=== PATIENT | male | born 1960 | race Caucasian/White ===

== ENCOUNTER 2016-11-03 21:43 | Observation (INO) | payer MEDICAID ==
[2016-11-03 21:56] VITALS: RESP 20; O2SAT 97
--- NOTE | 2016-11-03 22:08 | C.PDOC ---
History Of Present Illness Patient brought in via EMS for acute ETOH intoxication after he was found in the bathroom of a [facility] intoxicated. Denies physical complaints at this time. Time Seen by Provider: 11/03/16 22:07 Chief Complaint (Nursing): Substance Abuse History Per: Patient, EMS History/Exam Limitations: no limitations Onset/Duration Of Symptoms: Hrs Current Symptoms Are (Timing): Still Present Suicide/Self Injury Attempted (Context): None Modifying Factor(s): Alcohol Severity: None Pain Scale Rating Of: 0 Associated Symptoms: denies: Depression, Suicidal Thoughts, Suicidal Plan Involuntary Hold By: None Recent travel outside of the [place]: No Past Medical History Reviewed: Historical Data, Nursing Documentation, Vital Signs Vital Signs: Last Vital Signs Temp 99.4 F 11/04/16 05:21 Pulse 98 H 11/04/16 05:21 Resp 20 11/04/16 05:21 BP 155/83 H 11/04/16 05:21 Pulse Ox 97 11/04/16 05:21 - Medical History PMH: Anemia, CHF, HTN Surgical History: No Surg Hx - [facility] Procedures CENTRAL VENOUS CATHETER PLACEMENT WITH GUIDANCE (11/20/14) DETOXIFICATION SERVICES FOR SUBSTANCE ABUSE TREATMENT (12/17/14) INSERTION OF INFUSION DEV INTO INF VENA CAVA, PERC APPROACH (12/27/14) INTRODUCE OTH ANTI-INFECT IN CENTRAL VEIN, PERC (12/27/14) Family History: States: No Known Family Hx - Social History Hx Alcohol Use: Yes Hx Substance Use: No - Immunization History Hx Tetanus Toxoid Vaccination: No Hx Influenza Vaccination: No Hx Pneumococcal Vaccination: No Review Of Systems Constitutional: Negative for: Fever, Chills Gastrointestinal: Negative for: Nausea, Vomiting, Diarrhea Physical Exam - Physical Exam Appears: Non-toxic, No Acute Distress, Other (ETOH on breath) Skin: Warm, Dry Oral Mucosa: Moist Chest: Symmetrical, No Tenderness Cardiovascular: Rhythm Regular, No Murmur Respiratory: No Rales, No Rhonchi, No Wheezing Gastrointestinal/Abdominal: Soft, No Tenderness Neurological/Psych: Oriented x3 ED Course And Treatment O2 Sat by Pulse Oximetry: 97 (Room air) Pulse Ox Interpretation: Normal Reevaluation Time: 05:27 Reassessment Condition: Improved ED OBSERVATION Discharge: Yes Date of observation admission: 11/03/16 Time of observation admission: 22:10 - Observation admission statement Patient is being placed in observation because:: Acute ETOH intoxication - Goals of Observation Goals of observation are:: Sobriety - Progress Note Progress Note: 11/03/16 22:10 vitals stable 11/04/16 02:29 arousable 11/04/16 04:25 vitals stable Disposition Counseled Patient/Family Regarding: Studies Performed, Diagnosis, Need For Followup - Disposition Disposition: HOME/ ROUTINE Disposition Time: 05:30 Condition: FAIR - Clinical Impression Clinical Impression: Alcohol intoxication - Scribe Statement The provider has reviewed the documentation as recorded by the Scribkrzysztof Larkin All medical record entries made by the Yaoibkrzysztof were at my direction and personally dictated by me. I have reviewed the chart and agree that the record accurately reflects my personal performance of the history, physical exam, medical decision making, and the department course for this patient. I have also personally directed, reviewed, and agree with the discharge instructions and disposition.
[2016-11-04 05:23] VITALS: BP 155/83; PULSE 98; TEMP 99.4
== END 2016-11-04 05:30 | disposition home or self-care (01) ==
LOC: C.ER 21:43 → C.9OBSV 22:08
PROVIDERS: ADMIT Emergency Medicine; ATTEND Emergency Medicine
DX: F10.129 Alcohol abuse with intoxication, unspecified (principal); I11.0 Hypertensive heart disease with heart failure; I50.9 Heart failure, unspecified; Y90.9 Presence of alcohol in blood, level not specified
CPT/HCPCS: 82948; 99285; G0378

== ENCOUNTER 2016-11-07 08:30 | Inpatient (IN) | payer MEDICAID ==
[2016-11-07 08:44] VITALS: BMI 25.7
[2016-11-07] MEDS ORDERED: Multivitamin (MVI) 10 ML, Thiamine 100 MG, Folic Acid 1 MG in Sodium Chloride 0.9% 1,00... IV ONE ×2 (09:29→16:30)
[2016-11-07 09:48] LABS: EOS # 0.1 K/uL (0.0-0.7); LYMPH # 1.4 K/uL (1.0-4.3); MEAN CORPUSCULAR HEMOGLOBIN 31.4 pg (27.0-31.0); MEAN CORPUSCULAR HGB CONC 33.7 g/dL (33.0-37.0); MONO % 16.6 % (0.0-10.0); RED CELL DISTRIBUTION WIDTH 15.6 % (11.5-14.5)
[2016-11-07 09:54] LABS: BASO # 0.1 K/uL (0.0-0.2); BASO % 1.5 % (0.0-2.0); EOS % 1.9 % (0.0-4.0); HEMATOCRIT 34.1 % (35.0-51.0); LYMPH % 23.4 % (20.0-40.0); MEAN CELL VOLUME 93.4 fL (80.0-94.0); MEAN PLATELET VOLUME 11.1 fL (7.2-11.7); NRBC % 0.1 % (0.0-2.0); WHITE BLOOD COUNT 5.8 K/uL (4.8-10.8)
[2016-11-07 10:03] LABS: CHLORIDE 101 mmol/L (98-107)
[2016-11-07 10:04] LABS: POTASSIUM 3.2 mmol/L (3.6-5.2); SODIUM 136 mmol/L (132-148)
[2016-11-07 10:06] LABS: ALB/GLOB RATIO 0.6 (1.0-2.1); ALKALINE PHOSPHATASE 92 U/L (38-126); ALT/SGPT 62 U/L (21-72); AST/SGOT 166 U/L (17-59); BILIRUBIN,TOTAL 5.1 mg/dL (0.2-1.3); BLOOD UREA NITROGEN 14 mg/dL (9-20); CARBON DIOXIDE 26 mmol/L (22-30); GFR AFRICAN-AMERICAN > 60; GLUCOSE,RANDOM 98 mg/dL (75-110); TOTAL PROTEIN 5.6 g/dL (6.3-8.3)
[2016-11-07 10:07] LABS: ALCOHOL SERUM < 10 mg/dl (0-10); CALCIUM 7.2 mg/dl (8.6-10.4)
[2016-11-07 10:16] LABS: RBC URINE 171 /hpf (0-3); URINE BILIRUBIN 2+ (NEGATIVE); URINE BLOOD 3+ (NEGATIVE); URINE COLOR Amber (YELLOW); URINE GLUCOSE (UA) NORMAL (Normal); URINE KETONE TRACE mg/dL (NEGATIVE); URINE LEUKOCYTE ESTERASE TRACE Leu/uL (Negative); URINE PROTEIN 3+ mg/dL (NEGATIVE); WBC URINE 11 /hpf (0-5)
[2016-11-07] MEDS ORDERED: Magnesium Sulfate 1 gm in D5W 1 GM/100 ML BAG IVPB ONE ×3 (10:22→18:00)
[2016-11-07] MEDS ORDERED: Potassium Chloride 20 mEq/15 ml LIQ UD PO STA (10:23)
[2016-11-07] MEDS: Magnesium Sulfate 1 gm in D5W 1 GM/100 ML BAG IVPB SCH ×2 (10:29→11:31)
[2016-11-07] MEDS ORDERED: Potassium Chloride 20 mEq ER Tab PO ONE (10:32)
[2016-11-07 10:37] LABS: PHOSPHOROUS 2.4 mg/dL (2.5-4.5)
--- NOTE | 2016-11-07 10:39 | C.PDOC ---
History Of Present Illness 56 y/o male with hx of 'liver problem' and etoh abuse presents to ED saying he feels weak, and is having trouble walking due to pain in legs. pt sts he hasn't had a drink in 15 days. pt is poor historian and doesn't answer all questions, just stares ahead. Time Seen by Provider: 11/07/16 09:02 Chief Complaint (Nursing): Lower Extremity Problem/Injury History Per: Patient History/Exam Limitations: clinical condition Onset/Duration Of Symptoms: Days Current Symptoms Are (Timing): Still Present Past Medical History Reviewed: Historical Data, Nursing Documentation, Vital Signs Vital Signs: Last Vital Signs Temp 98.7 F 11/07/16 08:44 Pulse 86 11/07/16 10:40 Resp 16 11/07/16 10:40 BP 132/80 11/07/16 10:40 Pulse Ox 100 11/07/16 10:54 - Medical History PMH: Anemia, CHF, HTN Denies: Chronic Kidney Disease Other PMH: alcohol abuse - [facility] Procedures CENTRAL VENOUS CATHETER PLACEMENT WITH GUIDANCE (11/20/14) DETOXIFICATION SERVICES FOR SUBSTANCE ABUSE TREATMENT (12/17/14) INSERTION OF INFUSION DEV INTO INF VENA CAVA, PERC APPROACH (12/27/14) INTRODUCE OTH ANTI-INFECT IN CENTRAL VEIN, PERC (12/27/14) Family History: States: Unknown Family Hx - Social History Hx Alcohol Use: Yes Hx Substance Use: No - Immunization History Hx Tetanus Toxoid Vaccination: No Hx Influenza Vaccination: No Hx Pneumococcal Vaccination: No Review Of Systems Review Of Systems: ROS cannot be obtained secondary to pt's inabilty to answer questions. Gastrointestinal: Negative for: Vomiting, Abdominal Pain Musculoskeletal: Positive for: Other (bilateral knee pain) Skin: Positive for: Jaundice Neurological: Positive for: Confusion. Negative for: Weakness, Numbness Physical Exam - Physical Exam Appears: No Acute Distress, Confused, Chronically Ill Skin: Jaundice Head: Atraumatic, Normacephalic Eye(s): bilateral: Scleral Icterus Nose: Normal Oral Mucosa: Moist Tongue: Other (mild tremors) Teeth: Edentulous Chest: Symmetrical, No Deformity, No Tenderness Cardiovascular: Rhythm Regular, No Murmur Respiratory: Normal Breath Sounds, No Rales, No Rhonchi, No Wheezing Gastrointestinal/Abdominal: Soft, No Tenderness Extremity: Pedal Edema (left +1-2. right +1, left lower leg with mild erythema, calf tenderness, healing wounds, dp pulses not palpated in left or right foot, but heard on doppler. ) Extremity: Bilateral: Other (tremors to hands) Pulses: Left Dorsalis Pedis: Decreased (doppler ), Right Dorsalis Pedis: Decreased (doppler) Neurological/Psych: No Oriented x3 (confused, oriented to self, not to date/ month, knows president), Normal Speech, Normal Motor, Normal Sensation ED Course And Treatment - Laboratory Results Result Diagrams: 11/07/16 09:43 11/07/16 09:43 ECG: Interpreted By Me, Viewed By Me ECG Rhythm: Sinus Rhythm ECG Interpretation: Abnormal Interpretation Of ECG: Prolonged QT Rate From EC (bpm) O2 Sat by Pulse Oximetry: 100 (on RA) Pulse Ox Interpretation: Normal Medical Decision Making Medical Decision Makin am message left for Dr Sylvia Burns [phone] Sylvia Burns; pt in etoh w/d with electrolyte abnl, dec platelets, elevated bili, mild confusion., will admit to his service. Disposition Discussed With .: Marcelino Burns Doctor Will See Patient In The: Hospital - Disposition Disposition Time: 10:51 Condition: SERIOUS Forms: [facility] (Lithuanian) - Clinical Impression Clinical Impression: Alcohol withdrawal, Hypomagnesemia, Jaundice, Thrombocytopenia - PA / SENIOR ADVOCATE / Resident Statement MD/DO has reviewed & agrees with the documentation as recorded. - Scribe Statement The provider has reviewed the documentation as recorded by the Scribe Linsey Burns All medical record entries made by the Scribe were at my direction and personally dictated by me. I have reviewed the chart and agree that the record accurately reflects my personal performance of the history, physical exam, medical decision making, and the department course for this patient. I have also personally directed, reviewed, and agree with the discharge instructions and disposition. Decision To Admit - Pt Status Changed To: Hospital Disposition Of: Inpatient - Admit Certification Admit to Inpatient:: After my assessment, the patient will require hospitalization for at least two midnights. This is because of the severity of symptoms shown, intensity of services needed, and/or the medical risk in this patient being treated as an outpatient. - InPatient: Physician Admission Certification: I certify that this patient requires 2 or more midnights of care for the following reason:: needf electro;yte replacement - . Bed Request Type: Regular Admitting Physician: Marcelino Burns Patient Diagnosis: Alcohol withdrawal, Hypomagnesemia, Jaundice, Thrombocytopenia
--- NOTE | 2016-11-07 11:38 | CT ---
PROCEDURE: CT HEAD WITHOUT CONTRAST. HISTORY: mild confusion, hx etoh abuse COMPARISON: Noncontrast head CT performed 01/28/15 TECHNIQUE: Axial computed tomography images were obtained through the head/brain without intravenous contrast. Radiation dose: Total exam DLP = 981.84 mGy-cm. This CT exam was performed using one or more of the following dose reduction techniques: Automated exposure control, adjustment of the mA and/or kV according to patient size, and/or use of iterative reconstruction technique. FINDINGS: HEMORRHAGE: No intracranial hemorrhage. BRAIN: Diffuse atrophy with prominence of the ventricles and sulci noted. No mass effect or edema. Intracranial atherosclerotic calcifications. Bilateral basal ganglia calcifications. Moderate scattered periventricular and subcortical white matter hypodensities, which are nonspecific, but often seen with chronic microvascular ischemic disease. .Please note that MRI with diffusion imaging is more sensitive in the detection of acute ischemic event. VENTRICLES: No hydrocephalus. CALVARIUM: Unremarkable. PARANASAL SINUSES: Unremarkable as visualized. No significant inflammatory changes. MASTOID AIR CELLS: Under aeration of the left mastoid air cells ; correlate for history of mastoiditis. The right mastoid air cells appear clear. OTHER FINDINGS: None. IMPRESSION: Generalized atrophy. Moderate nonspecific white matter changes. Under aeration of the left mastoid air cells ; correlate for history of mastoiditis.
--- NOTE | 2016-11-07 12:51 | CP.PCM.CON ---
History of Present Illness - History of Present Illness History of Present Illness: 56 y/o male with hx of 'liver problem' and etoh abuse presents to ED saying he feels weak, and is having trouble walking due to pain in legs. pt sts he hasn't had a drink in 15 days. pt is poor historian and doesn't answer all questions, just stares ahead. REFERRED FR ID EVAL CELLULITIS LOWER EXTREM DENIES FEVER - Medical History PMH: Anemia, CHF, HTN Denies: Chronic Kidney Disease Other PMH: alcohol abuse Review of Systems - Constitutional Constitutional: Anorexia - EENT Eyes: absent: As Per HPI, Blind Spots, Blurred Vision, Change in Vision, Decreased Night Vision, Diplopia, Discharge, Dry Eye, Exophthalmos, Floaters, Irritation, Itchy Eyes, Loss of Peripheral Vision, Pain, Photophobia, Requires Corrective Lenses, Sees Flashes, Spots in Vision, Tunnel Vision, Other Visual Disturbances, Loss of Vision, Other Ears: absent: As Per HPI, Decreased Hearing, Ear Discharge, Ear Pain, Tinnitus, Abnormal Hearing, Disequilibrium, Dizziness, Other Nose/Mouth/Throat: absent: As Per HPI, Epistaxis, Nasal Congestion, Nasal Discharge, Nasal Obstruction, Nasal Trauma, Nose Pain, Post Nasal Drip, Sinus Pain, Sinus Pressure, Bleeding Gums, Change in Voice, Dental Pain, Dry Mouth, Dysphagia, Halitosis, Hoarsness, Lip Swelling, Mouth Lesions, Mouth Pain, Odynophagia, Sore Throat, Throat Swelling, Tongue Swelling, Facial Pain, Neck Pain, Neck Mass, Other - Cardiovascular Cardiovascular: absent: As Per HPI, Acrocyanosis, Chest Pain, Chest Pain at Rest , Chest Pain with Activity, Claudication, Diaphoresis, Dyspnea, Dyspnea on Exertion, Edema, Irregular Heart Rhythm, Pain Radiating to Arm/Neck/Jaw, Leg Edema, Leg Ulcers, Lightheadedness, Orthopnea, Palpitations, Paroxysmal Nocturnal Dyspnea, Pedal Edema, Radiating Pain, Rapid Heart Rate, Slow Heart Rate, Syncope, Other - Respiratory Respiratory: absent: As Per HPI, Cough, Dyspnea, Hemoptysis, Dyspnea on Exertion , Wheezing, Snoring, Stridor, Pain on Inspiration, Chest Congestion, Excessive Mucous Production, Change in Mucous Color, Pain with Coughing, Other - Gastrointestinal Gastrointestinal: As Per HPI - Genitourinary Genitourinary: absent: As Per HPI, Change in Urinary Stream, Difficulty Urinating, Dysuria, Flank Pain, Hematuria, Pyuria, Nocturia, Urinary Incontinence, Urinary Frequency, Urinary Hesitance, Urinary Urgency, Voiding Freq/Small Amts, Freq UTI, Hx Renal/Bladder Calculi, Hx /Renal Surgery, Bladder Distension, Other - Musculoskeletal Musculoskeletal: As Per HPI - Integumentary Integumentary: As Per HPI, Skin Pain - Neurological Neurological: absent: As Per HPI, Abnormal Gait, Abnormal Hearing, Abnormal Movements, Abnormal Speech, Behavioral Changes, Burning Sensations, Confusion, Convulsions, Disequilibrium, Dizziness, Numbness, Focal Weakness, Frequent Falls , Headaches, Lack of Coordination, Loss of Vision, Memory Loss, Paresthesias, Radicular Pain, Restless Legs, Sensory Deficit, Syncope, Tingling, Tremor, Vertigo, Weakness, Other Visual Disturbances, Other - Psychiatric Psychiatric: absent: As Per HPI, Abnormal Sleep Pattern, Anhedonia, Anxiety, Auditory Hallucinations, Behavioral Changes, Change in Appetite, Change in Libido, Confusion, Depression, Difficulty Concentrating, Hallucinations, Homicidal Ideation, Hopelessness, Irritability, Memory Loss, Mood Swings, Panic Attacks, Paranoia, Suicidal Ideation, Visual Hallucinations, Tactile Hallucinations, Other - Endocrine Endocrine: absent: As Per HPI, Change in Body Appearance, Change in Libido, Cold Intolorance, Deepening of Voice, Excessive Sweating, Fatigue, Flushing, Heat Intolorance, Increase in Ring/Shoe/Hat Size, Palpitations, Polydipsia, Polyphagia, Polyuria, Other - Hematologic/Lymphatic Hematologic: absent: As Per HPI, Easy Bleeding, Easy Bruising, Lymphadenopathy, Other Past Patient History - Infectious Disease Hx of Infectious Diseases: None - Past Medical History & Family History Past Medical History?: Yes - Past Social History Smoking Status: Never Smoked - CARDIAC Hx Congestive Heart Failure: Yes Hx Hypertension: Yes - PULMONARY Hx Respiratory Disorders: No - NEUROLOGICAL Hx Neurological Disorder: No - HEENT Hx HEENT Problems: No - RENAL Hx Chronic Kidney Disease: No - ENDOCRINE/METABOLIC Hx Endocrine Disorders: No - HEMATOLOGICAL/ONCOLOGICAL Hx Anemia: Yes - INTEGUMENTARY Hx Dermatological Problems: Yes Hx Cellulitis: Yes (right lower extremity) Other/Comment: Right thigh Abscess, Right lower leg cellulitis - MUSCULOSKELETAL/RHEUMATOLOGICAL Hx Musculoskeletal Disorders: No - GASTROINTESTINAL Hx Gastrointestinal Disorders: No Other/Comment: liver problems, Alcohol abuse, - GENITOURINARY/GYNECOLOGICAL Hx Genitourinary Disorders: No - PSYCHIATRIC Hx Substance Use: No - SURGICAL HISTORY Hx Surgeries: No (verbalized by patient) - ANESTHESIA Hx Anesthesia: No Hx Anesthesia Reactions: No Hx Malignant Hyperthermia: No Meds Allergies/Adverse Reactions: Allergies Allergy/AdvReac Type Severity Reaction Status Date / Time No Known Allergies Allergy Verified 11/07/16 09:07 - Medications Medications: Current Medications Multivitamins/Vitamin C 10 ml/Thiamine HCl 100 mg/ Folic Acid 1 mg/ Sodium Chloride 1,011.2 mls @ 100 mls/hr IV .[id number] ONE Stop: 11/07/16 19:35 Last Admin: 11/07/16 10:15 Dose: 100 mls/hr Magnesium Sulfate/Dextrose (Magnesium Sulfate 1 Gm/100 Ml D5w) 1 gm in 100 mls @ 200 mls/hr IVPB ONCE ONE Stop: 11/08/16 13:29 Cefazolin Sodium 1 gm/ Sodium (Chloride) 100 mls @ 100 mls/hr IVPB ONCE ONE Stop: 11/07/16 13:59 Lorazepam (Ativan) 1 mg IVP Q6H PRN PRN Reason: Anxiety Physical Exam - Constitutional Appears: Non-toxic, Cachectic, Chronically Ill - Head Exam Head Exam: NORMOCEPHALIC - Eye Exam Eye Exam: PERRL. absent: Scleral icterus - ENT Exam ENT Exam: Mucous Membranes Dry, Normal External Ear Exam - Neck Exam Neck exam: Negative for: Lymphadenopathy - Respiratory Exam Respiratory Exam: Decreased Breath Sounds - Cardiovascular Exam Cardiovascular Exam: REGULAR RHYTHM - GI/Abdominal Exam GI & Abdominal Exam: Diminished Bowel Sounds, Distended, Soft. absent: Rigid, Tenderness - Rectal Exam Rectal Exam: Deferred - Exam Exam: NORMAL INSPECTION - Extremities Exam Extremities exam: Positive for: pedal edema, tenderness, pedal pulses present. Negative for: calf tenderness - Back Exam Back exam: absent: CVA tenderness (L), CVA tenderness (R), paraspinal tenderness - Neurological Exam Neurological exam: Alert, CN II-XII Intact, Oriented x3, Reflexes Normal - Psychiatric Exam Psychiatric exam: Normal Mood Results - Vital Signs Recent Vital Signs: Last Vital Signs Temp 98.7 F 11/07/16 08:44 Pulse 84 11/07/16 11:32 Resp 18 11/07/16 11:32 BP 137/81 11/07/16 11:32 Pulse Ox 97 11/07/16 11:32 - Labs Result Diagrams: 11/08/16 07:07 11/08/16 07:07 Assessment & Plan (1) Cellulitis and abscess of foot excluding toe Status: Acute (2) Cellulitis and abscess of foot Status: Acute (3) Alcohol withdrawal Status: Acute (4) Hypomagnesemia Status: Acute (5) Jaundice Status: Acute (6) Thrombocytopenia Status: Acute (7) Cellulitis Status: Acute
[2016-11-07] MEDS ORDERED: ceFAZolin 1 GM in Sodium Chloride 0.9% 100 ML IVPB ONE (13:00)
--- NOTE | 2016-11-07 13:42 | CP.PCM.CON ---
<Jessa Burns - Last Filed: 11/07/16 15:27> History of Present Illness - History of Present Illness History of Present Illness: PGY4 Initial GI Note Kitty Burns is a 56M w/ a hx of liver cirrohsis 2/2 Etoh, HTN, CHF, and recurrent cellulites who presented to the Ed with LLE pain. Pt is being actively treated for LLE cellulites. He was found to have elevated LFTs on admission. GI was consulted for elevated LFTs. Pt has been to the ER multiple times for intoxication. He states that his last Etoh consumption was > 15 days ago, though he was brought to the ED 5days ago after being found intoxicated on the floor of a [place] bathroom. Pt currently denies any abd pain. He states that he has in the past had many hospitalizations for hematemesis. Though able to communicate through Gujarati and Pakistani, he is a poor historian. He notes that in the past her was even intubated and had a trach collar for a time 2/2 hematemesis?. He currently denies any symptoms of hemate, mesis. Denies any abd pain, nausea, or vomiting. He cannot recall ever having a colonoscopy, but states that he has had multiple EGDs. He denies any ASA or NSAID use. Denies any BRBPR and melena. A previous Abd U/S in 07/2014 shows a cirrhotic liver with a TIPPS stent, there is also a mention of a hepatic mass. PMHx: HTN, Liver cirrohsis 2/2 EtoH, CHF PSHx: TIPS, Trach and reversal, Scrotal abscess drainage Social Hx: consumes Etoh on a daily basis, but states that his last drink was 15 days ago, states that he does not have a preference with alcohol and states that he only drink 2-4 beers, denies any smoking or illicit drug use Endoscopy hx: denies colonscopy, states that he has had multiple EGDs last one being 5 years ago ROS: 12-point ROS is conducted, other than whats mentioned above its neg. Past Patient History - Infectious Disease Hx of Infectious Diseases: None - Past Medical History & Family History Past Medical History?: Yes - Past Social History Smoking Status: Never Smoked - CARDIAC Hx Congestive Heart Failure: Yes Hx Hypertension: Yes - PULMONARY Hx Respiratory Disorders: No - NEUROLOGICAL Hx Neurological Disorder: No - HEENT Hx HEENT Problems: No - RENAL Hx Chronic Kidney Disease: No - ENDOCRINE/METABOLIC Hx Endocrine Disorders: No - HEMATOLOGICAL/ONCOLOGICAL Hx Anemia: Yes - INTEGUMENTARY Hx Dermatological Problems: Yes Hx Cellulitis: Yes (right lower extremity) Other/Comment: Right thigh Abscess, Right lower leg cellulitis - MUSCULOSKELETAL/RHEUMATOLOGICAL Hx Musculoskeletal Disorders: No - GASTROINTESTINAL Hx Gastrointestinal Disorders: No Other/Comment: liver problems, Alcohol abuse, - GENITOURINARY/GYNECOLOGICAL Hx Genitourinary Disorders: No - PSYCHIATRIC Hx Substance Use: No - SURGICAL HISTORY Hx Surgeries: No (verbalized by patient) - ANESTHESIA Hx Anesthesia: No Hx Anesthesia Reactions: No Hx Malignant Hyperthermia: No Meds Allergies/Adverse Reactions: Allergies Allergy/AdvReac Type Severity Reaction Status Date / Time No Known Allergies Allergy Verified 11/07/16 09:07 - Medications Medications: Current Medications Multivitamins/Vitamin C 10 ml/Thiamine HCl 100 mg/ Folic Acid 1 mg/ Sodium Chloride 1,011.2 mls @ 100 mls/hr IV .Q10H7M ONE Stop: 11/07/16 19:35 Last Admin: 11/07/16 10:15 Dose: 100 mls/hr Magnesium Sulfate/Dextrose (Magnesium Sulfate 1 Gm/100 Ml D5w) 1 gm in 100 mls @ 200 mls/hr IVPB ONCE ONE Stop: 11/08/16 13:29 Cefazolin Sodium 1 gm/ Sodium (Chloride) 100 mls @ 100 mls/hr IVPB ONCE ONE Stop: 11/07/16 13:59 Cefazolin Sodium 1,000 mg/ (Sodium Chloride) 100 mls @ 100 mls/hr IVPB Q8 [facility] Cefazolin Sodium 1,000 mg/ (Sodium Chloride) 50 mls @ 100 mls/hr IVPB Q12H [facility] Lorazepam (Ativan) 1 mg IVP Q6H PRN PRN Reason: Anxiety Physical Exam - Constitutional Appears: Non-toxic, Unkempt, Chronically Ill - Head Exam Head Exam: ATRAUMATIC, NORMOCEPHALIC - Eye Exam Eye Exam: Scleral icterus - ENT Exam ENT Exam: Mucous Membranes Dry - Respiratory Exam Respiratory Exam: Clear to Auscultation Bilateral, NORMAL BREATHING PATTERN. absent: Rales, Rhonchi, Wheezes - Cardiovascular Exam Cardiovascular Exam: REGULAR RHYTHM, +S1, +S2, Systolic Murmur - GI/Abdominal Exam GI & Abdominal Exam: Distended, Organomegaly. absent: Firm, Guarding, Rigid, Soft, Tenderness Additional comments: enlarged liver, nontender - Extremities Exam Additional comments: LLE erythema and swelling - Neurological Exam Neurological exam: Altered, Oriented x3 - Psychiatric Exam Psychiatric exam: Flat Affect, Normal Mood - Skin Skin Exam: Dry, Erythema, Warm Additional comments: jandice Results - Vital Signs Recent Vital Signs: Last Vital Signs Temp 98.2 F 11/07/16 13:03 Pulse 85 11/07/16 13:03 Resp 20 11/07/16 13:03 BP 144/92 H 11/07/16 13:03 Pulse Ox 99 11/07/16 13:03 - Labs Result Diagrams: 11/07/16 09:43 11/07/16 09:43 Assessment & Plan - Assessment and Plan (Free Text) Assessment: Kitty Burns is a 56M w/ hx of Cirrohisis 2/2 Etoh s/p TIPS, HTN, CHF who presents with LLE cellulitis. He was found to have elevated LFTs and jaundice. Etiology: unknown; DDx: Acute alcoholic hepatitis, r/o viral etiology, r/o malignancy. Acute Liver failure, etiology likely 2/2 EtoH; r/o infectious and malignancy Painless jaundice, likely 2/2 to above Alcoholic Liver Cirrohsis, still consuming Etoh Hx of upper GI bleed likely varicies, s/p TIPS thrombocytopenia, likely 2/2 bone marrow suppression from chronic EtOH consumption, r/o portal or splenic vein thrombosis Plan: -continue supportive protocol for etoh withdrawal -Prior U/S(2014) revealed a 1.7cm lesion in the liver, will need CT Liver to eval -Get an acute hep panel -will need daily MELD labs -will need INR today to calculate MELD and DF -will get alpha protein -diet as tolerated -will start on lactulose for hep enceph -will need aggressive electrolyte replenishment -recommend checking Phosphorous levels, and watch for refeeding syndrome in the next few days -continue other supportive care Will D/W Dr. Cortez <Wing Cortez - Last Filed: 11/07/16 15:44> Meds - Medications Medications: Current Medications Multivitamins/Vitamin C 10 ml/Thiamine HCl 100 mg/ Folic Acid 1 mg/ Sodium Chloride 1,011.2 mls @ 100 mls/hr IV .Q10H7M ONE Stop: 11/07/16 19:35 Last Admin: 11/07/16 10:15 Dose: 100 mls/hr Magnesium Sulfate/Dextrose (Magnesium Sulfate 1 Gm/100 Ml D5w) 1 gm in 100 mls @ 200 mls/hr IVPB ONCE ONE Stop: 11/08/16 13:29 Cefazolin Sodium 1,000 mg/ (Sodium Chloride) 100 mls @ 100 mls/hr IVPB Q8 [facility] Cefazolin Sodium 1,000 mg/ (Sodium Chloride) 50 mls @ 100 mls/hr IVPB Q12H [facility] Lactulose (Enulose) 20 gm PO HS [facility] Lorazepam (Ativan) 1 mg IVP Q6H PRN PRN Reason: Anxiety Pneumococcal Polyvalent Vaccine (Pneumovax 23 Vaccine) 0.5 ml IM .ONCE ONE Stop: 11/09/16 10:01 Results - Vital Signs Recent Vital Signs: Last Vital Signs Temp 98.2 F 11/07/16 13:03 Pulse 85 11/07/16 13:03 Resp 20 11/07/16 13:03 BP 144/92 H 11/07/16 13:03 Pulse Ox 99 11/07/16 13:03 - Labs Result Diagrams: 11/07/16 09:43 11/07/16 09:43 Attending/Attestation - Attestation I have personally seen and examined this patient.: Yes I have fully participated in the care of the patient.: Yes I have reviewed all pertinent clinical information: Yes Notes (Text): 11/07/16 15:35 I have seen and examined patient with GI fellow. Agree with above documentation with the following additions. In brief, this is a 56 year old male with history of decompensated cirrhosis s/p TIPS likely secondary to ETOH abuse, HTN, CHF, who presents to hospital with complaint of lower extremity skin rash and is currently being treated for cellulitis. GI called for evaluation of cirrhosis. Patient is slightly confused at bedside and seen sitting in bed covered with urine. When spoken in his [place] language, he is alert and oriented x 3 but does not recall being incontinent of urine. He denies abdominal pain, nausea, vomiting, fever/chills, weight loss, rectal bleeding, or change in bowel habits. He has had prior episodes of upper GI bleeding with multiple EGDs, no prior colonoscopy. He admits to ongoing ETOH abuse with his last drink supposedly 15 days ago, though documentation from ER staff supports more recent consumption. Decompensated cirrhosis, likely secondary to ETOH abuse Jaundice Refractory upper GI bleeding, s/p TIPS HTN CHF Cellulitis Altered mental status - hepatic encephalopathy vs ETOH withdrawal - Low sodium diet as tolerated - Continue with antibiotic therapy as per ID - H/H stable, continue to monitor - Begin lactulose, titrate so patient has 2-3 bowel movements daily - Obtain INR so that MELD can be calculated - Prior abdominal US from 2014 showed a hypodense liver lesion, will need triple phase liver CT to evaluate for possible HCC. Obtain AFP. - Obtain viral hepatitis panel, continue to monitor LFTs - Continue with supportive care, monitor and replete electrolytes - Overall patient prognosis is poor in setting of decompensated cirrhosis, particularly given ongoing ETOH abuse
[2016-11-07] MEDS ORDERED: Iodixanol 320 MG/ML 100 ML BOTTLE IV ONE (17:32)
[2016-11-07 18:05] LABS: INR 1.6
[2016-11-07] MEDS: Metoprolol Succinate 50 mg XL Tab PO SCH (20:21)
--- NOTE | 2016-11-08 02:18 | HP ---
HISTORY OF PRESENT ILLNESS: This is a 56-year-old [place] male came to the emergency room with history of generalized fatigue and weakness. The patient claims he has left knee pain. The patient denies having any fall. The patient states he has not had a drink in the last 15 days. The patient appears to be in alcohol withdrawal. The patient is a noncompliant. The patient has history of cirrhosis of liver and hypertension. The patient denies nausea, vomiting, or abdominal pain. Both legs are swollen. Left leg redness present. REVIEW OF SYSTEMS: CARDIOVASCULAR SYSTEM: Negative for chest pain. RESPIRATORY SYSTEM: Negative for shortness of breath. No cough. GASTROINTESTINAL SYSTEM: No nausea, vomiting, or diarrhea. CENTRAL NERVOUS SYSTEM: Generalized weakness present. No dizziness. PSYCHIATRIC: Psychiatrically the patient is in withdrawal. Complained of back pain. No urinary complaints. Complained of left knee and leg pain. Edema of the legs presents. PAST MEDICAL HISTORY: History of hypertension, anemia, CHF, chronic ETOH, and cirrhosis of the liver. FAMILY HISTORY: No known family history. ALLERGIES: NO KNOWN ALLERGY. SOCIAL HISTORY: Alcohol present. No substance abuse. MEDICATIONS: The patient is not on any medications. PHYSICAL EXAMINATION: GENERAL: This is a 56-year-old male awake, appears confused with tremors. VITAL SIGNS: Temperature 98.7, pulse 86, respirations 16, blood pressure 132/80 mmHg, pulse oximetry is 100% at room air. HEENT: Normal. NECK: JVP is flat. Carotids, no bruits. LUNGS: No rales. No wheezing. HEART: S1 and S2 normal. No gallop. No murmur. ABDOMEN: Soft and nontender. No ascites. No mass. CENTRAL NERVOUS SYSTEM: No focal neurological deficits. EXTREMITIES: Left knee appears normal. Below the knee the patient has leg and foot redness. Cellulitis present. Edema of the leg is present. The patient has poor peripheral pulses in the legs. No evidence of gangrene. LABORATORY DATA: On admission, lab work shows hemoglobin 11.5, platelet of 51,000. Potassium is 3.2, BUN is elevated. IMPRESSION: 1. Alcohol withdrawal. 2. Hypomagnesemia. 3. Cirrhosis of the liver. 4. Thrombocytopenia. 5. Left leg and foot cellulitis. 6. Hypertension. PLAN: The patient will be admitted to the floor. We will get gastrointestinal evaluation done. We will give Ativan for withdrawal. Other workup as needed. Marcelino Burns MD
[2016-11-08 07:24] LABS: BASO # 0.1 K/uL (0.0-0.2); BASO % 1.4 % (0.0-2.0); EOS # 0.1 K/uL (0.0-0.7); EOS % 1.3 % (0.0-4.0); LYMPH # 1.5 K/uL (1.0-4.3); LYMPH % 18.6 % (20.0-40.0); MEAN CELL VOLUME 94.5 fL (80.0-94.0); MEAN CORPUSCULAR HEMOGLOBIN 31.6 pg (27.0-31.0); MEAN CORPUSCULAR HGB CONC 33.5 g/dL (33.0-37.0); MEAN PLATELET VOLUME 10.9 fL (7.2-11.7); MONO # 1.3 K/uL (0.0-0.8); MONO % 16.2 % (0.0-10.0); NRBC % 0.1 % (0.0-2.0); RED CELL DISTRIBUTION WIDTH 15.3 % (11.5-14.5)
[2016-11-08 07:36] LABS: CHLORIDE 105 mmol/L (98-107); SODIUM 138 mmol/L (132-148)
[2016-11-08 07:37] LABS: POTASSIUM 3.9 mmol/L (3.6-5.2)
[2016-11-08 07:38] LABS: GFR AFRICAN-AMERICAN > 60
[2016-11-08 07:39] LABS: ALB/GLOB RATIO 0.5 (1.0-2.1); ALKALINE PHOSPHATASE 85 U/L (38-126); ALT/SGPT 55 U/L (21-72); AST/SGOT 133 U/L (17-59); BILIRUBIN,TOTAL 5.8 mg/dL (0.2-1.3); BLOOD UREA NITROGEN 12 mg/dL (9-20); CALCIUM 7.2 mg/dl (8.6-10.4); CARBON DIOXIDE 25 mmol/L (22-30); GLUCOSE,RANDOM 96 mg/dL (75-110); TOTAL PROTEIN 5.4 g/dL (6.3-8.3)
[2016-11-08 07:40] LABS: MAGNESIUM 1.3 mg/dL (1.6-2.3)
[2016-11-08] MEDS ORDERED: Multivitamin (MVI) 10 ML, Thiamine 100 MG, Folic Acid 1 MG in Sodium Chloride 0.9% 1,00... IV ONE (10:00)
--- NOTE | 2016-11-08 10:00 | VASCLAB ---
PROCEDURE: Left Lower Extremity Venous Duplex Exam. HISTORY: Left leg pain and swelling PRIORS: None. TECHNIQUE: Left common femoral, femoral, popliteal and posterior tibial, peroneal and great saphenous veins were evaluated. Flow was assessed with color Doppler, compressibility, assessment of phasic flow and augmentation response. Report prepared by HEDY Dugan FINDINGS: LEFT: 1. Common Femoral Vein: 1.1. Compressibility - Fully compressible: Thrombus - None : Flow - Phasic: Augmentation -Normal: Reflux - None. 2. Femoral Vein: 2.1. Compressibility - Fully compressible: Thrombus - None: Flow - Phasic: Augmentation -Normal: Reflux - None. 3. Popliteal Vein: 3.1. Compressibility - Fully compressible: Thrombus - None: Flow - Phasic: Augmentation -Normal: Reflux - None. 4. Posterior Tibial Vein: 4.1. Compressibility - Fully compressible: Thrombus - None: Flow - Phasic: Augmentation -Normal: Reflux - None. 5. Peroneal Vein: 5.1. Compressibility - Fully compressible: Thrombus - None: Flow - Phasic: Augmentation -Normal: Reflux - None. 6. Great Saphenous Vein: 6.1. Compressibility - Fully compressible: Thrombus - None: Flow - Phasic: Augmentation - Normal: Reflux - None. OTHER FINDINGS: There is a non vascularized mass noted in the left groin area, measuring 1.22 x 3.94 c.m., possibly and enlarged lymph node. IMPRESSION: No evidence of deep or superficial vein thrombosis of the left lower extremity with excellent venous flow. Normal valve function noted of the left side. Normal venous flow noted in the right common femoral vein.
[2016-11-08] MEDS: Pantoprazole 40 mg EC Tab PO SCH (10:27)
[2016-11-08] MEDS: Metoprolol Succinate 50 mg XL Tab PO SCH (10:27)
[2016-11-08] MEDS: Multiple Vitamins Tab PO SCH (10:27)
--- NOTE | 2016-11-08 11:07 | CT ---
PROCEDURE: CT Abdomen with and without intravenous contrast HISTORY: COMPARISON: 11/20/2014 TECHNIQUE: Axial images of the abdomen from lung bases to iliac crest with and without intravenous contrast enhancement. Coronal and sagittal reformats generated. Postcontrast images were acquired in the hepatic arterial and portal venous phases of enhancement. Oral contrast was not administered. Intravenous contrast Dose: 100 mL Visipaque 320 Radiation dose: Total exam DLP = 1338.83 mGy-cm. This CT exam was performed using one or more of the following dose reduction techniques: Automated exposure control, adjustment of the mA and/or kV according to patient size, and/or use of iterative reconstruction technique. FINDINGS: LOWER THORAX: Questionable pleural thickening versus small pleural effusion bilaterally. No infiltrate. Small hiatal hernia. LIVER: Nodular hepatic contour consistent with cirrhosis. TIPS stent noted. The TIPS stent lumen appears to enhance with intravenous contrast administration in consistent with patency. There is an 8 mm rounded low-attenuation lesion in the medial segment of the left hepatic lobe. This is unchanged compared to the prior examination of 11/20/2014 there is no other hepatic mass identified. There is no evidence of abnormal focal enhancement during the hepatic arterial phase. There is no intrahepatic biliary ductal dilatation. GALLBLADDER AND BILE DUCTS: No calcified gallstones identified. Minimal diffuse mural thickening, nonspecific. PANCREAS: Unremarkable. No gross lesion or ductal dilatation. SPLEEN: Unremarkable. ADRENALS: Unremarkable. No mass. KIDNEYS AND URETERS: 9 mm rounded low-density mass in the upper pole left kidney, nonspecific. Likely renal cyst but too small to accurately evaluate. VASCULATURE: Unremarkable. No aortic aneurysm. BOWEL: Unremarkable. No obstruction. No gross mural thickening. APPENDIX: Not included PERITONEUM: Unremarkable. No free fluid. No free air. LYMPH NODES: Unremarkable. No enlarged lymph nodes. BONES: No acute fracture. Grade 1 retrolisthesis at L5-S1 unchanged from examination of 11/20/2014. OTHER FINDINGS: None. IMPRESSION: No evidence of hepatocellular neoplasm. No evidence of pancreatic neoplasm. Hepatic cirrhosis. Patent TIPS stent. Patent portal vein. No evidence of biliary ductal obstruction. Minor findings as above.
--- NOTE | 2016-11-08 12:35 | CP.PCM.PN ---
Subjective - Date & Time of Evaluation Date of Evaluation: 11/08/16 Time of Evaluation: 12:30 - Subjective Subjective: CONFUSED. DISORIENTED. DELIRIUS. AFEBRILE. CELLULTIS OF LT LEG PRESENT. RT THIGH OPEN BLISTED. MALNOURISHED. POOR APPETITE. K WNL. ABN LFTS. Objective - Vital Signs/Intake and Output Vital Signs (last 24 hours): Temp Pulse Resp BP Pulse Ox 98.2 F 85 21 136/84 99 11/07/16 16:00 11/07/16 16:00 11/07/16 16:00 11/07/16 16:00 11/07/16 16:00 Intake and Output: 11/08/16 11/08/16 06:59 18:59 Intake Total 800 Balance 800 - Medications Medications: Current Medications Amlodipine Besylate (Norvasc) 10 mg PO DAILY [facility] Last Admin: 11/08/16 10:26 Dose: 10 mg Magnesium Sulfate/Dextrose (Magnesium Sulfate 1 Gm/100 Ml D5w) 1 gm in 100 mls @ 200 mls/hr IVPB ONCE ONE Stop: 11/08/16 13:29 Cefazolin Sodium 1,000 mg/ (Sodium Chloride) 100 mls @ 100 mls/hr IVPB Q8 [facility] Last Admin: 11/08/16 06:05 Dose: 100 mls/hr Multivitamins/Vitamin C 10 ml/Thiamine HCl 100 mg/ Folic Acid 1 mg/ Sodium Chloride 1,011.2 mls @ 70 mls/hr IV .[id number] ONE Stop: 11/09/16 00:26 Last Admin: 11/08/16 10:27 Dose: 70 mls/hr Lactulose (Enulose) 20 gm PO TID [facility] Last Admin: 11/08/16 10:26 Dose: 20 gm Lorazepam (Ativan) 2 mg IVP Q8H PRN; Taper PRN Reason: Symptoms of alcohol withdrawl Stop: 11/12/16 19:44 Last Admin: 11/08/16 06:11 Dose: 2 mg Metoprolol Succinate (Toprol Xl) 50 mg PO DAILY [facility] Last Admin: 11/08/16 10:27 Dose: 50 mg Multivitamins (Hexavitamin) 1 tab PO DAILY [facility] Last Admin: 11/08/16 10:27 Dose: 1 tab Pantoprazole Sodium (Protonix Ec Tab) 40 mg PO DAILY [facility] Last Admin: 11/08/16 10:27 Dose: 40 mg Pneumococcal Polyvalent Vaccine (Pneumovax 23 Vaccine) 0.5 ml IM .ONCE ONE Stop: 11/09/16 10:01 Spironolactone (Aldactone) 25 mg PO DAILY [facility] Last Admin: 11/08/16 10:26 Dose: 25 mg Thiamine HCl (Vitamin B1 Tab) 100 mg PO BID [facility] Last Admin: 11/08/16 10:27 Dose: 100 mg - Labs Labs: 11/08/16 07:07 11/08/16 07:07 PT 17.9 SECONDS (9.7-12.2) H 11/07/16 17:06 INR 1.6 11/07/16 17:06 APTT 35 SECONDS (21-34) H 11/07/16 17:06 - Constitutional Appears: Toxic, In Acute Distress, Chronically Ill - Eye Exam Eye Exam: PERRL, Scleral icterus - ENT Exam ENT Exam: Mucous Membranes Moist - Neck Exam Neck Exam: Normal Inspection - Respiratory Exam Respiratory Exam: Clear to Ausculation Bilateral, NORMAL BREATHING PATTERN - Cardiovascular Exam Cardiovascular Exam: REGULAR RHYTHM, +S1, +S2 - GI/Abdominal Exam GI & Abdominal Exam: Soft, Normal Bowel Sounds - Exam External exam: Erythema, Swelling - Extremities Exam Extremities Exam: Pedal Edema - Psychiatric Exam Psychiatric exam: Agitated Assessment and Plan - Assessment and Plan (Free Text) Assessment: DELIRIUM TREMENS. ALCOHOL WITHDRAWAL. CELLULITIS. HTN. Plan: FOR ATIVAN IV. IV ABTS. PER ORDER.
[2016-11-08] MEDS ORDERED: Magnesium Sulfate 1 gm in D5W 1 GM/100 ML BAG IVPB ONE (13:00)
[2016-11-08 14:14] LABS: INR 1.7
--- NOTE | 2016-11-08 14:54 | CON ---
DATE: 11/07/2016 REFERRING PHYSICIAN: Dr. Jovita Burns. CHIEF COMPLAINT/REASON FOR CONSULTATION: The patient is referred by Dr. Jovita Burns. The patient has a history of alcohol dependence. The patient noted to be restless, seems to be going to withdrawal. HISTORY OF PRESENT ILLNESS: This is the case of 56-year-old male of descent with a 36-year history of alcohol dependence. The patient has been drinking for many years, but states he has not been drinking in the last few days. The patient referred for comanagement with the patient having change in mental status. He was very restless and anxious. On that note in the chart, the patient was noted he last drank more than 15 days ago and noted also that he was found at the floor of [place] 5 days ago, he was intoxicated. The patient cannot give much clear history, but states that he has tried to stop drinking. He has history of end-stage liver disease because of drinking, the patient states that he drinks only beer, no hard drinks, but reports he was drinking more in the past. He states that he has been drinking for 36 years, but no clear cut history of being sober. Today, he was very restless, confused, trying to get out of bed, and currently one-to-one watch. The patient also wants to go home, but insists that he is not drinking. PAST MEDICAL HISTORY: He denies any prior inpatient treatment, but the patient has history of being detox in the past. Past medical history of end-stage liver disease, history of cirrhosis, CHF, and hypertension. SOCIAL HISTORY: Alcohol history, the patient has 36 years of drinking, last drink was about 2 weeks ago, he was drinking beer. The patient has no history of illicit drug use. ALLERGIES: THE PATIENT HAS NO KNOWN ALLERGIES. PSYCHOSOCIAL HISTORY: Born and raised in [place]. He is living with sister. He is not working at this time. CURRENT MEDICATIONS: The patient is on: 1. Ativan 2 mg IV q. 8 hours p.r.n. 2. Spironolactone. 3. Cefazolin. 4. Multivitamins. 5. Metoprolol. 6. Protonix. 7. Norvasc. PHYSICAL EXAMINATION VITAL SIGNS: Temperature is 98.2, pulse is 85, blood pressure is 136/84, respirations are 21, and oxygen saturation is 99%. GENERAL: The patient is alert but confused, seen with supervisor travel trailer. The patient speaks mostly Gujarati. SKIN: No diaphoresis. HEENT: No headache and no dizziness. NECK: Supple. RESPIRATORY: No dyspnea. CARDIOVASCULAR: No chest pain. GASTROINTESTINAL: No nausea, no vomiting. EXTREMITIES: Very tremulous. MUSCULOSKELETAL: Steady gait. NEUROLOGICAL: Alert, but in confusion. GENITOURINARY: No dysuria. MENTAL STATUS EXAMINATION: A middle-aged male, height of 5 feet 5 inches and weight is 155 pounds. Mood is anxious, dysphoric and oriented x2. Speech is spontaneous. Thought process is confused off and on. Thought content; the patient wants to go home. He seems to be responding internal stimuli, and no suicidal ideation. No overt paranoia. Attention and memory seem to be limited. Insight and judgement is limited . Impulse control is guarded at this time. LABORATORY DATA: On review of his labs, his alcohol is less than 10. Drug screen is negative. Magnesium is low 1, lipase is 170, AST is 166, ALT is 62, and ammonia is 28. IMPRESSION: History of alcohol dependence with possible alcohol withdrawal delirium. PLAN AND RECOMMENDATION: The patient was seen. Medications reviewed. We will put the patient on Ativan taper as ordered. We will also put on thiamine 100 mg p.o. b.i.d. We will continue IV hydration as ordered. We will keep one-to-one for safety. Continue treatment plan as outlined. The patient seen today, states he will try to stop drinking, but his motivation to stop drinking is highly questionable at this time. The patient will benefit from going to inpatient alcohol rehab if he is interested once he is detoxed and once he is more medically stable. The patient has end-stage liver disease, which is motivation to stop drinking.is very poor at this time. Ramón Almendarez MD [facility]
--- NOTE | 2016-11-08 15:45 | CP.PCM.PN ---
<Jessa Burns - Last Filed: 11/08/16 15:49> Subjective - Date & Time of Evaluation Date of Evaluation: 11/08/16 Time of Evaluation: 07:00 - Subjective Subjective: PGY4 GI Follow-up Note Pt seen and examined bedside Confused and agitated able to tell me date and person Denies any abd pain 3-4BM last night as per nursing staff ROS; could not obtain 2/2 mental status Objective - Vital Signs/Intake and Output Vital Signs (last 24 hours): Temp Pulse Resp BP Pulse Ox 98.5 F 85 20 103/64 98 11/08/16 14:22 11/08/16 14:22 11/08/16 14:22 11/08/16 14:22 11/08/16 14:22 Intake and Output: 11/08/16 11/08/16 06:59 18:59 Intake Total 800 660 Balance 800 660 - Medications Medications: Current Medications Amlodipine Besylate (Norvasc) 10 mg PO DAILY [facility] Last Admin: 11/08/16 10:26 Dose: 10 mg Cefazolin Sodium 1,000 mg/ (Sodium Chloride) 100 mls @ 100 mls/hr IVPB Q8 [facility] Last Admin: 11/08/16 14:14 Dose: 100 mls/hr Multivitamins/Vitamin C 10 ml/Thiamine HCl 100 mg/ Folic Acid 1 mg/ Sodium Chloride 1,011.2 mls @ 70 mls/hr IV .[id number] ONE Stop: 11/09/16 00:26 Last Admin: 11/08/16 10:27 Dose: 70 mls/hr Lactulose (Enulose) 20 gm PO TID [facility] Last Admin: 11/08/16 14:14 Dose: 20 gm Lorazepam (Ativan) 2 mg IVP Q8H PRN; Taper PRN Reason: Symptoms of alcohol withdrawl Stop: 11/12/16 19:44 Last Admin: 11/08/16 06:11 Dose: 2 mg Metoprolol Succinate (Toprol Xl) 50 mg PO DAILY [facility] Last Admin: 11/08/16 10:27 Dose: 50 mg Multivitamins (Hexavitamin) 1 tab PO DAILY [facility] Last Admin: 11/08/16 10:27 Dose: 1 tab Pantoprazole Sodium (Protonix Ec Tab) 40 mg PO DAILY [facility] Last Admin: 11/08/16 10:27 Dose: 40 mg Pneumococcal Polyvalent Vaccine (Pneumovax 23 Vaccine) 0.5 ml IM .ONCE ONE Stop: 11/09/16 10:01 Spironolactone (Aldactone) 25 mg PO DAILY [facility] Last Admin: 11/08/16 10:26 Dose: 25 mg Thiamine HCl (Vitamin B1 Tab) 100 mg PO BID [facility] Last Admin: 11/08/16 10:27 Dose: 100 mg - Labs Labs: 11/08/16 07:07 11/08/16 07:07 PT 20.3 SECONDS (9.7-12.2) H 11/08/16 13:47 INR 1.7 11/08/16 13:47 APTT 35 SECONDS (21-34) H 11/07/16 17:06 - Constitutional Appears: Agitated, Confused, Chronically Ill - Head Exam Head Exam: ATRAUMATIC, NORMOCEPHALIC - Eye Exam Eye Exam: Scleral icterus - ENT Exam ENT Exam: Mucous Membranes Dry - Respiratory Exam Respiratory Exam: Clear to Ausculation Bilateral, NORMAL BREATHING PATTERN. absent: Rales, Rhonchi, Wheezes - Cardiovascular Exam Cardiovascular Exam: REGULAR RHYTHM, RRR, +S1, +S2, Murmur - GI/Abdominal Exam GI & Abdominal Exam: Soft, Normal Bowel Sounds, Organomegaly. 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 He was found to have elevated LFTs and jaundice. Etiology: unknown; DDx: Acute alcoholic hepatitis, r/o viral etiology, r/o malignancy. Decompensated Liver cirhosis, etiology likely 2/2 EtoH; r/o infectious and malignancy Painless jaundice, likely 2/2 to above Alcoholic Liver Cirrohsis, still consuming Etoh Hx of upper GI bleed likely varicies, s/p TIPS Thrombocytopenia, likely 2/2 bone marrow suppression from chronic EtOH consumption, r/o portal or splenic vein thrombosis Plan: -MELD:19 -continue supportive protocol for etoh withdrawal -Prior U/S(2014) revealed a 1.7cm lesion in the liver, will need CT Liver to eval -Hep panel neg; alpha feto WNL -will need daily MELD labs -diet as tolerated -titrate lactulose for hep enceph to 2-3 BM daily -will need aggressive electrolyte replenishment -recommend checking Phosphorous levels, and watch for refeeding syndrome in the next few days -continue other supportive care D/W Dr. Cortez <Wing Cortez - Last Filed: 11/08/16 18:03> Objective - Vital Signs/Intake and Output Vital Signs (last 24 hours): Temp Pulse Resp BP Pulse Ox 98.5 F 85 20 103/64 98 11/08/16 14:22 11/08/16 14:22 11/08/16 14:22 11/08/16 14:22 11/08/16 14:22 Intake and Output: 11/08/16 11/08/16 06:59 18:59 Intake Total 800 660 Balance 800 660 - Medications Medications: Current Medications Amlodipine Besylate (Norvasc) 10 mg PO DAILY [facility] Last Admin: 11/08/16 10:26 Dose: 10 mg Cefazolin Sodium 1,000 mg/ (Sodium Chloride) 100 mls @ 100 mls/hr IVPB Q8 [facility] Last Admin: 11/08/16 14:14 Dose: 100 mls/hr Multivitamins/Vitamin C 10 ml/Thiamine HCl 100 mg/ Folic Acid 1 mg/ Sodium Chloride 1,011.2 mls @ 70 mls/hr IV .[id number] ONE Stop: 11/09/16 00:26 Last Admin: 11/08/16 10:27 Dose: 70 mls/hr Lactulose (Enulose) 20 gm PO TID [facility] Last Admin: 11/08/16 14:14 Dose: 20 gm Lorazepam (Ativan) 2 mg IVP Q8H PRN; Taper PRN Reason: Symptoms of alcohol withdrawl Stop: 11/12/16 19:44 Last Admin: 11/08/16 06:11 Dose: 2 mg Metoprolol Succinate (Toprol Xl) 50 mg PO DAILY [facility] Last Admin: 11/08/16 10:27 Dose: 50 mg Multivitamins (Hexavitamin) 1 tab PO DAILY [facility] Last Admin: 11/08/16 10:27 Dose: 1 tab Pantoprazole Sodium (Protonix Ec Tab) 40 mg PO DAILY [facility] Last Admin: 11/08/16 10:27 Dose: 40 mg Pneumococcal Polyvalent Vaccine (Pneumovax 23 Vaccine) 0.5 ml IM .ONCE ONE Stop: 11/09/16 10:01 Spironolactone (Aldactone) 25 mg PO DAILY [facility] Last Admin: 11/08/16 10:26 Dose: 25 mg Thiamine HCl (Vitamin B1 Tab) 100 mg PO BID [facility] Last Admin: 11/08/16 10:27 Dose: 100 mg - Labs Labs: 11/08/16 07:07 11/08/16 07:07 PT 20.3 SECONDS (9.7-12.2) H 11/08/16 13:47 INR 1.7 11/08/16 13:47 APTT 35 SECONDS (21-34) H 11/07/16 17:06 Attending/Attestation - Attestation I have personally seen and examined this patient.: Yes I have fully participated in the care of the patient.: Yes I have reviewed all pertinent clinical information, including history, physical exam and plan: Yes Notes (Text): 11/08/16 17:59 I have seen and examined patient with GI fellow. No acute events overnight, he was agitated today received ativan and therefore appears lethargic. No reported abdominal pain, nausea, vomiting, fever/chills. He had 3 loose brown bowel movements today. Review of vitals from today are normal. Decompensated ETOH cirrhosis s/p TIPS Altered mental status - hepatic encephalopathy CHF Cellulitis of lower extremity - Clear liquid diet as tolerated - Management of ETOH withdrawal as per medical team - Continue with lactulose therapy for HE prevention, titrate so patient has 3 BMs daily - Continue with antibiotic therapy as per ID - Triple phase liver CT reviewed by me showing no focal liver lesions - LFTs stable, continue to monitor - Will continue to monitor patient clinical course
--- NOTE | 2016-11-08 19:04 | CP.PCM.PN ---
Subjective - Date & Time of Evaluation Date of Evaluation: 11/08/16 Time of Evaluation: 07:00 - Subjective Subjective: CONFUSED CULTURESPENDING IV RX IN PROGRESS CELLULITIS + Objective - Vital Signs/Intake and Output Vital Signs (last 24 hours): Temp Pulse Resp BP Pulse Ox 98.5 F 85 20 103/64 98 11/08/16 14:22 11/08/16 14:22 11/08/16 14:22 11/08/16 14:22 11/08/16 14:22 Intake and Output: 11/08/16 11/09/16 18:59 06:59 Intake Total 660 Balance 660 - Medications Medications: Current Medications Amlodipine Besylate (Norvasc) 10 mg PO DAILY [facility] Last Admin: 11/08/16 10:26 Dose: 10 mg Cefazolin Sodium 1,000 mg/ (Sodium Chloride) 100 mls @ 100 mls/hr IVPB Q8 [facility] Last Admin: 11/08/16 14:14 Dose: 100 mls/hr Multivitamins/Vitamin C 10 ml/Thiamine HCl 100 mg/ Folic Acid 1 mg/ Sodium Chloride 1,011.2 mls @ 70 mls/hr IV .[id number] ONE Stop: 11/09/16 00:26 Last Admin: 11/08/16 10:27 Dose: 70 mls/hr Lactulose (Enulose) 20 gm PO TID [facility] Last Admin: 11/08/16 18:41 Dose: 20 gm Lorazepam (Ativan) 2 mg IVP Q8H PRN; Taper PRN Reason: Symptoms of alcohol withdrawl Stop: 11/12/16 19:44 Last Admin: 11/08/16 06:11 Dose: 2 mg Metoprolol Succinate (Toprol Xl) 50 mg PO DAILY [facility] Last Admin: 11/08/16 10:27 Dose: 50 mg Multivitamins (Hexavitamin) 1 tab PO DAILY [facility] Last Admin: 11/08/16 10:27 Dose: 1 tab Pantoprazole Sodium (Protonix Ec Tab) 40 mg PO DAILY [facility] Last Admin: 11/08/16 10:27 Dose: 40 mg Pneumococcal Polyvalent Vaccine (Pneumovax 23 Vaccine) 0.5 ml IM .ONCE ONE Stop: 11/09/16 10:01 Spironolactone (Aldactone) 25 mg PO DAILY [facility] Last Admin: 11/08/16 10:26 Dose: 25 mg Thiamine HCl (Vitamin B1 Tab) 100 mg PO BID [facility] Last Admin: 11/08/16 10:27 Dose: 100 mg - Labs Labs: 11/08/16 07:07 11/08/16 07:07 PT 20.3 SECONDS (9.7-12.2) H 11/08/16 13:47 INR 1.7 11/08/16 13:47 APTT 35 SECONDS (21-34) H 11/07/16 17:06 - Constitutional Appears: Non-toxic, Confused - Head Exam Head Exam: NORMOCEPHALIC - Eye Exam Eye Exam: Scleral icterus - ENT Exam ENT Exam: Mucous Membranes Dry, Normal External Ear Exam - Neck Exam Neck Exam: absent: Lymphadenopathy - Respiratory Exam Respiratory Exam: Decreased Breath Sounds, Rhonchi - Cardiovascular Exam Cardiovascular Exam: REGULAR RHYTHM, +S1, +S2 - GI/Abdominal Exam GI & Abdominal Exam: Distended, Soft - Rectal Exam Rectal Exam: Deferred Assessment and Plan (1) Cellulitis and abscess of foot excluding toe Status: Acute (2) Cellulitis and abscess of foot Status: Acute (3) Alcohol withdrawal Status: Acute (4) Hypomagnesemia Status: Acute (5) Jaundice Status: Acute (6) Thrombocytopenia Status: Acute (7) Cellulitis Status: Acute
--- NOTE | 2016-11-08 19:08 | PN ---
SUBJECTIVE: The patient is seen. The patient is still one-to-one watch, less agitated today but still appears to have confusion and also needs constant monitoring. The patient is currently on Ativan taper for alcohol withdrawal. Review of his labs, his last ammonia level is less than 9. The patient still has periods of confusion, he was drowsy today. PHYSICAL EXAMINATION: VITAL SIGNS: Temperature is 98.2, pulse rate is 85, blood pressure is 136/84, respirations 21, oxygen saturation is 99%. REVIEW OF SYSTEMS: GENERAL: The patient is drowsy, still confused, seen in his room, not agitated but needs one-to-one. SKIN: No diaphoresis. HEENT: No headache. No dizziness. RESPIRATORY: No dyspnea. CARDIOVASCULAR: No chest pain. GASTROINTESTINAL: No abdominal pain, no nausea. EXTREMITIES: The patient moves extremities, less tremulous. MUSCULOSKELETAL: Feels weak. NEUROLOGIC: Alert but confused. The patient is disoriented to place and time, oriented only to person. MENTAL STATUS EXAMINATION: Middle-aged male, looks stated age, drowsy, still with significant periods of confusion, restless at time. Affect is restricted. Speech is garbled. Thought process, confused. Thought content, no overt paranoia, no hallucinations. No suicidal or homicidal ideation. Attention and memory seem to be limited. Insight and judgment limited. Impulse control is guarded at this time. IMPRESSION: History of alcohol dependence as well as alcohol withdrawal delirium. PLAN AND RECOMMENDATIONS: The patient seen. Medications reviewed. Continue present management. We will keep one-to-one watch for now. Continue treatment plan as outlined. Despite history of liver cirrhosis and end-stage liver disease, the patient is not motivated to stop drinking at this time. Ramón Almendarez MD
--- NOTE | 2016-11-08 20:30 | CARD ---
APPROVED REPORT EKG Measurement Heart [id number] CT [id number] <Conclusion> Normal sinus rhythm Prolonged QT Abnormal ECG
--- NOTE | 2016-11-09 06:59 | CP.PCM.PN ---
<Jessa Burns - Last Filed: 11/09/16 07:01> Subjective - Date & Time of Evaluation Date of Evaluation: 11/09/16 Time of Evaluation: 06:45 - Subjective Subjective: PGY4 GI Follow-up Note Pt seen and examined bedside Confused and agitated able to tell me date and person Denies any abd pain 3-4BM last night as per staff No sig events overnight ROS; could not obtain 2/2 mental status Objective - Vital Signs/Intake and Output Vital Signs (last 24 hours): Temp Pulse Resp BP Pulse Ox 98.4 F 80 19 135/82 99 11/08/16 16:00 11/08/16 16:00 11/08/16 16:00 11/08/16 16:00 11/08/16 16:00 Intake and Output: 11/08/16 11/09/16 18:59 06:59 Intake Total 660 1310 Output Total 5 Balance 660 1305 - Medications Medications: Current Medications Amlodipine Besylate (Norvasc) 10 mg PO DAILY [facility] Last Admin: 11/08/16 10:26 Dose: 10 mg Cefazolin Sodium 1,000 mg/ (Sodium Chloride) 100 mls @ 100 mls/hr IVPB Q8 [facility] Last Admin: 11/09/16 05:27 Dose: 100 mls/hr Lactulose (Enulose) 20 gm PO TID [facility] Last Admin: 11/08/16 18:41 Dose: 20 gm Lorazepam (Ativan) 1 mg IVP Q6H PRN; Taper PRN Reason: Symptoms of alcohol withdrawl Stop: 11/12/16 19:44 Last Admin: 11/09/16 00:21 Dose: 1 mg Metoprolol Succinate (Toprol Xl) 50 mg PO DAILY [facility] Last Admin: 11/08/16 10:27 Dose: 50 mg Multivitamins (Hexavitamin) 1 tab PO DAILY [facility] Last Admin: 11/08/16 10:27 Dose: 1 tab Pantoprazole Sodium (Protonix Ec Tab) 40 mg PO DAILY [facility] Last Admin: 11/08/16 10:27 Dose: 40 mg Pneumococcal Polyvalent Vaccine (Pneumovax 23 Vaccine) 0.5 ml IM .ONCE ONE Stop: 11/09/16 10:01 Spironolactone (Aldactone) 25 mg PO DAILY [facility] Last Admin: 11/08/16 10:26 Dose: 25 mg Thiamine HCl (Vitamin B1 Tab) 100 mg PO BID [facility] Last Admin: 11/08/16 19:04 Dose: 100 mg - Labs Labs: 11/08/16 07:07 11/08/16 07:07 PT 20.3 SECONDS (9.7-12.2) H 11/08/16 13:47 INR 1.7 11/08/16 13:47 APTT 35 SECONDS (21-34) H 11/07/16 17:06 - Head Exam Head Exam: ATRAUMATIC, NORMOCEPHALIC - Eye Exam Eye Exam: Scleral icterus - ENT Exam ENT Exam: Mucous Membranes Dry - Respiratory Exam Respiratory Exam: Clear to Ausculation Bilateral, NORMAL BREATHING PATTERN. absent: Rales, Rhonchi, Wheezes, Respiratory Distress - Cardiovascular Exam Cardiovascular Exam: REGULAR RHYTHM, +S1, +S2, Murmur - GI/Abdominal Exam GI & Abdominal Exam: Distended, Soft, Normal Bowel Sounds, Organomegaly. 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 He was found to have elevated LFTs and jaundice. Etiology: unknown; DDx: Acute alcoholic hepatitis, r/o viral etiology, r/o malignancy. Decompensated Liver cirhosis, etiology likely 2/2 EtoH; r/o infectious and malignancy Painless jaundice, likely 2/2 to above Alcoholic Liver Cirrohsis, still consuming Etoh Hx of upper GI bleed likely varicies, s/p TIPS Thrombocytopenia, likely 2/2 bone marrow suppression from chronic EtOH consumption, r/o portal or splenic vein thrombosis Plan: -MELD:19 11/08 -waiting for labs today -continue supportive protocol for etoh withdrawal -CT Liver reviewed; no lesions identified -Hep panel neg; alpha feto WNL -will need daily MELD labs -diet as tolerated -continue electrolytes -will need aggressive electrolyte replenishment -Watch for refeeding syndrome in the next few days -continue other supportive care as per primary team -will D/W Dr. Cortez <Wing Cortez Y - Last Filed: 11/09/16 13:30> Objective - Vital Signs/Intake and Output Vital Signs (last 24 hours): Temp Pulse Resp BP Pulse Ox 98.4 F 84 20 129/74 96 11/09/16 07:41 11/09/16 07:41 11/09/16 07:41 11/09/16 07:41 11/09/16 07:41 Intake and Output: 11/09/16 11/09/16 06:59 18:59 Intake Total 1310 Output Total 5 Balance 1305 - Medications Medications: Current Medications Amlodipine Besylate (Norvasc) 10 mg PO DAILY [facility] Last Admin: 11/09/16 10:11 Dose: 10 mg Cefazolin Sodium 1,000 mg/ (Sodium Chloride) 100 mls @ 100 mls/hr IVPB Q8 [facility] Last Admin: 11/09/16 05:27 Dose: 100 mls/hr Magnesium Sulfate/Dextrose (Magnesium Sulfate 1 Gm/100 Ml D5w) 1 gm in 100 mls @ 200 mls/hr IVPB ONCE ONE Stop: 11/09/16 13:32 Lactulose (Enulose) 20 gm PO TID [facility] Last Admin: 11/09/16 10:02 Dose: 20 gm Lorazepam (Ativan) 1 mg IVP Q6H PRN; Taper PRN Reason: Symptoms of alcohol withdrawl Stop: 11/12/16 19:44 Last Admin: 11/09/16 10:18 Dose: 1 mg Metoprolol Succinate (Toprol Xl) 50 mg PO DAILY [facility] Last Admin: 11/09/16 10:10 Dose: 50 mg Multivitamins (Hexavitamin) 1 tab PO DAILY [facility] Last Admin: 11/09/16 10:01 Dose: 1 tab Pantoprazole Sodium (Protonix Ec Tab) 40 mg PO DAILY [facility] Last Admin: 11/09/16 10:01 Dose: 40 mg Spironolactone (Aldactone) 25 mg PO DAILY [facility] Last Admin: 11/09/16 10:01 Dose: 25 mg Thiamine HCl (Vitamin B1 Tab) 100 mg PO BID [facility] Last Admin: 11/09/16 10:01 Dose: 100 mg - Labs Labs: 11/08/16 07:07 11/09/16 11:31 PT 20.3 SECONDS (9.7-12.2) H 11/09/16 11:31 INR 1.7 11/09/16 11:31 APTT 35 SECONDS (21-34) H 11/07/16 17:06 Attending/Attestation - Attestation I have personally seen and examined this patient.: Yes I have fully participated in the care of the patient.: Yes I have reviewed all pertinent clinical information, including history, physical exam and plan: Yes Notes (Text): 11/09/16 13:26 I have seen and examined patient with GI fellow. No acute events overnight, he still remains confused and combative in ETOH withdrawal. There is no reported abdominal pain, nausea, vomiting. He is tolerating scant amount of PO intake with assistance from nursing aid. He had 3 loose bowel movements overnight. ETOH decompensated cirrhosis s/p TIPS HTN CHF Cellulitis of lower extremity CT liver shows no focal mass lesions - Low sodium puree diet as tolerated - Continue with diuretic therapy, monitor electrolytes - Management of ETOH withdrawal as per medical team - Continue with antibiotic therapy as per ID - ETOH cessation counseling, continue to monitor LFTs - No further planned GI intervention, will sign off case. Please reconsult as necessary, thank you. Case discussed with Dr. Burns.
[2016-11-09 07:42] VITALS: RESP 20
[2016-11-09] MEDS ORDERED: Pneumococcal 23-Valent Vaccine IM ONE (10:00)
[2016-11-09] MEDS: Multiple Vitamins Tab PO SCH (10:01)
[2016-11-09] MEDS: Pantoprazole 40 mg EC Tab PO SCH (10:01)
[2016-11-09] MEDS: Metoprolol Succinate 50 mg XL Tab PO SCH (10:10)
[2016-11-09 11:51] LABS: INR 1.7
[2016-11-09 11:54] LABS: CHLORIDE 111 mmol/L (98-107); POTASSIUM 3.7 mmol/L (3.6-5.2); SODIUM 140 mmol/L (132-148)
[2016-11-09 11:56] LABS: ALB/GLOB RATIO 0.6 (1.0-2.1); AST/SGOT 112 U/L (17-59); BILIRUBIN,TOTAL 6.4 mg/dL (0.2-1.3); CARBON DIOXIDE 23 mmol/L (22-30); GFR AFRICAN-AMERICAN > 60; TOTAL PROTEIN 5.5 g/dL (6.3-8.3)
[2016-11-09 11:57] LABS: ALKALINE PHOSPHATASE 86 U/L (38-126); ALT/SGPT 50 U/L (21-72); BLOOD UREA NITROGEN 14 mg/dL (9-20); CALCIUM 7.4 mg/dl (8.6-10.4); GLUCOSE,RANDOM 112 mg/dL (75-110); PHOSPHOROUS 2.6 mg/dL (2.5-4.5)
--- NOTE | 2016-11-09 12:56 | CP.PCM.PN ---
Subjective - Date & Time of Evaluation Date of Evaluation: 11/09/16 Time of Evaluation: 12:53 - Subjective Subjective: PT CONFUSED , AGITATING. POOR APPETITE. 3-4 BM. IN ALCOHOL WITHDRAWAL. ANB LFTS/ Objective - Vital Signs/Intake and Output Vital Signs (last 24 hours): Temp Pulse Resp BP Pulse Ox 98.4 F 84 20 129/74 96 11/09/16 07:41 11/09/16 07:41 11/09/16 07:41 11/09/16 07:41 11/09/16 07:41 Intake and Output: 11/09/16 11/09/16 06:59 18:59 Intake Total 1310 Output Total 5 Balance 1305 - Medications Medications: Current Medications Amlodipine Besylate (Norvasc) 10 mg PO DAILY [facility] Last Admin: 11/09/16 10:11 Dose: 10 mg Cefazolin Sodium 1,000 mg/ (Sodium Chloride) 100 mls @ 100 mls/hr IVPB Q8 [facility] Last Admin: 11/09/16 05:27 Dose: 100 mls/hr Lactulose (Enulose) 20 gm PO TID [facility] Last Admin: 11/09/16 10:02 Dose: 20 gm Lorazepam (Ativan) 1 mg IVP Q6H PRN; Taper PRN Reason: Symptoms of alcohol withdrawl Stop: 11/12/16 19:44 Last Admin: 11/09/16 10:18 Dose: 1 mg Metoprolol Succinate (Toprol Xl) 50 mg PO DAILY [facility] Last Admin: 11/09/16 10:10 Dose: 50 mg Multivitamins (Hexavitamin) 1 tab PO DAILY [facility] Last Admin: 11/09/16 10:01 Dose: 1 tab Pantoprazole Sodium (Protonix Ec Tab) 40 mg PO DAILY [facility] Last Admin: 11/09/16 10:01 Dose: 40 mg Spironolactone (Aldactone) 25 mg PO DAILY [facility] Last Admin: 11/09/16 10:01 Dose: 25 mg Thiamine HCl (Vitamin B1 Tab) 100 mg PO BID [facility] Last Admin: 11/09/16 10:01 Dose: 100 mg - Labs Labs: 11/08/16 07:07 11/09/16 11:31 PT 20.3 SECONDS (9.7-12.2) H 11/09/16 11:31 INR 1.7 11/09/16 11:31 APTT 35 SECONDS (21-34) H 11/07/16 17:06 - Constitutional Appears: Non-toxic, Chronically Ill - Eye Exam Eye Exam: Normal appearance, PERRL - ENT Exam ENT Exam: Mucous Membranes Moist - Respiratory Exam Respiratory Exam: Clear to Ausculation Bilateral, NORMAL BREATHING PATTERN - Cardiovascular Exam Cardiovascular Exam: REGULAR RHYTHM, +S1, +S2 - GI/Abdominal Exam GI & Abdominal Exam: Soft, Normal Bowel Sounds - Extremities Exam Extremities Exam: Pedal Edema - Back Exam Back Exam: NORMAL INSPECTION - Psychiatric Exam Psychiatric exam: Agitated Assessment and Plan - Assessment and Plan (Free Text) Assessment: ALCOHOL WITHDRAWAL. [facility] WHEN STABLE. [address] [facility].
[2016-11-09] MEDS ORDERED: Magnesium Sulfate 1 gm in D5W 1 GM/100 ML BAG IVPB ONE (13:03)
--- NOTE | 2016-11-09 19:32 | CP.PCM.PN ---
Subjective - Date & Time of Evaluation Date of Evaluation: 11/09/16 Time of Evaluation: 09:00 - Subjective Subjective: RX RENEWED CONT RX Objective - Vital Signs/Intake and Output Vital Signs (last 24 hours): Temp Pulse Resp BP Pulse Ox 98 F 72 20 113/62 99 11/09/16 16:00 11/09/16 16:00 11/09/16 16:00 11/09/16 16:00 11/09/16 16:00 - Medications Medications: Current Medications Amlodipine Besylate (Norvasc) 10 mg PO DAILY [facility] Last Admin: 11/09/16 10:11 Dose: 10 mg Haloperidol Lactate (Haldol) 2 mg IM Q6H PRN PRN Reason: Agitation Cefazolin Sodium 1,000 mg/ (Sodium Chloride) 100 mls @ 100 mls/hr IVPB Q8 [facility] Last Admin: 11/09/16 14:02 Dose: 100 mls/hr Lactulose (Enulose) 20 gm PO TID [facility] Last Admin: 11/09/16 17:52 Dose: 20 gm Lorazepam (Ativan) 1 mg IVP Q6H PRN; Taper PRN Reason: Symptoms of alcohol withdrawl Stop: 11/12/16 19:44 Last Admin: 11/09/16 16:16 Dose: 1 mg Metoprolol Succinate (Toprol Xl) 50 mg PO DAILY [facility] Last Admin: 11/09/16 10:10 Dose: 50 mg Multivitamins (Hexavitamin) 1 tab PO DAILY [facility] Last Admin: 11/09/16 10:01 Dose: 1 tab Pantoprazole Sodium (Protonix Ec Tab) 40 mg PO DAILY [facility] Last Admin: 11/09/16 10:01 Dose: 40 mg Spironolactone (Aldactone) 25 mg PO DAILY [facility] Last Admin: 11/09/16 10:01 Dose: 25 mg Thiamine HCl (Vitamin B1 Tab) 100 mg PO BID [facility] Last Admin: 11/09/16 17:52 Dose: 100 mg - Labs Labs: 11/08/16 07:07 11/09/16 11:31 PT 20.3 SECONDS (9.7-12.2) H 11/09/16 11:31 INR 1.7 11/09/16 11:31 APTT 35 SECONDS (21-34) H 11/07/16 17:06 - Constitutional Appears: Non-toxic - Head Exam Head Exam: NORMOCEPHALIC - Eye Exam Eye Exam: Scleral icterus - ENT Exam ENT Exam: Mucous Membranes Dry - Neck Exam Neck Exam: absent: Lymphadenopathy - Respiratory Exam Respiratory Exam: Decreased Breath Sounds Assessment and Plan (1) Cellulitis and abscess of foot excluding toe Status: Acute (2) Cellulitis and abscess of foot Status: Acute (3) Alcohol withdrawal Status: Acute (4) Hypomagnesemia Status: Acute (5) Jaundice Status: Acute (6) Thrombocytopenia Status: Acute (7) Cellulitis Status: Acute
--- NOTE | 2016-11-09 22:15 | PN ---
SUBJECTIVE: The patient is seen. The patient has been transferred to the safety observation room as the patient needs constant monitoring. He continues to be very confused and restless, trying to get out of bed and also trying to fight with the staff. The patient is only taking Ativan 1 mg IV q.6 p.r.n. taper, but we need to stop the medication as this patient is currently exhibiting alcohol withdrawal delirium. When asked today about his plans, if he wants to stop drinking, the patient states he is not interested to stop drinking. Plan also is for him to be transferred for subacute rehab once medically stable. The patient is not interested to stop drinking at this time despite all the sequelae of his chronic alcohol use, but we will try to complete his detox for now. PHYSICAL EXAMINATION: VITAL SIGNS: Temperature is 98, pulse is 72, blood pressure is 113/62, respirations 20, oxygen saturation 99%. REVIEW OF SYSTEMS: GENERAL: The patient is seen in the four-bedded room. Still alert, but confused, restless, with hand mittens, needs constant redirection, as patient is trying to get out of bed. SKIN: No diaphoresis. HEENT: No headache. No dizziness. NECK: Supple. RESPIRATORY: No dyspnea. CARDIOVASCULAR: No chest pain. GASTROINTESTINAL: No abdominal pain, no nausea, no vomiting. EXTREMITIES: Has hand mittens. The patient is trying to get out of bed, is tremulous. NEUROLOGIC: Alert with periods of confusion. GENITOURINARY: No dysuria. MENTAL STATUS EXAMINATION: Middle-aged male who looks stated age, oriented to place and person, still very confused. Mood is irritable. Affect is restricted. Speech is garbled at times. Thought process, confused. Thought content, no overt paranoia, no hallucinations. No suicidal or homicidal ideation. Attention and memory, still impaired. Insight and judgment impaired. Impulse control is guarded at this time. IMPRESSION: Alcohol withdrawal delirium as well as history of alcohol dependence, history of liver cirrhosis, end-stage liver disease. PLAN AND RECOMMENDATIONS: The patient seen. Medications reviewed. We will add Haldol 2 mg IM q.6 p.r.n. together with Ativan on taper and p.o. thiamine is ordered. We will keep the patient in the four-bedded room for closer observation. Also, we will monitor his electrolytes. Review of his labs, the patient's magnesium is still low 1.3, his last ammonia is 9. As per Dr. Burns, the patient will be tried to be referred to subacute rehab once medically cleared. The patient's motivation to stay sober is still very questionable at this time. The patient despite his medical condition is expressing his desire not to stop drinking. Prognosis is very poor. Ramón Almendarez MD
[2016-11-10] MEDS: Metoprolol Succinate 50 mg XL Tab PO SCH (10:56)
[2016-11-10] MEDS: Multiple Vitamins Tab PO SCH (10:56)
[2016-11-10] MEDS: Pantoprazole 40 mg EC Tab PO SCH (10:57)
[2016-11-10] MEDS ORDERED: Magnesium Sulfate 1 gm in D5W 1 GM/100 ML BAG IVPB ONE (12:27)
--- NOTE | 2016-11-10 12:31 | CP.PCM.PN ---
Subjective - Date & Time of Evaluation Date of Evaluation: 11/10/16 Time of Evaluation: 12:28 - Subjective Subjective: RESTLESS AGITATING. APPETITE IMPROVING. AFEBRILE. Objective - Vital Signs/Intake and Output Vital Signs (last 24 hours): Temp Pulse Resp BP Pulse Ox 97.8 F 74 20 125/73 100 11/10/16 07:51 11/10/16 07:51 11/10/16 07:51 11/10/16 07:51 11/10/16 07:51 Intake and Output: 11/10/16 11/10/16 06:59 18:59 Intake Total 300 Balance 300 - Medications Medications: Current Medications Amlodipine Besylate (Norvasc) 10 mg PO DAILY [facility] Last Admin: 11/10/16 11:03 Dose: 10 mg Haloperidol Lactate (Haldol) 2 mg IM Q6H PRN PRN Reason: Agitation Cefazolin Sodium 1,000 mg/ (Sodium Chloride) 100 mls @ 100 mls/hr IVPB Q8 [facility] Last Admin: 11/10/16 05:35 Dose: 100 mls/hr Magnesium Sulfate/Dextrose (Magnesium Sulfate 1 Gm/100 Ml D5w) 1 gm in 100 mls @ 200 mls/hr IVPB ONCE ONE Stop: 11/10/16 12:56 Lactulose (Enulose) 20 gm PO TID [facility] Last Admin: 11/10/16 10:56 Dose: 20 gm Lorazepam (Ativan) 1 mg IVP Q8H PRN; Taper PRN Reason: Symptoms of alcohol withdrawl Stop: 11/12/16 19:44 Last Admin: 11/10/16 00:29 Dose: 1 mg Metoprolol Succinate (Toprol Xl) 50 mg PO DAILY [facility] Last Admin: 11/10/16 10:56 Dose: 50 mg Multivitamins (Hexavitamin) 1 tab PO DAILY [facility] Last Admin: 11/10/16 10:56 Dose: 1 tab Pantoprazole Sodium (Protonix Ec Tab) 40 mg PO DAILY [facility] Last Admin: 11/10/16 10:57 Dose: 40 mg Spironolactone (Aldactone) 25 mg PO DAILY [facility] Last Admin: 11/10/16 10:57 Dose: 25 mg Thiamine HCl (Vitamin B1 Tab) 100 mg PO BID [facility] Last Admin: 11/10/16 10:56 Dose: 100 mg - Labs Labs: 11/08/16 07:07 11/09/16 11:31 PT 20.3 SECONDS (9.7-12.2) H 11/09/16 11:31 INR 1.7 11/09/16 11:31 APTT 35 SECONDS (21-34) H 11/07/16 17:06 - Constitutional Appears: Non-toxic, Chronically Ill - Eye Exam Eye Exam: Normal appearance, PERRL - ENT Exam ENT Exam: Mucous Membranes Moist - Respiratory Exam Respiratory Exam: Clear to Ausculation Bilateral, NORMAL BREATHING PATTERN - Cardiovascular Exam Cardiovascular Exam: REGULAR RHYTHM, +S1, +S2 - GI/Abdominal Exam GI & Abdominal Exam: Soft, Normal Bowel Sounds - Extremities Exam Extremities Exam: Full ROM, Normal Capillary Refill, Normal Inspection. absent : Joint Swelling, Pedal Edema - Psychiatric Exam Psychiatric exam: Agitated Assessment and Plan - Assessment and Plan (Free Text) Assessment: ALCOHOL WITHDRAWAL. CIRRHOSIS OF LIVER. Plan: CT PRESENT TREATMENT. MG SUPPLEMENT. 1.4
--- NOTE | 2016-11-10 18:55 | CP.PCM.PN ---
Subjective - Date & Time of Evaluation Date of Evaluation: 11/10/16 Time of Evaluation: 11:00 - Subjective Subjective: IMPROVING IV RX IN PROGRESS Objective - Vital Signs/Intake and Output Vital Signs (last 24 hours): Temp Pulse Resp BP Pulse Ox 97.6 F 57 L 20 118/70 98 11/10/16 16:00 11/10/16 16:00 11/10/16 16:00 11/10/16 16:00 11/10/16 16:00 Intake and Output: 11/10/16 11/10/16 06:59 18:59 Intake Total 300 700 Balance 300 700 - Medications Medications: Current Medications Amlodipine Besylate (Norvasc) 10 mg PO DAILY [facility] Last Admin: 11/10/16 11:03 Dose: 10 mg Haloperidol Lactate (Haldol) 2 mg IM Q6H PRN PRN Reason: Agitation Cefazolin Sodium 1,000 mg/ (Sodium Chloride) 100 mls @ 100 mls/hr IVPB Q8 [facility] Last Admin: 11/10/16 15:17 Dose: 100 mls/hr Lactulose (Enulose) 20 gm PO TID [facility] Last Admin: 11/10/16 18:04 Dose: 20 gm Lorazepam (Ativan) 1 mg IVP Q8H PRN; Taper PRN Reason: Symptoms of alcohol withdrawl Stop: 11/12/16 19:44 Last Admin: 11/10/16 00:29 Dose: 1 mg Metoprolol Succinate (Toprol Xl) 50 mg PO DAILY [facility] Last Admin: 11/10/16 10:56 Dose: 50 mg Multivitamins (Hexavitamin) 1 tab PO DAILY [facility] Last Admin: 11/10/16 10:56 Dose: 1 tab Pantoprazole Sodium (Protonix Ec Tab) 40 mg PO DAILY [facility] Last Admin: 11/10/16 10:57 Dose: 40 mg Spironolactone (Aldactone) 25 mg PO DAILY [facility] Last Admin: 11/10/16 10:57 Dose: 25 mg Thiamine HCl (Vitamin B1 Tab) 100 mg PO BID [facility] Last Admin: 11/10/16 18:04 Dose: 100 mg - Labs Labs: 11/08/16 07:07 11/09/16 11:31 PT 20.3 SECONDS (9.7-12.2) H 11/09/16 11:31 INR 1.7 11/09/16 11:31 APTT 35 SECONDS (21-34) H 11/07/16 17:06 - Constitutional Appears: No Acute Distress, Confused, Chronically Ill - Head Exam Head Exam: NORMOCEPHALIC - Eye Exam Eye Exam: Scleral icterus - ENT Exam ENT Exam: Mucous Membranes Dry - Neck Exam Neck Exam: absent: Lymphadenopathy - Respiratory Exam Respiratory Exam: Decreased Breath Sounds - Cardiovascular Exam Cardiovascular Exam: REGULAR RHYTHM - GI/Abdominal Exam GI & Abdominal Exam: Distended, Soft - Rectal Exam Rectal Exam: Deferred - Exam Exam: NORMAL INSPECTION - Extremities Exam Extremities Exam: Tenderness. absent: Pedal Edema - Back Exam Back Exam: absent: CVA tenderness (L), CVA tenderness (R) Assessment and Plan (1) Cellulitis and abscess of foot excluding toe Status: Acute (2) Cellulitis and abscess of foot Status: Acute (3) Alcohol withdrawal Status: Acute (4) Hypomagnesemia Status: Acute (5) Jaundice Status: Acute (6) Thrombocytopenia Status: Acute (7) Cellulitis Status: Acute
[2016-11-11] MEDS: Multiple Vitamins Tab PO SCH (10:37)
[2016-11-11] MEDS: Pantoprazole 40 mg EC Tab PO SCH (10:37)
[2016-11-11] MEDS: Metoprolol Succinate 50 mg XL Tab PO SCH (10:37)
--- NOTE | 2016-11-11 20:29 | PN ---
DATE: 11/11/2016 SUBJECTIVE: The patient is seen. The patient is less confused, more verbal and cooperative today. According to the nurse, the patient did not get any Ativan p.r.n., but slowly recuperating. The patient's motivation to stop drinking is still questionable. He said he will try this time. Plan is for the patient to go for subacute rehab once more medically stable. The patient is on Ativan p.r.n. taper and also Haldol p.r.n. PHYSICAL EXAMINATION: VITAL SIGNS: Temperature is 97.9, pulse rate is 56, blood pressure is 116/70, respirations 20, oxygen sat is 98%. REVIEW OF SYSTEMS: GENERAL: The patient is drowsy, but arousable, less confused, more redirectable, seen in the 4-bedded room. SKIN: No diaphoresis. HEENT: No headache. No dizziness. RESPIRATORY: No dyspnea. CARDIOVASCULAR: No chest pain. GASTROINTESTINAL: No nausea, no vomiting, no abdominal pain. EXTREMITIES: Has hand mittens. No tremors. MUSCULOSKELETAL: Feels weak. NEUROLOGIC: Alert with periods of confusion. GENITOURINARY: No urinary problems. MENTAL STATUS EXAMINATION: Middle-aged male who looks stated age, oriented to place and person. Speech is low, feels drowsy at times. Affect is restricted. Mood dysphoric. Thought process, less confused. Thought content, no overt paranoia, no hallucinations or suicidal ideation. Attention and memory seems to be limited. Insight and judgment limited. Impulse control is improving at this time. IMPRESSION: History of alcohol dependence as well as alcohol withdrawal delirium, improving. PLAN AND RECOMMENDATIONS: The patient seen. Medications reviewed. Consider patient's psych meds. We will keep the patient in safety observation room for closer monitoring. Continue treatment plan as outlined. Plan is for the patient to go to subacute rehab once medically cleared. The patient may benefit from inpatient alcohol rehab, but the patient still has very poor motivation to stop drinking and going to inpatient rehab will not be of help to him. His not not strongly motivated to stop drinking. Prognosis is still very poor. Ramón Almendarez MD [facility] # [id number] BUDDY
[2016-11-12] MEDS: Multiple Vitamins Tab PO SCH (10:15)
[2016-11-12] MEDS: Metoprolol Succinate 50 mg XL Tab PO SCH (10:15)
[2016-11-12] MEDS: Pantoprazole 40 mg EC Tab PO SCH (10:15)
--- NOTE | 2016-11-12 15:44 | CP.PCM.PN ---
Subjective - Date & Time of Evaluation Date of Evaluation: 11/12/16 Time of Evaluation: 09:00 - Subjective Subjective: more alert nad Objective - Vital Signs/Intake and Output Vital Signs (last 24 hours): Temp Pulse Resp BP Pulse Ox 97.7 F 63 20 134/70 97 11/12/16 08:02 11/12/16 08:02 11/12/16 08:02 11/12/16 08:02 11/12/16 08:02 Intake and Output: 11/12/16 11/12/16 06:59 18:59 Intake Total 100 1040 Balance 100 1040 - Medications Medications: Current Medications Amlodipine Besylate (Norvasc) 10 mg PO DAILY [facility] Last Admin: 11/12/16 10:15 Dose: 10 mg Haloperidol Lactate (Haldol) 2 mg IM Q6H PRN PRN Reason: Agitation Cefazolin Sodium 1,000 mg/ (Sodium Chloride) 100 mls @ 100 mls/hr IVPB Q8 [facility] Last Admin: 11/12/16 14:00 Dose: 100 mls/hr Lactulose (Enulose) 20 gm PO TID [facility] Last Admin: 11/12/16 14:01 Dose: 20 gm Lorazepam (Ativan) 1 mg IVP DAILY PRN; Taper PRN Reason: Symptoms of alcohol withdrawl Stop: 11/12/16 19:44 Last Admin: 11/10/16 00:29 Dose: 1 mg Metoprolol Succinate (Toprol Xl) 50 mg PO DAILY [facility] Last Admin: 11/12/16 10:15 Dose: 50 mg Multivitamins (Hexavitamin) 1 tab PO DAILY [facility] Last Admin: 11/12/16 10:15 Dose: 1 tab Pantoprazole Sodium (Protonix Ec Tab) 40 mg PO DAILY [facility] Last Admin: 11/12/16 10:15 Dose: 40 mg Spironolactone (Aldactone) 25 mg PO DAILY [facility] Last Admin: 11/12/16 10:15 Dose: 25 mg Thiamine HCl (Vitamin B1 Tab) 100 mg PO BID [facility] Last Admin: 11/12/16 10:15 Dose: 100 mg - Labs Labs: 11/08/16 07:07 11/09/16 11:31 PT 20.3 SECONDS (9.7-12.2) H 11/09/16 11:31 INR 1.7 11/09/16 11:31 APTT 35 SECONDS (21-34) H 11/07/16 17:06 - Constitutional Appears: Non-toxic, Chronically Ill - Head Exam Head Exam: NORMOCEPHALIC - Eye Exam Eye Exam: PERRL. absent: Scleral icterus - ENT Exam ENT Exam: Mucous Membranes Dry, Normal External Ear Exam - Neck Exam Neck Exam: absent: Lymphadenopathy - Respiratory Exam Respiratory Exam: Decreased Breath Sounds, Clear to Ausculation Bilateral - Cardiovascular Exam Cardiovascular Exam: REGULAR RHYTHM - GI/Abdominal Exam GI & Abdominal Exam: Distended, Soft - Rectal Exam Rectal Exam: Deferred Assessment and Plan (1) Cellulitis and abscess of foot excluding toe Status: Acute (2) Cellulitis and abscess of foot Status: Acute (3) Alcohol withdrawal Status: Acute (4) Hypomagnesemia Status: Acute (5) Jaundice Status: Acute (6) Thrombocytopenia Status: Acute (7) Cellulitis Status: Acute
[2016-11-13] MEDS: Multiple Vitamins Tab PO SCH (09:53)
[2016-11-13] MEDS: Pantoprazole 40 mg EC Tab PO SCH (09:53)
[2016-11-13] MEDS: Metoprolol Succinate 50 mg XL Tab PO SCH (09:53)
--- NOTE | 2016-11-13 21:26 | CP.PCM.PN ---
Subjective - Date & Time of Evaluation Date of Evaluation: 11/13/16 Time of Evaluation: 17:00 - Subjective Subjective: CONDITION SAME. AWAKE. AFEBRILE. MORE ALERT. CONFUSED. Objective - Vital Signs/Intake and Output Vital Signs (last 24 hours): Temp Pulse Resp BP Pulse Ox 98.2 F 55 L 20 118/71 98 11/13/16 15:00 11/13/16 15:00 11/13/16 15:00 11/13/16 15:00 11/13/16 15:00 Intake and Output: 11/13/16 11/14/16 18:59 06:59 Intake Total 680 Balance 680 - Medications Medications: Current Medications Amlodipine Besylate (Norvasc) 10 mg PO DAILY [facility] Last Admin: 11/13/16 09:53 Dose: 10 mg Haloperidol Lactate (Haldol) 2 mg IM Q6H PRN PRN Reason: Agitation Cefazolin Sodium 1,000 mg/ (Sodium Chloride) 100 mls @ 100 mls/hr IVPB Q8 [facility] Last Admin: 11/13/16 21:08 Dose: 100 mls/hr Lactulose (Enulose) 20 gm PO TID [facility] Last Admin: 11/13/16 21:09 Dose: 20 gm Metoprolol Succinate (Toprol Xl) 50 mg PO DAILY [facility] Last Admin: 11/13/16 09:53 Dose: 50 mg Multivitamins (Hexavitamin) 1 tab PO DAILY [facility] Last Admin: 11/13/16 09:53 Dose: 1 tab Pantoprazole Sodium (Protonix Ec Tab) 40 mg PO DAILY [facility] Last Admin: 11/13/16 09:53 Dose: 40 mg Spironolactone (Aldactone) 25 mg PO DAILY [facility] Last Admin: 11/13/16 09:53 Dose: 25 mg Thiamine HCl (Vitamin B1 Tab) 100 mg PO BID [facility] Last Admin: 11/13/16 21:10 Dose: 100 mg - Labs Labs: 11/08/16 07:07 11/09/16 11:31 PT 20.3 SECONDS (9.7-12.2) H 11/09/16 11:31 INR 1.7 11/09/16 11:31 APTT 35 SECONDS (21-34) H 11/07/16 17:06 - Constitutional Appears: No Acute Distress, Chronically Ill - Eye Exam Eye Exam: Normal appearance, PERRL - ENT Exam ENT Exam: Mucous Membranes Moist - Respiratory Exam Respiratory Exam: Clear to Ausculation Bilateral, NORMAL BREATHING PATTERN - Cardiovascular Exam Cardiovascular Exam: REGULAR RHYTHM, +S1, +S2 - GI/Abdominal Exam GI & Abdominal Exam: Soft, Normal Bowel Sounds - Extremities Exam Extremities Exam: Full ROM, Normal Capillary Refill, Normal Inspection. absent : Joint Swelling, Pedal Edema - Neurological Exam Neurological Exam: Alert, Awake, CN II-XII Intact, Normal Gait, Oriented x3 Assessment and Plan - Assessment and Plan (Free Text) Assessment: ALCOHOL WITHDRAWAL. DTS. Plan: CT PRESENT TREATMENT.
[2016-11-14] MEDS: Metoprolol Succinate 50 mg XL Tab PO SCH (09:21)
[2016-11-14] MEDS: Multiple Vitamins Tab PO SCH (09:21)
[2016-11-14] MEDS: Pantoprazole 40 mg EC Tab PO SCH (09:22)
--- NOTE | 2016-11-14 13:18 | CP.PCM.PN ---
Subjective - Date & Time of Evaluation Date of Evaluation: 11/14/16 Time of Evaluation: 13:16 - Subjective Subjective: IMPROVING. MORE AWAKE. VS WNL. Objective - Vital Signs/Intake and Output Vital Signs (last 24 hours): Temp Pulse Resp BP Pulse Ox 97.8 F 60 20 136/80 98 11/14/16 08:00 11/14/16 08:00 11/14/16 08:00 11/14/16 08:00 11/14/16 08:00 Intake and Output: 11/14/16 11/14/16 06:59 18:59 Intake Total 340 Balance 340 - Medications Medications: Current Medications Amlodipine Besylate (Norvasc) 10 mg PO DAILY [facility] Last Admin: 11/14/16 09:21 Dose: 10 mg Haloperidol Lactate (Haldol) 2 mg IM Q6H PRN PRN Reason: Agitation Cefazolin Sodium 1,000 mg/ (Sodium Chloride) 100 mls @ 100 mls/hr IVPB Q8 [facility] Last Admin: 11/14/16 06:20 Dose: 100 mls/hr Lactulose (Enulose) 20 gm PO TID [facility] Last Admin: 11/14/16 09:22 Dose: 20 gm Metoprolol Succinate (Toprol Xl) 50 mg PO DAILY [facility] Last Admin: 11/14/16 09:21 Dose: 50 mg Multivitamins (Hexavitamin) 1 tab PO DAILY [facility] Last Admin: 11/14/16 09:21 Dose: 1 tab Pantoprazole Sodium (Protonix Ec Tab) 40 mg PO DAILY [facility] Last Admin: 11/14/16 09:22 Dose: 40 mg Spironolactone (Aldactone) 25 mg PO DAILY [facility] Last Admin: 11/14/16 09:22 Dose: 25 mg Thiamine HCl (Vitamin B1 Tab) 100 mg PO BID [facility] Last Admin: 11/14/16 09:22 Dose: 100 mg - Labs Labs: 11/08/16 07:07 11/09/16 11:31 PT 20.3 SECONDS (9.7-12.2) H 11/09/16 11:31 INR 1.7 11/09/16 11:31 APTT 35 SECONDS (21-34) H 11/07/16 17:06 - Constitutional Appears: No Acute Distress, Chronically Ill - Eye Exam Eye Exam: Normal appearance, PERRL - ENT Exam ENT Exam: Mucous Membranes Moist - Respiratory Exam Respiratory Exam: Clear to Ausculation Bilateral, NORMAL BREATHING PATTERN - Cardiovascular Exam Cardiovascular Exam: REGULAR RHYTHM, +S1, +S2 - GI/Abdominal Exam GI & Abdominal Exam: Soft, Normal Bowel Sounds - Extremities Exam Extremities Exam: Full ROM, Normal Capillary Refill, Normal Inspection. absent : Joint Swelling, Pedal Edema - Neurological Exam Neurological Exam: Alert, Awake, CN II-XII Intact, Normal Gait, Oriented x3 - Psychiatric Exam Psychiatric exam: Normal Affect, Normal Mood Assessment and Plan - Assessment and Plan (Free Text) Assessment: STABLE. Plan: FOR AGA. CT OTHER TREATMENT.
[2016-11-15] MEDS: Multiple Vitamins Tab PO SCH (09:11)
[2016-11-15] MEDS: Pantoprazole 40 mg EC Tab PO SCH (09:11)
[2016-11-15] MEDS: Metoprolol Succinate 50 mg XL Tab PO SCH (09:11)
[2016-11-15 09:31] VITALS: TEMP 97.8
[2016-11-15 10:13] VITALS: BP 124/67; PULSE 59; O2SAT 99
--- NOTE | 2016-11-15 12:42 | CP.PCM.PN ---
Subjective - Date & Time of Evaluation Date of Evaluation: 11/15/16 Time of Evaluation: 12:39 - Subjective Subjective: CONDITION IMPROVING. AMBULATING WITH HELP. AFEBRILE. APPETITE OK. Objective - Vital Signs/Intake and Output Vital Signs (last 24 hours): Temp Pulse Resp BP Pulse Ox 97.8 F 59 L 20 124/67 99 11/15/16 08:00 11/15/16 10:12 11/15/16 08:00 11/15/16 10:12 11/15/16 10:12 Intake and Output: 11/15/16 11/15/16 06:59 18:59 Intake Total 340 Balance 340 - Medications Medications: Current Medications Amlodipine Besylate (Norvasc) 10 mg PO DAILY [facility] Last Admin: 11/15/16 09:11 Dose: 10 mg Haloperidol Lactate (Haldol) 2 mg IM Q6H PRN PRN Reason: Agitation Cefazolin Sodium 1,000 mg/ (Sodium Chloride) 100 mls @ 100 mls/hr IVPB Q8 [facility] Last Admin: 11/15/16 05:23 Dose: 100 mls/hr Lactulose (Enulose) 20 gm PO TID [facility] Last Admin: 11/15/16 09:11 Dose: 20 gm Metoprolol Succinate (Toprol Xl) 50 mg PO DAILY [facility] Last Admin: 11/15/16 09:11 Dose: 50 mg Multivitamins (Hexavitamin) 1 tab PO DAILY [facility] Last Admin: 11/15/16 09:11 Dose: 1 tab Pantoprazole Sodium (Protonix Ec Tab) 40 mg PO DAILY [facility] Last Admin: 11/15/16 09:11 Dose: 40 mg Spironolactone (Aldactone) 25 mg PO DAILY [facility] Last Admin: 11/15/16 09:11 Dose: 25 mg Thiamine HCl (Vitamin B1 Tab) 100 mg PO BID [facility] Last Admin: 11/15/16 09:11 Dose: 100 mg - Labs Labs: 11/08/16 07:07 11/09/16 11:31 PT 20.3 SECONDS (9.7-12.2) H 11/09/16 11:31 INR 1.7 11/09/16 11:31 APTT 35 SECONDS (21-34) H 11/07/16 17:06 - Constitutional Appears: No Acute Distress, Chronically Ill - Eye Exam Eye Exam: Normal appearance, PERRL - ENT Exam ENT Exam: Mucous Membranes Moist - Respiratory Exam Respiratory Exam: Clear to Ausculation Bilateral, NORMAL BREATHING PATTERN - Cardiovascular Exam Cardiovascular Exam: REGULAR RHYTHM, +S1, +S2 - GI/Abdominal Exam GI & Abdominal Exam: Soft, Normal Bowel Sounds - Extremities Exam Extremities Exam: Full ROM, Normal Capillary Refill, Normal Inspection. absent : Joint Swelling, Pedal Edema - Neurological Exam Neurological Exam: Alert, Awake, CN II-XII Intact, Normal Gait, Oriented x3 Assessment and Plan - Assessment and Plan (Free Text) Assessment: ALCOHOL WITHDRAWAL. DTS. Plan: PT NEEDS REBAB, DISCUSSED WITH PT , REFUSES TO GO [facility]. WILL DISCHARGE HOME WITH SAME TREATMENT, PT OUT PT.
--- NOTE | 2016-11-15 13:25 | PN ---
DATE: 11/15/2016 SUBJECTIVE: The patient is seen. The patient is clinically improved and completed his detox. The patient wants to go home. He said he wants to talk to Dr. Jovita Burns. The patient was offered to go for alcohol rehab, but the patient refused. He said he wants to go home. The patient is not exhibiting sinus symptoms of alcohol withdrawal at this time. He is alert and oriented x3, but his gait seems to be unsteady. Plan is for the patient to be referred for subacute rehab, possibly to [place], but he is still reluctant at this time. PHYSICAL EXAMINATION: VITAL SIGNS: Temperature is 97.8, pulse is 59, blood pressure is 124/67, respiration is 20, and oxygen saturation 99%. EVIEW OF SYSTEMS: GENERAL: The patient is seen in the 4-bedded room. He is alert and oriented x3, pleasant, cooperative, not in acute respiratory distress, no behavioral problems noted. He is redirectable. SKIN: No diaphoresis. HEENT: No headache. No dizziness. NECK: Supple. RESPIRATORY: No dyspnea. CARDIOVASCULAR: No chest pain. GASTROINTESTINAL: Feeding. EXTREMITIES: Gait is steady. No tremors noted. MUSCULOSKELETAL: Feels weak. NEUROLOGIC: Alert and oriented x3. GENITOURINARY: No dysuria. MENTAL STATUS EXAMINATION: Middle-age male of [place] descent, oriented x3. Speech is spontaneous. Affect is reactive. Mood is calm, dysphoric at times. Thought process is coherent. Thought content, the patient wants to go home. The patient is still reluctant to get treatment for his alcohol problems, but stated he would try to stop drinking. No psychosis. No suicidal or homicidal ideation. Attention and memory seem to be improving. Insight and judgment limited. Impulse control is fair at this time. IMPRESSION: History of alcohol withdrawal delirium, improved, as well as history of alcohol dependant; history of liver cirrhosis, end-stage liver disease. PLAN AND RECOMMENDATIONS: The patient seen. Medications reviewed. Continue present management. Patient is not interested to get any outpatient or inpatient alcohol treatment at this time, but the patient still has very unsteady gait. He may benefit from going for subacute rehab and the patient has been referred to [facility]. The patient, however, states he will talk to Dr. Burns first before giving his final decision. The patient is advised to stay sober from the alcohol. He has a long history of alcohol dependence for over 30 years and his motivation to stay sober is highly questionable at this time. Ramón Almendarez MD
[2016-11-15 14:18] LABS: BASO # 0.1 K/uL (0.0-0.2); EOS # 0.2 K/uL (0.0-0.7); EOS % 3.9 % (0.0-4.0); HEMATOCRIT 30.4 % (35.0-51.0); LYMPH # 1.6 K/uL (1.0-4.3); LYMPH % 34.6 % (20.0-40.0); MEAN CELL VOLUME 95.5 fL (80.0-94.0); MEAN CORPUSCULAR HEMOGLOBIN 32.3 pg (27.0-31.0); MEAN CORPUSCULAR HGB CONC 33.8 g/dL (33.0-37.0); MEAN PLATELET VOLUME 10.6 fL (7.2-11.7); MONO # 0.7 K/uL (0.0-0.8); MONO % 15.9 % (0.0-10.0); NRBC % 0.2 % (0.0-2.0); RED CELL DISTRIBUTION WIDTH 14.4 % (11.5-14.5); WHITE BLOOD COUNT 4.6 K/uL (4.8-10.8)
[2016-11-15 14:42] LABS: BASO % 2.7 % (0.0-2.0)
--- NOTE | 2016-11-15 15:40 | DS ---
HISTORY OF PRESENT ILLNESS: This is a 56-year-old male, came to the emergency room with history of confusion and disorientation. The patient stopped drinking alcohol recently. The patient was also having history of leg pain, which was increasing and making him unable to walk. The patient is a poor historian and does not answer to all questions. The patient claims he has liver problem and alcohol abuse. REVIEW OF SYSTEMS: In the emergency room, the patient was evaluated and found to be DTs with confusion and disorientation. PAST MEDICAL HISTORY: History of hypertension, EtOH, congestive heart failure, and anemia. MEDICATIONS: The patient's medications were reviewed by me. The patient was admitted to the hospital for further treatment. PHYSICAL EXAMINATION: GENERAL: During the hospital course, physical examination was showing confusion, disorientation and agitation. VITAL SIGNS: The patient's blood pressure was staying high. Afebrile. LUNGS: Normal. HEART: Normal. ABDOMEN: Normal. CENTRAL NERVOUS SYSTEM: No focal neurological complaints. Abnormal liver function test were noted on blood test. GI evaluation was done. No further workup was advised for GI. The patient also had ID evaluation done. The patient has hypokalemia on admission and hypomagnesemia. The patient was treated with IV magnesium to correct the electrolyte imbalance. The patient improved slowly. The patient needed physical therapy and rehab treatment. The patient refused to go [facility] for rehab treatment. The patient will be discharged home with outpatient physical therapy. FINAL DIAGNOSES: 1. Delirium tremens. 2. Alcohol withdrawal. 3. Cirrhosis of the liver with abnormal liver function test. 4. Hypokalemia. 5. Hypomagnesemia. 6. Hypertension. Marcelino Burns MD
--- NOTE | 2016-11-15 17:18 | CP.PCM.PN ---
Subjective - Date & Time of Evaluation Date of Evaluation: 11/15/16 Time of Evaluation: 11:00 - Subjective Subjective: Alert, awake, no tremors , no distress. Objective - Vital Signs/Intake and Output Vital Signs (last 24 hours): Temp Pulse Resp BP Pulse Ox 97.8 F 59 L 20 124/67 99 11/15/16 08:00 11/15/16 10:12 11/15/16 08:00 11/15/16 10:12 11/15/16 10:12 Intake and Output: 11/15/16 11/15/16 06:59 18:59 Intake Total 840 Balance 840 - Labs Labs: 11/15/16 13:50 11/09/16 11:31 PT 20.3 SECONDS (9.7-12.2) H 11/09/16 11:31 INR 1.7 11/09/16 11:31 APTT 35 SECONDS (21-34) H 11/07/16 17:06 Assessment and Plan - Assessment and Plan (Free Text) Assessment: Patient is seen and examined. Awake, alert, no tremors, no acute distress. No vomiting, tolerating diet. D/W DR Jose Burns, plan to discharge home today. Advised to follow up with outpatient alcohol rehab and f/u with PMD in 1 week.
== END 2016-11-15 16:44 | disposition home or self-care (01) | DRG 750 ==
LOC: C.ER 08:30 → C.9E 11:03 → C.3T 11:28
PROVIDERS: ADMIT Internal Medicine; ATTEND Internal Medicine
PROC: HZ2ZZZZ Detoxification Services for Substance Abuse Treatment (ICD-10-PCS; principal; 2016-11-07)
DX: F10.231 Alcohol dependence with withdrawal delirium (principal); K70.30 Alcoholic cirrhosis of liver without ascites; D69.6 Thrombocytopenia, unspecified; E46 Unspecified protein-calorie malnutrition; L02.416 Cutaneous abscess of left lower limb; I50.9 Heart failure, unspecified; I11.0 Hypertensive heart disease with heart failure; L03.116 Cellulitis of left lower limb; E87.6 Hypokalemia; E83.42 Hypomagnesemia; Z91.19 Patient's noncompliance with other medical treatment and regimen; D64.9 Anemia, unspecified; K70.40 Alcoholic hepatic failure without coma

== ENCOUNTER 2017-01-22 08:40 | Inpatient (IN) | payer MEDICAID ==
[2017-01-22 08:40] VITALS: BMI 25.7
--- NOTE | 2017-01-22 09:28 | C.PDOC ---
History Of Present Illness 56 year old male, with a history of alcohol abuse, presents to the ED via EMS with complaints of lower back pain for three days. Patient reports he tripped and fell, landing on his back. Patient denies head trauma, LOC, nausea, vomiting , weakness, numbness, or incontinence. Time Seen by Provider: 01/22/17 08:47 Chief Complaint (Nursing): Back Pain History Per: Patient, EMS History/Exam Limitations: no limitations Onset/Duration Of Symptoms: Days (3 days ) Current Symptoms Are (Timing): Still Present Quality Of Discomfort: "Pain" Previous Symptoms: None Associated Symptoms: None Exacerbating Factor(s): Movement Recent travel outside of the [place]: No Additional History Per: Prior Records Past Medical History Reviewed: Historical Data, Nursing Documentation, Vital Signs Vital Signs: Last Vital Signs Temp 97.9 F 01/22/17 16:20 Pulse 95 H 01/22/17 16:18 Resp 20 01/22/17 17:07 BP 144/66 01/22/17 16:18 Pulse Ox 100 01/22/17 17:07 - Medical History PMH: Anemia, CHF, HTN - [facility] Procedures CENTRAL VENOUS CATHETER PLACEMENT WITH GUIDANCE (11/20/14) DETOXIFICATION SERVICES FOR SUBSTANCE ABUSE TREATMENT (11/07/16) INSERTION OF INFUSION DEV INTO INF VENA CAVA, PERC APPROACH (12/27/14) INTRODUCE OTH ANTI-INFECT IN CENTRAL VEIN, PERC (12/27/14) Family History: States: Unknown Family Hx - Social History Hx Alcohol Use: Yes Hx Substance Use: No - Immunization History Hx Tetanus Toxoid Vaccination: No Hx Influenza Vaccination: No Hx Pneumococcal Vaccination: No Review Of Systems Constitutional: Negative for: Fever, Chills Cardiovascular: Negative for: Chest Pain, Palpitations Respiratory: Negative for: Cough, Shortness of Breath Gastrointestinal: Negative for: Nausea, Vomiting, Abdominal Pain, Diarrhea Genitourinary: Negative for: Dysuria, Incontinence, Hematuria Musculoskeletal: Positive for: Back Pain (lower back pain) Neurological: Negative for: Weakness, Numbness Physical Exam - Physical Exam Appears: Non-toxic, No Acute Distress Skin: Warm, Dry, Ecchymosis (lower back eccyhmosis ) Head: No Tenderness, No Abrasion, No Laceration, Other (no raccon eyes, no condon signs) Eye(s): bilateral: Normal Inspection, PERRL, EOMI Ear(s): Bilateral: Normal (no hemotympanum ) Nose: Normal, No Discharge, No Septal Hematoma Oral Mucosa: Moist Throat: Normal, No Erythema, No Exudate Neck: Normal ROM, No Midline Cervical Tenderness, No Paracervical Tenderness, No Step Off Deformity, Supple Chest: Symmetrical, No Deformity Cardiovascular: Rhythm Regular, No Murmur Respiratory: No Rales, No Rhonchi, No Wheezing, Other (clear to auscultation bilaterally ) Gastrointestinal/Abdominal: Soft, No Tenderness, No Distention, No Guarding, No Rebound Back: Paraspinal Tenderness (paralumbar tenderness) ED Course And Treatment - Laboratory Results Result Diagrams: 01/22/17 12:04 01/22/17 12:04 O2 Sat by Pulse Oximetry: 99 (RA) - Other Rad Lumbar Spine X-Ray X-Ray: Viewed By Me, Read By Radiologist Interpretation: FINDINGS: BONES: Mild anterior wedge compression deformity of the L1 vertebral body, age indeterminate. Remaining vertebral bodies are maintained in height. Normal alignment is maintained. Transverse processes and posterior elements appear intact. DISC SPACES: Unremarkable. OTHER FINDINGS: Incidentally noted is a TIPS stent. . IMPRESSION: Mild anterior wedge compression deformity of the L1 vertebra, age indeterminate. No other fracture identified. Incidentally noted TIPS stent. - CT Scan/US Head CT W/O contrast Other Rad Studies (CT/US): Read By Radiologist, Radiology Report Reviewed CT/US Interpretation: FINDINGS: HEMORRHAGE: Focal parenchymal hemorrhage seen in the left frontal lobe (series 4, image 28 through 32). Focal parenchymal hemorrhage also seen left frontal on series 4, image 39. Focal extra-axial blood , likely subdural, seen along the anterior falx cerebrum re- on series 4, image 32. Focal extra-axial blood, likely subdural, along the left side of the falx cerebrum the on image 47. Focal blood, possibly parenchymal versus subdural along the anterior left temporal tip. No subarachnoid hemorrhage identified. No other intracranial hemorrhage identified elsewhere. There are chronic low- density subdural hygromas seen about the lateral and frontal convexity bilaterally not evident on prior examination of 11/07/2016. There is mild flattening of the gyri in the frontal lobes bilaterally compared to prior examination from as a result of these chronic subdural hygromas. BRAIN: No intracranial mass. There is moderate diffuse atrophy. VENTRICLES: No hydrocephalus. No downward herniation. Basilar cisterns preserved. No midline shift. CALVARIUM: Unremarkable. PARANASAL SINUSES: Unremarkable as visualized. No significant inflammatory changes. MASTOID AIR CELLS: Incidentally hypoplastic left mastoid air cells. OTHER FINDINGS: Bold left lamina papyracea depressed fracture. IMPRESSION: Multifocal intracranial hemorrhage, both left frontal parenchymal as well as multifocal extra-axial, likely subdural. Parenchymal versus extra-axial at left temporal tip. Probable small bilateral frontal/convexity subdural hygromas new since 2016. Old left lamina papyracea depressed fracture. No evidence of acute fracture. Findings discussed by telephone with Dr. Sanders 10:50 a.m. on 2016 Progress Note: Head CT w/o contrast and Lumbar spine X-Ray was ordered. Medical Decision Making Medical Decision Making: Patient found to have intracranial bleeding and compression fracture of L1. Case was d/w neurosurgeon who requested to admit patient to ICU and to repeat head CT in the morning. case was d/wdrNubia who agreed to put patient on his service. Patient was d/w ICU attending who accepted patient to ICU. 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 - Scribe Statement The provider has reviewed the documentation as recorded by the Scribe Zenia Arreola All medical record entries made by the Scribe were at my direction and personally dictated by me. I have reviewed the chart and agree that the record accurately reflects my personal performance of the history, physical exam, medical decision making, and the department course for this patient. I have also personally directed, reviewed, and agree with the discharge instructions and disposition. Decision To Admit - Pt Status Changed To: Hospital Disposition Of: Inpatient - Admit Certification Admit to Inpatient:: After my assessment, the patient will require hospitalization for at least two midnights. This is because of the severity of symptoms shown, intensity of services needed, and/or the medical risk in this patient being treated as an outpatient. - InPatient: Physician Admission Certification:: ICU admission for intracranial bleeding, will need more than 48 h of hospitalization - . Bed Request Type: ICU Patient Diagnosis: Compression fracture of L1 lumbar vertebra, Intracranial bleeding
--- NOTE | 2017-01-22 10:35 | RAD ---
PROCEDURE: Radiographs of the Lumbar Spine. HISTORY: fall/ETOH COMPARISON: No prior. FINDINGS: BONES: Mild anterior wedge compression deformity of the L1 vertebral body, age indeterminate. Remaining vertebral bodies are maintained in height. Normal alignment is maintained. Transverse processes and posterior elements appear intact. DISC SPACES: Unremarkable. OTHER FINDINGS: Incidentally noted is a TIPS stent. . IMPRESSION: Mild anterior wedge compression deformity of the L1 vertebra, age indeterminate. No other fracture identified. Incidentally noted TIPS stent.
--- NOTE | 2017-01-22 10:55 | CT ---
PROCEDURE: CT HEAD WITHOUT CONTRAST. HISTORY: fall/ETOH COMPARISON: 11/07/2016 TECHNIQUE: Axial computed tomography images were obtained through the head/brain without intravenous contrast. Radiation dose: Total exam DLP = 916.56 mGy-cm. This CT exam was performed using one or more of the following dose reduction techniques: Automated exposure control, adjustment of the mA and/or kV according to patient size, and/or use of iterative reconstruction technique. FINDINGS: HEMORRHAGE: Focal parenchymal hemorrhage seen in the left frontal lobe (series 4, image 28 through 32). Focal parenchymal hemorrhage also seen left frontal on series 4, image 39. Focal extra-axial blood, likely subdural, seen along the anterior falx cerebrum re- on series 4, image 32. Focal extra-axial blood, likely subdural, along the left side of the falx cerebrum the on image 47. Focal blood, possibly parenchymal versus subdural along the anterior left temporal tip. No subarachnoid hemorrhage identified. No other intracranial hemorrhage identified elsewhere. There are chronic low-density subdural hygromas seen about the lateral and frontal convexity bilaterally not evident on prior examination of 11/07/2016. There is mild flattening of the gyri in the frontal lobes bilaterally compared to prior examination from as a result of these chronic subdural hygromas. BRAIN: No intracranial mass. There is moderate diffuse atrophy. VENTRICLES: No hydrocephalus. No downward herniation. Basilar cisterns preserved. No midline shift. CALVARIUM: Unremarkable. PARANASAL SINUSES: Unremarkable as visualized. No significant inflammatory changes. MASTOID AIR CELLS: Incidentally hypoplastic left mastoid air cells. OTHER FINDINGS: Bold left lamina papyracea depressed fracture. IMPRESSION: Multifocal intracranial hemorrhage, both left frontal parenchymal as well as multifocal extra-axial, likely subdural. Parenchymal versus extra-axial at left temporal tip. Probable small bilateral frontal/convexity subdural hygromas new since 11/07/2016. Old left lamina papyracea depressed fracture. No evidence of acute fracture. Findings discussed by telephone with Dr. Sanders 10:50 a.m. on 01/22/2017.
[2017-01-22 12:09] LABS: BASO # 0.1 K/uL (0.0-0.2); BASO % 0.9 % (0.0-2.0); EOS % 0.1 % (0.0-4.0); HEMATOCRIT 23.8 % (35.0-51.0); LYMPH # 0.9 K/uL (1.0-4.3); LYMPH % 16.5 % (20.0-40.0); MEAN CORPUSCULAR HEMOGLOBIN 30.8 pg (27.0-31.0); MEAN CORPUSCULAR HGB CONC 33.5 g/dL (33.0-37.0); MEAN PLATELET VOLUME 11.2 fL (7.2-11.7); MONO # 0.7 K/uL (0.0-0.8); MONO % 12.7 % (0.0-10.0); NRBC % 0.1 % (0.0-2.0); RED CELL DISTRIBUTION WIDTH 15.4 % (11.5-14.5); WHITE BLOOD COUNT 5.4 K/uL (4.8-10.8)
[2017-01-22 12:17] LABS: CHLORIDE 102 mmol/L (98-107); SODIUM 132 mmol/L (132-148)
[2017-01-22 12:18] LABS: POTASSIUM 4.2 mmol/L (3.6-5.2)
[2017-01-22 12:20] LABS: ALB/GLOB RATIO 0.5 (1.0-2.1); ALKALINE PHOSPHATASE 95 U/L (38-126); ALT/SGPT 46 U/L (21-72); AST/SGOT 111 U/L (17-59); BILIRUBIN,TOTAL 9.4 mg/dL (0.2-1.3); BLOOD UREA NITROGEN 30 mg/dL (9-20); CALCIUM 7.1 mg/dl (8.6-10.4); CARBON DIOXIDE 27 mmol/L (22-30); GFR AFRICAN-AMERICAN > 60; GLUCOSE,RANDOM 91 mg/dL (75-110); TOTAL PROTEIN 5.6 g/dL (6.3-8.3)
[2017-01-22 12:21] LABS: RBC URINE 51 /hpf (0-3); URINE BILIRUBIN 1+ (NEGATIVE); URINE BLOOD 3+ (NEGATIVE); URINE COLOR Amber (YELLOW); URINE GLUCOSE (UA) NORMAL (Normal); URINE KETONE NEGATIVE (NEGATIVE); URINE LEUKOCYTE ESTERASE NEG Leu/uL (Negative); URINE PROTEIN 2+ mg/dL (NEGATIVE); WBC URINE 4 /hpf (0-5)
[2017-01-22 12:21] LABS: ALCOHOL SERUM < 10 mg/dl (0-10)
[2017-01-22 12:22] LABS: INR 1.6
--- NOTE | 2017-01-22 14:01 | RAD ---
PROCEDURE: CHEST RADIOGRAPH, 1 VIEW HISTORY: brain bleed COMPARISON: 01/28/2015 FINDINGS: LUNGS: Mild venous congestion. Left basilar atelectasis. PLEURA: No pneumothorax or pleural fluid seen. CARDIOVASCULAR: Normal. OSSEOUS STRUCTURES: No significant abnormalities. VISUALIZED UPPER ABDOMEN: Normal. OTHER FINDINGS: None. IMPRESSION: Mild venous congestion. Left basilar atelectasis.
--- NOTE | 2017-01-22 15:10 | CP.PCM.CON ---
<Lucrecia Main - Last Filed: 01/22/17 18:03> History of Present Illness - History of Present Illness History of Present Illness: Patient is a 56 y/o M with PMHx of liver cirrhosis secondary to alcohol use disorder, HTN, CHF, and recurrent cellulitis of lower extremities who came in because of worsening back and left sided pain after he fell on Sunday. He says he fell down the stairs and EMS was called, but he did not go to the emergency room because he had no pain at that time. Since then patient says he has had worsening back and left sided pain. Patient says he could not sleep last night because the pain was so bad. Full history and ROS unobtainable as patient is a poor historian. PMHx: liver cirrhosis secondary to alcohol use disorder, HTN, CHF, and recurrent cellulitis Psurg: TIPS, Trach and reversal, Scrotal abscess drainage, endoscopy Social hx: denies tobacco or drugs, currently says drinks one 24oz beer every few days Home meds: none now as per patient, but says he was taking a lot after his last discharge from the hospital Review of Systems - Constitutional Constitutional: absent: Anorexia, Chills - EENT Eyes: absent: Blurred Vision - Cardiovascular Cardiovascular: absent: Chest Pain, Dyspnea, Leg Edema - Respiratory Respiratory: absent: Dyspnea - Gastrointestinal Gastrointestinal: Constipation. absent: Abdominal Pain, Diarrhea, Nausea, Vomiting - Genitourinary Genitourinary: absent: Difficulty Urinating - Integumentary Integumentary: absent: Rash Additional comments: left upper leg and low back bruises - Psychiatric Psychiatric: Confusion Past Patient History - Infectious Disease Hx of Infectious Diseases: None - Past Medical History & Family History Past Medical History?: Yes - Past Social History Smoking Status: Never Smoked - CARDIAC Hx Congestive Heart Failure: Yes Hx Hypertension: Yes - PULMONARY Hx Respiratory Disorders: No - NEUROLOGICAL Hx Neurological Disorder: No - HEENT Hx HEENT Problems: No - RENAL Hx Chronic Kidney Disease: No - ENDOCRINE/METABOLIC Hx Endocrine Disorders: No - HEMATOLOGICAL/ONCOLOGICAL Hx Anemia: Yes - INTEGUMENTARY Hx Dermatological Problems: Yes Hx Cellulitis: Yes (right lower extremity) Other/Comment: Right thigh Abscess, Right lower leg cellulitis - MUSCULOSKELETAL/RHEUMATOLOGICAL Hx Musculoskeletal Disorders: No - GASTROINTESTINAL Hx Gastrointestinal Disorders: No Other/Comment: liver problems, Alcohol abuse, - GENITOURINARY/GYNECOLOGICAL Hx Genitourinary Disorders: No - PSYCHIATRIC Hx Substance Use: No - SURGICAL HISTORY Hx Surgeries: No (verbalized by patient) - ANESTHESIA Hx Anesthesia: No Hx Anesthesia Reactions: No Hx Malignant Hyperthermia: No Meds Allergies/Adverse Reactions: Allergies Allergy/AdvReac Type Severity Reaction Status Date / Time No Known Allergies Allergy Verified 11/07/16 09:07 Physical Exam - Constitutional Appears: Older Than Stated Age - Head Exam Head Exam: ATRAUMATIC, NORMAL INSPECTION Additional comments: scabs on face from fall - Eye Exam Eye Exam: EOMI - ENT Exam ENT Exam: Mucous Membranes Moist - Respiratory Exam Respiratory Exam: Clear to Auscultation Bilateral, NORMAL BREATHING PATTERN - Cardiovascular Exam Cardiovascular Exam: Tachycardia - GI/Abdominal Exam GI & Abdominal Exam: Distended, Normal Bowel Sounds, Soft - Extremities Exam Extremities exam: Positive for: tenderness. Negative for: calf tenderness, pedal edema - Back Exam Back exam: tenderness. absent: rash noted Additional comments: left sided ecchymosis - Neurological Exam Neurological exam: Alert - Psychiatric Exam Psychiatric exam: Normal Affect, Normal Mood - Skin Skin Exam: Warm Additional comments: left side of back and leg with ecchymosis Results - Vital Signs Recent Vital Signs: Last Vital Signs Temp 97.4 F L 01/22/17 08:48 Pulse 92 H 01/22/17 14:32 Resp 18 01/22/17 14:32 BP 147/61 01/22/17 14:32 Pulse Ox 99 01/22/17 14:50 - Labs Result Diagrams: 01/22/17 12:04 01/22/17 12:04 Labs: Laboratory Results - last 24 hr 01/22/17 01/22/17 01/22/17 12:04 12:04 12:04 WBC 5.4 RBC 2.59 L Hgb 8.0 L D Hct 23.8 L MCV 92.0 D MCH 30.8 MCHC 33.5 RDW 15.4 H Plt Count 40 L D MPV 11.2 Neut % (Auto) 69.8 Lymph % (Auto) 16.5 L [place] % (Auto) 12.7 H Eos % (Auto) 0.1 Baso % (Auto) 0.9 Neut # 3.8 Lymph # 0.9 L [place] # 0.7 Eos # 0.0 Baso # 0.1 Differential Comment PT 18.8 H INR 1.6 APTT 36 H Sodium 132 Potassium 4.2 Chloride 102 Carbon Dioxide 27 Anion Gap 8 L BUN 30 H Creatinine 0.9 Est GFR ( Amer) > 60 Est GFR (Non-Af Amer) > 60 Random Glucose 91 Calcium 7.1 L Total Bilirubin 9.4 H AST 111 H ALT 46 Alkaline Phosphatase 95 Total Protein 5.6 L Albumin 1.9 L Globulin 3.7 Albumin/Globulin Ratio 0.5 L Urine Color Urine Clarity Urine pH Ur Specific [place] Urine Protein Urine Glucose (UA) Urine Ketones Urine Blood Urine Nitrate Urine Bilirubin Urine Urobilinogen Ur Leukocyte Esterase Urine WBC (Auto) Urine RBC (Auto) Ur Squamous Epith Cells Hyaline Casts Alcohol, Quantitative < 10 01/22/17 12:11 WBC RBC Hgb Hct MCV MCH MCHC RDW Plt Count MPV Neut % (Auto) Lymph % (Auto) [place] % (Auto) Eos % (Auto) Baso % (Auto) Neut # Lymph # [place] # Eos # Baso # Differential Comment PT INR APTT Sodium Potassium Chloride Carbon Dioxide Anion Gap BUN Creatinine Est GFR ( Amer) Est GFR (Non-Af Amer) Random Glucose Calcium Total Bilirubin AST ALT Alkaline Phosphatase Total Protein Albumin Globulin Albumin/Globulin Ratio Urine Color [place] Urine Clarity Hazy Urine pH 5.0 Ur Specific [place] 1.025 Urine Protein 2+ H Urine Glucose (UA) Normal Urine Ketones Negative Urine Blood 3+ H Urine Nitrate Negative Urine Bilirubin 1+ H Urine Urobilinogen 4.0 Ur Leukocyte Esterase Neg Urine WBC (Auto) 4 Urine RBC (Auto) 51 H Ur Squamous Epith Cells < 1 Hyaline Casts 3-5 H Alcohol, Quantitative Assessment & Plan - Assessment and Plan (Free Text) Assessment: 56 year old M with PMHx of liver cirrhosis secondary to alcohol use disorder, HTN, CHF, and recurrent cellulitis of lower extremities who presents s/p fall with intracranial hemorrhage. Neuro: Head CT: multifocal intracranial hemorrhage, both left frontal parenchymal as well as multifocal extra-axial, likely subdural. Parenchymal versus extra-axial at left temporal tip. Probable small bilateral frontal/ convexity subdural hygromas new since 11/07/16. Old left lamina papyracea depressed fracture. No evidence of acute fracture. Dr. Roberson consulted, help appreciated Dr. Quinones consulted, help appreciated Cardio: hx HTN, CHF -Echo (11/23/14): LVEF normal, >70%, hypertensive heart disease. -monitor BP, will add meds if needed Pulm: -Cxray: mild venous congestion, left basilar atelectasis. GI: hx liver cirrhosis Heme: H/H: 23.8 Platelet:40 continue to monitor MSK: Spine AP/Lat xray: mild anterior wedge compression deformity of the L1 vertebra , age indeterminate. Incidentally noted TIPS stent. Oxycodone 5mg q6 prn for severe pain Prophylaxis: DVT: SCDs, chemical prophylaxis contraindicated due to intracranial hemorrhage GI: Pepcid 20 mg po daily <Anoop Mccauley - Last Filed: 01/29/17 13:49> Meds - Medications Medications: Current Medications Chlordiazepoxide (Librium) 25 mg PO Q8 PRN PRN Reason: Agitation Last Admin: 01/23/17 23:06 Dose: 25 mg Famotidine (Pepcid) 20 mg PO DAILY OTIS Last Admin: 01/29/17 09:56 Dose: 20 mg Ondansetron HCl (Zofran Inj) 4 mg IVP Q6H PRN PRN Reason: Nausea/Vomiting Last Admin: 01/23/17 08:25 Dose: 4 mg Polyethylene Glycol (Miralax) 17 gm PO Q12H PRN PRN Reason: Constipation Last Admin: 01/23/17 09:58 Dose: 17 gm Results - Vital Signs Recent Vital Signs: Last Vital Signs Temp 98.4 F 01/29/17 08:17 Pulse 93 H 01/29/17 08:17 Resp 20 01/29/17 08:17 BP 130/80 01/29/17 12:06 Pulse Ox 97 01/29/17 08:17 - Labs Result Diagrams: 01/24/17 06:10 01/24/17 06:10 Attending/Attestation - Attestation I have personally seen and examined this patient.: Yes I have fully participated in the care of the patient.: Yes I have reviewed all pertinent clinical information: Yes
[2017-01-22] MEDS ORDERED: MORPHINE SULFATE PO SCH (17:30)
[2017-01-22] MEDS: oxyCODONE 5 mg Immediate Release Tab PO PRN (18:17)
--- NOTE | 2017-01-23 01:56 | HP ---
HISTORY OF PRESENT ILLNESS: This is a 56-year-old [place] male came to the emergency room with history of fall. The patient claims he slipped and landed on his back. The patient complains of low back pain. No history of nausea, vomiting or abdominal pain. The patient has generalized weakness. The patient has history of chronic EtOH abuse. It appears that the patient may have fallen many times. In the emergency room, CAT scan of the head shows multiple areas of intracranial bleeding. The patient denies having any focal weakness. PAST HISTORY: History of hypertension, cirrhosis of the liver, anemia, CHF and hypertension. FAMILY HISTORY: No known inherited disease. SOCIAL HISTORY: Alcohol present. No smoking. No IVDA. MEDICATIONS: The patient noncompliant to the medications. The patient has history of multiple admissions to the hospital for EtOH problems. REVIEW OF SYSTEMS: Negative. PHYSICAL EXAMINATION GENERAL: On admission, this is a 56-year-old [place] male, awake, comfortable. VITAL SIGNS: Temperature 97.9, pulse 95, respirations 20, blood pressure 144/66 mmHg, pulse ox is 100% on room air. HEENT: Normal. NECK: JVP is flat. Carotids, no bruits. LUNGS: No rales, no wheezing. HEART: S1 and S2 normal. No gallop. No murmur. ABDOMEN: Soft, nontender. No organomegaly. COSTUME SPECIALIST: No focal neurological deficits. BACK: Tenderness present. LABORATORY DATA: On admission, hemoglobin is 8 and hematocrit is 23.8. Platelets are 40,000. BMP shows BUN of 30, creatinine normal. X-ray shows mild anterior compression deformity of L1 vertebra. CT scan of the head shows multifocal intracranial hemorrhage, both on left frontal parenchymal as well as subdural hematoma. IMPRESSION: 1. Intracranial hemorrhage. 2. Compression fracture L1 vertebra. 3. History of fall. 4. Cirrhosis of the liver with anemia and thrombocytopenia. PLAN: The patient will be admitted to the ICU for observation. We will continue all the management. Other workup as needed. Marcelino Burns MD
[2017-01-23] MEDS: oxyCODONE 5 mg Immediate Release Tab PO PRN (06:01)
[2017-01-23 06:46] LABS: BASO # 0.1 K/uL (0.0-0.2); EOS # 0.1 K/uL (0.0-0.7); EOS % 1.6 % (0.0-4.0); HEMATOCRIT 22.6 % (35.0-51.0); LYMPH # 1.6 K/uL (1.0-4.3); LYMPH % 27.3 % (20.0-40.0); MEAN CELL VOLUME 93.3 fL (80.0-94.0); MEAN CORPUSCULAR HEMOGLOBIN 31.7 pg (27.0-31.0); MONO # 0.8 K/uL (0.0-0.8); NRBC % 0.2 % (0.0-2.0); RED CELL DISTRIBUTION WIDTH 15.9 % (11.5-14.5)
[2017-01-23 07:01] LABS: CHLORIDE 102 mmol/L (98-107); SODIUM 134 mmol/L (132-148)
[2017-01-23 07:03] LABS: ALB/GLOB RATIO 0.5 (1.0-2.1); ALKALINE PHOSPHATASE 93 U/L (38-126); ALT/SGPT 43 U/L (21-72); AST/SGOT 98 U/L (17-59); BILIRUBIN,TOTAL 8.2 mg/dL (0.2-1.3); BLOOD UREA NITROGEN 33 mg/dL (9-20); CARBON DIOXIDE 29 mmol/L (22-30); GFR AFRICAN-AMERICAN > 60; TOTAL PROTEIN 5.4 g/dL (6.3-8.3)
[2017-01-23 07:04] LABS: CALCIUM 7.1 mg/dl (8.6-10.4); GLUCOSE,RANDOM 94 mg/dL (75-110); MAGNESIUM 1.3 mg/dL (1.6-2.3); PHOSPHOROUS 2.7 mg/dL (2.5-4.5)
--- NOTE | 2017-01-23 07:42 | CP.CCUPN ---
<Lucrecia Main Antoine - Last Filed: 01/23/17 14:33> CCU Subjective - Physician Review Subjective (Free Text): Patient seen and examined at bedside and in no acute distress. Patient says his pain on left side and back are the same as yesterday. Patient had one episode of vomiting this morning, but felt better after given Zofran. Patient has not had a bowel movement. Patient denies shortness of breath or chest pain. CCU Objective - Vital Signs / Intake & Output Vital Signs (Last 4 hours): Vital Signs Temp Pulse Resp BP Pulse Ox 01/23/17 07:17 86 12 152/71 H 98 01/23/17 07:00 88 14 98 01/23/17 06:17 83 12 148/71 99 01/23/17 06:00 100 H 21 82 L 01/23/17 05:18 83 13 145/72 100 01/23/17 05:00 83 10 L 100 01/23/17 04:17 79 11 L 145/82 100 01/23/17 04:00 98.7 F 82 10 L 100 Intake and Output (Last 8hrs): Intake & Output 01/22/17 01/23/17 01/23/17 22:59 06:59 14:59 Intake Total 580 150 0 Output Total 200 300 0 Balance 380 -150 0 Weight 175 lb Intake: Intake, IV Amount 0 Right Antecubital 0 Oral 580 150 0 Output: Urine 200 300 0 Urine, Voided 200 300 0 Other: Voiding Method Urinal # Voids Urine, Voided 1 1 - Physical Exam Head: Positive for: Atraumatic, Normocephalic, Abrasion Extroacular Muscles: Positive for: EOMI Mouth: Positive for: Moist Mucous Membranes Respiratory/Chest: Positive for: Clear to Auscultation, Good Air Exchange. Negative for: Respiratory Distress Cardiovascular: Positive for: Normal S1, S2 Abdomen: Positive for: Distention. Negative for: Tenderness Upper Extremity: Positive for: Normal Inspection. Negative for: Edema Lower Extremity: Positive for: Normal Inspection. Negative for: Edema Skin: Positive for: Warm, Abrasion, Other (ecchymosis on left side ) Psychiatric: Positive for: Alert - Medications Active Medications: Active Medications Generic Name Dose Route Start Last Admin Trade Name Freq PRN Reason Stop Dose Admin Famotidine 20 mg 01/23/17 10:00 Pepcid PO DAILY OTIS Oxycodone HCl 5 mg 01/22/17 18:03 01/23/17 06:01 Oxycodone Immediate Release Tab PO 5 mg Q6 PRN Administration Pain, severe (8-10) - Patient Studies Lab Studies: Lab Studies 01/23/17 01/23/17 01/22/17 Range/Units 06:40 06:40 12:11 WBC 6.0 (4.8-10.8) K/uL RBC 2.42 L (4.40-5.90) Mil/uL Hgb 7.7 L (12.0-18.0) g/dL Hct 22.6 L (35.0-51.0) % MCV 93.3 (80.0-94.0) fL MCH 31.7 H (27.0-31.0) pg MCHC 34.0 (33.0-37.0) g/dL RDW 15.9 H (11.5-14.5) % Plt Count 42 L (130-400) K/uL MPV 11.0 (7.2-11.7) fL Neut % (Auto) 57.1 (50.0-75.0) % Lymph % (Auto) 27.3 (20.0-40.0) % [place] % (Auto) 13.0 H (0.0-10.0) % Eos % (Auto) 1.6 (0.0-4.0) % Baso % (Auto) 1.0 (0.0-2.0) % Neut # 3.4 (1.8-7.0) K/uL Lymph # 1.6 (1.0-4.3) K/uL [place] # 0.8 (0.0-0.8) K/uL Eos # 0.1 (0.0-0.7) K/uL Baso # 0.1 (0.0-0.2) K/uL Differential Comment PT (9.7-12.2) SECONDS INR APTT (21-34) SECONDS Sodium 134 (132-148) mmol/L Potassium (3.6-5.2) mmol/L Chloride 102 (98-107) mmol/L Carbon Dioxide 29 (22-30) mmol/L Anion Gap (10-20) BUN 33 H (9-20) mg/dL Creatinine 0.9 (0.8-1.5) mg/dL Est GFR ( Amer) > 60 Est GFR (Non-Af Amer) > 60 Random Glucose 94 (75-110) mg/dL Calcium 7.1 L (8.6-10.4) mg/dl Phosphorus 2.7 (2.5-4.5) mg/dL Magnesium 1.3 L (1.6-2.3) mg/dL Total Bilirubin 8.2 H (0.2-1.3) mg/dL AST 98 H (17-59) U/L ALT 43 (21-72) U/L Alkaline Phosphatase 93 (38-126) U/L Total Protein 5.4 L (6.3-8.3) g/dL Albumin 1.9 L (3.5-5.0) g/dL Globulin 3.6 (2.2-3.9) gm/dL Albumin/Globulin Ratio 0.5 L (1.0-2.1) Urine Color Gilda (YELLOW) Urine Clarity Hazy (Clear) Urine pH 5.0 (5.0-8.0) Ur Specific [place] 1.025 (1.003-1.030) Urine Protein 2+ H (NEGATIVE) mg/dL Urine Glucose (UA) Normal (Normal) mg/dL Urine Ketones Negative (NEGATIVE) mg/dL Urine Blood 3+ H (NEGATIVE) Urine Nitrate Negative (NEGATIVE) Urine Bilirubin 1+ H (NEGATIVE) Urine Urobilinogen 4.0 (0.2-1.0) mg/dL Ur Leukocyte Esterase Neg (Negative) Freddie/uL Urine WBC (Auto) 4 (0-5) /hpf Urine RBC (Auto) 51 H (0-3) /hpf Ur Squamous Epith Cells < 1 (0-5) /hpf Hyaline Casts 3-5 H (0-2) /lpf Alcohol, Quantitative (0-10) mg/dl 01/22/17 01/22/17 01/22/17 Range/Units 12:04 12:04 12:04 WBC 5.4 (4.8-10.8) K/uL RBC 2.59 L (4.40-5.90) Mil/uL Hgb 8.0 L D (12.0-18.0) g/dL Hct 23.8 L (35.0-51.0) % MCV 92.0 D (80.0-94.0) fL MCH 30.8 (27.0-31.0) pg MCHC 33.5 (33.0-37.0) g/dL RDW 15.4 H (11.5-14.5) % Plt Count 40 L D (130-400) K/uL MPV 11.2 (7.2-11.7) fL Neut % (Auto) 69.8 (50.0-75.0) % Lymph % (Auto) 16.5 L (20.0-40.0) % [place] % (Auto) 12.7 H (0.0-10.0) % Eos % (Auto) 0.1 (0.0-4.0) % Baso % (Auto) 0.9 (0.0-2.0) % Neut # 3.8 (1.8-7.0) K/uL Lymph # 0.9 L (1.0-4.3) K/uL [place] # 0.7 (0.0-0.8) K/uL Eos # 0.0 (0.0-0.7) K/uL Baso # 0.1 (0.0-0.2) K/uL Differential Comment PT 18.8 H (9.7-12.2) SECONDS INR 1.6 APTT 36 H (21-34) SECONDS Sodium 132 (132-148) mmol/L Potassium 4.2 (3.6-5.2) mmol/L Chloride 102 (98-107) mmol/L Carbon Dioxide 27 (22-30) mmol/L Anion Gap 8 L (10-20) BUN 30 H (9-20) mg/dL Creatinine 0.9 (0.8-1.5) mg/dL Est GFR ( Amer) > 60 Est GFR (Non-Af Amer) > 60 Random Glucose 91 (75-110) mg/dL Calcium 7.1 L (8.6-10.4) mg/dl Phosphorus (2.5-4.5) mg/dL Magnesium (1.6-2.3) mg/dL Total Bilirubin 9.4 H (0.2-1.3) mg/dL AST 111 H (17-59) U/L ALT 46 (21-72) U/L Alkaline Phosphatase 95 (38-126) U/L Total Protein 5.6 L (6.3-8.3) g/dL Albumin 1.9 L (3.5-5.0) g/dL Globulin 3.7 (2.2-3.9) gm/dL Albumin/Globulin Ratio 0.5 L (1.0-2.1) Urine Color (YELLOW) Urine Clarity (Clear) Urine pH (5.0-8.0) Ur Specific [place] (1.003-1.030) Urine Protein (NEGATIVE) mg/dL Urine Glucose (UA) (Normal) mg/dL Urine Ketones (NEGATIVE) mg/dL Urine Blood (NEGATIVE) Urine Nitrate (NEGATIVE) Urine Bilirubin (NEGATIVE) Urine Urobilinogen (0.2-1.0) mg/dL Ur Leukocyte Esterase (Negative) Freddie/uL Urine WBC (Auto) (0-5) /hpf Urine RBC (Auto) (0-3) /hpf Ur Squamous Epith Cells (0-5) /hpf Hyaline Casts (0-2) /lpf Alcohol, Quantitative < 10 (0-10) mg/dl Laboratory Results - last 24 hr 01/22/17 01/22/17 01/22/17 12:04 12:04 12:04 WBC 5.4 RBC 2.59 L Hgb 8.0 L D Hct 23.8 L MCV 92.0 D MCH 30.8 MCHC 33.5 RDW 15.4 H Plt Count 40 L D MPV 11.2 Neut % (Auto) 69.8 Lymph % (Auto) 16.5 L [place] % (Auto) 12.7 H Eos % (Auto) 0.1 Baso % (Auto) 0.9 Neut # 3.8 Lymph # 0.9 L [place] # 0.7 Eos # 0.0 Baso # 0.1 Differential Comment PT 18.8 H INR 1.6 APTT 36 H Sodium 132 Potassium 4.2 Chloride 102 Carbon Dioxide 27 Anion Gap 8 L BUN 30 H Creatinine 0.9 Est GFR ( Amer) > 60 Est GFR (Non-Af Amer) > 60 Random Glucose 91 Calcium 7.1 L Phosphorus Magnesium Total Bilirubin 9.4 H AST 111 H ALT 46 Alkaline Phosphatase 95 Total Protein 5.6 L Albumin 1.9 L Globulin 3.7 Albumin/Globulin Ratio 0.5 L Urine Color Urine Clarity Urine pH Ur Specific [place] Urine Protein Urine Glucose (UA) Urine Ketones Urine Blood Urine Nitrate Urine Bilirubin Urine Urobilinogen Ur Leukocyte Esterase Urine WBC (Auto) Urine RBC (Auto) Ur Squamous Epith Cells Hyaline Casts Alcohol, Quantitative < 10 01/22/17 01/23/17 01/23/17 12:11 06:40 06:40 WBC 6.0 RBC 2.42 L Hgb 7.7 L Hct 22.6 L MCV 93.3 MCH 31.7 H MCHC 34.0 RDW 15.9 H Plt Count 42 L MPV 11.0 Neut % (Auto) 57.1 Lymph % (Auto) 27.3 [place] % (Auto) 13.0 H Eos % (Auto) 1.6 Baso % (Auto) 1.0 Neut # 3.4 Lymph # 1.6 [place] # 0.8 Eos # 0.1 Baso # 0.1 Differential Comment PT INR APTT Sodium 134 Potassium Chloride 102 Carbon Dioxide 29 Anion Gap BUN 33 H Creatinine 0.9 Est GFR ( Amer) > 60 Est GFR (Non-Af Amer) > 60 Random Glucose 94 Calcium 7.1 L Phosphorus 2.7 Magnesium 1.3 L Total Bilirubin 8.2 H AST 98 H ALT 43 Alkaline Phosphatase 93 Total Protein 5.4 L Albumin 1.9 L Globulin 3.6 Albumin/Globulin Ratio 0.5 L Urine Color [place] Urine Clarity Hazy Urine pH 5.0 Ur Specific [place] 1.025 Urine Protein 2+ H Urine Glucose (UA) Normal Urine Ketones Negative Urine Blood 3+ H Urine Nitrate Negative Urine Bilirubin 1+ H Urine Urobilinogen 4.0 Ur Leukocyte Esterase Neg Urine WBC (Auto) 4 Urine RBC (Auto) 51 H Ur Squamous Epith Cells < 1 Hyaline Casts 3-5 H Alcohol, Quantitative EKG/Cardiology Studies: Cardiology / EKG Studies 01/22/17 11:56 ELECTROCARDIOGRAM Stat Comment: Mode Of Transportation: BED Reason For Exam: brain bleed Review of Systems - Constitutional Constitutional: absent: Fever, Chills, Sweats - EENT Eyes: absent: Blurred Vision - Cardiovascular Cardiovascular: absent: Chest Pain, Dyspnea, Leg Edema - Respiratory Respiratory: absent: Cough, Dyspnea, Wheezing, Stridor - Gastrointestinal Gastrointestinal: Constipation, Nausea, Vomiting. absent: Abdominal Pain, Diarrhea - Genitourinary Genitourinary: absent: Difficulty Urinating - Integumentary Integumentary: Other (left side bruising from fall ) Critical Care Progress Note - Nutrition Nutrition: Nutrition Category Date Time Status Heart Healthy Diet [DIET] Diets 01/22/17 Dinner Active Assessment/Plan - Assessment and Plan (Free Text) Assessment: 56 year old M with PMHx of liver cirrhosis secondary to alcohol use disorder, HTN, CHF, and recurrent cellulitis of lower extremities who presents s/p fall with intracranial hemorrhage. Today's Plan: Patient stable for transfer to med/surg Plan: Neuro: Head CT 01/22: multifocal intracranial hemorrhage, both left frontal parenchymal as well as multifocal extra-axial, likely subdural. Parenchymal versus extra-axial at left temporal tip. Probable small bilateral frontal/ convexity subdural hygromas new since 11/07/16. Old left lamina papyracea depressed fracture. No evidence of acute fracture. Dr. Roberson consulted, help appreciated Dr. Quinones consulted, help appreciated f/u repeat head CT 01/23: pending as per Dr. Roberson, no intervention from neurosurg Cardio: hx HTN, CHF -Echo (11/23/14): LVEF normal, >70%, hypertensive heart disease. -monitor BP, will add meds if needed Pulm: -Cxray: mild venous congestion, left basilar atelectasis. Nephro: electrolyte imbalance Magnesium 1.3, repleted GI: hx liver cirrhosis, alcohol abuse, constipation Librium 25 mg po q8h prn for agitation/ signs of withdrawal Miralax prn abdominal u/s (01/23): nodular hepatic contour. Echogenic liver may be seen in setting of hepatic parenchymal disease or fatty infiltration. Limited eval of TIPS. Mild gallbladder wall thickening/ edema. No gallstones evident. Negative sonographic Gan's sign as assessed by the earth boring machine operator. Heme: H/H: 7.7/22.6 Platelet:42 continue to monitor, type and cross Dr. Mahan consulted, help appreciated f/u bilirubin, haptoglobin, iron studies, haptoglobin Hepatitis panel negative 11/07/16 INR: 1.6 Vit K 10 mg sc MSK: Spine AP/Lat xray: mild anterior wedge compression deformity of the L1 vertebra , age indeterminate. Incidentally noted TIPS stent. Oxycodone 5mg q6 prn for severe pain Prophylaxis: DVT: SCDs, chemical prophylaxis contraindicated due to intracranial hemorrhage GI: Pepcid 20 mg po daily Zofran q6h for nausea seizure precautions <Adam Turenr - Last Filed: 01/23/17 16:59> CCU Objective - Vital Signs / Intake & Output Vital Signs (Last 4 hours): Vital Signs Temp Pulse Resp BP Pulse Ox 01/23/17 16:00 98.3 F 75 10 L 97 01/23/17 15:17 75 9 L 157/75 H 99 01/23/17 14:18 86 15 121/49 L 98 Intake and Output (Last 8hrs): Intake & Output 01/23/17 01/23/17 01/23/17 06:59 14:59 22:59 Intake Total 150 920 0 Output Total 300 400 Balance -150 520 0 Weight 175 lb Intake: Intake, IV Amount 0 200 Right Antecubital 0 200 Oral 150 720 0 Output: Urine 300 300 Urine, Voided 300 300 Emesis 100 Other: # Voids Urine, Voided 1 1 - Medications Active Medications: Active Medications Generic Name Dose Route Start Last Admin Trade Name Freq PRN Reason Stop Dose Admin Chlordiazepoxide 25 mg 01/23/17 11:17 01/23/17 13:01 Librium PO 25 mg Q8 PRN Administration Agitation Famotidine 20 mg 01/23/17 10:00 01/23/17 09:58 Pepcid PO 20 mg DAILY OTIS Administration Ondansetron HCl 4 mg 01/23/17 08:05 01/23/17 08:25 Zofran Inj IVP 4 mg Q6H PRN Administration Nausea/Vomiting Oxycodone HCl 5 mg 01/22/17 18:03 01/23/17 06:01 Oxycodone Immediate Release Tab PO 5 mg Q6 PRN Administration Pain, severe (8-10) Polyethylene Glycol 17 gm 01/23/17 09:11 01/23/17 09:58 Miralax PO 17 gm Q12H PRN Administration Constipation - Patient Studies Lab Studies: Lab Studies 01/23/17 01/23/17 01/23/17 Range/Units 12:42 12:42 12:42 WBC (4.8-10.8) K/uL RBC (4.40-5.90) Mil/uL Hgb (12.0-18.0) g/dL Hct (35.0-51.0) % MCV (80.0-94.0) fL MCH (27.0-31.0) pg MCHC (33.0-37.0) g/dL RDW (11.5-14.5) % Plt Count (130-400) K/uL MPV (7.2-11.7) fL Neut % (Auto) (50.0-75.0) % Lymph % (Auto) (20.0-40.0) % [place] % (Auto) (0.0-10.0) % Eos % (Auto) (0.0-4.0) % Baso % (Auto) (0.0-2.0) % Neut # (1.8-7.0) K/uL Lymph # (1.0-4.3) K/uL [place] # (0.0-0.8) K/uL Eos # (0.0-0.7) K/uL Baso # (0.0-0.2) K/uL PT 17.8 H (9.7-12.2) SECONDS INR 1.6 APTT 36 H (21-34) SECONDS Fibrinogen 129 L (200-400) mg/dL D-Dimer, Quantitative > 5250 H (0-243) ng/mlDDU Sodium (132-148) mmol/L Potassium (3.6-5.2) mmol/L Chloride (98-107) mmol/L Carbon Dioxide (22-30) mmol/L Anion Gap (10-20) BUN (9-20) mg/dL Creatinine (0.8-1.5) mg/dL Est GFR ( Amer) Est GFR (Non-Af Amer) Random Glucose (75-110) mg/dL Calcium (8.6-10.4) mg/dl Phosphorus (2.5-4.5) mg/dL Magnesium (1.6-2.3) mg/dL Iron 43 L (49-181) ug/dL TIBC 240 L (250-450) ug/dL % Saturation 18 L (20-55) Ferritin 86.1 ng/mL Total Bilirubin 8.6 H (0.2-1.3) mg/dL Direct Bilirubin 5.5 H (0.0-0.4) mg/dL AST (17-59) U/L ALT (21-72) U/L Alkaline Phosphatase (38-126) U/L Total Protein (6.3-8.3) g/dL Albumin (3.5-5.0) g/dL Globulin (2.2-3.9) gm/dL Albumin/Globulin Ratio (1.0-2.1) Vitamin B12 891 (239-931) pg/mL 01/23/17 01/23/17 Range/Units 06:40 06:40 WBC 6.0 (4.8-10.8) K/uL RBC 2.42 L (4.40-5.90) Mil/uL Hgb 7.7 L (12.0-18.0) g/dL Hct 22.6 L (35.0-51.0) % MCV 93.3 (80.0-94.0) fL MCH 31.7 H (27.0-31.0) pg MCHC 34.0 (33.0-37.0) g/dL RDW 15.9 H (11.5-14.5) % Plt Count 42 L (130-400) K/uL MPV 11.0 (7.2-11.7) fL Neut % (Auto) 57.1 (50.0-75.0) % Lymph % (Auto) 27.3 (20.0-40.0) % [place] % (Auto) 13.0 H (0.0-10.0) % Eos % (Auto) 1.6 (0.0-4.0) % Baso % (Auto) 1.0 (0.0-2.0) % Neut # 3.4 (1.8-7.0) K/uL Lymph # 1.6 (1.0-4.3) K/uL [place] # 0.8 (0.0-0.8) K/uL Eos # 0.1 (0.0-0.7) K/uL Baso # 0.1 (0.0-0.2) K/uL PT (9.7-12.2) SECONDS INR APTT (21-34) SECONDS Fibrinogen (200-400) mg/dL D-Dimer, Quantitative (0-243) ng/mlDDU Sodium 134 (132-148) mmol/L Potassium 3.8 (3.6-5.2) mmol/L Chloride 102 (98-107) mmol/L Carbon Dioxide 29 (22-30) mmol/L Anion Gap 7 L (10-20) BUN 33 H (9-20) mg/dL Creatinine 0.9 (0.8-1.5) mg/dL Est GFR ( Amer) > 60 Est GFR (Non-Af Amer) > 60 Random Glucose 94 (75-110) mg/dL Calcium 7.1 L (8.6-10.4) mg/dl Phosphorus 2.7 (2.5-4.5) mg/dL Magnesium 1.3 L (1.6-2.3) mg/dL Iron (49-181) ug/dL TIBC (250-450) ug/dL % Saturation (20-55) Ferritin ng/mL Total Bilirubin 8.2 H (0.2-1.3) mg/dL Direct Bilirubin (0.0-0.4) mg/dL AST 98 H (17-59) U/L ALT 43 (21-72) U/L Alkaline Phosphatase 93 (38-126) U/L Total Protein 5.4 L (6.3-8.3) g/dL Albumin 1.9 L (3.5-5.0) g/dL Globulin 3.6 (2.2-3.9) gm/dL Albumin/Globulin Ratio 0.5 L (1.0-2.1) Vitamin B12 (239-931) pg/mL Laboratory Results - last 24 hr 01/23/17 01/23/17 01/23/17 06:40 06:40 12:42 WBC 6.0 RBC 2.42 L Hgb 7.7 L Hct 22.6 L MCV 93.3 MCH 31.7 H MCHC 34.0 RDW 15.9 H Plt Count 42 L MPV 11.0 Neut % (Auto) 57.1 Lymph % (Auto) 27.3 [place] % (Auto) 13.0 H Eos % (Auto) 1.6 Baso % (Auto) 1.0 Neut # 3.4 Lymph # 1.6 [place] # 0.8 Eos # 0.1 Baso # 0.1 PT INR APTT Fibrinogen D-Dimer, Quantitative Sodium 134 Potassium 3.8 Chloride 102 Carbon Dioxide 29 Anion Gap 7 L BUN 33 H Creatinine 0.9 Est GFR ( Amer) > 60 Est GFR (Non-Af Amer) > 60 Random Glucose 94 Calcium 7.1 L Phosphorus 2.7 Magnesium 1.3 L Iron 43 L TIBC 240 L % Saturation 18 L Ferritin Total Bilirubin 8.2 H Direct Bilirubin AST 98 H ALT 43 Alkaline Phosphatase 93 Total Protein 5.4 L Albumin 1.9 L Globulin 3.6 Albumin/Globulin Ratio 0.5 L Vitamin B12 01/23/17 01/23/17 12:42 12:42 WBC RBC Hgb Hct MCV MCH MCHC RDW Plt Count MPV Neut % (Auto) Lymph % (Auto) [place] % (Auto) Eos % (Auto) Baso % (Auto) Neut # Lymph # [place] # Eos # Baso # PT 17.8 H INR 1.6 APTT 36 H Fibrinogen 129 L D-Dimer, Quantitative > 5250 H Sodium Potassium Chloride Carbon Dioxide Anion Gap BUN Creatinine Est GFR ( Amer) Est GFR (Non-Af Amer) Random Glucose Calcium Phosphorus Magnesium Iron TIBC % Saturation Ferritin 86.1 Total Bilirubin 8.6 H Direct Bilirubin 5.5 H AST ALT Alkaline Phosphatase Total Protein Albumin Globulin Albumin/Globulin Ratio Vitamin B12 891 Critical Care Progress Note - Nutrition Nutrition: Nutrition Category Date Time Status Heart Healthy Diet [DIET] Diets 01/22/17 Dinner Active Attending/Attestation - Attestation I have personally seen and examined this patient.: Yes I have fully participated in the care of the patient.: Yes I have reviewed all pertinent clinical information: Yes Notes (Text): 01/23/17 16:58 Patient seen and examined in the intensive care unit. Case discussed with house staff in the morning rounds. Patient is awake, alert oriented complaining of nausea Not much change in repeat CAT scan Seen by neurosurgery and no indication for surgery Stable for transfer to floor A repeat CAT scan tomorrow as per neurology
[2017-01-23 07:43] LABS: POTASSIUM 3.8 mmol/L (3.6-5.2)
[2017-01-23] MEDS ORDERED: POLYETHYLENE GLYCOL 3350 17 GM/Dose PACKET PO PRN (09:11)
--- NOTE | 2017-01-23 09:50 | CP.PCM.CON ---
History of Present Illness - History of Present Illness History of Present Illness: patient seen . full consult will be dictated. Past Patient History - Infectious Disease Hx of Infectious Diseases: None - Past Medical History & Family History Past Medical History?: Yes - Past Social History Smoking Status: Never Smoked - CARDIAC Hx Congestive Heart Failure: Yes Hx Hypertension: Yes - PULMONARY Hx Respiratory Disorders: No - NEUROLOGICAL Hx Neurological Disorder: No - HEENT Hx HEENT Problems: No - RENAL Hx Chronic Kidney Disease: No - ENDOCRINE/METABOLIC Hx Endocrine Disorders: No - HEMATOLOGICAL/ONCOLOGICAL Hx Anemia: Yes - INTEGUMENTARY Hx Dermatological Problems: Yes Hx Cellulitis: Yes (right lower extremity) Other/Comment: Right thigh Abscess, Right lower leg cellulitis - MUSCULOSKELETAL/RHEUMATOLOGICAL Hx Musculoskeletal Disorders: No - GASTROINTESTINAL Hx Gastrointestinal Disorders: No Other/Comment: liver problems, Alcohol abuse, - GENITOURINARY/GYNECOLOGICAL Hx Genitourinary Disorders: No - PSYCHIATRIC Hx Substance Use: No - SURGICAL HISTORY Hx Surgeries: No (verbalized by patient) - ANESTHESIA Hx Anesthesia: No Hx Anesthesia Reactions: No Hx Malignant Hyperthermia: No Meds Allergies/Adverse Reactions: Allergies Allergy/AdvReac Type Severity Reaction Status Date / Time No Known Allergies Allergy Verified 11/07/16 09:07 - Medications Medications: Current Medications Famotidine (Pepcid) 20 mg PO DAILY [facility] Magnesium Sulfate/Dextrose (Magnesium Sulfate 1 Gm/100 Ml D5w) 1 gm in 100 mls @ 200 mls/hr IVPB Q30M OTIS Stop: 01/23/17 10:14 Ondansetron HCl (Zofran Inj) 4 mg IVP Q6H PRN PRN Reason: Nausea/Vomiting Oxycodone HCl (Oxycodone Immediate Release Tab) 5 mg PO Q6 PRN PRN Reason: Pain, severe (8-10) Last Admin: 01/23/17 06:01 Dose: 5 mg Polyethylene Glycol (Miralax) 17 gm PO Q12H PRN PRN Reason: Constipation Results - Vital Signs Recent Vital Signs: Last Vital Signs Temp 98.5 F 01/23/17 08:00 Pulse 83 01/23/17 08:17 Resp 11 L 01/23/17 08:17 BP 147/64 01/23/17 08:17 Pulse Ox 99 01/23/17 08:17 - Labs Result Diagrams: 01/23/17 06:40 01/23/17 06:40 Labs: Laboratory Results - last 24 hr 01/22/17 01/22/17 01/22/17 12:04 12:04 12:04 WBC 5.4 RBC 2.59 L Hgb 8.0 L D Hct 23.8 L MCV 92.0 D MCH 30.8 MCHC 33.5 RDW 15.4 H Plt Count 40 L D MPV 11.2 Neut % (Auto) 69.8 Lymph % (Auto) 16.5 L [place] % (Auto) 12.7 H Eos % (Auto) 0.1 Baso % (Auto) 0.9 Neut # 3.8 Lymph # 0.9 L [place] # 0.7 Eos # 0.0 Baso # 0.1 Differential Comment PT 18.8 H INR 1.6 APTT 36 H Sodium 132 Potassium 4.2 Chloride 102 Carbon Dioxide 27 Anion Gap 8 L BUN 30 H Creatinine 0.9 Est GFR ( Amer) > 60 Est GFR (Non-Af Amer) > 60 Random Glucose 91 Calcium 7.1 L Phosphorus Magnesium Total Bilirubin 9.4 H AST 111 H ALT 46 Alkaline Phosphatase 95 Total Protein 5.6 L Albumin 1.9 L Globulin 3.7 Albumin/Globulin Ratio 0.5 L Urine Color Urine Clarity Urine pH Ur Specific [place] Urine Protein Urine Glucose (UA) Urine Ketones Urine Blood Urine Nitrate Urine Bilirubin Urine Urobilinogen Ur Leukocyte Esterase Urine WBC (Auto) Urine RBC (Auto) Ur Squamous Epith Cells Hyaline Casts Alcohol, Quantitative < 10 01/22/17 01/23/17 01/23/17 12:11 06:40 06:40 WBC 6.0 RBC 2.42 L Hgb 7.7 L Hct 22.6 L MCV 93.3 MCH 31.7 H MCHC 34.0 RDW 15.9 H Plt Count 42 L MPV 11.0 Neut % (Auto) 57.1 Lymph % (Auto) 27.3 [place] % (Auto) 13.0 H Eos % (Auto) 1.6 Baso % (Auto) 1.0 Neut # 3.4 Lymph # 1.6 [place] # 0.8 Eos # 0.1 Baso # 0.1 Differential Comment PT INR APTT Sodium 134 Potassium 3.8 Chloride 102 Carbon Dioxide 29 Anion Gap 7 L BUN 33 H Creatinine 0.9 Est GFR ( Amer) > 60 Est GFR (Non-Af Amer) > 60 Random Glucose 94 Calcium 7.1 L Phosphorus 2.7 Magnesium 1.3 L Total Bilirubin 8.2 H AST 98 H ALT 43 Alkaline Phosphatase 93 Total Protein 5.4 L Albumin 1.9 L Globulin 3.6 Albumin/Globulin Ratio 0.5 L Urine Color Gilda Urine Clarity Hazy Urine pH 5.0 Ur Specific [place] 1.025 Urine Protein 2+ H Urine Glucose (UA) Normal Urine Ketones Negative Urine Blood 3+ H Urine Nitrate Negative Urine Bilirubin 1+ H Urine Urobilinogen 4.0 Ur Leukocyte Esterase Neg Urine WBC (Auto) 4 Urine RBC (Auto) 51 H Ur Squamous Epith Cells < 1 Hyaline Casts 3-5 H Alcohol, Quantitative
[2017-01-23] MEDS: Magnesium Sulfate 1 gm in D5W 1 GM/100 ML BAG IVPB SCH ×2 (09:57→11:13)
[2017-01-23] MEDS: Phytonadione 10 mg/ml Inj (Adult) IV STA ×2 (09:58→11:00)
--- NOTE | 2017-01-23 11:34 | US ---
HISTORY: r/o intra-abdominal bleed COMPARISON: Liver protocol CT performed 11/08/16 TECHNIQUE: Sonographic evaluation of the abdomen. FINDINGS: Examination limited due to patient motion and difficulty with breath hold. LIVER: Measures 11.5 cm in sagittal dimension. Echogenic liver may be seen in setting of hepatic parenchymal disease or fatty infiltration. Nodular hepatic contour. Flow was demonstrated within a segment of the tips however limited evaluation with the remainder of the tips not demonstrated. The main portal vein appears patent with normal directional flow. No intrahepatic bile duct dilatation. GALLBLADDER: No gallstones. Mild gallbladder wall thickening/ edema measuring approximately 4 mm. Negative sonographic Gan's sign as assessed by the textbook associate. COMMON BILE DUCT: Measures 5 mm. PANCREAS: Not well visualized. RIGHT KIDNEY: Measures 11.4 x 6.0 x 5.2 cm. No obstructing calculus or hydronephrosis identified. LEFT KIDNEY: Measures 11.1 x 6.1 x 5.4 cm. No obstructing calculus or hydronephrosis identified. SPLEEN: Measures approximately 12.3 cm. AORTA: Not well-visualized. IVC: Not well-visualized. OTHER FINDINGS: None. IMPRESSION: Limited study as above. Nodular hepatic contour. Echogenic liver may be seen in setting of hepatic parenchymal disease or fatty infiltration. Limited evaluation of TIPS. Mild gallbladder wall thickening/edema. No gallstones evident. Negative sonographic Gan's sign as assessed by the textbook associate.
[2017-01-23] MEDS ORDERED: Phytonadione 10 mg/ml Inj (Adult) SC ONE (11:45)
--- NOTE | 2017-01-23 12:25 | CARD ---
APPROVED REPORT EKG Measurement Heart [id number] <Conclusion> Normal sinus rhythm Nonspecific T wave abnormality Prolonged QT Abnormal ECG
[2017-01-23 13:02] LABS: BILIRUBIN,TOTAL 8.6 mg/dL (0.2-1.3)
[2017-01-23 13:04] LABS: IRON 43 ug/dL (49-181)
[2017-01-23] MEDS: Phytonadione 10 mg/ml Inj (Adult) SC ONE ×2 (13:05→13:30)
--- NOTE | 2017-01-23 13:09 | CP.PCM.PN ---
Subjective - Date & Time of Evaluation Date of Evaluation: 01/23/17 Time of Evaluation: 13:08 - Subjective Subjective: full consult dictated no intervention re head trauma L spine comp fx age indeterminate- no tx indicated clear for transfer from unit and d/c when otherwise med clear Objective - Vital Signs/Intake and Output Vital Signs (last 24 hours): Temp Pulse Resp BP Pulse Ox 97.9 F 82 12 161/57 H 99 01/23/17 12:00 01/23/17 12:17 01/23/17 12:17 01/23/17 12:17 01/23/17 12:17 Intake and Output: 01/23/17 01/23/17 06:59 18:59 Intake Total 490 560 Output Total 400 200 Balance 90 360 - Medications Medications: Current Medications Chlordiazepoxide (Librium) 25 mg PO Q8 PRN PRN Reason: Agitation Last Admin: 01/23/17 13:01 Dose: 25 mg Famotidine (Pepcid) 20 mg PO DAILY OTIS Last Admin: 01/23/17 09:58 Dose: 20 mg Ondansetron HCl (Zofran Inj) 4 mg IVP Q6H PRN PRN Reason: Nausea/Vomiting Last Admin: 01/23/17 08:25 Dose: 4 mg Oxycodone HCl (Oxycodone Immediate Release Tab) 5 mg PO Q6 PRN PRN Reason: Pain, severe (8-10) Last Admin: 01/23/17 06:01 Dose: 5 mg Polyethylene Glycol (Miralax) 17 gm PO Q12H PRN PRN Reason: Constipation Last Admin: 01/23/17 09:58 Dose: 17 gm - Labs Labs: 01/23/17 06:40 01/23/17 06:40 PT 18.8 SECONDS (9.7-12.2) H 01/22/17 12:04 INR 1.6 01/22/17 12:04 APTT 36 SECONDS (21-34) H 01/22/17 12:04
--- NOTE | 2017-01-23 13:36 | CP.PCM.PN ---
Subjective - Date & Time of Evaluation Date of Evaluation: 01/23/17 Time of Evaluation: 13:32 - Subjective Subjective: PT FEELS BETTER. NO NEUROSURGICAL INTERVENTION. AWAKE, ALERT. BACK PAIN PRESENT. ANEMIA. Objective - Vital Signs/Intake and Output Vital Signs (last 24 hours): Temp Pulse Resp BP Pulse Ox 97.9 F 82 12 161/57 H 99 01/23/17 12:00 01/23/17 12:17 01/23/17 12:17 01/23/17 12:17 01/23/17 12:17 Intake and Output: 01/23/17 01/23/17 06:59 18:59 Intake Total 490 680 Output Total 400 300 Balance 90 380 - Medications Medications: Current Medications Chlordiazepoxide (Librium) 25 mg PO Q8 PRN PRN Reason: Agitation Last Admin: 01/23/17 13:01 Dose: 25 mg Famotidine (Pepcid) 20 mg PO DAILY OTIS Last Admin: 01/23/17 09:58 Dose: 20 mg Ondansetron HCl (Zofran Inj) 4 mg IVP Q6H PRN PRN Reason: Nausea/Vomiting Last Admin: 01/23/17 08:25 Dose: 4 mg Oxycodone HCl (Oxycodone Immediate Release Tab) 5 mg PO Q6 PRN PRN Reason: Pain, severe (8-10) Last Admin: 01/23/17 06:01 Dose: 5 mg Polyethylene Glycol (Miralax) 17 gm PO Q12H PRN PRN Reason: Constipation Last Admin: 01/23/17 09:58 Dose: 17 gm - Labs Labs: 01/23/17 06:40 01/23/17 06:40 PT 18.8 SECONDS (9.7-12.2) H 01/22/17 12:04 INR 1.6 01/22/17 12:04 APTT 36 SECONDS (21-34) H 01/22/17 12:04 - Constitutional Appears: Non-toxic, No Acute Distress, Chronically Ill - Eye Exam Eye Exam: Normal appearance, PERRL, Scleral icterus - ENT Exam ENT Exam: Mucous Membranes Moist - Respiratory Exam Respiratory Exam: Clear to Ausculation Bilateral, NORMAL BREATHING PATTERN - Cardiovascular Exam Cardiovascular Exam: REGULAR RHYTHM, +S1, +S2 - GI/Abdominal Exam GI & Abdominal Exam: Soft, Normal Bowel Sounds - Extremities Exam Extremities Exam: Full ROM, Normal Capillary Refill, Normal Inspection. absent : Joint Swelling, Pedal Edema - Neurological Exam Neurological Exam: Alert, Awake, CN II-XII Intact, Normal Gait, Oriented x3 - Psychiatric Exam Psychiatric exam: Normal Affect, Normal Mood Assessment and Plan - Assessment and Plan (Free Text) Assessment: INTRACRANIAL BLEED. CIRRHOSIS OF LIVER. FALL. VERTEBRAL FRACTURE. Plan: CT PRESENT TREATMENT. MAY NEED BLOOD TRANSFUSION.
[2017-01-23 13:38] LABS: BILIRUBIN,DIRECT 5.5 mg/dL (0.0-0.4)
[2017-01-23 13:58] LABS: FIBRINOGEN 129 mg/dL (200-400); INR 1.6; PARTIAL THROMBOPLASTIN TIME 36 SECONDS (21-34)
--- NOTE | 2017-01-23 15:05 | CT ---
PROCEDURE: CT HEAD WITHOUT CONTRAST. HISTORY: RE-EVALUATION OF BLEED COMPARISON: Unenhanced head CT 01/22/2017 TECHNIQUE: Axial computed tomography images were obtained through the head/brain without intravenous contrast. Radiation dose: Total exam DLP = 1008.88 mGy-cm. This CT exam was performed using one or more of the following dose reduction techniques: Automated exposure control, adjustment of the mA and/or kV according to patient size, and/or use of iterative reconstruction technique. FINDINGS: HEMORRHAGE: Mild bilateral subdural hygromas are stable. Limited parenchymal hemorrhage/ contusions are seen at the left greater than right frontal lobes as well as the anterior pole left temporal lobe as well. Trace subarachnoid hemorrhage is likely present at the right occipital posteriorly, minimally in the interval. And trace additional hemorrhage at the low medial left frontal vertex probably within cortex is again identified and may be smaller in the interval. No large hemorrhage is appreciated in the interval. Age BRAIN: Global cerebral atrophy remains mild with the brain parenchyma is stable in the interval intrinsically. VENTRICLES: Unremarkable. No hydrocephalus. CALVARIUM: Unremarkable. PARANASAL SINUSES: Unremarkable as visualized. No significant inflammatory changes. MASTOID AIR CELLS: Unremarkable as visualized. No inflammatory changes. OTHER FINDINGS: None. IMPRESSION: Multifocal, stable cortical/petechial hemorrhages are appreciated at the bilateral frontal lobes once again, left temporal lobe as well as small bilateral subdural hygromas. Trace subarachnoid hemorrhage is suggested the right occipital lobe in the interval however. Continued clinical and CT monitoring are advised. Global cerebral atrophy again appreciated mildly.
--- NOTE | 2017-01-23 16:53 | CP.PCM.CON ---
History of Present Illness - History of Present Illness History of Present Illness: Mr. Burns is a 56-year-old man with a past medical history of alcohol abuse, who suffered from a trip and fall causing injury to his back and spine as well as a head injury. His CT scan of the head showed multi-focal small hemorrhages as well as more chronic appearing subdural hemorrhages. No reported seizures, loss of consciousness or other associated symptoms. The patient is alert and fully oriented and only complains of back pain. He was evaluated by neurosurgery, with no plan for treatment at this time. Repeat CT scan of the head was stable. Review of Systems - Review of Systems All systems: reviewed and no additional remarkable complaints except Past Patient History - Infectious Disease Hx of Infectious Diseases: None - Past Medical History & Family History Past Medical History?: Yes - Past Social History Smoking Status: Never Smoked - CARDIAC Hx Congestive Heart Failure: Yes Hx Hypertension: Yes - PULMONARY Hx Respiratory Disorders: No - NEUROLOGICAL Hx Neurological Disorder: No - HEENT Hx HEENT Problems: No - RENAL Hx Chronic Kidney Disease: No - ENDOCRINE/METABOLIC Hx Endocrine Disorders: No - HEMATOLOGICAL/ONCOLOGICAL Hx Anemia: Yes - INTEGUMENTARY Hx Dermatological Problems: Yes Hx Cellulitis: Yes (right lower extremity) Other/Comment: Right thigh Abscess, Right lower leg cellulitis - MUSCULOSKELETAL/RHEUMATOLOGICAL Hx Musculoskeletal Disorders: No - GASTROINTESTINAL Hx Gastrointestinal Disorders: No Other/Comment: liver problems, Alcohol abuse, - GENITOURINARY/GYNECOLOGICAL Hx Genitourinary Disorders: No - PSYCHIATRIC Hx Substance Use: No - SURGICAL HISTORY Hx Surgeries: No (verbalized by patient) - ANESTHESIA Hx Anesthesia: No Hx Anesthesia Reactions: No Hx Malignant Hyperthermia: No Meds Allergies/Adverse Reactions: Allergies Allergy/AdvReac Type Severity Reaction Status Date / Time No Known Allergies Allergy Verified 11/07/16 09:07 - Medications Medications: Current Medications Chlordiazepoxide (Librium) 25 mg PO Q8 PRN PRN Reason: Agitation Last Admin: 01/23/17 13:01 Dose: 25 mg Famotidine (Pepcid) 20 mg PO DAILY OTSI Last Admin: 01/23/17 09:58 Dose: 20 mg Ondansetron HCl (Zofran Inj) 4 mg IVP Q6H PRN PRN Reason: Nausea/Vomiting Last Admin: 01/23/17 08:25 Dose: 4 mg Oxycodone HCl (Oxycodone Immediate Release Tab) 5 mg PO Q6 PRN PRN Reason: Pain, severe (8-10) Last Admin: 01/23/17 06:01 Dose: 5 mg Polyethylene Glycol (Miralax) 17 gm PO Q12H PRN PRN Reason: Constipation Last Admin: 01/23/17 09:58 Dose: 17 gm Physical Exam - Constitutional Appears: Well - Head Exam Head Exam: ATRAUMATIC, NORMAL INSPECTION, NORMOCEPHALIC - Neck Exam Neck exam: Positive for: Normal Inspection - Respiratory Exam Respiratory Exam: Clear to Auscultation Bilateral, NORMAL BREATHING PATTERN - Cardiovascular Exam Cardiovascular Exam: REGULAR RHYTHM, +S1, +S2 - GI/Abdominal Exam GI & Abdominal Exam: Normal Bowel Sounds, Soft. absent: Tenderness - Rectal Exam Rectal Exam: Deferred - Extremities Exam Extremities exam: Positive for: normal inspection - Neurological Exam Neurological exam: Alert, CN II-XII Intact, Normal Gait, Oriented x3, Reflexes Normal - Psychiatric Exam Psychiatric exam: Normal Affect, Normal Mood Results - Vital Signs Recent Vital Signs: Last Vital Signs Temp 98.3 F 01/23/17 16:00 Pulse 75 01/23/17 16:00 Resp 10 L 01/23/17 16:00 BP 157/75 H 01/23/17 15:17 Pulse Ox 97 01/23/17 16:00 - Labs Result Diagrams: 01/23/17 06:40 01/23/17 06:40 Labs: Laboratory Results - last 24 hr 01/23/17 01/23/17 01/23/17 06:40 06:40 12:42 WBC 6.0 RBC 2.42 L Hgb 7.7 L Hct 22.6 L MCV 93.3 MCH 31.7 H MCHC 34.0 RDW 15.9 H Plt Count 42 L MPV 11.0 Neut % (Auto) 57.1 Lymph % (Auto) 27.3 Lanier % (Auto) 13.0 H Eos % (Auto) 1.6 Baso % (Auto) 1.0 Neut # 3.4 Lymph # 1.6 Lanier # 0.8 Eos # 0.1 Baso # 0.1 PT INR APTT Fibrinogen D-Dimer, Quantitative Sodium 134 Potassium 3.8 Chloride 102 Carbon Dioxide 29 Anion Gap 7 L BUN 33 H Creatinine 0.9 Est GFR ( Amer) > 60 Est GFR (Non-Af Amer) > 60 Random Glucose 94 Calcium 7.1 L Phosphorus 2.7 Magnesium 1.3 L Iron 43 L TIBC 240 L % Saturation 18 L Ferritin Total Bilirubin 8.2 H Direct Bilirubin AST 98 H ALT 43 Alkaline Phosphatase 93 Total Protein 5.4 L Albumin 1.9 L Globulin 3.6 Albumin/Globulin Ratio 0.5 L Vitamin B12 01/23/17 01/23/17 12:42 12:42 WBC RBC Hgb Hct MCV MCH MCHC RDW Plt Count MPV Neut % (Auto) Lymph % (Auto) Lanier % (Auto) Eos % (Auto) Baso % (Auto) Neut # Lymph # Lanier # Eos # Baso # PT 17.8 H INR 1.6 APTT 36 H Fibrinogen 129 L D-Dimer, Quantitative > 5250 H Sodium Potassium Chloride Carbon Dioxide Anion Gap BUN Creatinine Est GFR ( Amer) Est GFR (Non-Af Amer) Random Glucose Calcium Phosphorus Magnesium Iron TIBC % Saturation Ferritin 86.1 Total Bilirubin 8.6 H Direct Bilirubin 5.5 H AST ALT Alkaline Phosphatase Total Protein Albumin Globulin Albumin/Globulin Ratio Vitamin B12 891 Assessment & Plan (1) Intracranial bleeding Assessment and Plan: There are acute and chronic elements of the bleeding. No history of seizures, but an EEG may not be a bad idea. An MRI of the brain is also recommended. No seizure medications at this time. The patient was instructed to avoid alcohol and will recommend PT/OT. Avoid anticoagulants or antiplatelet agents at this time. Thank you. Status: Acute Priority: High
--- NOTE | 2017-01-23 19:53 | CON ---
HISTORY OF PRESENT ILLNESS: This is a 56-year-old male came to the emergency room after a fall. He slipped and landed on his back. He complains of low back pain. He has previous history of chronic alcohol use. He has fallen many times, been in ER many times. He has CT scan showing multifocal hemorrhagic contusions with significant atrophy and bilateral chronic hygromas. Repeat CT scan was done, and it showed slight improvement to my read in the hemorrhages. No official report as of yet. PAST MEDICAL HISTORY: He has a history of hypertension, cirrhosis, anemia, CHF. SOCIAL HISTORY: He is chronic alcoholic. Denies smoking and illicit drugs. FAMILY HISTORY: No significant family history. REVIEW OF SYSTEMS: Noncontributory. PHYSICAL EXAMINATION: He is currently fully awake, alert and oriented. He has good strength in all muscle groups. He has no focal deficits, no sensory deficits. His cranial nerves appear intact. At this point, it is cleared that the hemorrhages are improving. Surgical intervention is not warranted. From my point of view, he is clear to be transferred from ICU to the floor and then to be discharged when otherwise medically cleared. Yohan Roberson MD
[2017-01-24 06:22] LABS: BASO # 0.1 K/uL (0.0-0.2); BASO % 1.1 % (0.0-2.0); EOS # 0.2 K/uL (0.0-0.7); EOS % 2.9 % (0.0-4.0); HEMATOCRIT 25.4 % (35.0-51.0); LYMPH # 1.6 K/uL (1.0-4.3); LYMPH % 27.3 % (20.0-40.0); MEAN CELL VOLUME 94.3 fL (80.0-94.0); MEAN CORPUSCULAR HEMOGLOBIN 31.4 pg (27.0-31.0); MEAN CORPUSCULAR HGB CONC 33.3 g/dL (33.0-37.0); MONO # 0.7 K/uL (0.0-0.8); MONO % 12.4 % (0.0-10.0); NRBC % 0.2 % (0.0-2.0); RED CELL DISTRIBUTION WIDTH 15.8 % (11.5-14.5); WHITE BLOOD COUNT 5.9 K/uL (4.8-10.8)
[2017-01-24 06:33] LABS: ALKALINE PHOSPHATASE 101 U/L (38-126); ALT/SGPT 48 U/L (21-72); AST/SGOT 106 U/L (17-59); BLOOD UREA NITROGEN 27 mg/dL (9-20); CALCIUM 7.3 mg/dl (8.6-10.4); CARBON DIOXIDE 29 mmol/L (22-30); CHLORIDE 102 mmol/L (98-107); GFR AFRICAN-AMERICAN > 60; GLUCOSE,RANDOM 83 mg/dL (75-110); MAGNESIUM 1.7 mg/dL (1.6-2.3); PHOSPHOROUS 2.6 mg/dL (2.5-4.5); POTASSIUM 3.7 mmol/L (3.6-5.2); SODIUM 135 mmol/L (132-148); TOTAL PROTEIN 5.6 g/dL (6.3-8.3)
[2017-01-24 06:39] LABS: ALB/GLOB RATIO 0.5 (1.0-2.1)
--- NOTE | 2017-01-24 09:02 | CP.PCM.PN ---
Subjective - Date & Time of Evaluation Date of Evaluation: 01/24/17 Time of Evaluation: 09:00 - Subjective Subjective: Mr. Burns was seen and examined at the bedside. He is alert, oriented in all spheres. He denies any headache, blurred vision, dizziness, lightheadedness, nausea, or vomiting. He complains of low back pain with scale of 8/10, dull, throbbing, non-radiating. He is able to move all his extremities without any problem. There was no untoward events overnight. Objective - Vital Signs/Intake and Output Vital Signs (last 24 hours): Temp Pulse Resp BP Pulse Ox 98.3 F 97 H 20 150/75 99 01/24/17 08:00 01/24/17 08:00 01/24/17 08:00 01/24/17 08:00 01/24/17 08:00 Intake and Output: 01/24/17 01/24/17 06:59 18:59 Intake Total 200 Output Total 400 Balance -200 - Medications Medications: Current Medications Chlordiazepoxide (Librium) 25 mg PO Q8 PRN PRN Reason: Agitation Last Admin: 01/23/17 23:06 Dose: 25 mg Famotidine (Pepcid) 20 mg PO DAILY OTIS Last Admin: 01/23/17 09:58 Dose: 20 mg Ondansetron HCl (Zofran Inj) 4 mg IVP Q6H PRN PRN Reason: Nausea/Vomiting Last Admin: 01/23/17 08:25 Dose: 4 mg Oxycodone HCl (Oxycodone Immediate Release Tab) 5 mg PO Q6 PRN PRN Reason: Pain, severe (8-10) Last Admin: 01/23/17 06:01 Dose: 5 mg Polyethylene Glycol (Miralax) 17 gm PO Q12H PRN PRN Reason: Constipation Last Admin: 01/23/17 09:58 Dose: 17 gm - Labs Labs: 01/24/17 06:10 01/24/17 06:10 PT 17.8 SECONDS (9.7-12.2) H 01/23/17 12:42 INR 1.6 01/23/17 12:42 APTT 36 SECONDS (21-34) H 01/23/17 12:42 - Constitutional Appears: No Acute Distress - Head Exam Head Exam: ATRAUMATIC - Neurological Exam Neurological Exam: Alert, Awake, CN II-XII Intact, Oriented x3 Neuro motor strength exam: Left Upper Extremity: 5, Right Upper Extremity: 5, Left Lower Extremity: 5, Right Lower Extremity: 5 Additional comments: Neurological unchanged from previous examination. Sensation remains intact. Assessment and Plan (1) Intracranial bleeding Assessment & Plan: Case discussed with Dr. Quinones, continue all current medical, physical, and occupational therapies. Recommends EEG and MRI of the brain without contrast to rule out seizures. Status: Acute
--- NOTE | 2017-01-24 11:49 | MRI ---
PROCEDURE: MRI BRAIN WITHOUT CONTRAST HISTORY: intracranial hemorrhage COMPARISON: Head CT without contrast 01/23/2017 as well as 01/22/2017. TECHNIQUE: Multiplanar, multisequence MR images of the brain were obtained without intravenous contrast enhancement. FINDINGS: HEMORRHAGE: Intra hemorrhage does not appear to have increased however MRI is more sensitive for hyper acute bleeding. Trace subarachnoid hemorrhage is seen at the left frontal vertex once again as well as the anterior portion of the left middle cranial fossa. The left frontal opercular subarachnoid hemorrhage or cortical petechial hemorrhage is not characterized in this MR examination. Bilateral subdural hygromas are stable and remain mild. No significant mass effect throughout the exam. No definitive large new intracranial hemorrhage is identified. DWI: No evidence of an acute or early subacute infarction. BRAIN PARENCHYMA: Diffuse cerebral atrophy chronic microangiopathy are reiterated. Posterior fossa contents appear unremarkable once again including the brainstem. VENTRICLES: Unremarkable. No hydrocephalus. CRANIUM: Unremarkable. ORBITS: Grossly unremarkable. PARANASAL SINUSES/MASTOIDS: Clear VASCULAR SYSTEM: Skull base flow voids intact. OTHER FINDINGS: None. IMPRESSION: Trace intracranial hemorrhage is again appreciated as well as bilateral small subdural hygromas although lateral left frontal operculum or subarachnoid or petechial hemorrhage is not identified the current MR examination. Follow-up head CT is advised. No mass-effect. Age-related neuro degenerative changes are reiterated.
--- NOTE | 2017-01-24 19:14 | CP.PCM.PN ---
Subjective - Date & Time of Evaluation Date of Evaluation: 01/24/17 Time of Evaluation: 13:00 - Subjective Subjective: CONDITION REMAINS SAME. AWAKE, ORIENTED. NO DISTRESS. AFEBRILE. NEURO EVAL NORED. HB 8.4. GER 8.0 Objective - Vital Signs/Intake and Output Vital Signs (last 24 hours): Temp Pulse Resp BP Pulse Ox 98.4 F 91 H 20 132/67 100 01/24/17 15:00 01/24/17 15:00 01/24/17 15:00 01/24/17 15:00 01/24/17 15:00 - Medications Medications: Current Medications Chlordiazepoxide (Librium) 25 mg PO Q8 PRN PRN Reason: Agitation Last Admin: 01/23/17 23:06 Dose: 25 mg Famotidine (Pepcid) 20 mg PO DAILY OTIS Last Admin: 01/24/17 09:20 Dose: 20 mg Ondansetron HCl (Zofran Inj) 4 mg IVP Q6H PRN PRN Reason: Nausea/Vomiting Last Admin: 01/23/17 08:25 Dose: 4 mg Oxycodone HCl (Oxycodone Immediate Release Tab) 5 mg PO Q6 PRN PRN Reason: Pain, severe (8-10) Last Admin: 01/23/17 06:01 Dose: 5 mg Polyethylene Glycol (Miralax) 17 gm PO Q12H PRN PRN Reason: Constipation Last Admin: 01/23/17 09:58 Dose: 17 gm - Labs Labs: 01/24/17 06:10 01/24/17 06:10 PT 17.8 SECONDS (9.7-12.2) H 01/23/17 12:42 INR 1.6 01/23/17 12:42 APTT 36 SECONDS (21-34) H 01/23/17 12:42 - Constitutional Appears: No Acute Distress, Chronically Ill - Eye Exam Eye Exam: Normal appearance, PERRL - ENT Exam ENT Exam: Mucous Membranes Moist - Respiratory Exam Respiratory Exam: Clear to Ausculation Bilateral, NORMAL BREATHING PATTERN - Cardiovascular Exam Cardiovascular Exam: REGULAR RHYTHM, +S1, +S2 - GI/Abdominal Exam GI & Abdominal Exam: Soft, Normal Bowel Sounds - Extremities Exam Extremities Exam: Full ROM, Normal Capillary Refill, Normal Inspection. absent : Joint Swelling, Pedal Edema - Neurological Exam Neurological Exam: Alert, Awake, CN II-XII Intact, Normal Gait, Oriented x3 Assessment and Plan - Assessment and Plan (Free Text) Assessment: INTRACRANIAL BEEDING STABLE. CIRRHOSIS OF LIVER. Plan: MRI BRAIN OK. CT PRESENT MANAGEMENT. HEMATOLOGY F/U.
[2017-01-24] MEDS: oxyCODONE 5 mg Immediate Release Tab PO PRN (19:27)
--- NOTE | 2017-01-25 09:50 | CP.PCM.PN ---
Subjective - Date & Time of Evaluation Date of Evaluation: 01/25/17 Time of Evaluation: 09:49 - Subjective Subjective: Mr. Burns was seen and examined at the bedside. He is alert, oriented in all spheres. He denies any headache, blurred vision, dizziness, lightheadedness, weakness, nausea, or vomiting. He is o 1: 1 sitter for patient safety. There was no untoward events overnight. Objective - Vital Signs/Intake and Output Vital Signs (last 24 hours): Temp Pulse Resp BP Pulse Ox 98.7 F 84 20 143/71 98 01/25/17 08:26 01/25/17 08:26 01/25/17 08:26 01/25/17 08:26 01/25/17 08:26 Intake and Output: 01/25/17 01/25/17 06:59 18:59 Intake Total 240 Output Total 350 Balance -110 - Medications Medications: Current Medications Chlordiazepoxide (Librium) 25 mg PO Q8 PRN PRN Reason: Agitation Last Admin: 01/23/17 23:06 Dose: 25 mg Famotidine (Pepcid) 20 mg PO DAILY OTIS Last Admin: 01/24/17 09:20 Dose: 20 mg Ondansetron HCl (Zofran Inj) 4 mg IVP Q6H PRN PRN Reason: Nausea/Vomiting Last Admin: 01/23/17 08:25 Dose: 4 mg Oxycodone HCl (Oxycodone Immediate Release Tab) 5 mg PO Q6 PRN PRN Reason: Pain, severe (8-10) Last Admin: 01/24/17 19:27 Dose: 5 mg Polyethylene Glycol (Miralax) 17 gm PO Q12H PRN PRN Reason: Constipation Last Admin: 01/23/17 09:58 Dose: 17 gm - Labs Labs: 01/24/17 06:10 01/24/17 06:10 PT 17.8 SECONDS (9.7-12.2) H 01/23/17 12:42 INR 1.6 01/23/17 12:42 APTT 36 SECONDS (21-34) H 01/23/17 12:42 - Constitutional Appears: No Acute Distress - Head Exam Head Exam: ATRAUMATIC - Neurological Exam Neurological Exam: Alert, Awake, CN II-XII Intact, Oriented x3 Neuro motor strength exam: Left Upper Extremity: 5, Right Upper Extremity: 5, Left Lower Extremity: 5, Right Lower Extremity: 5 Additional comments: Neurological unchanged from previous examination. Assessment and Plan (1) Intracranial bleeding Assessment & Plan: Case discussed with Dr. Quinones, continue all current medical, physical, and occupational therapies. There is no new recommendation from neurology. Status: Acute
--- NOTE | 2017-01-25 13:06 | CP.PCM.PN ---
Subjective - Date & Time of Evaluation Date of Evaluation: 01/25/17 Time of Evaluation: 13:03 - Subjective Subjective: CONDITION STABLE. AWAKE. ORIENTED. AFEBRILE. 1:1 FOR SAFETY. Objective - Vital Signs/Intake and Output Vital Signs (last 24 hours): Temp Pulse Resp BP Pulse Ox 98.7 F 84 20 143/71 98 01/25/17 08:26 01/25/17 08:26 01/25/17 08:26 01/25/17 08:26 01/25/17 08:26 Intake and Output: 01/25/17 01/25/17 06:59 18:59 Intake Total 240 Output Total 350 Balance -110 - Medications Medications: Current Medications Chlordiazepoxide (Librium) 25 mg PO Q8 PRN PRN Reason: Agitation Last Admin: 01/23/17 23:06 Dose: 25 mg Famotidine (Pepcid) 20 mg PO DAILY OTIS Last Admin: 01/25/17 10:29 Dose: 20 mg Ondansetron HCl (Zofran Inj) 4 mg IVP Q6H PRN PRN Reason: Nausea/Vomiting Last Admin: 01/23/17 08:25 Dose: 4 mg Oxycodone HCl (Oxycodone Immediate Release Tab) 5 mg PO Q6 PRN PRN Reason: Pain, severe (8-10) Last Admin: 01/24/17 19:27 Dose: 5 mg Polyethylene Glycol (Miralax) 17 gm PO Q12H PRN PRN Reason: Constipation Last Admin: 01/23/17 09:58 Dose: 17 gm - Labs Labs: 01/24/17 06:10 01/24/17 06:10 PT 17.8 SECONDS (9.7-12.2) H 01/23/17 12:42 INR 1.6 01/23/17 12:42 APTT 36 SECONDS (21-34) H 01/23/17 12:42 - Constitutional Appears: No Acute Distress, Chronically Ill - Eye Exam Eye Exam: Normal appearance, PERRL - ENT Exam ENT Exam: Mucous Membranes Moist - Respiratory Exam Respiratory Exam: Clear to Ausculation Bilateral, NORMAL BREATHING PATTERN - Cardiovascular Exam Cardiovascular Exam: REGULAR RHYTHM, +S1, +S2 - GI/Abdominal Exam GI & Abdominal Exam: Soft, Normal Bowel Sounds - Extremities Exam Extremities Exam: Full ROM, Normal Capillary Refill, Normal Inspection. absent : Joint Swelling, Pedal Edema - Back Exam Back Exam: NORMAL INSPECTION - Neurological Exam Neurological Exam: Alert, Awake, CN II-XII Intact, Normal Gait, Oriented x3 Assessment and Plan - Assessment and Plan (Free Text) Assessment: SAME. Plan: FOR PT. IF TOLERATES CAN BE DISCHARGED HOME.
--- NOTE | 2017-01-26 08:02 | CP.PCM.PN ---
Subjective - Date & Time of Evaluation Date of Evaluation: 01/26/17 Time of Evaluation: 07:59 - Subjective Subjective: Mr. Burns was seen and examined at the bedside. He is alert, oriented in all spheres. he is able to answer questions appropriately.He states of experiencing back pain 8/10 non-radiating,but denies any headache, lightheadedness, numbness , nausea, or vomiting. He remains on 1:1 sitter for patient safety. There was no untoward events overnight. Objective - Vital Signs/Intake and Output Vital Signs (last 24 hours): Temp Pulse Resp BP Pulse Ox 98.5 F 79 20 139/69 98 01/25/17 23:51 01/25/17 23:51 01/25/17 23:51 01/25/17 23:51 01/25/17 23:51 Intake and Output: 01/26/17 01/26/17 06:59 18:59 Intake Total 180 Balance 180 - Medications Medications: Current Medications Chlordiazepoxide (Librium) 25 mg PO Q8 PRN PRN Reason: Agitation Last Admin: 01/23/17 23:06 Dose: 25 mg Famotidine (Pepcid) 20 mg PO DAILY OTIS Last Admin: 01/25/17 10:29 Dose: 20 mg Ondansetron HCl (Zofran Inj) 4 mg IVP Q6H PRN PRN Reason: Nausea/Vomiting Last Admin: 01/23/17 08:25 Dose: 4 mg Oxycodone HCl (Oxycodone Immediate Release Tab) 5 mg PO Q6 PRN PRN Reason: Pain, severe (8-10) Last Admin: 01/24/17 19:27 Dose: 5 mg Polyethylene Glycol (Miralax) 17 gm PO Q12H PRN PRN Reason: Constipation Last Admin: 01/23/17 09:58 Dose: 17 gm - Labs Labs: 01/24/17 06:10 01/24/17 06:10 PT 17.8 SECONDS (9.7-12.2) H 01/23/17 12:42 INR 1.6 01/23/17 12:42 APTT 36 SECONDS (21-34) H 01/23/17 12:42 - Constitutional Appears: No Acute Distress - Head Exam Head Exam: ATRAUMATIC - Neurological Exam Neurological Exam: Alert, Awake, CN II-XII Intact, Oriented x3 Neuro motor strength exam: Left Upper Extremity: 5, Right Upper Extremity: 5, Left Lower Extremity: 5, Right Lower Extremity: 5 Additional comments: Neurological unchanged from previous examination. Sensation remains intact. Assessment and Plan (1) Intracranial bleeding Assessment & Plan: Case discussed with Dr. Quinones, continue all current medical, physical, and occupational therapies. There is no new recommendation from neurology. Status: Acute
--- NOTE | 2017-01-26 12:46 | CP.PCM.PN ---
Subjective - Date & Time of Evaluation Date of Evaluation: 01/26/17 Time of Evaluation: 12:44 - Subjective Subjective: CONDITION SAME. STABLE. Objective - Vital Signs/Intake and Output Vital Signs (last 24 hours): Temp Pulse Resp BP Pulse Ox 98.6 F 83 20 158/72 H 98 01/26/17 08:00 01/26/17 08:00 01/26/17 08:00 01/26/17 08:00 01/26/17 08:00 Intake and Output: 01/26/17 01/26/17 06:59 18:59 Intake Total 180 Balance 180 - Medications Medications: Current Medications Chlordiazepoxide (Librium) 25 mg PO Q8 PRN PRN Reason: Agitation Last Admin: 01/23/17 23:06 Dose: 25 mg Famotidine (Pepcid) 20 mg PO DAILY OTIS Last Admin: 01/26/17 09:52 Dose: 20 mg Ondansetron HCl (Zofran Inj) 4 mg IVP Q6H PRN PRN Reason: Nausea/Vomiting Last Admin: 01/23/17 08:25 Dose: 4 mg Oxycodone HCl (Oxycodone Immediate Release Tab) 5 mg PO Q6 PRN PRN Reason: Pain, severe (8-10) Last Admin: 01/24/17 19:27 Dose: 5 mg Polyethylene Glycol (Miralax) 17 gm PO Q12H PRN PRN Reason: Constipation Last Admin: 01/23/17 09:58 Dose: 17 gm - Labs Labs: 01/24/17 06:10 01/24/17 06:10 PT 17.8 SECONDS (9.7-12.2) H 01/23/17 12:42 INR 1.6 01/23/17 12:42 APTT 36 SECONDS (21-34) H 01/23/17 12:42 - Constitutional Appears: No Acute Distress, Chronically Ill - Eye Exam Eye Exam: Normal appearance, PERRL - ENT Exam ENT Exam: Mucous Membranes Moist - Respiratory Exam Respiratory Exam: Clear to Ausculation Bilateral, NORMAL BREATHING PATTERN - Cardiovascular Exam Cardiovascular Exam: REGULAR RHYTHM, +S1, +S2 - GI/Abdominal Exam GI & Abdominal Exam: Soft, Normal Bowel Sounds - Extremities Exam Extremities Exam: Full ROM, Normal Capillary Refill, Normal Inspection. absent : Joint Swelling, Pedal Edema - Neurological Exam Neurological Exam: Alert, Awake, CN II-XII Intact, Normal Gait, Oriented x3 Assessment and Plan - Assessment and Plan (Free Text) Assessment: INTRACRANIAL BLEED. CIRRHOSIS. STABLE. Plan: FOR DISCHARGE HOME. CT SAME MEDS. F/U IN THE OFFICE IN 2 WKS.
--- NOTE | 2017-01-26 17:33 | CP.PCM.PN ---
Subjective - Date & Time of Evaluation Date of Evaluation: 01/26/17 Time of Evaluation: 17:30 - Subjective Subjective: PT SEEN AND EXAMINED, RESPIRATION EASY AND UNLABORED. NAD. Objective - Vital Signs/Intake and Output Vital Signs (last 24 hours): Temp Pulse Resp BP Pulse Ox 98.7 F 84 20 160/75 H 99 01/26/17 15:03 01/26/17 15:03 01/26/17 15:03 01/26/17 15:03 01/26/17 15:03 Intake and Output: 01/26/17 01/26/17 06:59 18:59 Intake Total 530 Balance 530 - Medications Medications: Current Medications Chlordiazepoxide (Librium) 25 mg PO Q8 PRN PRN Reason: Agitation Last Admin: 01/23/17 23:06 Dose: 25 mg Famotidine (Pepcid) 20 mg PO DAILY OTIS Last Admin: 01/26/17 09:52 Dose: 20 mg Ondansetron HCl (Zofran Inj) 4 mg IVP Q6H PRN PRN Reason: Nausea/Vomiting Last Admin: 01/23/17 08:25 Dose: 4 mg Oxycodone HCl (Oxycodone Immediate Release Tab) 5 mg PO Q6 PRN PRN Reason: Pain, severe (8-10) Last Admin: 01/24/17 19:27 Dose: 5 mg Polyethylene Glycol (Miralax) 17 gm PO Q12H PRN PRN Reason: Constipation Last Admin: 01/23/17 09:58 Dose: 17 gm - Labs Labs: 01/24/17 06:10 01/24/17 06:10 PT 17.8 SECONDS (9.7-12.2) H 01/23/17 12:42 INR 1.6 01/23/17 12:42 APTT 36 SECONDS (21-34) H 01/23/17 12:42 Assessment and Plan - Assessment and Plan (Free Text) Plan: 56 Y/O MALE WITH PMHX ALCOHOL ABUSE, CIRRHOSIS. ADMITTED FOR INTRACRANIAL BLEEDING NO FURTHER INTERVENTION NEEDED PER NEURO NO ANTIPLATELET, NO ASA PT CLEARED FOR D/C SOON AGA PLACEMENT
[2017-01-27] MEDS ORDERED: oxyCODONE 5 mg Immediate Release Tab PO ONE (01:10)
--- NOTE | 2017-01-27 01:52 | DS ---
HISTORY OF PRESENT ILLNESS: This is a 56-year-old Stateless male came to the emergency room with history of fall and pain. The patient claimed he fell on his back and since then it is hurting. The patient denies having any loss of consciousness, nausea, vomiting or focal weakness. No history of chest pain or shortness of breath. REVIEW OF SYSTEM: The patient complained pain, otherwise negative. PAST HISTORY: History of cirrhosis of the liver, anemia and congestive heart failure. PHYSICAL EXAMINATION: GENERAL: On admission, the patient was awake, alert, comfortable. VITAL SIGNS: Normal. PATIENT SAFETY OFFICER: Within normal limits. LUNGS AND HEART: Normal. CAT scan of the head was done which shows multiple intracranial hemorrhages. The patient was admitted in ICU. Neurosurgery was consulted. The patient was observed. MRI of the brain was done which was within normal limits. The patient started to have physical therapy. The patient improved. All medications continued. FINAL DIAGNOSES: Intracranial bleed, history of fall, cirrhosis of the liver, anemia. PLAN: The patient will be discharged home. We will continue on the medication. Follow up with neurosurgery if needed. Followup with senior net engineer for anemia. We will continue all the medications. Marcelino Burns MD
--- NOTE | 2017-01-27 11:02 | CP.PCM.PN ---
Subjective - Date & Time of Evaluation Date of Evaluation: 01/27/17 Time of Evaluation: 11:00 - Subjective Subjective: NOW PT DECIDED TO GO FOR SUBACUTE. ASYMPTOMATIC. Objective - Vital Signs/Intake and Output Vital Signs (last 24 hours): Temp Pulse Resp BP Pulse Ox 98.5 F 75 20 145/75 98 01/27/17 07:33 01/27/17 07:33 01/27/17 07:33 01/27/17 07:33 01/27/17 07:33 Intake and Output: 01/27/17 01/27/17 06:59 18:59 Intake Total 540 Output Total 950 Balance -410 - Medications Medications: Current Medications Chlordiazepoxide (Librium) 25 mg PO Q8 PRN PRN Reason: Agitation Last Admin: 01/23/17 23:06 Dose: 25 mg Famotidine (Pepcid) 20 mg PO DAILY OTIS Last Admin: 01/27/17 09:44 Dose: 20 mg Ondansetron HCl (Zofran Inj) 4 mg IVP Q6H PRN PRN Reason: Nausea/Vomiting Last Admin: 01/23/17 08:25 Dose: 4 mg Polyethylene Glycol (Miralax) 17 gm PO Q12H PRN PRN Reason: Constipation Last Admin: 01/23/17 09:58 Dose: 17 gm - Labs Labs: 01/24/17 06:10 01/24/17 06:10 PT 17.8 SECONDS (9.7-12.2) H 01/23/17 12:42 INR 1.6 01/23/17 12:42 APTT 36 SECONDS (21-34) H 01/23/17 12:42 - Constitutional Appears: Non-toxic, No Acute Distress, Chronically Ill - Eye Exam Eye Exam: Normal appearance Pupil Exam: PERRL - ENT Exam ENT Exam: Normal Exam - Respiratory Exam Respiratory Exam: Clear to Ausculation Bilateral, NORMAL BREATHING PATTERN - Cardiovascular Exam Cardiovascular Exam: REGULAR RHYTHM, +S1, +S2 - GI/Abdominal Exam GI & Abdominal Exam: Soft, Normal Bowel Sounds - Neurological Exam Neurological Exam: Alert, Awake, CN II-XII Intact, Normal Gait, Oriented x3 Assessment and Plan - Assessment and Plan (Free Text) Assessment: SAME Plan: FOR AGA.
[2017-01-28 16:10] VITALS: RESP 20
--- NOTE | 2017-01-29 09:51 | CP.PCM.PN ---
Subjective - Date & Time of Evaluation Date of Evaluation: 01/29/17 Time of Evaluation: 09:49 - Subjective Subjective: Mr. Bruns was seen and examined at the bedside. He is alert, oriented in all spheres. He claims of having very minimal headache 03/21, located in the occipital non-radiating. He denies any blurred vision, nausea, weakness, lightheadedness. He remains on 1;1 sitter with telesitter. There was no untoward events overnight. Objective - Vital Signs/Intake and Output Vital Signs (last 24 hours): Temp Pulse Resp BP Pulse Ox 98.4 F 93 H 20 151/75 H 97 01/29/17 08:17 01/29/17 08:17 01/29/17 08:17 01/29/17 08:17 01/29/17 08:17 Intake and Output: 01/29/17 01/29/17 06:59 18:59 Intake Total 250 Output Total 400 Balance -150 - Medications Medications: Current Medications Chlordiazepoxide (Librium) 25 mg PO Q8 PRN PRN Reason: Agitation Last Admin: 01/23/17 23:06 Dose: 25 mg Famotidine (Pepcid) 20 mg PO DAILY OTIS Last Admin: 01/28/17 09:07 Dose: 20 mg Ondansetron HCl (Zofran Inj) 4 mg IVP Q6H PRN PRN Reason: Nausea/Vomiting Last Admin: 01/23/17 08:25 Dose: 4 mg Polyethylene Glycol (Miralax) 17 gm PO Q12H PRN PRN Reason: Constipation Last Admin: 01/23/17 09:58 Dose: 17 gm - Labs Labs: 01/24/17 06:10 01/24/17 06:10 PT 17.8 SECONDS (9.7-12.2) H 01/23/17 12:42 INR 1.6 01/23/17 12:42 APTT 36 SECONDS (21-34) H 01/23/17 12:42 - Constitutional Appears: No Acute Distress - Head Exam Head Exam: ATRAUMATIC - Neurological Exam Neurological Exam: Alert, Awake, CN II-XII Intact, Oriented x3 Neuro motor strength exam: Left Upper Extremity: 5, Right Upper Extremity: 5, Left Lower Extremity: 5, Right Lower Extremity: 5 Additional comments: Neurological unchanged from previous examination. Sensation remains intact. Assessment and Plan (1) Intracranial bleeding Assessment & Plan: Case discussed with Dr. Quinones, continue all current medical, physical, and occupational therapies. There is no new recommendation from neurology. Status: Acute
--- NOTE | 2017-01-29 12:10 | CP.PCM.PN ---
Subjective - Date & Time of Evaluation Date of Evaluation: 01/28/17 Time of Evaluation: 15:00 - Subjective Subjective: ASYMTOMATIC. AFEBRILE. NO HEADACHES. Objective - Vital Signs/Intake and Output Vital Signs (last 24 hours): Temp Pulse Resp BP Pulse Ox 98.4 F 93 H 20 130/80 97 01/29/17 08:17 01/29/17 08:17 01/29/17 08:17 01/29/17 12:06 01/29/17 08:17 Intake and Output: 01/29/17 01/29/17 06:59 18:59 Intake Total 250 Output Total 400 Balance -150 - Medications Medications: Current Medications Chlordiazepoxide (Librium) 25 mg PO Q8 PRN PRN Reason: Agitation Last Admin: 01/23/17 23:06 Dose: 25 mg Famotidine (Pepcid) 20 mg PO DAILY OTIS Last Admin: 01/29/17 09:56 Dose: 20 mg Ondansetron HCl (Zofran Inj) 4 mg IVP Q6H PRN PRN Reason: Nausea/Vomiting Last Admin: 01/23/17 08:25 Dose: 4 mg Polyethylene Glycol (Miralax) 17 gm PO Q12H PRN PRN Reason: Constipation Last Admin: 01/23/17 09:58 Dose: 17 gm - Labs Labs: 01/24/17 06:10 01/24/17 06:10 PT 17.8 SECONDS (9.7-12.2) H 01/23/17 12:42 INR 1.6 01/23/17 12:42 APTT 36 SECONDS (21-34) H 01/23/17 12:42 - Constitutional Appears: No Acute Distress, Chronically Ill - Eye Exam Eye Exam: Normal appearance, PERRL - ENT Exam ENT Exam: Normal Exam - Respiratory Exam Respiratory Exam: Clear to Ausculation Bilateral, NORMAL BREATHING PATTERN - Cardiovascular Exam Cardiovascular Exam: REGULAR RHYTHM, +S1, +S2 - GI/Abdominal Exam GI & Abdominal Exam: Soft, Normal Bowel Sounds - Extremities Exam Extremities Exam: Full ROM, Normal Capillary Refill, Normal Inspection. absent : Joint Swelling, Pedal Edema - Back Exam Back Exam: NORMAL INSPECTION - Neurological Exam Neurological Exam: Alert, Awake, CN II-XII Intact, Normal Gait, Oriented x3 Assessment and Plan - Assessment and Plan (Free Text) Assessment: STABLE WAITING FOR [facility] PLACEMENT. Plan: CT PRESENT TREATMENT.
--- NOTE | 2017-01-29 12:13 | CP.PCM.PN ---
Subjective - Date & Time of Evaluation Date of Evaluation: 01/29/17 Time of Evaluation: 12:11 - Subjective Subjective: NO COMPLAINTS. NO SOB. VS WNL MEDICALLY STABLE. Objective - Vital Signs/Intake and Output Vital Signs (last 24 hours): Temp Pulse Resp BP Pulse Ox 98.4 F 93 H 20 130/80 97 01/29/17 08:17 01/29/17 08:17 01/29/17 08:17 01/29/17 12:06 01/29/17 08:17 Intake and Output: 01/29/17 01/29/17 06:59 18:59 Intake Total 250 Output Total 400 Balance -150 - Medications Medications: Current Medications Chlordiazepoxide (Librium) 25 mg PO Q8 PRN PRN Reason: Agitation Last Admin: 01/23/17 23:06 Dose: 25 mg Famotidine (Pepcid) 20 mg PO DAILY OTIS Last Admin: 01/29/17 09:56 Dose: 20 mg Ondansetron HCl (Zofran Inj) 4 mg IVP Q6H PRN PRN Reason: Nausea/Vomiting Last Admin: 01/23/17 08:25 Dose: 4 mg Polyethylene Glycol (Miralax) 17 gm PO Q12H PRN PRN Reason: Constipation Last Admin: 01/23/17 09:58 Dose: 17 gm - Labs Labs: 01/24/17 06:10 01/24/17 06:10 PT 17.8 SECONDS (9.7-12.2) H 01/23/17 12:42 INR 1.6 01/23/17 12:42 APTT 36 SECONDS (21-34) H 01/23/17 12:42 - Constitutional Appears: No Acute Distress, Chronically Ill - Eye Exam Eye Exam: Normal appearance, PERRL - ENT Exam ENT Exam: Mucous Membranes Moist, Normal Exam - Respiratory Exam Respiratory Exam: Clear to Ausculation Bilateral, NORMAL BREATHING PATTERN - Cardiovascular Exam Cardiovascular Exam: REGULAR RHYTHM, +S1, +S2 - GI/Abdominal Exam GI & Abdominal Exam: Soft, Normal Bowel Sounds - Extremities Exam Extremities Exam: Full ROM, Normal Capillary Refill, Normal Inspection. absent : Joint Swelling, Pedal Edema - Back Exam Back Exam: NORMAL INSPECTION - Neurological Exam Neurological Exam: Alert, Awake, CN II-XII Intact, Normal Gait, Oriented x3 - Psychiatric Exam Psychiatric exam: Normal Affect, Normal Mood Assessment and Plan - Assessment and Plan (Free Text) Assessment: INTRACRANIAL BLEED. CIRRHOSIS OF LIVER. Plan: FOR PLACEMENT. PT.
[2017-01-29 14:58] LABS: BASO # 0.1 K/uL (0.0-0.2); BASO % 1.7 % (0.0-2.0); EOS # 0.2 K/uL (0.0-0.7); EOS % 3.5 % (0.0-4.0); HEMATOCRIT 27.6 % (35.0-51.0); LYMPH % 23.2 % (20.0-40.0); MEAN CELL VOLUME 92.5 fL (80.0-94.0); MEAN CORPUSCULAR HEMOGLOBIN 30.7 pg (27.0-31.0); MEAN CORPUSCULAR HGB CONC 33.2 g/dL (33.0-37.0); MEAN PLATELET VOLUME 10.3 fL (7.2-11.7); MONO # 0.9 K/uL (0.0-0.8); NRBC % 0.2 % (0.0-2.0); RED CELL DISTRIBUTION WIDTH 17.3 % (11.5-14.5); WHITE BLOOD COUNT 4.4 K/uL (4.8-10.8)
[2017-01-29 15:24] LABS: PLATELET COUNT 90 K/uL (130-400)
[2017-01-29 15:43] LABS: BASOPHIL 2 % (0-2); EOSINOPHIL 6 % (0-4); NEUTROPHIL 48 % (50-75); TOTAL CELLS COUNTED 100
[2017-01-29 16:22] LABS: BLOOD UREA NITROGEN 18 mg/dL (9-20); CALCIUM 7.1 mg/dl (8.6-10.4); CARBON DIOXIDE 24 mmol/L (22-30); CHLORIDE 102 mmol/L (98-107); GFR AFRICAN-AMERICAN > 60; GLUCOSE,RANDOM 133 mg/dL (75-110); POTASSIUM 3.6 mmol/L (3.6-5.2); SODIUM 131 mmol/L (132-148)
--- NOTE | 2017-01-30 08:52 | CP.PCM.PN ---
Subjective - Date & Time of Evaluation Date of Evaluation: 01/30/17 Time of Evaluation: 08:49 - Subjective Subjective: Mr. Burns was seen and examined at the bedside. He is alert, oriented in all spheres. He is complaining of moderate back pain 7/10, non-radiating. He is also febrile of 102. Acetaminophen was given by the staff. He denies any headache, blurred vision, dizziness, lightheartedness, nausea, or vomiting. He remains on 1:1 sitter and telesitter for patient safety. Objective - Vital Signs/Intake and Output Vital Signs (last 24 hours): Temp Pulse Resp BP Pulse Ox 101.2 F H 82 20 171/74 H 99 01/30/17 07:27 01/30/17 07:27 01/30/17 07:27 01/30/17 07:27 01/30/17 07:27 - Medications Medications: Current Medications Famotidine (Pepcid) 20 mg PO DAILY OTIS Last Admin: 01/29/17 09:56 Dose: 20 mg Ondansetron HCl (Zofran Inj) 4 mg IVP Q6H PRN PRN Reason: Nausea/Vomiting Last Admin: 01/23/17 08:25 Dose: 4 mg Polyethylene Glycol (Miralax) 17 gm PO Q12H PRN PRN Reason: Constipation Last Admin: 01/23/17 09:58 Dose: 17 gm - Labs Labs: 01/29/17 14:41 01/29/17 14:41 PT 17.8 SECONDS (9.7-12.2) H 01/23/17 12:42 INR 1.6 01/23/17 12:42 APTT 36 SECONDS (21-34) H 01/23/17 12:42 - Constitutional Appears: No Acute Distress - Head Exam Head Exam: ATRAUMATIC - Neurological Exam Neurological Exam: Alert, Awake, Oriented x3 Neuro motor strength exam: Left Upper Extremity: 5, Right Upper Extremity: 5, Left Lower Extremity: 5, Right Lower Extremity: 5 Additional comments: Neurological unchanged from previous examination. Assessment and Plan (1) Intracranial bleeding Assessment & Plan: Case discussed with Dr. Quinones, continue all current medical, physical, and occupational therapies. Treat any underlying cause for his febrile. Status: Acute
--- NOTE | 2017-01-30 13:02 | CP.PCM.PN ---
Subjective - Date & Time of Evaluation Date of Evaluation: 01/30/17 Time of Evaluation: 13:01 - Subjective Subjective: weak, fatigue. general debility. afebrile. Objective - Vital Signs/Intake and Output Vital Signs (last 24 hours): Temp Pulse Resp BP Pulse Ox 99 F 82 20 140/80 99 01/30/17 10:11 01/30/17 07:27 01/30/17 07:27 01/30/17 10:11 01/30/17 07:27 - Medications Medications: Current Medications Acetaminophen (Tylenol 325mg Tab) 650 mg PO Q6H PRN PRN Reason: Pain, moderate (4-7) Last Admin: 01/30/17 09:55 Dose: 650 mg Famotidine (Pepcid) 20 mg PO DAILY OTIS Last Admin: 01/30/17 09:56 Dose: 20 mg Ondansetron HCl (Zofran Inj) 4 mg IVP Q6H PRN PRN Reason: Nausea/Vomiting Last Admin: 01/23/17 08:25 Dose: 4 mg Polyethylene Glycol (Miralax) 17 gm PO Q12H PRN PRN Reason: Constipation Last Admin: 01/23/17 09:58 Dose: 17 gm - Labs Labs: 01/29/17 14:41 01/29/17 14:41 PT 17.8 SECONDS (9.7-12.2) H 01/23/17 12:42 INR 1.6 01/23/17 12:42 APTT 36 SECONDS (21-34) H 01/23/17 12:42 - Constitutional Appears: No Acute Distress, Chronically Ill - Eye Exam Eye Exam: Normal appearance, PERRL - ENT Exam ENT Exam: Mucous Membranes Moist - Respiratory Exam Respiratory Exam: Clear to Ausculation Bilateral, NORMAL BREATHING PATTERN - Cardiovascular Exam Cardiovascular Exam: REGULAR RHYTHM, +S1, +S2 - GI/Abdominal Exam GI & Abdominal Exam: Soft, Normal Bowel Sounds - Extremities Exam Extremities Exam: Full ROM, Normal Capillary Refill, Normal Inspection. absent : Joint Swelling, Pedal Edema - Back Exam Back Exam: NORMAL INSPECTION - Neurological Exam Neurological Exam: Alert, Awake, CN II-XII Intact, Normal Gait, Oriented x3 Assessment and Plan - Assessment and Plan (Free Text) Assessment: same. Plan: waiting for AGA. CT PT.
[2017-01-30] MEDS ORDERED: cefTRIAXone IV 1 gm in Dextros 50 ML IVPB SCH (18:00)
[2017-01-31 07:03] LABS: URINE BILIRUBIN NEGATIVE (NEGATIVE); URINE BLOOD 1+ (NEGATIVE); URINE COLOR Straw (YELLOW); URINE GLUCOSE (UA) NORMAL (Normal); URINE KETONE NEGATIVE (NEGATIVE); URINE LEUKOCYTE ESTERASE NEG Leu/uL (Negative); URINE PROTEIN NEGATIVE (NEGATIVE); URINE UROBILINOGEN NORMAL mg/dL (0.2-1.0)
[2017-01-31 07:52] LABS: BLOOD UREA NITROGEN 16 mg/dL (9-20); CALCIUM 6.5 mg/dl (8.6-10.4); CARBON DIOXIDE 22 mmol/L (22-30); CHLORIDE 101 mmol/L (98-107); GFR AFRICAN-AMERICAN > 60; GLUCOSE,RANDOM 85 mg/dL (75-110); POTASSIUM 4.1 mmol/L (3.6-5.2); SODIUM 128 mmol/L (132-148)
[2017-01-31 07:54] VITALS: BP 141/67; PULSE 76; TEMP 97.6; O2SAT 96
[2017-01-31 07:55] LABS: BASO # 0.1 K/uL (0.0-0.2); BASO % 1.8 % (0.0-2.0); EOS # 0.1 K/uL (0.0-0.7); EOS % 2.4 % (0.0-4.0); HEMATOCRIT 30.4 % (35.0-51.0); LYMPH # 1.4 K/uL (1.0-4.3); LYMPH % 23.1 % (20.0-40.0); MEAN CELL VOLUME 92.2 fL (80.0-94.0); MEAN CORPUSCULAR HEMOGLOBIN 30.2 pg (27.0-31.0); MEAN CORPUSCULAR HGB CONC 32.8 g/dL (33.0-37.0); MEAN PLATELET VOLUME 10.2 fL (7.2-11.7); MONO # 1.1 K/uL (0.0-0.8); MONO % 18.5 % (0.0-10.0); NRBC % 0.2 % (0.0-2.0); RED CELL DISTRIBUTION WIDTH 17.1 % (11.5-14.5); WHITE BLOOD COUNT 5.9 K/uL (4.8-10.8)
--- NOTE | 2017-01-31 09:00 | CP.PCM.PN ---
Subjective - Date & Time of Evaluation Date of Evaluation: 01/31/17 Time of Evaluation: 08:59 - Subjective Subjective: Mr. Burns was seen and examined at the bedside. He is alert, oriented in all spheres. He verbalizes of wanting to sleep due to his inability to sleep last night. He denies any headache, blurred vision, nause, vomiting, dizziness, or numbness. He remains on 1:1 sitter and telesitter for patient safety. There is no untoward events overnight. Objective - Vital Signs/Intake and Output Vital Signs (last 24 hours): Temp Pulse Resp BP Pulse Ox 97.6 F 76 20 141/67 96 01/31/17 07:52 01/31/17 07:52 01/31/17 07:52 01/31/17 07:52 01/31/17 07:52 Intake and Output: 01/31/17 01/31/17 06:59 18:59 Intake Total 300 0 Balance 300 0 - Medications Medications: Current Medications Acetaminophen (Tylenol 325mg Tab) 650 mg PO Q6H PRN PRN Reason: Pain, moderate (4-7) Last Admin: 01/30/17 09:55 Dose: 650 mg Famotidine (Pepcid) 20 mg PO DAILY [facility] Last Admin: 01/30/17 09:56 Dose: 20 mg Ceftriaxone Sodium (Rocephin Iv 1 Gm Duplex) 50 mls @ 100 mls/hr IVPB Q24H OTIS Last Admin: 01/30/17 19:00 Dose: 100 mls/hr Ondansetron HCl (Zofran Inj) 4 mg IVP Q6H PRN PRN Reason: Nausea/Vomiting Last Admin: 01/23/17 08:25 Dose: 4 mg Polyethylene Glycol (Miralax) 17 gm PO Q12H PRN PRN Reason: Constipation Last Admin: 01/23/17 09:58 Dose: 17 gm - Labs Labs: 01/31/17 07:22 01/31/17 07:22 PT 17.8 SECONDS (9.7-12.2) H 01/23/17 12:42 INR 1.6 01/23/17 12:42 APTT 36 SECONDS (21-34) H 01/23/17 12:42 - Constitutional Appears: No Acute Distress - Head Exam Head Exam: ATRAUMATIC - Neurological Exam Neurological Exam: Alert, Awake, CN II-XII Intact, Oriented x3 Neuro motor strength exam: Left Upper Extremity: 5, Right Upper Extremity: 5, Left Lower Extremity: 5, Right Lower Extremity: 5 Additional comments: Neurological unchanged from previous examination. Assessment and Plan (1) Intracranial bleeding Assessment & Plan: Case discussed with Dr. Quinones, continue all current medical, physical, and occupational therapies. Per case management awaiting AGA. Status: Acute
--- NOTE | 2017-01-31 10:14 | CP.PCM.PN ---
Subjective - Date & Time of Evaluation Date of Evaluation: 01/31/17 Time of Evaluation: 09:10 - Subjective Subjective: CONDITION REMAINS SAME. STABLE. HYPONATREMIC/ OBSERVE. Objective - Vital Signs/Intake and Output Vital Signs (last 24 hours): Temp Pulse Resp BP Pulse Ox 97.6 F 76 20 141/67 96 01/31/17 07:52 01/31/17 07:52 01/31/17 07:52 01/31/17 07:52 01/31/17 07:52 Intake and Output: 01/31/17 01/31/17 06:59 18:59 Intake Total 300 0 Balance 300 0 - Medications Medications: Current Medications Acetaminophen (Tylenol 325mg Tab) 650 mg PO Q6H PRN PRN Reason: Pain, moderate (4-7) Last Admin: 01/30/17 09:55 Dose: 650 mg Famotidine (Pepcid) 20 mg PO DAILY [facility] Last Admin: 01/31/17 09:32 Dose: 20 mg Ceftriaxone Sodium (Rocephin Iv 1 Gm Duplex) 50 mls @ 100 mls/hr IVPB Q24H OTIS Last Admin: 01/30/17 19:00 Dose: 100 mls/hr Ondansetron HCl (Zofran Inj) 4 mg IVP Q6H PRN PRN Reason: Nausea/Vomiting Last Admin: 01/23/17 08:25 Dose: 4 mg Polyethylene Glycol (Miralax) 17 gm PO Q12H PRN PRN Reason: Constipation Last Admin: 01/23/17 09:58 Dose: 17 gm - Labs Labs: 01/31/17 07:22 01/31/17 07:22 PT 17.8 SECONDS (9.7-12.2) H 01/23/17 12:42 INR 1.6 01/23/17 12:42 APTT 36 SECONDS (21-34) H 01/23/17 12:42 - Constitutional Appears: No Acute Distress, Chronically Ill - Eye Exam Eye Exam: Normal appearance, PERRL - ENT Exam ENT Exam: Mucous Membranes Moist - Neck Exam Neck Exam: Normal Inspection - Respiratory Exam Respiratory Exam: Clear to Ausculation Bilateral, NORMAL BREATHING PATTERN - Cardiovascular Exam Cardiovascular Exam: REGULAR RHYTHM, +S1, +S2 - GI/Abdominal Exam GI & Abdominal Exam: Soft, Normal Bowel Sounds - Extremities Exam Extremities Exam: Full ROM, Normal Capillary Refill, Normal Inspection. absent : Joint Swelling, Pedal Edema - Neurological Exam Neurological Exam: Alert, Awake, CN II-XII Intact, Normal Gait, Oriented x3 - Psychiatric Exam Psychiatric exam: Normal Affect, Normal Mood Assessment and Plan - Assessment and Plan (Free Text) Assessment: STABLE. Plan: AWAITING AGA PLACEMENT.
--- NOTE | 2017-01-31 12:04 | CP.PCM.PN ---
Subjective - Date & Time of Evaluation Date of Evaluation: 01/31/17 Time of Evaluation: 12:04 - Subjective Subjective: Awake, alert, follows commands. Objective - Vital Signs/Intake and Output Vital Signs (last 24 hours): Temp Pulse Resp BP Pulse Ox 97.6 F 76 20 141/67 96 01/31/17 07:52 01/31/17 07:52 01/31/17 07:52 01/31/17 07:52 01/31/17 07:52 Intake and Output: 01/31/17 01/31/17 06:59 18:59 Intake Total 300 0 Balance 300 0 - Medications Medications: Current Medications Acetaminophen (Tylenol 325mg Tab) 650 mg PO Q6H PRN PRN Reason: Pain, moderate (4-7) Last Admin: 01/30/17 09:55 Dose: 650 mg Famotidine (Pepcid) 20 mg PO DAILY [facility] Last Admin: 01/31/17 09:32 Dose: 20 mg Ceftriaxone Sodium (Rocephin Iv 1 Gm Duplex) 50 mls @ 100 mls/hr IVPB Q24H [facility]IS Last Admin: 01/30/17 19:00 Dose: 100 mls/hr Multivitamins (Hexavitamin) 1 tab PO DAILY [facility] Ondansetron HCl (Zofran Inj) 4 mg IVP Q6H PRN PRN Reason: Nausea/Vomiting Last Admin: 01/23/17 08:25 Dose: 4 mg Polyethylene Glycol (Miralax) 17 gm PO Q12H PRN PRN Reason: Constipation Last Admin: 01/23/17 09:58 Dose: 17 gm - Labs Labs: 01/31/17 07:22 01/31/17 07:22 PT 17.8 SECONDS (9.7-12.2) H 01/23/17 12:42 INR 1.6 01/23/17 12:42 APTT 36 SECONDS (21-34) H 01/23/17 12:42 Assessment and Plan - Assessment and Plan (Free Text) Assessment: Patient is seen and examined. awake, alert, follows commands. No fever today, temp 97.7, no sob or chest pains.D/W DR Sylvia Burns, discharge plan to [facility] today. Will continue rocephine 1gm iv daily x5 days, cbc, bmp , will monitor q week starting Sunday. No acute distress, will hold all blood thinners fo now.
--- NOTE | 2017-01-31 12:09 | PCM.HF ---
Heart Failure Core Measure - Heart Failure Ejection Fraction: 40 % or Greater (EF>70%) NINI Inhibitor Prescribed: Yes Beta-Brandee Prescribed: None Contraindication/Reason for not providing: EF>40% Angiotensin II Receptor Brandee Prescribed: No Contraindication/Reason for not providing: on nini AnticoagulationTherapy for Atrial Fibrillation/Atrialflutter: No Contraindication/Reason for not providing: no afib Aldosterone Antagonist Prescribed: No Contraindication/Reason for not providing: EF >40% Hydralazine Nitrate Prescribed: No Contraindication/Reason for not providing: EF >40% Implantable Cardioverter Defibrillator Therapy: No Contraindication/Reason for not providing: EF >40% Cardiac Resynchronization Therapy Prescribed: No Contraindication/Reason for not providing: not indicated - Follow up [facility]
--- NOTE | 2017-01-31 15:29 | RAD ---
HISTORY: r/o pneumonia COMPARISON: 01/22/2017 TECHNIQUE: Chest PA and lateral FINDINGS: LUNGS: New left lower lobe infiltrate. PLEURA: Small left pleural effusion. CARDIOVASCULAR: No radiographic findings to suggest acute or significant cardiovascular disease. OSSEOUS STRUCTURES: No significant abnormalities. VISUALIZED UPPER ABDOMEN: Normal. OTHER FINDINGS: None. IMPRESSION: New right lower lobe infiltrate presumed to be pneumonia. Small adjacent, associated left pleural effusion.
[2017-02-01] MEDS ORDERED: Multiple Vitamins Tab PO SCH (10:00)
== END 2017-01-31 15:32 | DRG 764 ==
LOC: C.ER 08:40 → C.9I 14:50 → C.3T 01-24 06:34
PROVIDERS: ADMIT Internal Medicine; ATTEND Internal Medicine
DX: S06.309A Unspecified focal traumatic brain injury with loss of consciousness of unspecified duration, initial encounter (principal); D69.6 Thrombocytopenia, unspecified; I11.0 Hypertensive heart disease with heart failure; I50.9 Heart failure, unspecified; E87.1 Hypo-osmolality and hyponatremia; M48.56XA Collapsed vertebra, not elsewhere classified, lumbar region, initial encounter for fracture; K70.30 Alcoholic cirrhosis of liver without ascites; J98.11 Atelectasis; I62.9 Nontraumatic intracranial hemorrhage, unspecified; W10.9XXA Fall (on) (from) unspecified stairs and steps, initial encounter; D64.9 Anemia, unspecified; G47.00 Insomnia, unspecified; D18.1 Lymphangioma, any site

== ENCOUNTER 2017-04-05 13:14 | Inpatient (IN) | payer MEDICAID ==
[2017-04-05 13:14] VITALS: BMI 25.7
[2017-04-05] MEDS ORDERED: Oxycodone/Acetaminophen 5/325 mg Tab PO STA (13:43)
--- NOTE | 2017-04-05 13:47 | C.PDOC ---
History Of Present Illness Patient is a 56 y/o M presenting with headache and back pain. Patient reports a 3 month history of intermittent headaches. He reports history of migraines and reports that this is similar. He reports that he has not taken anything for the pain. Patient reports over the last week he developed b/l lumbar back pain that is worse with ambulation. He has also not taken anything for this pain but presented to ED for evaluation. Denies cough, chest pain, shortness of breath, vision changes, abdominal pain, nausea/vomiting, diarrhea, fever, weakness, numbness, tingling, bowel or bladder incontinence. Denies trauma. Denies hematuria or dysuria. Time Seen by Provider: 04/05/17 13:25 Chief Complaint (Nursing): Headache Past Medical History Vital Signs: Last Vital Signs Temp 98.0 F 04/05/17 16:43 Pulse 67 04/05/17 16:43 Resp 18 04/05/17 16:43 BP 130/69 04/05/17 16:43 Pulse Ox 100 04/05/17 16:43 - Medical History PMH: Anemia, Arthritis (r hip,back), CHF, HTN, Migraine Denies: Chronic Kidney Disease - [facility] Procedures CENTRAL VENOUS CATHETER PLACEMENT WITH GUIDANCE (11/20/14) DETOXIFICATION SERVICES FOR SUBSTANCE ABUSE TREATMENT (11/07/16) INSERTION OF INFUSION DEV INTO INF VENA CAVA, PERC APPROACH (12/27/14) INTRODUCE OTH ANTI-INFECT IN CENTRAL VEIN, PERC (12/27/14) Family History: States: Unknown Family Hx - Social History Hx Alcohol Use: Yes Hx Substance Use: No - Immunization History Hx Tetanus Toxoid Vaccination: No Hx Influenza Vaccination: No Hx Pneumococcal Vaccination: No Review Of Systems Constitutional: Negative for: Fever, Chills Eyes: Negative for: Pain, Vision Change ENT: Negative for: Ear Pain, Throat Pain, Throat Swelling Cardiovascular: Negative for: Chest Pain, Palpitations, Orthopnea, Edema, Light Headedness Respiratory: Negative for: Cough, Shortness of Breath, SOB with Excertion, Wheezing Gastrointestinal: Negative for: Nausea, Vomiting, Abdominal Pain, Diarrhea, Constipation Genitourinary: Negative for: Dysuria, Frequency, Hematuria Musculoskeletal: Positive for: Back Pain. Negative for: Neck Pain Skin: Negative for: Rash Neurological: Positive for: Headache. Negative for: Weakness, Numbness, Incoordination, Change in Speech, Confusion, Seizures, Altered Mental Status, Dizziness Physical Exam - Physical Exam Appears: Well, Non-toxic, No Acute Distress Skin: Normal Color, Warm, Dry Head: Atraumatic, Normacephalic Eye(s): bilateral: Normal Inspection, PERRL, EOMI Neck: Normal, Normal ROM, No Midline Cervical Tenderness, No Paracervical Tenderness, Supple Chest: Symmetrical, No Deformity Cardiovascular: Rhythm Regular Respiratory: Normal Breath Sounds Gastrointestinal/Abdominal: Soft, No Tenderness, No Mass, No Distention Back: No Vertebral Tenderness, Muscle Spasm, Paraspinal Tenderness (paraspinal lumbar back tenderness b/l) Extremity: Normal ROM, Other (steady gait) Neurological/Psych: Oriented x3, Normal Speech, Normal Cognition, Normal Cranial Nerves, Normal Motor, Normal Sensation Gait: Unsteady ED Course And Treatment - Laboratory Results Result Diagrams: 04/05/17 16:12 04/05/17 16:12 O2 Sat by Pulse Oximetry: 100 (RA) Pulse Ox Interpretation: Normal - CT Scan/US CT - Head Other Rad Studies (CT/US): Read By Radiologist, Radiology Report Reviewed CT/US Interpretation: PROCEDURE: CT scan brain 04/05/2017. HISTORY: Status post fall with headache. COMPARISON: Comparison made with prior study dated wall 01/23/2017. TECHNIQUE: Axial computed tomography images were obtained through the head/brain without intravenous contrast. Radiation dose: Total exam DLP = 837.67 mGy-cm. This CT exam was performed using one or more of the following dose reduction techniques: Automated exposure control, adjustment of the mA and/or kV according to patient size, and/or use of iterative reconstruction technique. FINDINGS: HEMORRHAGE: No acute parenchymal, subarachnoid or extra-axial hemorrhage. Previously noted small bilateral subdural hygromas have resolved. BRAIN: Significant diffuse/ confluent periventricular white matter ischemic changes again seen extending peripherally into the deep and subcortical white matter both cerebral hemispheres. There is some extension of these changes into white matter tracts of both basal nuclei. Moderate significant generalized volume loss. VENTRICLES: No obstructive hydrocephalus. CALVARIUM: Calvarium appears grossly intact. Re- demonstrated is old fracture deformity of the left lamina papyracea unchanged. A small amount of orbital fat which has herniated through the defect occupying several collapsed left-sided ethmoid air cells also unchanged. PARANASAL SINUSES: Unremarkable as visualized. No significant inflammatory changes. MASTOID AIR CELLS: Unremarkable as visualized. No inflammatory changes. OTHER FINDINGS: None. IMPRESSION: Significant white matter ischemic changes and volume loss. The interval resolution previously noted bilateral subdural hygromas. No change old fracture deformity left lamina papyracea. The the CT - Abd & Pelvis Other Rad Studies (CT/US): Read By Radiologist, Radiology Report Reviewed CT/US Interpretation: PROCEDURE: CT scan abdomen pelvis 04/05/2017. HISTORY: Back pain. COMPARISON: Comparison made with CT scan abdomen pelvis 2016. TECHNIQUE: Contiguous axial images of the abdomen and pelvis performed without oral or intravenous contrast. Coronal and sagittal reformats generated. Radiation dose: Total exam DLP = 509.31 mGy-cm. This CT exam was performed using one or more of the following dose reduction techniques: Automated exposure control, adjustment of the mA and/or kV according to patient size, and/ or use of iterative reconstruction technique. FINDINGS: LOWER THORAX: Small left and tiny right-sided pleural effusions. . There is a small to medium- sized hiatal hernia again noted. Heart size is borderline/mildly enlarged. LIVER: Liver exhibits nodular contour and heterogeneous attenuation consistent with cirrhosis. In situ tips stent unchanged. GALLBLADDER AND BILE DUCTS: Gallbladder is physiologically distended. No evidence of intraluminal gallbladder calculi. PANCREAS: Pancreas is slightly atrophic and minimally fatty replaced. No obvious pancreatic masses or collections. SPLEEN: Spleen exhibits normal size and attenuation pattern without mass collection or calcification. ADRENALS: Unr no adrenal lesions seen. KIDNEYS AND URETERS: Kidneys demonstrate symmetric size. No evidence of nephrolithiasis or hydronephrosis. There may be a small amount of left-sided perinephric fluid. BLADDER: Urinary bladder is incompletely distended. No evidence of intraluminal urinary bladder calculi. REPRODUCTIVE: Prostate gland appears unremarkable. APPENDIX: What could represent the appendix seen on axial image number [id number]. BOWEL: Evaluation of the bowel is limited due to the lack of oral contrast material. The stomach is incompletely distended. Visualized loops of small bowel exhibit normal contour and caliber. No evidence of acute mechanical small bowel obstruction. No definitive evidence of abnormal mural wall thickening large bowel. PERITONEUM: Small amount of perihepatic and perisplenic ascites. . Vague infiltration changes within the mesenteries could be secondary to small amount of ascites. No gross free intraperitoneal air so far as can be seen. LYMPH NODES: Unremarkable. No enlarged lymph nodes. VASCULATURE: Unremarkable. No aortic aneurysm. BONES: There appears to be at acute/subacute compression fracture superior aspect of the L1 segment with minimal retropulsion of the posterior superior corner. Multilevel degenerative spondylosis of the lower thoracic and lumbar spine again noted. OTHER FINDINGS : None. IMPRESSION: Small left and tiny right-sided pleural effusions. Findings consistent with cirrhosis and in situ TIPS stent. Small amount of perihepatic and perisplenic ascites. Mild infiltration changes within the mesenteric possibly due to ascites. Acute/subacute compression fracture superior L1 vertebral body. See above discussion for additional details and findings. Medical Decision Making Medical Decision Making: Headaches has been chronic and patient has hx of migraines. Patient afebrile. Will get CT to r/o mass. Patient has b/l lumbar tenderness consistent with musculoskeletal strain. Will give pain medication and get CT to r/o stone 3:33PM CT as above. Patient was admitted in January 2017 for compression fracture of L1. Denies current pain after percocet. 3:51PM Patient is unable to walk around the ED. He is unsteady on his feet and swaying. Spoke to PMD Dr. Burns. Gayla has prior admission and rehab placement and likely will need further longer term placement as he cannot live alone. Patient will need PT/OT evaluation and likely rehab placement due to inability to ambulate and cannot be safely discharged. Disposition - Disposition Disposition: HOME/ ROUTINE Disposition Time: 15:33 Condition: GOOD - Clinical Impression Clinical Impression: Headache, Ascites, Compression fracture of L1 lumbar vertebra with routine healing, Unsteady gait
[2017-04-05] MEDS ORDERED: Oxycodone/Acetaminophen 5/325 mg Tab ONE (13:51)
--- NOTE | 2017-04-05 14:42 | CT ---
PROCEDURE: CT scan brain 04/05/2017 HISTORY: Status post fall with headache. COMPARISON: Comparison made with prior study dated wall 01/23/2017. TECHNIQUE: Axial computed tomography images were obtained through the head/brain without intravenous contrast. Radiation dose: Total exam DLP = 837.67 mGy-cm. This CT exam was performed using one or more of the following dose reduction techniques: Automated exposure control, adjustment of the mA and/or kV according to patient size, and/or use of iterative reconstruction technique. FINDINGS: HEMORRHAGE: No acute parenchymal, subarachnoid or extra-axial hemorrhage. Previously noted small bilateral subdural hygromas have resolved. BRAIN: Significant diffuse/ confluent periventricular white matter ischemic changes again seen extending peripherally into the deep and subcortical white matter both cerebral hemispheres. There is some extension of these changes into white matter tracts of both basal nuclei. Moderate significant generalized volume loss. VENTRICLES: No obstructive hydrocephalus. CALVARIUM: Calvarium appears grossly intact. Re- demonstrated is old fracture deformity of the left lamina papyracea unchanged. A small amount of orbital fat which has herniated through the defect occupying several collapsed left-sided ethmoid air cells also unchanged. PARANASAL SINUSES: Unremarkable as visualized. No significant inflammatory changes. MASTOID AIR CELLS: Unremarkable as visualized. No inflammatory changes. OTHER FINDINGS: None. IMPRESSION: Significant white matter ischemic changes and volume loss. The interval resolution previously noted bilateral subdural hygromas No change old fracture deformity left lamina papyracea. The the
--- NOTE | 2017-04-05 15:30 | CT ---
PROCEDURE: CT scan abdomen pelvis 04/05/2017 HISTORY: Back pain. COMPARISON: Comparison made with CT scan abdomen pelvis 11/08/2016. TECHNIQUE: Contiguous axial images of the abdomen and pelvis performed without oral or intravenous contrast. Coronal and sagittal reformats generated. Radiation dose: Total exam DLP = 509.31 mGy-cm. This CT exam was performed using one or more of the following dose reduction techniques: Automated exposure control, adjustment of the mA and/or kV according to patient size, and/or use of iterative reconstruction technique. FINDINGS: LOWER THORAX: Small left and tiny right-sided pleural effusions. . There is a small to medium-sized hiatal hernia again noted. Heart size is borderline/mildly enlarged. LIVER: Liver exhibits nodular contour and heterogeneous attenuation consistent with cirrhosis. In situ tips stent unchanged. GALLBLADDER AND BILE DUCTS: Gallbladder is physiologically distended. No evidence of intraluminal gallbladder calculi. PANCREAS: Pancreas is slightly atrophic and minimally fatty replaced. No obvious pancreatic masses or collections. SPLEEN: Spleen exhibits normal size and attenuation pattern without mass collection or calcification. ADRENALS: Unr no adrenal lesions seen. KIDNEYS AND URETERS: Kidneys demonstrate symmetric size. No evidence of nephrolithiasis or hydronephrosis. There may be a small amount of left-sided perinephric fluid BLADDER: Urinary bladder is incompletely distended. No evidence of intraluminal urinary bladder calculi. REPRODUCTIVE: Prostate gland appears unremarkable. APPENDIX: What could represent the appendix seen on axial image number [id number] BOWEL: Evaluation of the bowel is limited due to the lack of oral contrast material. The stomach is incompletely distended. Visualized loops of small bowel exhibit normal contour and caliber. No evidence of acute mechanical small bowel obstruction. No definitive evidence of abnormal mural wall thickening large bowel. PERITONEUM: Small amount of perihepatic and perisplenic ascites. . Vague infiltration changes within the mesenteries could be secondary to small amount of ascites. No gross free intraperitoneal air so far as can be seen. LYMPH NODES: Unremarkable. No enlarged lymph nodes. VASCULATURE: Unremarkable. No aortic aneurysm. BONES: There appears to be at acute/subacute compression fracture superior aspect of the L1 segment with minimal retropulsion of the posterior superior corner. Multilevel degenerative spondylosis of the lower thoracic and lumbar spine again noted. OTHER FINDINGS: None. IMPRESSION: Small left and tiny right-sided pleural effusions. Findings consistent with cirrhosis and in situ TIPS stent. Small amount of perihepatic and perisplenic ascites. Mild infiltration changes within the mesenteric possibly due to ascites. Acute/subacute compression fracture superior L1 vertebral body. See above discussion for additional details and findings.
[2017-04-05 16:15] LABS: EOS % 0.4 % (0.0-4.0); HEMOGLOBIN 11.1 g/dL (12.0-18.0); LYMPH # 0.9 K/uL (1.0-4.3); LYMPH % 18.8 % (20.0-40.0); MEAN CELL VOLUME 86.1 fL (80.0-94.0); MEAN CORPUSCULAR HEMOGLOBIN 29.5 pg (27.0-31.0); MEAN CORPUSCULAR HGB CONC 34.2 g/dL (33.0-37.0); MEAN PLATELET VOLUME 9.7 fL (7.2-11.7); MONO # 0.8 K/uL (0.0-0.8); NEUT # 3.3 K/uL (1.8-7.0); NEUT % 64.8 % (50.0-75.0); NRBC % 0.1 % (0.0-2.0); RBC 3.75 Mil/uL (4.40-5.90); RED CELL DISTRIBUTION WIDTH 14.7 % (11.5-14.5)
[2017-04-05 16:23] LABS: INR 1.5; PROTHROMBIN TIME 17.1 SECONDS (9.7-12.2)
[2017-04-05 16:27] LABS: ALBUMIN 1.8 g/dL (3.5-5.0); ALT/SGPT 43 U/L (21-72); AST/SGOT 63 U/L (17-59); BLOOD UREA NITROGEN 17 mg/dL (9-20); CALCIUM 7.3 mg/dl (8.6-10.4); GFR AFRICAN-AMERICAN > 60; GFR NON-AFRICAN AMERICAN > 60
[2017-04-05 16:28] LABS: ALB/GLOB RATIO 0.6 (1.0-2.1)
[2017-04-05] MEDS ORDERED: Oxycodone/Acetaminophen 5/325 mg Tab PO PRN (19:19)
[2017-04-05] MEDS ORDERED: Sodium Chloride 0.9% 1,000 ML ONE (19:41)
[2017-04-05] MEDS: Sodium Chloride 0.9% 1,000 ML IV SCH (19:56)
--- NOTE | 2017-04-05 20:38 | HP ---
HISTORY OF PRESENT ILLNESS: This is a 56-year-old [place] male came to the emergency room with history of severe backache, which is making him unable to walk. Patient claims if he stands up, he has unsteady gait. Very high risk of fall. Patient has generalized fatigue. Patient has lumbar radiculopathy. Patient denies having abdominal pain, nausea or vomiting. No chest pain. About 3 months ago, patient was admitted to [facility] for history of fall and has vertebral fracture. Patient was referred for rehab and was just discharged from rehab about 1 week ago. Patient is not taking any pain medication. Patient denies any alcoholism at present. REVIEW OF SYSTEMS: RESPIRATORY SYSTEM: Negative for shortness of breath. CARDIOVASCULAR SYSTEM: Negative for chest pain. ABDOMEN: Negative for nausea, vomiting, abdominal pain. CENTRAL NERVOUS SYSTEM: No focal neurological complaints offered. Patient has severe back pain. GENITOURINARY: No urinary complaint. NEUROLOGICAL: Unsteady gait. PSYCHIATRY: Patient's mental status is not clear. PAST MEDICAL HISTORY: History of anemia, arthritis, congestive heart failure, hypertension, migraine and cirrhosis of the liver. MEDICATIONS: Reviewed by me. Patient is noncompliant to the medications. ALLERGIES: NO KNOWN ALLERGY. FAMILY HISTORY: No known inherited disease. SOCIAL HISTORY: Nonsmoker. Denies alcoholism at this point. No illicit drug abuse. PHYSICAL EXAMINATION GENERAL: This is a 56-year-old [place] male, awake, comfortable. Possibly forgetful or confused. VITAL SIGNS: Temperature 98.5, pulse 75, respiration 20, blood pressure 174/77 mmHg, pulse ox is 100% on room air. HEENT: Normal, JVP is flat. Carotids, no bruit. LUNGS: No rales, no wheezing. HEART: S1, S2 normal. No gallop. No murmur. ABDOMEN: Soft, nontender. No organomegaly. CENTRAL NERVOUS SYSTEM: No focal neurological deficits. No edema of the legs. LABORATORY DATA: CAT scan of the head was done, which is positive for significant white matter ischemic changes and volume loss. No acute changes. Patient has ultrasound of the abdomen done, which is consistent with cirrhosis of the liver. IMPRESSION: Severe back pain with lumbar radiculopathy. Compression fracture of L1 lumbar vertebra. Unsteady gait. Cirrhosis of the liver with ascites. Rule out hepatic encephalopathy. Hyponatremia. Anemia. PLAN: Patient will be admitted to the floor. We will correct sodium. We will give pain medications. Patient needs physical therapy and occupational therapy. Patient also needs subacute rehabilitation. Marcelino Burns MD
[2017-04-06 07:29] LABS: BLOOD UREA NITROGEN 18 mg/dL (9-20); CALCIUM 7.2 mg/dl (8.6-10.4); GFR AFRICAN-AMERICAN > 60; GFR NON-AFRICAN AMERICAN > 60
[2017-04-06 08:10] LABS: BASO # 0.1 K/uL (0.0-0.2); BASO % 1.3 % (0.0-2.0); EOS % 0.8 % (0.0-4.0); HEMOGLOBIN 10.8 g/dL (12.0-18.0); LYMPH # 1.3 K/uL (1.0-4.3); LYMPH % 29.8 % (20.0-40.0); MEAN CELL VOLUME 85.2 fL (80.0-94.0); MEAN CORPUSCULAR HEMOGLOBIN 29.6 pg (27.0-31.0); MEAN CORPUSCULAR HGB CONC 34.8 g/dL (33.0-37.0); MEAN PLATELET VOLUME 10.3 fL (7.2-11.7); MONO # 0.6 K/uL (0.0-0.8); MONO % 13.5 % (0.0-10.0); NEUT # 2.3 K/uL (1.8-7.0); NEUT % 54.6 % (50.0-75.0); NRBC % 0.6 % (0.0-2.0); RBC 3.63 Mil/uL (4.40-5.90); RED CELL DISTRIBUTION WIDTH 14.7 % (11.5-14.5); WHITE BLOOD COUNT 4.3 K/uL (4.8-10.8)
[2017-04-06] MEDS: Multiple Vitamins Tab PO SCH (10:05)
--- NOTE | 2017-04-06 11:54 | CP.PCM.PN ---
Subjective - Date & Time of Evaluation Date of Evaluation: 04/06/17 Time of Evaluation: 11:51 - Subjective Subjective: GENERALISED WEAKNESS PRESENT. C/O SEVERE BACKACHE. H/O FALL. VERTEBRAL FRACTURE. CIRRHOSIS OF LIVER. ENCEPHALOPATHY. HTN. Objective - Vital Signs/Intake and Output Vital Signs (last 24 hours): Temp Pulse Resp BP Pulse Ox 100.5 F H 77 20 161/79 H 96 04/06/17 08:13 04/06/17 08:13 04/06/17 08:13 04/06/17 08:13 04/06/17 08:13 Intake and Output: 04/06/17 04/06/17 06:59 18:59 Intake Total 560 Output Total 500 Balance 60 - Medications Medications: Current Medications Ascorbic Acid (Vitamin C 500 Mg Tab) 500 mg PO DAILY [facility] Last Admin: 04/06/17 10:05 Dose: 500 mg Famotidine (Pepcid) 20 mg PO DAILY [facility] Last Admin: 04/06/17 10:05 Dose: 20 mg Ferrous Sulfate (Feosol) 325 mg PO DAILY [facility] Last Admin: 04/06/17 10:05 Dose: 325 mg Sodium Chloride (Sodium Chloride 0.9%) 1,000 mls @ 60 mls/hr IV .[id number] [facility] Last Admin: 04/05/17 19:56 Dose: 60 mls/hr Lisinopril (Zestril) 5 mg PO DAILY [facility] Last Admin: 04/06/17 10:06 Dose: 5 mg Multivitamins (Hexavitamin) 1 tab PO DAILY [facility] Last Admin: 04/06/17 10:05 Dose: 1 tab Oxycodone/Acetaminophen (Percocet 5/325 Mg Tab) 1 tab PO Q6H PRN PRN Reason: Pain, moderate (4-7) Stop: 04/08/17 19:20 - Labs Labs: 04/06/17 06:56 04/06/17 06:56 PT 17.1 SECONDS (9.7-12.2) H 04/05/17 16:12 INR 1.5 04/05/17 16:12 APTT 45 SECONDS (21-34) H 04/05/17 16:12 - Constitutional Appears: No Acute Distress, Chronically Ill - Eye Exam Eye Exam: PERRL - ENT Exam ENT Exam: Normal Exam - Respiratory Exam Respiratory Exam: Clear to Ausculation Bilateral, NORMAL BREATHING PATTERN - Cardiovascular Exam Cardiovascular Exam: REGULAR RHYTHM, +S1, +S2 - GI/Abdominal Exam GI & Abdominal Exam: Soft, Normal Bowel Sounds - Extremities Exam Extremities Exam: Full ROM, Normal Capillary Refill, Normal Inspection. absent : Joint Swelling, Pedal Edema - Back Exam Back Exam: NORMAL INSPECTION - Neurological Exam Neurological Exam: Alert, Awake, CN II-XII Intact, Normal Gait, Oriented x3 - Psychiatric Exam Psychiatric exam: Normal Affect, Normal Mood Assessment and Plan - Assessment and Plan (Free Text) Assessment: INRTRACTABLE BACKACHE. Plan: FOR PT/OT. AGA.
[2017-04-07 08:01] LABS: BLOOD UREA NITROGEN 15 mg/dL (9-20); CALCIUM 7.2 mg/dl (8.6-10.4); GFR AFRICAN-AMERICAN > 60; GFR NON-AFRICAN AMERICAN > 60
[2017-04-07] MEDS: Multiple Vitamins Tab PO SCH (09:34)
[2017-04-07] MEDS ORDERED: Pneumococcal 23-Valent Vaccine IM ONE (14:00)
[2017-04-07] MEDS ORDERED: Influenza Vaccine 60 mcg/0.5 mL SYR (4YR UP) IM ONE (14:00)
--- NOTE | 2017-04-07 18:58 | CP.PCM.PN ---
Subjective - Date & Time of Evaluation Date of Evaluation: 04/07/17 Time of Evaluation: 10:00 - Subjective Subjective: CONDITION SAME. BACKACHE PRESENT. Objective - Vital Signs/Intake and Output Vital Signs (last 24 hours): Temp Pulse Resp BP Pulse Ox 97.9 F 60 20 153/71 H 99 04/07/17 15:28 04/07/17 15:28 04/07/17 15:28 04/07/17 15:28 04/07/17 15:28 Intake and Output: 04/07/17 04/07/17 06:59 18:59 Intake Total 420 200 Output Total 600 Balance -180 200 - Medications Medications: Current Medications Ascorbic Acid (Vitamin C 500 Mg Tab) 500 mg PO DAILY [facility] Last Admin: 04/07/17 09:34 Dose: 500 mg Famotidine (Pepcid) 20 mg PO DAILY [facility] Last Admin: 04/07/17 09:34 Dose: 20 mg Ferrous Sulfate (Feosol) 325 mg PO DAILY [facility] Last Admin: 04/07/17 09:34 Dose: 325 mg Sodium Chloride (Sodium Chloride 0.9%) 1,000 mls @ 60 mls/hr IV .[id number] [facility] Last Admin: 04/05/17 19:56 Dose: 60 mls/hr Lisinopril (Zestril) 5 mg PO DAILY [facility] Last Admin: 04/07/17 09:34 Dose: 5 mg Multivitamins (Hexavitamin) 1 tab PO DAILY [facility] Last Admin: 04/07/17 09:34 Dose: 1 tab Oxycodone/Acetaminophen (Percocet 5/325 Mg Tab) 1 tab PO Q6H PRN PRN Reason: Pain, moderate (4-7) Stop: 04/08/17 19:20 - Labs Labs: 04/06/17 06:56 04/07/17 07:17 PT 17.1 SECONDS (9.7-12.2) H 04/05/17 16:12 INR 1.5 04/05/17 16:12 APTT 45 SECONDS (21-34) H 04/05/17 16:12 - Constitutional Appears: No Acute Distress, Chronically Ill - Eye Exam Eye Exam: Normal appearance, PERRL - ENT Exam ENT Exam: Normal Exam - Respiratory Exam Respiratory Exam: Clear to Ausculation Bilateral, NORMAL BREATHING PATTERN - Cardiovascular Exam Cardiovascular Exam: REGULAR RHYTHM, +S1, +S2 - GI/Abdominal Exam GI & Abdominal Exam: Soft, Normal Bowel Sounds - Extremities Exam Extremities Exam: Full ROM, Normal Capillary Refill, Normal Inspection. absent : Joint Swelling, Pedal Edema - Back Exam Back Exam: NORMAL INSPECTION Assessment and Plan - Assessment and Plan (Free Text) Assessment: SAME. Plan: FOR PT/OT. AGA.
[2017-04-07] MEDS: Sodium Chloride 0.9% 1,000 ML IV SCH (22:28)
[2017-04-08] MEDS: Multiple Vitamins Tab PO SCH (09:01)
[2017-04-08] MEDS: Sodium Chloride 0.9% 1,000 ML IV SCH (13:49)
--- NOTE | 2017-04-08 19:47 | CP.PCM.PN ---
Subjective - Date & Time of Evaluation Date of Evaluation: 04/08/17 Time of Evaluation: 11:20 - Subjective Subjective: CONDITION SAME. BACKACHE PRESENT. CHRONIC. Objective - Vital Signs/Intake and Output Vital Signs (last 24 hours): Temp Pulse Resp BP Pulse Ox 98.8 F 65 20 143/70 97 04/08/17 15:34 04/08/17 15:34 04/08/17 15:34 04/08/17 15:34 04/08/17 15:34 Intake and Output: 04/08/17 04/09/17 18:59 06:59 Intake Total 680 Output Total 400 Balance 280 - Medications Medications: Current Medications Ascorbic Acid (Vitamin C 500 Mg Tab) 500 mg PO DAILY [facility] Last Admin: 04/08/17 09:01 Dose: 500 mg Famotidine (Pepcid) 20 mg PO DAILY [facility] Last Admin: 04/08/17 09:01 Dose: 20 mg Ferrous Sulfate (Feosol) 325 mg PO DAILY [facility] Last Admin: 04/08/17 09:01 Dose: 325 mg Sodium Chloride (Sodium Chloride 0.9%) 1,000 mls @ 60 mls/hr IV .[id number] [facility] Last Admin: 04/08/17 13:49 Dose: 60 mls/hr Lisinopril (Zestril) 5 mg PO DAILY [facility] Last Admin: 04/08/17 09:01 Dose: 5 mg Multivitamins (Hexavitamin) 1 tab PO DAILY [facility] Last Admin: 04/08/17 09:01 Dose: 1 tab - Labs Labs: 04/06/17 06:56 04/07/17 07:17 PT 17.1 SECONDS (9.7-12.2) H 04/05/17 16:12 INR 1.5 04/05/17 16:12 APTT 45 SECONDS (21-34) H 04/05/17 16:12 - Constitutional Appears: No Acute Distress, Chronically Ill - Eye Exam Eye Exam: PERRL - ENT Exam ENT Exam: Mucous Membranes Moist - Respiratory Exam Respiratory Exam: Clear to Ausculation Bilateral, NORMAL BREATHING PATTERN - Cardiovascular Exam Cardiovascular Exam: REGULAR RHYTHM, +S1, +S2 - GI/Abdominal Exam GI & Abdominal Exam: Soft, Normal Bowel Sounds - Extremities Exam Extremities Exam: Full ROM, Normal Capillary Refill, Normal Inspection. absent : Joint Swelling, Pedal Edema - Back Exam Back Exam: NORMAL INSPECTION - Neurological Exam Neurological Exam: Alert, Awake, CN II-XII Intact, Normal Gait, Oriented x3 Assessment and Plan - Assessment and Plan (Free Text) Assessment: CIRRHOSIS OF LIVER. BACKACHE. Plan: FOR PT/OT. AGA.
[2017-04-09 08:17] VITALS: RESP 20
[2017-04-09] MEDS: Multiple Vitamins Tab PO SCH (10:32)
--- NOTE | 2017-04-09 12:08 | CP.PCM.PN ---
Subjective - Date & Time of Evaluation Date of Evaluation: 04/09/17 Time of Evaluation: 12:06 - Subjective Subjective: CONDITION SAME. BACKACHE CHRONIC. VS WNL. Objective - Vital Signs/Intake and Output Vital Signs (last 24 hours): Temp Pulse Resp BP Pulse Ox 98.4 F 73 20 155/71 H 98 04/09/17 08:00 04/09/17 08:00 04/09/17 08:00 04/09/17 08:00 04/09/17 08:00 Intake and Output: 04/09/17 04/09/17 06:59 18:59 Intake Total 780 Balance 780 - Medications Medications: Current Medications Ascorbic Acid (Vitamin C 500 Mg Tab) 500 mg PO DAILY [facility] Last Admin: 04/09/17 10:31 Dose: 500 mg Famotidine (Pepcid) 20 mg PO DAILY [facility] Last Admin: 04/09/17 10:31 Dose: 20 mg Ferrous Sulfate (Feosol) 325 mg PO DAILY [facility] Last Admin: 04/09/17 10:31 Dose: 325 mg Lisinopril (Zestril) 5 mg PO DAILY [facility] Last Admin: 04/09/17 10:32 Dose: 5 mg Multivitamins (Hexavitamin) 1 tab PO DAILY [facility] Last Admin: 04/09/17 10:32 Dose: 1 tab - Labs Labs: 04/06/17 06:56 04/07/17 07:17 PT 17.1 SECONDS (9.7-12.2) H 04/05/17 16:12 INR 1.5 04/05/17 16:12 APTT 45 SECONDS (21-34) H 04/05/17 16:12 - Constitutional Appears: No Acute Distress, Chronically Ill - Eye Exam Eye Exam: Normal appearance, PERRL - ENT Exam ENT Exam: Mucous Membranes Moist - Respiratory Exam Respiratory Exam: Clear to Ausculation Bilateral, NORMAL BREATHING PATTERN - Cardiovascular Exam Cardiovascular Exam: REGULAR RHYTHM, +S1, +S2 - GI/Abdominal Exam GI & Abdominal Exam: Soft, Normal Bowel Sounds - Extremities Exam Extremities Exam: Full ROM, Normal Capillary Refill, Normal Inspection. absent : Joint Swelling, Pedal Edema - Neurological Exam Neurological Exam: Alert, Awake, CN II-XII Intact, Normal Gait, Oriented x3 - Psychiatric Exam Psychiatric exam: Normal Affect, Normal Mood Assessment and Plan - Assessment and Plan (Free Text) Assessment: STABLE. Plan: FOR AGA AT [facility].
[2017-04-09] MEDS ORDERED: Potassium Chloride 20 mEq ER Tab PO ONE (15:00)
--- NOTE | 2017-04-10 09:26 | CP.PCM.PN ---
Subjective - Date & Time of Evaluation Date of Evaluation: 04/10/17 Time of Evaluation: 09:00 - Subjective Subjective: STABLE. CH BACKACHE. Objective - Vital Signs/Intake and Output Vital Signs (last 24 hours): Temp Pulse Resp BP Pulse Ox 97.8 F 60 20 120/58 L 98 04/10/17 08:00 04/10/17 08:00 04/10/17 08:00 04/10/17 08:00 04/10/17 08:00 Intake and Output: 04/10/17 04/10/17 06:59 18:59 Intake Total 350 Balance 350 - Medications Medications: Current Medications Acetaminophen (Tylenol 325mg Tab) 650 mg PO Q6 PRN PRN Reason: Pain, moderate (4-7) Last Admin: 04/09/17 21:42 Dose: 650 mg Ascorbic Acid (Vitamin C 500 Mg Tab) 500 mg PO DAILY [facility] Last Admin: 04/09/17 10:31 Dose: 500 mg Famotidine (Pepcid) 20 mg PO DAILY [facility] Last Admin: 04/09/17 10:31 Dose: 20 mg Ferrous Sulfate (Feosol) 325 mg PO DAILY [facility] Last Admin: 04/09/17 10:31 Dose: 325 mg Lisinopril (Zestril) 5 mg PO DAILY [facility] Multivitamins (Hexavitamin) 1 tab PO DAILY [facility] Last Admin: 04/09/17 10:32 Dose: 1 tab - Labs Labs: 04/06/17 06:56 04/07/17 07:17 PT 17.1 SECONDS (9.7-12.2) H 04/05/17 16:12 INR 1.5 04/05/17 16:12 APTT 45 SECONDS (21-34) H 04/05/17 16:12 - Constitutional Appears: No Acute Distress, Chronically Ill - Eye Exam Eye Exam: Normal appearance, PERRL - ENT Exam ENT Exam: Normal Exam - Respiratory Exam Respiratory Exam: Clear to Ausculation Bilateral, NORMAL BREATHING PATTERN - Cardiovascular Exam Cardiovascular Exam: REGULAR RHYTHM, +S1, +S2 - GI/Abdominal Exam GI & Abdominal Exam: Soft, Normal Bowel Sounds - Extremities Exam Extremities Exam: Full ROM, Normal Capillary Refill, Normal Inspection. absent : Joint Swelling, Pedal Edema - Back Exam Back Exam: NORMAL INSPECTION - Neurological Exam Neurological Exam: Alert, Awake, CN II-XII Intact, Normal Gait, Oriented x3 Assessment and Plan - Assessment and Plan (Free Text) Assessment: BACKACHE. CIRRHOSIS OF LIVER. HTN. Plan: AWAITING AGA.
[2017-04-10] MEDS: Multiple Vitamins Tab PO SCH (10:13)
[2017-04-11] MEDS: Multiple Vitamins Tab PO SCH (09:19)
[2017-04-11 11:08] LABS: BASO % 0.8 % (0.0-2.0); EOS # 0.2 K/uL (0.0-0.7); EOS % 4.4 % (0.0-4.0); HEMOGLOBIN 11.6 g/dL (12.0-18.0); LYMPH # 2.3 K/uL (1.0-4.3); LYMPH % 51.4 % (20.0-40.0); MEAN CELL VOLUME 84.3 fL (80.0-94.0); MEAN CORPUSCULAR HEMOGLOBIN 29.4 pg (27.0-31.0); MEAN CORPUSCULAR HGB CONC 34.9 g/dL (33.0-37.0); MONO # 0.5 K/uL (0.0-0.8); MONO % 12.2 % (0.0-10.0); NEUT # 1.4 K/uL (1.8-7.0); NEUT % 31.2 % (50.0-75.0); NRBC % 0.1 % (0.0-2.0); RBC 3.94 Mil/uL (4.40-5.90); RED CELL DISTRIBUTION WIDTH 15.4 % (11.5-14.5); WHITE BLOOD COUNT 4.5 K/uL (4.8-10.8)
[2017-04-11 11:27] LABS: BLOOD UREA NITROGEN 10 mg/dL (9-20); CALCIUM 7.5 mg/dl (8.6-10.4); GFR AFRICAN-AMERICAN > 60; GFR NON-AFRICAN AMERICAN > 60
--- NOTE | 2017-04-11 12:43 | CP.PCM.PN ---
Subjective - Date & Time of Evaluation Date of Evaluation: 04/11/17 Time of Evaluation: 12:41 - Subjective Subjective: CONDITION REMAINS SAME. BP HIGH. LISINOPRIL ADDED. LABS WNL. Objective - Vital Signs/Intake and Output Vital Signs (last 24 hours): Temp Pulse Resp BP Pulse Ox 98.0 F 71 20 177/90 H 98 04/11/17 07:37 04/11/17 07:37 04/11/17 07:37 04/11/17 07:37 04/11/17 07:37 Intake and Output: 04/11/17 04/11/17 06:59 18:59 Intake Total 350 Balance 350 - Medications Medications: Current Medications Acetaminophen (Tylenol 325mg Tab) 650 mg PO Q6 PRN PRN Reason: Pain, moderate (4-7) Last Admin: 04/09/17 21:42 Dose: 650 mg Amlodipine Besylate (Norvasc) 5 mg PO DAILY [facility] Last Admin: 04/11/17 09:19 Dose: 5 mg Ascorbic Acid (Vitamin C 500 Mg Tab) 500 mg PO DAILY [facility] Last Admin: 04/11/17 09:20 Dose: 500 mg Famotidine (Pepcid) 20 mg PO DAILY [facility] Last Admin: 04/11/17 09:19 Dose: 20 mg Ferrous Sulfate (Feosol) 325 mg PO DAILY [facility] Last Admin: 04/11/17 09:19 Dose: 325 mg Lisinopril (Zestril) 10 mg PO DAILY [facility] Last Admin: 04/11/17 09:20 Dose: 10 mg Multivitamins (Hexavitamin) 1 tab PO DAILY [facility] Last Admin: 04/11/17 09:19 Dose: 1 tab - Labs Labs: 04/11/17 10:59 04/11/17 10:59 PT 17.1 SECONDS (9.7-12.2) H 04/05/17 16:12 INR 1.5 04/05/17 16:12 APTT 45 SECONDS (21-34) H 04/05/17 16:12 - Constitutional Appears: No Acute Distress, Chronically Ill - Eye Exam Eye Exam: PERRL - ENT Exam ENT Exam: Normal Exam - Respiratory Exam Respiratory Exam: Clear to Ausculation Bilateral, NORMAL BREATHING PATTERN - Cardiovascular Exam Cardiovascular Exam: REGULAR RHYTHM, +S1, +S2 - GI/Abdominal Exam GI & Abdominal Exam: Soft, Normal Bowel Sounds - Extremities Exam Extremities Exam: Full ROM, Normal Capillary Refill, Normal Inspection. absent : Joint Swelling, Pedal Edema - Neurological Exam Neurological Exam: Alert, Awake, CN II-XII Intact, Normal Gait, Oriented x3 Assessment and Plan - Assessment and Plan (Free Text) Assessment: HTN. Plan: CT PRESENT TREATMENT. FOR AGA.
[2017-04-12] MEDS: Multiple Vitamins Tab PO SCH (09:56)
--- NOTE | 2017-04-12 12:51 | CP.PCM.PN ---
Subjective - Date & Time of Evaluation Date of Evaluation: 04/12/17 Time of Evaluation: 12:49 - Subjective Subjective: COMFORTABLE. BP HIGH. INCREASE AMLODIPINE. WAITING FOR INS APROVAL FOR AGA. Objective - Vital Signs/Intake and Output Vital Signs (last 24 hours): Temp Pulse Resp BP Pulse Ox 97.4 F L 68 20 188/84 H 98 04/12/17 07:44 04/12/17 07:44 04/12/17 07:44 04/12/17 07:44 04/12/17 07:44 Intake and Output: 04/12/17 04/12/17 06:59 18:59 Intake Total 730 Balance 730 - Medications Medications: Current Medications Acetaminophen (Tylenol 325mg Tab) 650 mg PO Q6 PRN PRN Reason: Pain, moderate (4-7) Last Admin: 04/09/17 21:42 Dose: 650 mg Amlodipine Besylate (Norvasc) 10 mg PO DAILY [facility] Ascorbic Acid (Vitamin C 500 Mg Tab) 500 mg PO DAILY [facility] Last Admin: 04/12/17 09:56 Dose: 500 mg Famotidine (Pepcid) 20 mg PO DAILY [facility] Last Admin: 04/12/17 09:56 Dose: 20 mg Ferrous Sulfate (Feosol) 325 mg PO DAILY [facility] Last Admin: 04/12/17 09:56 Dose: 325 mg Lisinopril (Zestril) 10 mg PO DAILY [facility] Last Admin: 04/12/17 09:55 Dose: 10 mg Multivitamins (Hexavitamin) 1 tab PO DAILY [facility] Last Admin: 04/12/17 09:56 Dose: 1 tab - Labs Labs: 04/11/17 10:59 04/11/17 10:59 PT 17.1 SECONDS (9.7-12.2) H 04/05/17 16:12 INR 1.5 04/05/17 16:12 APTT 45 SECONDS (21-34) H 04/05/17 16:12 - Constitutional Appears: No Acute Distress, Chronically Ill - Eye Exam Eye Exam: PERRL - ENT Exam ENT Exam: Normal Exam - Respiratory Exam Respiratory Exam: Clear to Ausculation Bilateral, NORMAL BREATHING PATTERN - Cardiovascular Exam Cardiovascular Exam: REGULAR RHYTHM, +S1, +S2 - GI/Abdominal Exam GI & Abdominal Exam: Soft, Normal Bowel Sounds - Extremities Exam Extremities Exam: Full ROM, Normal Capillary Refill, Normal Inspection. absent : Joint Swelling, Pedal Edema - Neurological Exam Neurological Exam: Alert, Awake, CN II-XII Intact, Normal Gait, Oriented x3 - Psychiatric Exam Psychiatric exam: Normal Affect, Normal Mood Assessment and Plan - Assessment and Plan (Free Text) Assessment: SAME. Plan: CT PRESENT TREATMENT.
[2017-04-13 08:23] VITALS: BP 170/89; PULSE 70; TEMP 8.5; O2SAT 98
[2017-04-13] MEDS: Multiple Vitamins Tab PO SCH (10:13)
--- NOTE | 2017-04-13 12:25 | CP.PCM.PN ---
Subjective - Date & Time of Evaluation Date of Evaluation: 04/13/17 Time of Evaluation: 12:23 - Subjective Subjective: CONDITION STABLE. Objective - Vital Signs/Intake and Output Vital Signs (last 24 hours): Temp Pulse Resp BP Pulse Ox 8.5 F L 70 20 170/89 H 98 04/13/17 08:22 04/13/17 08:22 04/13/17 08:22 04/13/17 08:22 04/13/17 08:22 Intake and Output: 04/13/17 04/13/17 06:59 18:59 Intake Total 480 Balance 480 - Medications Medications: Current Medications Acetaminophen (Tylenol 325mg Tab) 650 mg PO Q6 PRN PRN Reason: Pain, moderate (4-7) Last Admin: 04/09/17 21:42 Dose: 650 mg Amlodipine Besylate (Norvasc) 10 mg PO DAILY [facility] Last Admin: 04/13/17 10:14 Dose: 10 mg Ascorbic Acid (Vitamin C 500 Mg Tab) 500 mg PO DAILY [facility] Last Admin: 04/13/17 10:14 Dose: 500 mg Famotidine (Pepcid) 20 mg PO DAILY [facility] Last Admin: 04/13/17 10:13 Dose: 20 mg Ferrous Sulfate (Feosol) 325 mg PO DAILY [facility] Last Admin: 04/13/17 10:13 Dose: 325 mg Lisinopril (Zestril) 10 mg PO DAILY [facility] Last Admin: 04/13/17 10:13 Dose: 10 mg Multivitamins (Hexavitamin) 1 tab PO DAILY [facility] Last Admin: 04/13/17 10:13 Dose: 1 tab - Labs Labs: 04/11/17 10:59 04/11/17 10:59 PT 17.1 SECONDS (9.7-12.2) H 04/05/17 16:12 INR 1.5 04/05/17 16:12 APTT 45 SECONDS (21-34) H 04/05/17 16:12 - Constitutional Appears: No Acute Distress - Eye Exam Eye Exam: Normal appearance - ENT Exam ENT Exam: Normal Exam - Neck Exam Neck Exam: Normal Inspection - Respiratory Exam Respiratory Exam: Clear to Ausculation Bilateral, NORMAL BREATHING PATTERN - Cardiovascular Exam Cardiovascular Exam: REGULAR RHYTHM, +S1, +S2 - GI/Abdominal Exam GI & Abdominal Exam: Soft, Normal Bowel Sounds - Extremities Exam Extremities Exam: Full ROM, Normal Capillary Refill, Normal Inspection. absent : Joint Swelling, Pedal Edema - Back Exam Back Exam: NORMAL INSPECTION - Neurological Exam Neurological Exam: Alert, Awake, CN II-XII Intact, Normal Gait, Oriented x3 Assessment and Plan - Assessment and Plan (Free Text) Assessment: CH BACKACHE. Plan: FOR AGA TODAY.
--- NOTE | 2017-04-20 09:53 | DS ---
HISTORY OF PRESENT ILLNESS: This is a 56-year-old [place] male came to the emergency room with history of multiple falls. The patient has fall about 2 to 3 months ago, and he was send to subacute care after that. The patient was discharged about 1 week prior to this fall, and he came to the emergency room. The patient complained of back pain. No history of loss of consciousness. No apparent injury. The patient denies all other complaints. PAST MEDICAL HISTORY: History of anemia, arthritis, congestive heart failure, hypertension, chronic EtOH, and cirrhosis of the liver. The patient is noncompliant to the medication. ALLERGIES: NO KNOWN ALLERGY. HOSPITAL COURSE: During the hospital course, the patient remained medically stable with chronic back pain. The patient was given pain management and physical therapy. The patient improved mildly. Since he still has back pain and unable to walk adequately, he was referred to subacute rehabilitation. CT scan of the spine showed compression fracture of L1. IMPRESSION: History of fall, compression fracture L1, severe back pain, cirrhosis of the liver, hypertension, unsteady gait, headache, and ascites. PLAN: The patient was send to subacute rehab at [facility]. Clif Bower DO
== END 2017-04-13 16:10 | DRG 243 ==
LOC: C.ER 13:14 → C.9E 15:49 → C.6T 21:08 → C.3T 04-09 00:11
PROVIDERS: ADMIT Internal Medicine; ATTEND Internal Medicine
DX: S32.019A Unspecified fracture of first lumbar vertebra, initial encounter for closed fracture (principal); G93.40 Encephalopathy, unspecified; E87.1 Hypo-osmolality and hyponatremia; I11.0 Hypertensive heart disease with heart failure; I50.9 Heart failure, unspecified; K70.31 Alcoholic cirrhosis of liver with ascites; D18.1 Lymphangioma, any site; D64.9 Anemia, unspecified; M16.11 Unilateral primary osteoarthritis, right hip; G89.29 Other chronic pain; X58.XXXA Exposure to other specified factors, initial encounter; R51 Headache; F10.11 Alcohol abuse, in remission; Z91.81 History of falling; Z91.14 Patient's other noncompliance with medication regimen

== ENCOUNTER 2017-09-12 16:51 | Emergency (ER) | payer MEDICAID ==
[2017-09-12 16:51] VITALS: BMI 25.7
--- NOTE | 2017-09-12 17:41 | C.PDOC ---
History Of Present Illness 57yo male with history of CHF, cellulitis, alcohol abuse, liver cirrhosis secondary to alcohol abuse, hypertension and thrombocytopenia, presents to ER for evaluation stating he has "too much problems with legs." Patient reports chronic lower extremity swelling x 1 year and states he has trouble walking. He does admit to alcohol use today. Patient denies any chest pain or shortness of breath, fever, chills. He has no other medical complaints. Time Seen by Provider: 09/12/17 17:08 Chief Complaint (Nursing): Lower Extremity Problem/Injury History Per: Patient History/Exam Limitations: no limitations Onset/Duration Of Symptoms: Persistent Past Medical History Reviewed: Historical Data, Nursing Documentation, Vital Signs Vital Signs: Last Vital Signs Temp 98.6 F 09/12/17 19:26 Pulse 93 H 09/12/17 19:26 Resp 20 09/12/17 19:26 BP 163/84 H 09/12/17 19:26 Pulse Ox 98 09/12/17 20:59 - Medical History PMH: Anemia, Arthritis (Right hip and back), CHF, Fractures, HTN, Migraine Denies: Chronic Kidney Disease Surgical History: No Surg Hx - [facility] Procedures CENTRAL VENOUS CATHETER PLACEMENT WITH GUIDANCE (11/20/14) DETOXIFICATION SERVICES FOR SUBSTANCE ABUSE TREATMENT (11/07/16) INSERTION OF INFUSION DEV INTO INF VENA CAVA, PERC APPROACH (12/27/14) INTRODUCE OTH ANTI-INFECT IN CENTRAL VEIN, PERC (12/27/14) Family History: States: Unknown Family Hx - Social History Hx Alcohol Use: Yes Hx Substance Use: No - Immunization History Hx Tetanus Toxoid Vaccination: No Hx Influenza Vaccination: No Hx Pneumococcal Vaccination: No Review Of Systems Constitutional: Negative for: Fever, Chills Cardiovascular: Positive for: Edema (both legs). Negative for: Chest Pain Respiratory: Negative for: Shortness of Breath Musculoskeletal: Positive for: Other (bilateral lower extremity swelling) Physical Exam - Physical Exam Appears: No Acute Distress Skin: Warm, Dry Head: Normacephalic Eye(s): bilateral: Normal Inspection Oral Mucosa: Moist, Other (alcohol on breath) Neck: Normal ROM, Supple Chest: Symmetrical Cardiovascular: Rhythm Regular Respiratory: Normal Breath Sounds Gastrointestinal/Abdominal: Soft, No Tenderness, No Distention Extremity: No Tenderness, Pedal Edema (pitting edema on bilateral lower extremities up to knees), No Calf Tenderness, No Deformity Neurological/Psych: Oriented x3 Gait: Unsteady ED Course And Treatment - Laboratory Results Result Diagrams: 09/12/17 17:58 09/12/17 17:58 Lab Interpretation: Abnormal (Mild anemia, thrombocytopenia - chronic, elevated AST and bili c/w cirrhosis all unchanged from prior visit.) O2 Sat by Pulse Oximetry: 98 (RA) Pulse Ox Interpretation: Normal Reevaluation Time: 20:56 Reassessment Condition: Improved (Patient is awake and responsive.) Medical Decision Making Medical Decision Making: Plan: -- Basic labs Disposition Counseled Patient/Family Regarding: Studies Performed, Diagnosis, Need For Followup - Disposition Referrals: Marcelino Burns MD [Staff Provider] - Disposition: HOME/ ROUTINE Disposition Time: 21:05 Condition: STABLE Instructions: Cirrhosis, Alcohol Abuse and Alcoholism (DC), Lymphedema Forms: [employer] (Swedish) - Clinical Impression Clinical Impression: Alcohol intoxication, Thrombocytopenia, Peripheral edema, Cirrhosis - Scribe Statement The provider has reviewed the documentation as recorded by the Scribe (Stephanie Johnson) Provider Attestation: All medical record entries made by the Scribe were at my direction and personally dictated by me. I have reviewed the chart and agree that the record accurately reflects my personal performance of the history, physical exam, medical decision making, and the department course for this patient. I have also personally directed, reviewed, and agree with the discharge instructions and disposition.
[2017-09-12 18:01] LABS: BASO # 0.1 K/uL (0.0-0.2); BASO % 2.5 % (0.0-2.0); EOS # 0.4 K/uL (0.0-0.7); EOS % 6.6 % (0.0-4.0); HEMOGLOBIN 9.8 g/dL (12.0-18.0); LYMPH # 2.6 K/uL (1.0-4.3); LYMPH % 43.3 % (20.0-40.0); MEAN CELL VOLUME 89.8 fL (80.0-94.0); MEAN CORPUSCULAR HEMOGLOBIN 29.7 pg (27.0-31.0); MEAN PLATELET VOLUME 9.6 fL (7.2-11.7); MONO # 0.4 K/uL (0.0-0.8); MONO % 7.2 % (0.0-10.0); NEUT # 2.4 K/uL (1.8-7.0); NEUT % 40.4 % (50.0-75.0); RBC 3.31 Mil/uL (4.40-5.90); RED CELL DISTRIBUTION WIDTH 16.4 % (11.5-14.5)
[2017-09-12 18:13] LABS: ALB/GLOB RATIO 0.6 (1.0-2.1); ALBUMIN 1.9 g/dL (3.5-5.0); ALT/SGPT 72 U/L (21-72); AST/SGOT 162 U/L (17-59); BLOOD UREA NITROGEN 12 mg/dL (9-20); CALCIUM 7.6 mg/dl (8.6-10.4); GFR AFRICAN-AMERICAN > 60; GFR NON-AFRICAN AMERICAN > 60
[2017-09-12 18:21] LABS: B-TYPE NATRIURETIC PEPTIDE 150 pg/mL (0-900)
[2017-09-12 20:59] VITALS: O2SAT 98
[2017-09-12 21:26] VITALS: BP 156/83; PULSE 88; RESP 17; TEMP 98.1
== END 2017-09-12 21:56 | disposition home or self-care (01) ==
LOC: C.ER 16:51
DX: F10.129 Alcohol abuse with intoxication, unspecified (principal); D69.6 Thrombocytopenia, unspecified; K74.60 Unspecified cirrhosis of liver; R60.9 Edema, unspecified; I50.9 Heart failure, unspecified; I10 Essential (primary) hypertension

== ENCOUNTER 2017-09-28 07:58 | Inpatient (IN) | payer MEDICAID ==
[2017-09-28 07:58] VITALS: BMI 25.7
[2017-09-28] MEDS ORDERED: Cefepime 1 GM in Sodium Chloride 0.9% 50 ML IVPB STA (08:27)
[2017-09-28] MEDS ORDERED: Vancomycin 1 GM 1 GM/250 ML BAG IV STA (08:27)
--- NOTE | 2017-09-28 08:35 | C.PDOC ---
History Of Present Illness Patient presents to ED c/o diffuse swelling over the last several weeks, with worsening facial swelling over the past several days. He is also c/o diffuse body aches, and left great toe pain/wound. He denies fever, chest pain, SOB, vomiting, diarrhea. PMHx of liver cirrhosis, HTN, CHF, alcohol abuse, migraines. Time Seen by Provider: 09/28/17 08:00 Chief Complaint (Nursing): Abnormal Skin Integrity History Per: Patient History/Exam Limitations: other (poor historian) Onset/Duration Of Symptoms: Days Current Symptoms Are (Timing): Still Present Quality Of Symptoms: Swollen Severity: Moderate Past Medical History Reviewed: Historical Data, Nursing Documentation, Vital Signs Vital Signs: Last Vital Signs Temp 98.3 F 10/02/17 00:03 Pulse 67 10/02/17 00:03 Resp 20 10/02/17 00:03 BP 121/66 10/02/17 00:03 Pulse Ox 97 10/02/17 00:03 - Medical History PMH: Anemia, Arthritis (Right hip and back), CHF, Fractures, HTN, Migraine - [facility] Procedures CENTRAL VENOUS CATHETER PLACEMENT WITH GUIDANCE (11/20/14) DETOXIFICATION SERVICES FOR SUBSTANCE ABUSE TREATMENT (11/07/16) INSERTION OF INFUSION DEV INTO INF VENA CAVA, PERC APPROACH (12/27/14) INTRODUCE OTH ANTI-INFECT IN CENTRAL VEIN, PERC (12/27/14) Family History: States: No Known Family Hx - Social History Hx Alcohol Use: Yes Hx Substance Use: No - Immunization History Hx Tetanus Toxoid Vaccination: No Hx Influenza Vaccination: No Hx Pneumococcal Vaccination: No Review Of Systems Constitutional: Negative for: Fever, Chills Cardiovascular: Negative for: Chest Pain, Palpitations Respiratory: Negative for: Cough, Shortness of Breath Gastrointestinal: Negative for: Nausea, Vomiting, Abdominal Pain, Diarrhea Musculoskeletal: Positive for: Other (left great toe pain) Physical Exam - Physical Exam Appears: Non-toxic, Chronically Ill, Other (diffuse anasarca) Skin: Normal Color, Warm, Dry, Other (see extremity exam) Head: Normacephalic Eye(s): bilateral: Other (significant periorbital swelling without erythema ) Oral Mucosa: Moist Cardiovascular: Rhythm Regular, Murmur (3/6 holosystolic murmur) Respiratory: Normal Breath Sounds, No Rales, No Rhonchi, No Wheezing Gastrointestinal/Abdominal: Bowel Sounds, Soft, No Tenderness, Other (obese) Extremity: Pedal Edema (+2 pitting edema, scattered ecchymoses and abrasions B/ L LEs), No Calf Tenderness Extremity: Left: Other (left great toe - circumferential necrotic appearing wound at proximal aspect, diffusely TTP, malodorous ) Pulses: Left Dorsalis Pedis: Normal, Right Dorsalis Pedis: Normal Neurological/Psych: Oriented x3 ED Course And Treatment - Laboratory Results Result Diagrams: 10/01/17 06:59 10/01/17 06:59 ECG: Interpreted By Me, Viewed By Me (NSR 79 bpm, normal axis, no acute ST/T wave changes) ECG Interpretation: Normal O2 Sat by Pulse Oximetry: 100 (ra) Pulse Ox Interpretation: Normal - Radiology CXR: Interpreted by Me, Viewed By Me CXR Interpretation: Yes: No Acute Disease. No: Infiltrates - Other Rad left foot Xray X-Ray: Viewed By Me, Read By Radiologist Interpretation: Accession No. : [id number]. Patient Name / ID : JEFFREY PANDYA / [id number]. Exam Date : 09/28/2017 08:44:40 ( Approved ). Study Comment : Sex / Age : M / 57Y. Creator : Enrico Yin MD. Dictator : Enrico Yin MD. Window Trimmer Apprentice : Business Services Intern : Enrico Yin MD. Approver2 : Report Date : 09/28/2017 09:06:12. My Comment : . PROCEDURE: Radiographs of the left great toe. TECHNIQUE:: AP radiograph of the left foot, with oblique and lateral view of the left great toe. COMPARISON: None. FINDINGS: BONES: No fracture. Periosteal reaction is seen along the medial diaphysis of the 1st proximal phalanx suggestive of osteomyelitis. Consider correlation with magnetic resonance imaging evaluation. No osseous erosion. JOINTS: Normal. SOFT TISSUES: Normal. OTHER FINDINGS: None. IMPRESSION: Periosteal reaction along the medial aspect 1st proximal phalanx suspicious for osteomyelitis. Consider confirmation with magnetic resonance imaging examination. Progress Note: Blood work, CXR, Xray left foot ordered and reviewed. Patient given IV Vancomycin + IV Cefepime for toe infection/possible osteomyelitis. - Physician Consult Information Physician Contacted: Marcelino Burns Outcome Of Conversation: Discussed patient with PMD, agrees with admission for left toe infection/osteomyelitis, anasarca. Requests Dr. Wendy Harris for podiatry. Disposition - Disposition Disposition: HOSPITALIZED Disposition Time: 10:19 Condition: STABLE - Clinical Impression Clinical Impression: Osteomyelitis, Open toe wound, Anasarca Decision To Admit - Pt Status Changed To: Hospital Disposition Of: Inpatient - Admit Certification Admit to Inpatient:: After my assessment, the patient will require hospitalization for at least two midnights. This is because of the severity of symptoms shown, intensity of services needed, and/or the medical risk in this patient being treated as an outpatient. - InPatient: Physician Admission Certification: I certify that this patient requires 2 or more midnights of care for the following reason:: see notes - . Bed Request Type: Regular Admitting Physician: Marcelino Burns Patient Diagnosis: Osteomyelitis, Open toe wound, Anasarca
--- NOTE | 2017-09-28 09:07 | RAD ---
PROCEDURE: Radiographs of the left great toe. TECHNIQUE:: AP radiograph of the left foot, with oblique and lateral view of the left great toe. COMPARISON: None. FINDINGS: BONES: No fracture. Periosteal reaction is seen along the medial diaphysis of the 1st proximal phalanx suggestive of osteomyelitis. Consider correlation with magnetic resonance imaging evaluation. No osseous erosion. JOINTS: Normal. SOFT TISSUES: Normal. OTHER FINDINGS: None. IMPRESSION: Periosteal reaction along the medial aspect 1st proximal phalanx suspicious for osteomyelitis. Consider confirmation with magnetic resonance imaging examination.
--- NOTE | 2017-09-28 09:09 | RAD ---
Date of service: 09/28/2017 PROCEDURE: CHEST RADIOGRAPH, 1 VIEW HISTORY: anasarca COMPARISON: 01/31/2017 FINDINGS: LUNGS: Clear. PLEURA: No pneumothorax or pleural fluid seen. CARDIOVASCULAR: Normal. OSSEOUS STRUCTURES: No significant abnormalities. VISUALIZED UPPER ABDOMEN: Normal. OTHER FINDINGS: None. IMPRESSION: No active disease.
[2017-09-28 09:21] LABS: VENOUS BLOOD GAS BASE EXCESS -1.5 mmol/L (0.0-2.0); VENOUS BLOOD GAS PCO2 47 mmHg (40-60); VENOUS BLOOD GAS PO2 26 mm/Hg (30-55); VENOUS BLOOD PH 7.33 (7.32-7.43)
[2017-09-28 09:23] LABS: BASO # 0.1 K/uL (0.0-0.2); BASO % 1.2 % (0.0-2.0); EOS # 0.2 K/uL (0.0-0.7); EOS % 3.6 % (0.0-4.0); LYMPH # 2.2 K/uL (1.0-4.3); MEAN CELL VOLUME 91.3 fL (80.0-94.0); MEAN CORPUSCULAR HEMOGLOBIN 30.4 pg (27.0-31.0); MEAN CORPUSCULAR HGB CONC 33.3 g/dL (33.0-37.0); MEAN PLATELET VOLUME 10.4 fL (7.2-11.7); MONO # 0.5 K/uL (0.0-0.8); MONO % 7.8 % (0.0-10.0); NEUT # 3.5 K/uL (1.8-7.0); NEUT % 53.4 % (50.0-75.0); RBC 3.29 Mil/uL (4.40-5.90); RED CELL DISTRIBUTION WIDTH 17.4 % (11.5-14.5); WHITE BLOOD COUNT 6.5 K/uL (4.8-10.8)
[2017-09-28 09:24] LABS: INR 1.3; PROTHROMBIN TIME 14.4 SECONDS (9.7-12.2)
[2017-09-28] MEDS ORDERED: Vancomycin 1 gm/NS 200 ml 1 GM/200 ML BAG IVPB STA (09:27)
[2017-09-28 09:31] LABS: ALB/GLOB RATIO 0.6 (1.0-2.1); ALT/SGPT 68 U/L (21-72); AST/SGOT 197 U/L (17-59); BLOOD UREA NITROGEN 14 mg/dL (9-20); CALCIUM 7.9 mg/dl (8.6-10.4); GFR NON-AFRICAN AMERICAN > 60
[2017-09-28 09:42] LABS: B-TYPE NATRIURETIC PEPTIDE 362 pg/mL (0-900); CK-MB 5.84 ng/mL (0.0-3.38)
--- NOTE | 2017-09-28 10:55 | CP.PCM.CON ---
History of Present Illness - History of Present Illness History of Present Illness: Podiatry Consult Note - Dr. Harris 57M PMHx liver cirrhosis, HTN, alcohol abuse seen and examined in ED concerning bilateral lower extremity swelling and nonhealing wounds. Patient complains of worsening lower extremity swelling ongoing for 2 weeks. Patient states as a result he developed blisters around both legs, the inside of his right heel, and on top of both great toes. Patient reports the blister on top of his left great toe ruptured developing a large wound encompassing his entire digit. Patient states he has been using creams and bandaging his great toe however the wound has remained nonhealing and relates constant pain to site. Of note, patient presented to ED with maggots surrounding wound. Patient also c/o bilateral lower extremity swelling, burning, and tingling. Denies N/V/F/D/C/SOB/ CP/MONTERO. PMHx: HTN, liver cirrhosis PSH: none FH: unknown SH: daily ETOH use (2-3 drinks/day), denies tobacco use, denies illicit drug use ; lives alone All: NKDA Review of Systems - Review of Systems All systems: reviewed and no additional remarkable complaints except (as per HPI ) Past Patient History - Infectious Disease Hx of Infectious Diseases: None - Past Medical History & Family History Past Medical History?: Yes - Past Social History Smoking Status: Never Smoked - CARDIAC Hx Congestive Heart Failure: Yes Hx Hypertension: Yes - PULMONARY Hx Respiratory Disorders: No - NEUROLOGICAL Hx Migraine: Yes - HEENT Hx HEENT Problems: No - RENAL Hx Chronic Kidney Disease: No - HEMATOLOGICAL/ONCOLOGICAL Hx Anemia: Yes - INTEGUMENTARY Hx Dermatological Problems: Yes Hx Cellulitis: Yes (right lower extremity) Other/Comment: Right thigh Abscess, Right lower leg cellulitis - MUSCULOSKELETAL/RHEUMATOLOGICAL Hx Arthritis: Yes (Right hip and back) Hx Fractures: Yes - GASTROINTESTINAL Hx Gastrointestinal Disorders: No Other/Comment: liver problems, Alcohol abuse, - GENITOURINARY/GYNECOLOGICAL Hx Genitourinary Disorders: No - PSYCHIATRIC Hx Substance Use: No - SURGICAL HISTORY Hx Surgeries: No (verbalized by patient) - ANESTHESIA Hx Anesthesia: No Hx Anesthesia Reactions: No Hx Malignant Hyperthermia: No Meds Allergies/Adverse Reactions: Allergies Allergy/AdvReac Type Severity Reaction Status Date / Time No Known Allergies Allergy Verified 09/12/17 17:28 - Medications Medications: Current Medications Vancomycin/Sodium Chloride (Vancomycin 1 Gm/Ns 200 Ml) 1 gm in 200 mls @ 133.333 mls/hr IVPB STAT STA PRN Reason: Protocol Stop: 09/28/17 10:56 Last Admin: 09/28/17 09:57 Dose: 133.333 mls/hr Physical Exam - Constitutional Appears: Well, Non-toxic, No Acute Distress - Extremities Exam Additional comments: VASC: R DP palpable 1/4, L DP nonpalpable secondary to edema. PT pulses palpable 1/4. CFT <3 seconds. +2 pitting edema bilaterally L>R. No increase in warmth noted to left hallux. NEURO: Gross sensation diminished bilaterally. DERM: Superficial ulcerations noted circumfirentially around bilateral LE. Full thickness ulceration encompassing left hallux extending down to tendon;(+)probe to bone; no maggots present on examination; malodor present; minimal purulence present; no tracking; no undermining. ORTHO: Pain on palpation noted to left hallux. - Neurological Exam Neurological exam: Alert, Oriented x3 - Psychiatric Exam Psychiatric exam: Normal Affect, Normal Mood Results - Vital Signs Recent Vital Signs: Last Vital Signs Temp 97.4 F L 09/28/17 08:00 Pulse 71 09/28/17 09:55 Resp 16 09/28/17 09:55 BP 137/73 09/28/17 09:55 Pulse Ox 100 09/28/17 10:10 - Labs Result Diagrams: 09/28/17 09:13 09/28/17 09:13 Labs: Laboratory Results - last 24 hr 09/28/17 09/28/17 09/28/17 08:49 09:13 09:13 WBC 6.5 RBC 3.29 L Hgb 10.0 L Hct 30.1 L MCV 91.3 MCH 30.4 MCHC 33.3 RDW 17.4 H Plt Count 105 L D MPV 10.4 Neut % (Auto) 53.4 Lymph % (Auto) 34.0 [place] % (Auto) 7.8 Eos % (Auto) 3.6 Baso % (Auto) 1.2 Neut # (Auto) 3.5 Lymph # (Auto) 2.2 [place] # (Auto) 0.5 Eos # (Auto) 0.2 Baso # (Auto) 0.1 ESR 45 H PT 14.4 H INR 1.3 APTT 28 pO2 VBG pH VBG pCO2 VBG HCO3 VBG Total CO2 VBG O2 Sat (Calc) VBG Base Excess VBG Potassium Glucose Lactate Crit Value Called To Crit Value Called By Crit Value Read Back Blood Gas Notified Time Sodium Potassium Chloride Carbon Dioxide Anion Gap BUN Creatinine Est GFR ( Amer) Est GFR (Non-Af Amer) POC Glucose (mg/dL) 174 H Random Glucose Calcium Total Bilirubin AST ALT Alkaline Phosphatase Total Creatine Kinase CK-MB (Mass) Troponin I NT-Pro-B Natriuret Pep Total Protein Albumin Globulin Albumin/Globulin Ratio Venous Blood Potassium 09/28/17 09/28/17 09:13 09:16 WBC RBC Hgb Hct MCV MCH MCHC RDW Plt Count MPV Neut % (Auto) Lymph % (Auto) [place] % (Auto) Eos % (Auto) Baso % (Auto) Neut # (Auto) Lymph # (Auto) [place] # (Auto) Eos # (Auto) Baso # (Auto) ESR PT INR APTT pO2 26 L VBG pH 7.33 VBG pCO2 47 VBG HCO3 22.3 VBG Total CO2 26.2 VBG O2 Sat (Calc) 44.5 VBG Base Excess -1.5 L VBG Potassium 3.5 L Glucose 138 H Lactate 2.8 H Crit Value Called To Dr wesley Crit Value Called By Henrry chilel [facility] Crit Value Read Back Y Blood Gas Notified Time 925 Sodium 144 144.0 Potassium 3.8 Chloride 109 H 110.0 H Carbon Dioxide 25 Anion Gap 13 BUN 14 Creatinine 0.8 Est GFR ( Amer) > 60 Est GFR (Non-Af Amer) > 60 POC Glucose (mg/dL) Random Glucose 143 H Calcium 7.9 L Total Bilirubin 4.0 H AST 197 H D ALT 68 Alkaline Phosphatase 112 Total Creatine Kinase 1295 H CK-MB (Mass) 5.84 H Troponin I < 0.0120 NT-Pro-B Natriuret Pep 362 Total Protein 5.4 L Albumin 2.0 L Globulin 3.3 Albumin/Globulin Ratio 0.6 L Venous Blood Potassium 3.5 L Assessment & Plan - Assessment and Plan (Free Text) Assessment: 57M with left hallux wound r/o osteomyelitis Plan: Patient seen and examined in ED alongside attending, Dr. Harris Afebrile, WBC 6.5, ESR 45 Left foot XR: Periosteal reaction along medial aspect of 1st proximal phalanx suspicious for OM Left hallux wound culture taken Vascular, ID consulted Arterial duplex ordered Local wound care - DSD Scheduled for OR Sunday 1PM pending vascular recs Podiatry will continue to follow
[2017-09-28 11:11] LABS: SQUAMOUS EPITHIAL < 1 /hpf (0-5); URINE BILIRUBIN NEGATIVE (NEGATIVE); URINE BLOOD 3+ (NEGATIVE); URINE CLARITY Clear (Clear); URINE COLOR Yellow (YELLOW); URINE GLUCOSE (UA) NORMAL (Normal); URINE LEUKOCYTE ESTERASE NEG Leu/uL (Negative); URINE PROTEIN 1+ mg/dL (NEGATIVE)
[2017-09-28] MEDS ORDERED: Metoprolol Succinate 25 mg XL Tab PO SCH (11:45)
[2017-09-28] MEDS: Naproxen 275 mg Tab PO PRN (12:15)
--- NOTE | 2017-09-28 14:09 | CP.PCM.CON ---
History of Present Illness - History of Present Illness History of Present Illness: Vascular Surgery Consult Note for Dr. Schuster 57M with a PMH of HTN, liver cirrhosis, and alcohol abuse presented to the ED with facial swelling. He was seen and evaluated in the emergency department. On further examination, he complains of bilateral burning leg pain that started 2 weeks ago accompanied with multiple superficial leg ulcers and extensive soft tissue damage to the left toe. Patient states that walking makes the pain worse and nothing alleviates it. The pain does not radiate. Patient also states that he urinates 6-7 times daily. Patient denies fever, chills, headache, nausea, chest pain, heart palpitations, SOB, wheezing, diarrhea, and changes in bowel habits. PMH: HTN PSHx: none Medication: ciprofloxin, spironolactone Allergies: NKDA Social: drinks 2-3 beers or 2 shots of hard liquor daily, denies smoking and drug use. Hospitalizations: none Review of Systems - Constitutional Constitutional: absent: Chills, Fever, Headache - EENT Eyes: absent: Blurred Vision, Change in Vision Ears: absent: Ear Pain, Tinnitus Nose/Mouth/Throat: absent: Nasal Congestion, Nasal Discharge Additional comments: facial swelling - Cardiovascular Cardiovascular: absent: Chest Pain, Dyspnea - Respiratory Respiratory: absent: Cough, Dyspnea - Gastrointestinal Gastrointestinal: absent: Abdominal Pain, Nausea, Vomiting - Genitourinary Genitourinary: absent: Difficulty Urinating, Dysuria - Musculoskeletal Musculoskeletal: absent: Back Pain, Muscle Weakness - Integumentary Integumentary: absent: Changing Lesions, New Lesions - Psychiatric Psychiatric: absent: Anxiety, Depression Past Patient History - Infectious Disease Hx of Infectious Diseases: None - Past Medical History & Family History Past Medical History?: Yes - Past Social History Smoking Status: Never Smoked - CARDIAC Hx Congestive Heart Failure: Yes Hx Hypertension: Yes - PULMONARY Hx Respiratory Disorders: No - NEUROLOGICAL Hx Migraine: Yes - HEENT Hx HEENT Problems: No - RENAL Hx Chronic Kidney Disease: No - HEMATOLOGICAL/ONCOLOGICAL Hx Anemia: Yes - INTEGUMENTARY Hx Dermatological Problems: Yes Hx Cellulitis: Yes (right lower extremity) Other/Comment: Right thigh Abscess, Right lower leg cellulitis - MUSCULOSKELETAL/RHEUMATOLOGICAL Hx Arthritis: Yes (Right hip and back) Hx Fractures: Yes - GASTROINTESTINAL Hx Gastrointestinal Disorders: No Other/Comment: liver problems, Alcohol abuse, - GENITOURINARY/GYNECOLOGICAL Hx Genitourinary Disorders: No - PSYCHIATRIC Hx Substance Use: No - SURGICAL HISTORY Hx Surgeries: No (verbalized by patient) - ANESTHESIA Hx Anesthesia: No Hx Anesthesia Reactions: No Hx Malignant Hyperthermia: No Meds Allergies/Adverse Reactions: Allergies Allergy/AdvReac Type Severity Reaction Status Date / Time No Known Allergies Allergy Verified 09/12/17 17:28 - Medications Medications: Current Medications Furosemide (Lasix) 40 mg IVP DAILY [facility] Metoprolol Succinate (Toprol Xl) 25 mg PO DAILY [facility] Last Admin: 09/28/17 12:15 Dose: 25 mg Naproxen (Anaprox) 275 mg PO QID PRN PRN Reason: Pain, moderate (4-7) Last Admin: 09/28/17 12:15 Dose: 275 mg Physical Exam - Constitutional Appears: Well, No Acute Distress, Older Than Stated Age - Head Exam Head Exam: ATRAUMATIC, NORMAL INSPECTION, NORMOCEPHALIC Additional comments: facial edema - Eye Exam Eye Exam: EOMI, Periorbital swelling - ENT Exam ENT Exam: Mucous Membranes Moist, Normal Exam - Respiratory Exam Respiratory Exam: Clear to Auscultation Bilateral, NORMAL BREATHING PATTERN - Cardiovascular Exam Cardiovascular Exam: REGULAR RHYTHM, +S1, +S2 - GI/Abdominal Exam GI & Abdominal Exam: Normal Bowel Sounds, Soft. absent: Tenderness - Rectal Exam Rectal Exam: Deferred - Extremities Exam Extremities exam: Positive for: tenderness. Negative for: pedal pulses present Additional comments: palpable popliteal pulses bilaterally but no DP/PT pulses superficial excoriations on LE bilaterally left hallux wet gangrene - Neurological Exam Neurological exam: Alert - Psychiatric Exam Psychiatric exam: Normal Affect, Normal Mood Results - Vital Signs Recent Vital Signs: Last Vital Signs Temp 97.4 F L 09/28/17 08:00 Pulse 71 09/28/17 09:55 Resp 16 09/28/17 09:55 BP 137/73 09/28/17 09:55 Pulse Ox 100 09/28/17 10:10 - Labs Result Diagrams: 09/28/17 09:13 09/28/17 09:13 Labs: Laboratory Results - last 24 hr 09/28/17 09/28/17 09/28/17 08:49 09:13 09:13 WBC 6.5 RBC 3.29 L Hgb 10.0 L Hct 30.1 L MCV 91.3 MCH 30.4 MCHC 33.3 RDW 17.4 H Plt Count 105 L D MPV 10.4 Neut % (Auto) 53.4 Lymph % (Auto) 34.0 [place] % (Auto) 7.8 Eos % (Auto) 3.6 Baso % (Auto) 1.2 Neut # (Auto) 3.5 Lymph # (Auto) 2.2 [place] # (Auto) 0.5 Eos # (Auto) 0.2 Baso # (Auto) 0.1 ESR 45 H PT 14.4 H INR 1.3 APTT 28 pO2 VBG pH VBG pCO2 VBG HCO3 VBG Total CO2 VBG O2 Sat (Calc) VBG Base Excess VBG Potassium Glucose Lactate Crit Value Called To Crit Value Called By Crit Value Read Back Blood Gas Notified Time Sodium Potassium Chloride Carbon Dioxide Anion Gap BUN Creatinine Est GFR ( Amer) Est GFR (Non-Af Amer) POC Glucose (mg/dL) 174 H Random Glucose Lactic Acid Calcium Total Bilirubin AST ALT Alkaline Phosphatase Total Creatine Kinase CK-MB (Mass) Troponin I NT-Pro-B Natriuret Pep Total Protein Albumin Globulin Albumin/Globulin Ratio Venous Blood Potassium Urine Color Urine Clarity Urine pH Ur Specific [place] Urine Protein Urine Glucose (UA) Urine Ketones Urine Blood Urine Nitrate Urine Bilirubin Urine Urobilinogen Ur Leukocyte Esterase Urine WBC (Auto) Urine RBC (Auto) Ur Squamous Epith Cells Hyaline Casts 09/28/17 09/28/17 09/28/17 09:13 09:16 11:02 WBC RBC Hgb Hct MCV MCH MCHC RDW Plt Count MPV Neut % (Auto) Lymph % (Auto) [place] % (Auto) Eos % (Auto) Baso % (Auto) Neut # (Auto) Lymph # (Auto) [place] # (Auto) Eos # (Auto) Baso # (Auto) ESR PT INR APTT pO2 26 L VBG pH 7.33 VBG pCO2 47 VBG HCO3 22.3 VBG Total CO2 26.2 VBG O2 Sat (Calc) 44.5 VBG Base Excess -1.5 L VBG Potassium 3.5 L Glucose 138 H Lactate 2.8 H Crit Value Called To Dr wesley Crit Value Called By Henrry chilel [facility] Crit Value Read Back Y Blood Gas Notified Time 925 Sodium 144 144.0 Potassium 3.8 Chloride 109 H 110.0 H Carbon Dioxide 25 Anion Gap 13 BUN 14 Creatinine 0.8 Est GFR ( Amer) > 60 Est GFR (Non-Af Amer) > 60 POC Glucose (mg/dL) Random Glucose 143 H Lactic Acid Calcium 7.9 L Total Bilirubin 4.0 H AST 197 H D ALT 68 Alkaline Phosphatase 112 Total Creatine Kinase 1295 H CK-MB (Mass) 5.84 H Troponin I < 0.0120 NT-Pro-B Natriuret Pep 362 Total Protein 5.4 L Albumin 2.0 L Globulin 3.3 Albumin/Globulin Ratio 0.6 L Venous Blood Potassium 3.5 L Urine Color Yellow Urine Clarity Clear Urine pH 6.0 Ur Specific [place] 1.009 Urine Protein 1+ H Urine Glucose (UA) Normal Urine Ketones Negative Urine Blood 3+ H Urine Nitrate Negative Urine Bilirubin Negative Urine Urobilinogen 4.0 Ur Leukocyte Esterase Neg Urine WBC (Auto) 1 Urine RBC (Auto) 16 H Ur Squamous Epith Cells < 1 Hyaline Casts 3-5 H 09/28/17 12:00 WBC RBC Hgb Hct MCV MCH MCHC RDW Plt Count MPV Neut % (Auto) Lymph % (Auto) [place] % (Auto) Eos % (Auto) Baso % (Auto) Neut # (Auto) Lymph # (Auto) [place] # (Auto) Eos # (Auto) Baso # (Auto) ESR PT INR APTT pO2 VBG pH VBG pCO2 VBG HCO3 VBG Total CO2 VBG O2 Sat (Calc) VBG Base Excess VBG Potassium Glucose Lactate Crit Value Called To Crit Value Called By Crit Value Read Back Blood Gas Notified Time Sodium Potassium Chloride Carbon Dioxide Anion Gap BUN Creatinine Est GFR ( Amer) Est GFR (Non-Af Amer) POC Glucose (mg/dL) Random Glucose Lactic Acid 2.0 Calcium Total Bilirubin AST ALT Alkaline Phosphatase Total Creatine Kinase CK-MB (Mass) Troponin I NT-Pro-B Natriuret Pep Total Protein Albumin Globulin Albumin/Globulin Ratio Venous Blood Potassium Urine Color Urine Clarity Urine pH Ur Specific [place] Urine Protein Urine Glucose (UA) Urine Ketones Urine Blood Urine Nitrate Urine Bilirubin Urine Urobilinogen Ur Leukocyte Esterase Urine WBC (Auto) Urine RBC (Auto) Ur Squamous Epith Cells Hyaline Casts Assessment & Plan - Assessment and Plan (Free Text) Assessment: 57M w/ left hallux wet gangrene Plan: recommend CTA continue dressing changes and podiatry recommendations further recs per Dr. Landen Aguirre PGY1
--- NOTE | 2017-09-28 14:16 | CP.PCM.CON ---
History of Present Illness - History of Present Illness History of Present Illness: 57M PMHx liver cirrhosis, HTN, alcohol abuse seen and examined concerning bilateral lower extremity swelling and nonhealing wounds. Patient complains of worsening lower extremity swelling ongoing for 2 weeks. Patient states as a result he developed blisters around both legs, the inside of his right heel, and on top of both great toes. Patient reports the blister on top of his left great toe ruptured developing a large wound encompassing his entire digit. Patient states he has been using creams and bandaging his great toe however the wound has remained nonhealing and relates constant pain to site. Of note, patient presented to ED with maggots surrounding wound. Patient also c/o bilateral lower extremity swelling, burning, and tingling. Denies N/V/F/D/C/SOB/ CP/MONTERO. PMH: HTN PSHx: none Medication: ciprofloxin, spironolactone Allergies: NKDA Social: drinks 2-3 beers or 2 shots of hard liquor daily, denies smoking and drug use. Hospitalizations: none Review of Systems - Review of Systems All systems: reviewed and no additional remarkable complaints except - Constitutional Constitutional: As Per HPI - EENT Eyes: absent: As Per HPI, Blind Spots, Blurred Vision, Change in Vision, Decreased Night Vision, Diplopia, Discharge, Dry Eye, Exophthalmos, Floaters, Irritation, Itchy Eyes, Loss of Peripheral Vision, Pain, Photophobia, Requires Corrective Lenses, Sees Flashes, Spots in Vision, Tunnel Vision, Other Visual Disturbances, Loss of Vision, Other Ears: absent: As Per HPI, Decreased Hearing, Ear Discharge, Ear Pain, Tinnitus, Abnormal Hearing, Disequilibrium, Dizziness, Other Nose/Mouth/Throat: absent: As Per HPI, Epistaxis, Nasal Congestion, Nasal Discharge, Nasal Obstruction, Nasal Trauma, Nose Pain, Post Nasal Drip, Sinus Pain, Sinus Pressure, Bleeding Gums, Change in Voice, Dental Pain, Dry Mouth, Dysphagia, Halitosis, Hoarsness, Lip Swelling, Mouth Lesions, Mouth Pain, Odynophagia, Sore Throat, Throat Swelling, Tongue Swelling, Facial Pain, Neck Pain, Neck Mass, Other - Cardiovascular Cardiovascular: As Per HPI - Respiratory Respiratory: Cough. absent: Hemoptysis - Gastrointestinal Gastrointestinal: absent: As Per HPI, Abdominal Pain, Belching, Bloating, Change in Bowel Habits, Change in Stool Character, Coffee Ground Emesis, Constipation, Cramping, Diarrhea, Dyspepsia, Dysphagia, Early Satiety, Excessive Flatus, Fecal Incontinence, Heartburn, Hematemesis, Hematochezia, Loose Stools, Melena, Nausea, Odynophagia, Temesmus, Vomiting, Other - Genitourinary Genitourinary: absent: As Per HPI, Change in Urinary Stream, Difficulty Urinating, Dysuria, Flank Pain, Hematuria, Pyuria, Nocturia, Urinary Incontinence, Urinary Frequency, Urinary Hesitance, Urinary Urgency, Voiding Freq/Small Amts, Freq UTI, Hx Renal/Bladder Calculi, Hx /Renal Surgery, Bladder Distension, Other - Musculoskeletal Musculoskeletal: As Per HPI - Integumentary Integumentary: As Per HPI, Skin Pain, Wounds - Neurological Neurological: absent: As Per HPI, Abnormal Gait, Abnormal Hearing, Abnormal Movements, Abnormal Speech, Behavioral Changes, Burning Sensations, Confusion, Convulsions, Disequilibrium, Dizziness, Numbness, Focal Weakness, Frequent Falls , Headaches, Lack of Coordination, Loss of Vision, Memory Loss, Paresthesias, Radicular Pain, Restless Legs, Sensory Deficit, Syncope, Tingling, Tremor, Vertigo, Weakness, Other Visual Disturbances, Other - Psychiatric Psychiatric: absent: As Per HPI, Abnormal Sleep Pattern, Anhedonia, Anxiety, Auditory Hallucinations, Behavioral Changes, Change in Appetite, Change in Libido, Confusion, Depression, Difficulty Concentrating, Hallucinations, Homicidal Ideation, Hopelessness, Irritability, Memory Loss, Mood Swings, Panic Attacks, Paranoia, Suicidal Ideation, Visual Hallucinations, Tactile Hallucinations, Other - Endocrine Endocrine: absent: As Per HPI, Change in Body Appearance, Change in Libido, Cold Intolorance, Deepening of Voice, Excessive Sweating, Fatigue, Flushing, Heat Intolorance, Increase in Ring/Shoe/Hat Size, Palpitations, Polydipsia, Polyphagia, Polyuria, Other - Hematologic/Lymphatic Hematologic: absent: As Per HPI, Easy Bleeding, Easy Bruising, Lymphadenopathy, Other Past Patient History - Infectious Disease Hx of Infectious Diseases: None - Past Medical History & Family History Past Medical History?: Yes - Past Social History Smoking Status: Never Smoked - CARDIAC Hx Congestive Heart Failure: Yes Hx Hypertension: Yes - PULMONARY Hx Respiratory Disorders: No - NEUROLOGICAL Hx Migraine: Yes - HEENT Hx HEENT Problems: No - RENAL Hx Chronic Kidney Disease: No - HEMATOLOGICAL/ONCOLOGICAL Hx Anemia: Yes - INTEGUMENTARY Hx Dermatological Problems: Yes Hx Cellulitis: Yes (right lower extremity) Other/Comment: Right thigh Abscess, Right lower leg cellulitis - MUSCULOSKELETAL/RHEUMATOLOGICAL Hx Arthritis: Yes (Right hip and back) Hx Fractures: Yes - GASTROINTESTINAL Hx Gastrointestinal Disorders: No Other/Comment: liver problems, Alcohol abuse, - GENITOURINARY/GYNECOLOGICAL Hx Genitourinary Disorders: No - PSYCHIATRIC Hx Substance Use: No - SURGICAL HISTORY Hx Surgeries: No (verbalized by patient) - ANESTHESIA Hx Anesthesia: No Hx Anesthesia Reactions: No Hx Malignant Hyperthermia: No Meds Allergies/Adverse Reactions: Allergies Allergy/AdvReac Type Severity Reaction Status Date / Time No Known Allergies Allergy Verified 09/12/17 17:28 - Medications Medications: Current Medications Furosemide (Lasix) 40 mg IVP DAILY [facility] Metoprolol Succinate (Toprol Xl) 25 mg PO DAILY [facility] Last Admin: 09/28/17 12:15 Dose: 25 mg Naproxen (Anaprox) 275 mg PO QID PRN PRN Reason: Pain, moderate (4-7) Last Admin: 09/28/17 12:15 Dose: 275 mg Physical Exam - Constitutional Appears: Non-toxic, Chronically Ill - Head Exam Head Exam: NORMOCEPHALIC - Eye Exam Eye Exam: PERRL. absent: Scleral icterus - ENT Exam ENT Exam: Mucous Membranes Dry - Neck Exam Neck exam: Negative for: Lymphadenopathy - Respiratory Exam Respiratory Exam: Decreased Breath Sounds, Rhonchi - Cardiovascular Exam Cardiovascular Exam: REGULAR RHYTHM, +S1, +S2 - GI/Abdominal Exam GI & Abdominal Exam: Diminished Bowel Sounds, Soft. absent: Tenderness - Rectal Exam Rectal Exam: Deferred - Exam Exam: NORMAL INSPECTION - Extremities Exam Extremities exam: Positive for: pedal edema Additional comments: VASC: R DP palpable 1/4, L DP nonpalpable secondary to edema. PT pulses palpable 1/4. CFT <3 seconds. +2 pitting edema bilaterally L>R. No increase in warmth noted to left hallux. NEURO: Gross sensation diminished bilaterally. DERM: Superficial ulcerations noted circumfirentially around bilateral LE. Full thickness ulceration encompassing left hallux extending down to tendon;(+)probe to bone; no maggots present on examination; malodor present; minimal purulence present; no tracking; no undermining. ORTHO: Pain on palpation noted to left hallux. - Back Exam Back exam: absent: CVA tenderness (L), CVA tenderness (R), paraspinal tenderness - Neurological Exam Neurological exam: Alert, CN II-XII Intact, Oriented x3, Reflexes Normal - Psychiatric Exam Psychiatric exam: Normal Mood - Skin Skin Exam: Vesicles Results - Vital Signs Recent Vital Signs: Last Vital Signs Temp 97.4 F L 09/28/17 08:00 Pulse 71 09/28/17 09:55 Resp 16 09/28/17 09:55 BP 137/73 09/28/17 09:55 Pulse Ox 100 09/28/17 10:10 - Labs Result Diagrams: 09/28/17 09:13 09/28/17 09:13 Labs: Laboratory Results - last 24 hr 09/28/17 09/28/17 09/28/17 08:49 09:13 09:13 WBC 6.5 RBC 3.29 L Hgb 10.0 L Hct 30.1 L MCV 91.3 MCH 30.4 MCHC 33.3 RDW 17.4 H Plt Count 105 L D MPV 10.4 Neut % (Auto) 53.4 Lymph % (Auto) 34.0 [place] % (Auto) 7.8 Eos % (Auto) 3.6 Baso % (Auto) 1.2 Neut # (Auto) 3.5 Lymph # (Auto) 2.2 [place] # (Auto) 0.5 Eos # (Auto) 0.2 Baso # (Auto) 0.1 ESR 45 H PT 14.4 H INR 1.3 APTT 28 pO2 VBG pH VBG pCO2 VBG HCO3 VBG Total CO2 VBG O2 Sat (Calc) VBG Base Excess VBG Potassium Glucose Lactate Crit Value Called To Crit Value Called By Crit Value Read Back Blood Gas Notified Time Sodium Potassium Chloride Carbon Dioxide Anion Gap BUN Creatinine Est GFR ( Amer) Est GFR (Non-Af Amer) POC Glucose (mg/dL) 174 H Random Glucose Lactic Acid Calcium Total Bilirubin AST ALT Alkaline Phosphatase Total Creatine Kinase CK-MB (Mass) Troponin I NT-Pro-B Natriuret Pep Total Protein Albumin Globulin Albumin/Globulin Ratio Venous Blood Potassium Urine Color Urine Clarity Urine pH Ur Specific [place] Urine Protein Urine Glucose (UA) Urine Ketones Urine Blood Urine Nitrate Urine Bilirubin Urine Urobilinogen Ur Leukocyte Esterase Urine WBC (Auto) Urine RBC (Auto) Ur Squamous Epith Cells Hyaline Casts 09/28/17 09/28/17 09/28/17 09:13 09:16 11:02 WBC RBC Hgb Hct MCV MCH MCHC RDW Plt Count MPV Neut % (Auto) Lymph % (Auto) [place] % (Auto) Eos % (Auto) Baso % (Auto) Neut # (Auto) Lymph # (Auto) [place] # (Auto) Eos # (Auto) Baso # (Auto) ESR PT INR APTT pO2 26 L VBG pH 7.33 VBG pCO2 47 VBG HCO3 22.3 VBG Total CO2 26.2 VBG O2 Sat (Calc) 44.5 VBG Base Excess -1.5 L VBG Potassium 3.5 L Glucose 138 H Lactate 2.8 H Crit Value Called To Dr [email or web address] Crit Value Called By Henrry chilel [facility] Crit Value Read Back Y Blood Gas Notified Time 925 Sodium 144 144.0 Potassium 3.8 Chloride 109 H 110.0 H Carbon Dioxide 25 Anion Gap 13 BUN 14 Creatinine 0.8 Est GFR ( Amer) > 60 Est GFR (Non-Af Amer) > 60 POC Glucose (mg/dL) Random Glucose 143 H Lactic Acid Calcium 7.9 L Total Bilirubin 4.0 H AST 197 H D ALT 68 Alkaline Phosphatase 112 Total Creatine Kinase 1295 H CK-MB (Mass) 5.84 H Troponin I < 0.0120 NT-Pro-B Natriuret Pep 362 Total Protein 5.4 L Albumin 2.0 L Globulin 3.3 Albumin/Globulin Ratio 0.6 L Venous Blood Potassium 3.5 L Urine Color Yellow Urine Clarity Clear Urine pH 6.0 Ur Specific [place] 1.009 Urine Protein 1+ H Urine Glucose (UA) Normal Urine Ketones Negative Urine Blood 3+ H Urine Nitrate Negative Urine Bilirubin Negative Urine Urobilinogen 4.0 Ur Leukocyte Esterase Neg Urine WBC (Auto) 1 Urine RBC (Auto) 16 H Ur Squamous Epith Cells < 1 Hyaline Casts 3-5 H 09/28/17 12:00 WBC RBC Hgb Hct MCV MCH MCHC RDW Plt Count MPV Neut % (Auto) Lymph % (Auto) [place] % (Auto) Eos % (Auto) Baso % (Auto) Neut # (Auto) Lymph # (Auto) [place] # (Auto) Eos # (Auto) Baso # (Auto) ESR PT INR APTT pO2 VBG pH VBG pCO2 VBG HCO3 VBG Total CO2 VBG O2 Sat (Calc) VBG Base Excess VBG Potassium Glucose Lactate Crit Value Called To Crit Value Called By Crit Value Read Back Blood Gas Notified Time Sodium Potassium Chloride Carbon Dioxide Anion Gap BUN Creatinine Est GFR ( Amer) Est GFR (Non-Af Amer) POC Glucose (mg/dL) Random Glucose Lactic Acid 2.0 Calcium Total Bilirubin AST ALT Alkaline Phosphatase Total Creatine Kinase CK-MB (Mass) Troponin I NT-Pro-B Natriuret Pep Total Protein Albumin Globulin Albumin/Globulin Ratio Venous Blood Potassium Urine Color Urine Clarity Urine pH Ur Specific [place] Urine Protein Urine Glucose (UA) Urine Ketones Urine Blood Urine Nitrate Urine Bilirubin Urine Urobilinogen Ur Leukocyte Esterase Urine WBC (Auto) Urine RBC (Auto) Ur Squamous Epith Cells Hyaline Casts Assessment & Plan (1) Alcohol intoxication Status: Acute (2) Cellulitis and abscess of foot Status: Acute (3) Chronic congestive heart failure Status: Acute (4) COPD (chronic obstructive pulmonary disease) Status: Chronic (5) Osteomyelitis of toe of left foot Status: Acute - Assessment and Plan (Free Text) Assessment: needs vascular eval before amputation of toe await cultures started IV antibiotics wound care prognosis guarded
[2017-09-28] MEDS: Piperacill/Tazo 3.375gm in Dex 3.375 GM/50 ML BAG IVPB SCH (20:49)
--- NOTE | 2017-09-28 22:46 | HP ---
HISTORY OF PRESENT ILLNESS: This is a 57-year-old [place] male who came to my office yesterday with history of left big toe infection. The patient has foul-smelling discharge. The patient was given Cipro and advised to go to Dr. Addison Harris's office for evaluation, but the patient came to the emergency room here. The patient has diffuse swelling of both lower extremities with left big toe infection with open ulcer and discharge. The patient also has blisters on the legs. The patient denies having any fever or chest pain. No shortness of breath, vomiting, or diarrhea. REVIEW OF SYSTEMS: CARDIOVASCULAR SYSTEM: Negative for chest pain. RESPIRATORY SYSTEM: Negative for shortness of breath. CENTRAL NERVOUS SYSTEM: No focal neurological complaints offered. GASTROINTESTINAL SYSTEM: Negative for nausea, vomiting, abdominal pain. EXTREMITIES: The patient has swelling of the legs, both sides. The patient also has left foot cellulitis and left big toe open ulcer with discharge and foul smell. Possible osteomyelitis. No fever. PAST HISTORY: History of anemia, arthritis, congestive heart failure, fracture, hypertension, migraine, and cirrhosis of the liver. MEDICATIONS: Metoprolol and Cipro. FAMILY HISTORY: No known inherited disease. SOCIAL HISTORY: Nonsmoker. The patient drinks alcohol. ALLERGIES: NO KNOWN ALLERGIES. PHYSICAL EXAMINATION: GENERAL: This is a 57-year-old [place] male. Alert, oriented, awake, comfortable. VITAL SIGNS: Temperature 97.4, pulse 76, respiration 16, blood pressure 143/79 mmHg, pulse ox is 97% on room air. HEENT: Normal. NECK: JVP is flat. Carotids, no bruit. LUNGS: No rales. No wheezing. HEART: S1 and S2 normal. No gallop. No murmur. ABDOMEN: Soft and nontender. No organomegaly. CENTRAL NERVOUS SYSTEM: No focal neurological deficit. EXTREMITIES: Edema of the legs present with cellulitis of the leg on left foot. The patient also has open ulcer involving left big toe. Discharge present. Foul smell present. LABORATORY DATA: Repeat on admission lab work shows normal white cell count, hemoglobin 10.3, thrombocytopenia present. Repeat BUN 14, creatinine normal, blood sugar 143. IMPRESSION: Left foot cellulitis with left big toe open ulcer and discharge, possible osteomyelitis, rule out sepsis, anasarca secondary to cirrhosis of the liver, and hypertension. PLAN: The patient will be admitted to the floor. Will give IV antibiotics. Will get Podiatry and Infectious Disease consults. All other workup as needed. Marcelino Burns MD
[2017-09-29] MEDS: Piperacill/Tazo 3.375gm in Dex 3.375 GM/50 ML BAG IVPB SCH ×3 (02:35→17:58)
[2017-09-29] MEDS: Naproxen 275 mg Tab PO PRN (05:35)
--- NOTE | 2017-09-29 09:11 | CP.PCM.PN ---
Subjective - Date & Time of Evaluation Date of Evaluation: 09/29/17 Time of Evaluation: 09:11 - Subjective Subjective: Podiatry Progress Note - Dr. Harris 57M seen and examined at bedside concerning bilateral lower extremity swelling and left hallux nonhealing wound. No acute events overnight. Patient reports pain in left hallux is improving, well-controlled. No new pedal complaints. Denies N/V/F/D/C/SOB/MONTERO/CP. For CTA today; scheduled for partial 1st ray amputation on Sunday pending vascular recs. Objective - Vital Signs/Intake and Output Vital Signs (last 24 hours): Temp Pulse Resp BP Pulse Ox 98.6 F 75 20 168/83 H 96 09/29/17 08:15 09/29/17 08:15 09/29/17 08:15 09/29/17 08:15 09/29/17 08:15 Intake and Output: 09/29/17 09/29/17 06:59 18:59 Intake Total 200 Output Total 300 Balance -100 - Medications Medications: Current Medications Furosemide (Lasix) 40 mg IVP DAILY [facility] Vancomycin HCl 1 gm/ Sodium (Chloride) 200 mls @ 166.7 mls/hr IVPB Q24H [facility] PRN Reason: Protocol Piperacillin Sod/Tazobactam Sod (Zosyn 3.375 Gm Iv Premix) 3.375 gm in 50 mls @ 100 mls/hr IVPB Q8H [facility] PRN Reason: Protocol Last Admin: 09/29/17 02:35 Dose: 100 mls/hr Metoprolol Succinate (Toprol Xl) 25 mg PO DAILY [facility] Last Admin: 09/28/17 12:15 Dose: 25 mg Mupirocin (Bactroban Ointment) 0 gm TOP DAILY [facility] Naproxen (Anaprox) 275 mg PO QID PRN PRN Reason: Pain, moderate (4-7) Last Admin: 09/29/17 05:35 Dose: 275 mg - Labs Labs: 09/28/17 09:13 09/28/17 09:13 PT 14.4 SECONDS (9.7-12.2) H 09/28/17 09:13 INR 1.3 09/28/17 09:13 APTT 28 SECONDS (21-34) 09/28/17 09:13 - Constitutional Appears: Well, Non-toxic, No Acute Distress - Extremities Exam Additional comments: VASC: R DP palpable 1/4, L DP nonpalpable secondary to edema. PT pulses palpable 1/4. CFT <3 seconds. +2 pitting edema bilaterally L>R. No increase in warmth noted to left hallux. NEURO: Gross sensation diminished bilaterally. DERM: Superficial ulcerations noted circumfirentially around bilateral LE. Full thickness ulceration encompassing left hallux extending down to tendon;(+)probe to bone; no maggots present on examination; malodor present; minimal purulence present; no tracking; no undermining. ORTHO: Pain on palpation noted to left hallux. - Neurological Exam Neurological Exam: Alert, Awake, Oriented x3 - Psychiatric Exam Psychiatric exam: Normal Affect, Normal Mood Assessment and Plan - Assessment and Plan (Free Text) Assessment: 57M with left hallux wound r/o osteomyelitis Plan: Patient seen and examined in ED alongside attending, Dr. Harris Afebrile, ESR 45 Left foot XR: Periosteal reaction along medial aspect of 1st proximal phalanx suspicious for OM Left hallux wound culture: (prelim) gram negative natasha Vascular recs appreciated - for CTA today ID recs appreciated - f/u cultures, continue Vancomycin, Zosyn Continue local wound care - bactroban, dSD Scheduled for OR partial 1st ray amputation left foot Sunday 1PM pending vascular recs Podiatry will continue to follow
--- NOTE | 2017-09-29 10:33 | CP.PCM.PN ---
Subjective - Date & Time of Evaluation Date of Evaluation: 09/29/17 Time of Evaluation: 10:31 - Subjective Subjective: CONDITION SAME. INFECTED LT BIG TOE WITH OPEN ULCER AND OSTEOMYELITIS. CULTURE GM NEG RODS. CIRRHOSIS OF LIVER. AFEBRILE. Objective - Vital Signs/Intake and Output Vital Signs (last 24 hours): Temp Pulse Resp BP Pulse Ox 98.6 F 75 20 168/83 H 96 09/29/17 08:15 09/29/17 08:15 09/29/17 08:15 09/29/17 08:15 09/29/17 08:15 Intake and Output: 09/29/17 09/29/17 06:59 18:59 Intake Total 200 Output Total 300 Balance -100 - Medications Medications: Current Medications Furosemide (Lasix) 40 mg IVP DAILY [facility] Vancomycin HCl 1 gm/ Sodium (Chloride) 200 mls @ 166.7 mls/hr IVPB Q24H [facility] PRN Reason: Protocol Piperacillin Sod/Tazobactam Sod (Zosyn 3.375 Gm Iv Premix) 3.375 gm in 50 mls @ 100 mls/hr IVPB Q8H [facility] PRN Reason: Protocol Last Admin: 09/29/17 02:35 Dose: 100 mls/hr Metoprolol Succinate (Toprol Xl) 25 mg PO [facility] Last Admin: 09/28/17 12:15 Dose: 25 mg Mupirocin (Bactroban Ointment) 0 gm TOP [facility] Naproxen (Anaprox) 275 mg PO QID PRN PRN Reason: Pain, moderate (4-7) Last Admin: 09/29/17 05:35 Dose: 275 mg - Labs Labs: 09/28/17 09:13 09/28/17 09:13 PT 14.4 SECONDS (9.7-12.2) H 09/28/17 09:13 INR 1.3 09/28/17 09:13 APTT 28 SECONDS (21-34) 09/28/17 09:13 - Constitutional Appears: No Acute Distress, Chronically Ill - Eye Exam Eye Exam: EOMI, Normal appearance, PERRL Pupil Exam: NORMAL ACCOMODATION, PERRL - ENT Exam ENT Exam: Mucous Membranes Moist, Normal Exam - Neck Exam Neck Exam: Full ROM, Normal Inspection. absent: Lymphadenopathy - Respiratory Exam Respiratory Exam: Clear to Ausculation Bilateral, NORMAL BREATHING PATTERN - Cardiovascular Exam Cardiovascular Exam: REGULAR RHYTHM, +S1, +S2. absent: Murmur - GI/Abdominal Exam GI & Abdominal Exam: Soft, Normal Bowel Sounds. absent: Tenderness - Back Exam Back Exam: NORMAL INSPECTION - Neurological Exam Neurological Exam: Alert, Awake, CN II-XII Intact, Normal Gait, Oriented x3 - Psychiatric Exam Psychiatric exam: Normal Affect, Normal Mood Assessment and Plan - Assessment and Plan (Free Text) Assessment: ABOVE. Plan: FOR TOE AMPUTATION. IV ABTS.
[2017-09-29] MEDS: Vancomycin 1 GM in Sodium Chloride 0.9% 200 ML IVPB SCH (11:14)
[2017-09-29] MEDS: Metoprolol Succinate 50 mg XL Tab PO SCH (11:14)
--- NOTE | 2017-09-29 12:55 | CP.PCM.PN ---
Subjective - Date & Time of Evaluation Date of Evaluation: 09/29/17 Time of Evaluation: 12:53 - Subjective Subjective: Pt is getting CT angio today. Pt is tentatively scheduled for left partial 1st ray amp on Sunday at 1pm. Will decide on course after circ status is determined and speaking to Dr. Schuster. Objective - Vital Signs/Intake and Output Vital Signs (last 24 hours): Temp Pulse Resp BP Pulse Ox 98.6 F 75 20 168/83 H 96 09/29/17 08:15 09/29/17 08:15 09/29/17 08:15 09/29/17 11:14 09/29/17 08:15 Intake and Output: 09/29/17 09/29/17 06:59 18:59 Intake Total 200 Output Total 300 Balance -100 - Medications Medications: Current Medications Furosemide (Lasix) 40 mg IVP DAILY [facility] Last Admin: 09/29/17 11:14 Dose: 40 mg Vancomycin HCl 1 gm/ Sodium (Chloride) 200 mls @ 166.7 mls/hr IVPB Q24H [facility] PRN Reason: Protocol Last Admin: 09/29/17 11:14 Dose: 166.7 mls/hr Piperacillin Sod/Tazobactam Sod (Zosyn 3.375 Gm Iv Premix) 3.375 gm in 50 mls @ 100 mls/hr IVPB Q8H [facility] PRN Reason: Protocol Last Admin: 09/29/17 11:21 Dose: 100 mls/hr Metoprolol Succinate (Toprol Xl) 50 mg PO DAILY [facility] Last Admin: 09/29/17 11:14 Dose: 50 mg Mupirocin (Bactroban Ointment) 0 gm TOP DAILY [facility] Naproxen (Anaprox) 275 mg PO QID PRN PRN Reason: Pain, moderate (4-7) Last Admin: 09/29/17 05:35 Dose: 275 mg - Labs Labs: 09/28/17 09:13 09/28/17 09:13 PT 14.4 SECONDS (9.7-12.2) H 09/28/17 09:13 INR 1.3 09/28/17 09:13 APTT 28 SECONDS (21-34) 09/28/17 09:13
[2017-09-29] MEDS ORDERED: Iodixanol 320 mg/ml 150 ml Bottle IV ONE (14:25)
[2017-09-30] MEDS: Piperacill/Tazo 3.375gm in Dex 3.375 GM/50 ML BAG IVPB SCH ×3 (02:05→17:57)
--- NOTE | 2017-09-30 07:28 | CP.PCM.PN ---
Subjective - Date & Time of Evaluation Date of Evaluation: 09/30/17 Time of Evaluation: 07:28 - Subjective Subjective: Podiatry Progress Note - Dr. Harris 57M seen and examined at bedside concerning bilateral lower extremity swelling and left hallux nonhealing wound. Patient hemodynamically stable and NAD. No acute events overnight. Pain in left great toe and lower extremity swelling has improved. No new pedal complaints. Denies N/V/F/D/C/SOB/MONTERO/CP. Patient aware he is scheduled for OR tomorrow afternoon pending vascular recs, and will be NPO after midnight. Objective - Vital Signs/Intake and Output Vital Signs (last 24 hours): Temp Pulse Resp BP Pulse Ox 99.1 F 66 20 128/56 L 98 09/30/17 01:00 09/30/17 01:00 09/30/17 01:00 09/30/17 01:00 09/30/17 01:00 Intake and Output: 09/30/17 09/30/17 06:59 18:59 Intake Total 290 Balance 290 - Medications Medications: Current Medications Furosemide (Lasix) 40 mg IVP DAILY [facility] Last Admin: 09/29/17 11:14 Dose: 40 mg Vancomycin HCl 1 gm/ Sodium (Chloride) 200 mls @ 166.7 mls/hr IVPB Q24H [facility] PRN Reason: Protocol Last Admin: 09/29/17 11:14 Dose: 166.7 mls/hr Piperacillin Sod/Tazobactam Sod (Zosyn 3.375 Gm Iv Premix) 3.375 gm in 50 mls @ 100 mls/hr IVPB Q8H [facility] PRN Reason: Protocol Last Admin: 09/30/17 02:05 Dose: 100 mls/hr Metoprolol Succinate (Toprol Xl) 50 mg PO DAILY [facility] Last Admin: 09/29/17 11:14 Dose: 50 mg Mupirocin (Bactroban Ointment) 0 gm TOP DAILY [facility] Last Admin: 09/29/17 13:28 Dose: 1 oin Naproxen (Anaprox) 275 mg PO QID PRN PRN Reason: Pain, moderate (4-7) Last Admin: 09/29/17 05:35 Dose: 275 mg - Labs Labs: 09/28/17 09:13 09/28/17 09:13 PT 14.4 SECONDS (9.7-12.2) H 09/28/17 09:13 INR 1.3 09/28/17 09:13 APTT 28 SECONDS (21-34) 09/28/17 09:13 - Constitutional Appears: Well, Non-toxic, No Acute Distress - Extremities Exam Additional comments: VASC: R DP palpable 1/4, L DP nonpalpable secondary to edema. PT pulses palpable 1/4. CFT <3 seconds. +2 pitting edema bilaterally L>R. No increase in warmth noted to left hallux. NEURO: Gross sensation diminished bilaterally. DERM: Superficial ulcerations noted circumfirentially around bilateral LE. Full thickness ulceration encompassing left hallux extending down to tendon;(+)probe to bone; no maggots present on examination; malodor present; minimal purulence present; no tracking; no undermining. ORTHO: Pain on palpation noted to left hallux. - Neurological Exam Neurological Exam: Alert, Awake, Oriented x3 - Psychiatric Exam Psychiatric exam: Normal Affect, Normal Mood Assessment and Plan - Assessment and Plan (Free Text) Assessment: 57M with left hallux wound r/o osteomyelitis Plan: Patient seen and examined Discussed with attending, Dr. Harris VSS, ESR 45 Left foot XR: Periosteal reaction along medial aspect of 1st proximal phalanx suspicious for OM Left hallux wound culture: (prelim) gram negative natasha f/u CTA report ID recs appreciated - f/u cultures, continue Vancomycin, Zosyn Continue local wound care - bactroban, DSD Scheduled for OR partial 1st ray amputation left foot Sunday 1PM pending vascular recs -NPO @ [place] [facility] will continue to follow
--- NOTE | 2017-09-30 09:52 | CP.PCM.PN ---
Subjective - Date & Time of Evaluation Date of Evaluation: 09/30/17 Time of Evaluation: 09:49 - Subjective Subjective: Vascular Surgery Progress Note for Dr. Schuster 57M seen and evaluated this morning at bedside. Patient resting comfortably in bed with no complaints. No acute events overnight. Denies f/c, n/v/d. Objective - Vital Signs/Intake and Output Vital Signs (last 24 hours): Temp Pulse Resp BP Pulse Ox 98.2 F 63 20 145/66 96 09/30/17 08:28 09/30/17 08:28 09/30/17 08:28 09/30/17 08:28 09/30/17 08:28 Intake and Output: 09/30/17 09/30/17 06:59 18:59 Intake Total 290 Balance 290 - Medications Medications: Current Medications Furosemide (Lasix) 40 mg IVP DAILY [facility] Last Admin: 09/29/17 11:14 Dose: 40 mg Vancomycin HCl 1 gm/ Sodium (Chloride) 200 mls @ 166.7 mls/hr IVPB Q24H [facility] PRN Reason: Protocol Last Admin: 09/29/17 11:14 Dose: 166.7 mls/hr Piperacillin Sod/Tazobactam Sod (Zosyn 3.375 Gm Iv Premix) 3.375 gm in 50 mls @ 100 mls/hr IVPB Q8H [facility] PRN Reason: Protocol Last Admin: 09/30/17 02:05 Dose: 100 mls/hr Metoprolol Succinate (Toprol Xl) 50 mg PO DAILY [facility] Last Admin: 09/29/17 11:14 Dose: 50 mg Mupirocin (Bactroban Ointment) 0 gm TOP DAILY [facility] Last Admin: 09/29/17 13:28 Dose: 1 oin Naproxen (Anaprox) 275 mg PO QID PRN PRN Reason: Pain, moderate (4-7) Last Admin: 09/29/17 05:35 Dose: 275 mg - Labs Labs: 09/28/17 09:13 09/28/17 09:13 PT 14.4 SECONDS (9.7-12.2) H 09/28/17 09:13 INR 1.3 09/28/17 09:13 APTT 28 SECONDS (21-34) 09/28/17 09:13 - Constitutional Appears: Well, Older Than Stated Age - Head Exam Head Exam: ATRAUMATIC, NORMAL INSPECTION, NORMOCEPHALIC - Respiratory Exam Respiratory Exam: Clear to Ausculation Bilateral, NORMAL BREATHING PATTERN - Cardiovascular Exam Cardiovascular Exam: REGULAR RHYTHM, +S1, +S2. absent: Murmur - GI/Abdominal Exam GI & Abdominal Exam: Soft, Normal Bowel Sounds. absent: Tenderness - Extremities Exam Additional comments: Left toe wrapped, dressings c/d/i - Neurological Exam Neurological Exam: Alert, Awake Assessment and Plan - Assessment and Plan (Free Text) Assessment: 57M w/ left hallux wound Plan: c/w local wound care c/w pain management c/w IV Abx per ID CTA shows no atherosclerosis of lower extremities bilaterally - clear for OR from vascular surgery standpoint f/u w/ podiatry - scheduled for OR Sunday 1pm further recs per Dr. Landen Aguirre PGY1
[2017-09-30] MEDS: Vancomycin 1 GM in Sodium Chloride 0.9% 200 ML IVPB SCH (10:55)
[2017-09-30] MEDS: Metoprolol Succinate 50 mg XL Tab PO SCH (10:56)
--- NOTE | 2017-09-30 16:12 | CP.PCM.PN ---
Subjective - Date & Time of Evaluation Date of Evaluation: 09/30/17 Time of Evaluation: 08:00 - Subjective Subjective: 57M PMHx liver cirrhosis, HTN, alcohol abuse seen and examined concerning bilateral lower extremity swelling and nonhealing wounds. Patient complains of worsening lower extremity swelling ongoing for 2 weeks. Patient states as a result he developed blisters around both legs, the inside of his right heel, and on top of both great toes. Objective - Vital Signs/Intake and Output Vital Signs (last 24 hours): Temp Pulse Resp BP Pulse Ox 98.2 F 63 20 145/66 96 09/30/17 08:28 09/30/17 08:28 09/30/17 08:28 09/30/17 10:56 09/30/17 08:28 Intake and Output: 09/30/17 09/30/17 06:59 18:59 Intake Total 290 510 Balance 290 510 - Medications Medications: Current Medications Furosemide (Lasix) 40 mg IVP DAILY [facility] Last Admin: 09/30/17 10:56 Dose: 40 mg Vancomycin HCl 1 gm/ Sodium (Chloride) 200 mls @ 166.7 mls/hr IVPB Q24H [facility] PRN Reason: Protocol Last Admin: 09/30/17 10:55 Dose: 166.7 mls/hr Piperacillin Sod/Tazobactam Sod (Zosyn 3.375 Gm Iv Premix) 3.375 gm in 50 mls @ 100 mls/hr IVPB Q8H [facility] PRN Reason: Protocol Last Admin: 09/30/17 09:45 Dose: 100 mls/hr Metoprolol Succinate (Toprol Xl) 50 mg PO DAILY [facility] Last Admin: 09/30/17 10:56 Dose: 50 mg Mupirocin (Bactroban Ointment) 0 gm TOP DAILY [facility] Last Admin: 09/30/17 10:57 Dose: Not Given Naproxen (Anaprox) 275 mg PO QID PRN PRN Reason: Pain, moderate (4-7) Last Admin: 09/29/17 05:35 Dose: 275 mg - Labs Labs: 09/28/17 09:13 09/28/17 09:13 PT 14.4 SECONDS (9.7-12.2) H 09/28/17 09:13 INR 1.3 09/28/17 09:13 APTT 28 SECONDS (21-34) 09/28/17 09:13 - Constitutional Appears: Non-toxic, No Acute Distress, Chronically Ill - Head Exam Head Exam: NORMOCEPHALIC - Eye Exam Eye Exam: absent: Scleral icterus - ENT Exam ENT Exam: Mucous Membranes Dry - Neck Exam Neck Exam: absent: Lymphadenopathy - Respiratory Exam Respiratory Exam: Decreased Breath Sounds, Rhonchi - Cardiovascular Exam Cardiovascular Exam: REGULAR RHYTHM - GI/Abdominal Exam GI & Abdominal Exam: Distended - Rectal Exam Rectal Exam: Deferred - Exam Exam: NORMAL INSPECTION - Extremities Exam Extremities Exam: Pedal Edema - Back Exam Back Exam: absent: CVA tenderness (L), NORMAL INSPECTION - Neurological Exam Neurological Exam: Alert, Awake, Oriented x3 - Psychiatric Exam Psychiatric exam: Normal Mood - Skin Skin Exam: Dry Assessment and Plan (1) Alcohol intoxication Status: Acute (2) Cellulitis and abscess of foot Status: Acute (3) Chronic congestive heart failure Status: Acute (4) COPD (chronic obstructive pulmonary disease) Status: Chronic (5) Osteomyelitis of toe of left foot Status: Acute
--- NOTE | 2017-09-30 17:31 | CP.PCM.PN ---
Subjective - Date & Time of Evaluation Date of Evaluation: 09/30/17 Time of Evaluation: 11:00 - Subjective Subjective: condition same. afebtile. bp controlled. Objective - Vital Signs/Intake and Output Vital Signs (last 24 hours): Temp Pulse Resp BP Pulse Ox 98.2 F 63 20 145/66 96 09/30/17 08:28 09/30/17 08:28 09/30/17 08:28 09/30/17 10:56 09/30/17 08:28 Intake and Output: 09/30/17 09/30/17 06:59 18:59 Intake Total 290 510 Balance 290 510 - Medications Medications: Current Medications Furosemide (Lasix) 40 mg IVP DAILY [facility] Last Admin: 09/30/17 10:56 Dose: 40 mg Vancomycin HCl 1 gm/ Sodium (Chloride) 200 mls @ 166.7 mls/hr IVPB Q24H [facility] PRN Reason: Protocol Last Admin: 09/30/17 10:55 Dose: 166.7 mls/hr Piperacillin Sod/Tazobactam Sod (Zosyn 3.375 Gm Iv Premix) 3.375 gm in 50 mls @ 100 mls/hr IVPB Q8H [facility] PRN Reason: Protocol Last Admin: 09/30/17 09:45 Dose: 100 mls/hr Metoprolol Succinate (Toprol Xl) 50 mg PO DAILY [facility] Last Admin: 09/30/17 10:56 Dose: 50 mg Mupirocin (Bactroban Ointment) 0 gm TOP DAILY [facility] Last Admin: 09/30/17 10:57 Dose: Not Given Naproxen (Anaprox) 275 mg PO QID PRN PRN Reason: Pain, moderate (4-7) Last Admin: 09/29/17 05:35 Dose: 275 mg - Labs Labs: 09/28/17 09:13 09/28/17 09:13 PT 14.4 SECONDS (9.7-12.2) H 09/28/17 09:13 INR 1.3 09/28/17 09:13 APTT 28 SECONDS (21-34) 09/28/17 09:13 - Constitutional Appears: No Acute Distress, Chronically Ill - Eye Exam Eye Exam: Normal appearance Pupil Exam: PERRL - ENT Exam ENT Exam: Mucous Membranes Moist, Normal Exam - Neck Exam Neck Exam: Full ROM, Normal Inspection. absent: Lymphadenopathy - Respiratory Exam Respiratory Exam: Clear to Ausculation Bilateral, NORMAL BREATHING PATTERN - Cardiovascular Exam Cardiovascular Exam: REGULAR RHYTHM, +S1, +S2. absent: Murmur - GI/Abdominal Exam GI & Abdominal Exam: Soft, Normal Bowel Sounds. absent: Tenderness - Extremities Exam Extremities Exam: Pedal Edema - Neurological Exam Neurological Exam: Alert, Awake, CN II-XII Intact, Normal Gait, Oriented x3 - Psychiatric Exam Psychiatric exam: Normal Affect, Normal Mood Assessment and Plan - Assessment and Plan (Free Text) Assessment: om lt big toe. cellulitis. pvd. Plan: for iv abts. as per podietrist.
[2017-09-30] MEDS: Naproxen 275 mg Tab PO PRN (17:54)
[2017-10-01] MEDS: Piperacill/Tazo 3.375gm in Dex 3.375 GM/50 ML BAG IVPB SCH ×3 (02:18→18:25)
[2017-10-01] MEDS: Sodium Chloride 0.9% 1,000 ML IV SCH ×3 (05:00→23:45)
[2017-10-01] MEDS: Naproxen 275 mg Tab PO PRN (05:46)
[2017-10-01 07:28] LABS: BASO # 0.1 K/uL (0.0-0.2); EOS # 0.6 K/uL (0.0-0.7); EOS % 8.5 % (0.0-4.0); HEMOGLOBIN 10.1 g/dL (12.0-18.0); LYMPH # 2.3 K/uL (1.0-4.3); MEAN CELL VOLUME 92.1 fL (80.0-94.0); MEAN CORPUSCULAR HEMOGLOBIN 31.3 pg (27.0-31.0); MEAN PLATELET VOLUME 10.1 fL (7.2-11.7); MONO # 0.7 K/uL (0.0-0.8); MONO % 9.9 % (0.0-10.0); NEUT # 3.5 K/uL (1.8-7.0); NEUT % 48.6 % (50.0-75.0); NRBC % 0.1 % (0.0-2.0); RBC 3.21 Mil/uL (4.40-5.90); RED CELL DISTRIBUTION WIDTH 18.2 % (11.5-14.5); WHITE BLOOD COUNT 7.3 K/uL (4.8-10.8)
[2017-10-01 08:19] LABS: ALB/GLOB RATIO 0.6 (1.0-2.1); ALBUMIN 1.7 g/dL (3.5-5.0); ALT/SGPT 54 U/L (21-72); AST/SGOT 97 U/L (17-59); BLOOD UREA NITROGEN 19 mg/dL (9-20); CALCIUM 8.2 mg/dl (8.6-10.4); GFR NON-AFRICAN AMERICAN > 60
--- NOTE | 2017-10-01 09:20 | CT ---
Date of service: 09/29/2017 PROCEDURE: CT Angiography Abdomen, Pelvis and Lower Extremity with Contrast HISTORY: non-healing wound L hallux COMPARISON: None. TECHNIQUE: Technique: CT angiography of the abdomen, pelvis and bilateral lower extremities performed in the arterial phase of enhancement. Coronal and sagittal reformats, and well as rotating MIP images of the vessels generated at the workstation. Intravenous contrast dose: 150 milliliters Visipaque 320 Radiation dose: Total exam DLP = 1799.51 MGy-cm. This CT exam was performed using one or more of the following dose reduction techniques: Automated exposure control, adjustment of the mA and/or kV according to patient size, and/or use of iterative reconstruction technique. FINDINGS: CT ANGIOGRAPHY: ABDOMINAL AORTA:: The abdominal aorta is unremarkable. MAJOR AORTIC BRANCHES: Celiac Coltons Point: Unremarkable. Superior mesenteric artery: Unremarkable. Inferior mesenteric artery: Unremarkable. Renal arteries: Unremarkable. Accessory right renal artery. PELVIC ARTERIES: Right Common Iliac: Unremarkable. Right External Iliac: Unremarkable. Right Internal Iliac: Unremarkable. Left Common Iliac: Unremarkable. Left External Iliac: Unremarkable. Left Internal Iliac: Unremarkable. RIGHT LOWER EXTREMITY ARTERIES: Right Common Femoral: Unremarkable. Right Superficial Femoral: Unremarkable. Right Profunda Femoris: Unremarkable. Right Popliteal:Unremarkable. Right Anterior Tibial: Unremarkable. Right Tibioperoneal Trunk: Unremarkable. Right Posterior Tibial: Unremarkable. Right Peroneal: Unremarkable. Right dorsalis pedis : Unremarkable. LEFT LOWER EXTREMITY ARTERIES: Left Common Femoral: Unremarkable. Left Superficial Femoral: Unremarkable. Left Profunda Femoris: Unremarkable. Left Popliteal: Unremarkable. Left Anterior Tibial: Unremarkable. Left Tibioperoneal Trunk: Unremarkable. Left Posterior Tibial: Unremarkable. Left Peroneal: Unremarkable. Left Dorsalis pedis: Unremarkable. NON-ANGIOGRAPHIC ASPECT OF THE EXAM: LOWER THORAX: Trace bilateral pleural effusions. LIVER: Portosystemic shunt. The patency of the TIPS cannot be assessed. GALLBLADDER AND BILE DUCTS: Unremarkable. PANCREAS: Unremarkable. No gross lesion or ductal dilatation. SPLEEN: Unremarkable. ADRENALS: Unremarkable. No mass. KIDNEYS AND URETERS: Unremarkable. No hydronephrosis. No solid mass. STOMACH AND BOWEL: Limited evaluation without PO contrast. No obstruction. No gross mural thickening. APPENDIX: Normal appendix. PERITONEUM: Unremarkable. No free fluid. No free air. LYMPH NODES: Unremarkable. No enlarged lymph nodes. BLADDER: Unremarkable. REPRODUCTIVE: Unremarkable. BONES: No acute fracture. OTHER FINDINGS: Bilateral lower extremity edema. Prominent veins. IMPRESSION: Essentially unremarkable CT angiogram of the abdomen pelvis and right and left lower extremities. No evidence of peripheral show disease. There are prominent veins in the lower extremities along with soft tissue edema. This may suggest venous insufficiency. A venous duplex is recommended as a follow-up.
--- NOTE | 2017-10-01 09:34 | CP.PCM.PN ---
Subjective - Date & Time of Evaluation Date of Evaluation: 10/01/17 Time of Evaluation: 09:31 - Subjective Subjective: AFEBRILE. MEDICALLY STABLE WITH LT BIG TOE PROTEUS MIRABILIS WOUND INFECTION AND OSTEOMYELITIS. VS STABLE. Objective - Vital Signs/Intake and Output Vital Signs (last 24 hours): Temp Pulse Resp BP Pulse Ox 98.5 F 64 18 150/63 98 10/01/17 08:09 10/01/17 08:09 10/01/17 08:09 10/01/17 08:09 10/01/17 08:09 Intake and Output: 10/01/17 10/01/17 06:59 18:59 Intake Total 550 Balance 550 - Medications Medications: Current Medications Furosemide (Lasix) 40 mg IVP DAILY [facility] Last Admin: 09/30/17 10:56 Dose: 40 mg Vancomycin HCl 1 gm/ Sodium (Chloride) 200 mls @ 166.7 mls/hr IVPB Q24H [facility] PRN Reason: Protocol Last Admin: 09/30/17 10:55 Dose: 166.7 mls/hr Piperacillin Sod/Tazobactam Sod (Zosyn 3.375 Gm Iv Premix) 3.375 gm in 50 mls @ 100 mls/hr IVPB Q8H [facility] PRN Reason: Protocol Last Admin: 10/01/17 02:18 Dose: 100 mls/hr Sodium Chloride (Sodium Chloride 0.9%) 1,000 mls @ 100 mls/hr IV .Q10H [facility] Last Admin: 10/01/17 05:00 Dose: 100 mls/hr Metoprolol Succinate (Toprol Xl) 50 mg PO DAILY [facility] Last Admin: 09/30/17 10:56 Dose: 50 mg Mupirocin (Bactroban Ointment) 0 gm TOP DAILY [facility] Last Admin: 09/30/17 10:57 Dose: Not Given Naproxen (Anaprox) 275 mg PO QID PRN PRN Reason: Pain, moderate (4-7) Last Admin: 10/01/17 05:46 Dose: 275 mg - Labs Labs: 10/01/17 06:59 10/01/17 06:59 PT 14.4 SECONDS (9.7-12.2) H 09/28/17 09:13 INR 1.3 09/28/17 09:13 APTT 28 SECONDS (21-34) 09/28/17 09:13 - Constitutional Appears: No Acute Distress, Chronically Ill - Eye Exam Eye Exam: Normal appearance Pupil Exam: PERRL - ENT Exam ENT Exam: Mucous Membranes Moist - Neck Exam Neck Exam: Full ROM, Normal Inspection. absent: Lymphadenopathy - Respiratory Exam Respiratory Exam: Clear to Ausculation Bilateral, NORMAL BREATHING PATTERN - Cardiovascular Exam Cardiovascular Exam: REGULAR RHYTHM, +S1, +S2. absent: Murmur - GI/Abdominal Exam GI & Abdominal Exam: Soft, Normal Bowel Sounds. absent: Tenderness - Extremities Exam Extremities Exam: Pedal Edema - Back Exam Back Exam: NORMAL INSPECTION - Neurological Exam Neurological Exam: Alert, Awake, CN II-XII Intact, Normal Gait, Oriented x3 - Psychiatric Exam Psychiatric exam: Normal Affect, Normal Mood Assessment and Plan - Assessment and Plan (Free Text) Assessment: ABOVE. CT ANGIOGRAPHY WNL. Plan: CLEARED MEDICALLY FOR LT BIG TOE AMPUTATION.
[2017-10-01] MEDS: Metoprolol Succinate 50 mg XL Tab PO SCH (10:32)
[2017-10-01] MEDS: Vancomycin 1 GM in Sodium Chloride 0.9% 200 ML IVPB SCH (10:41)
[2017-10-01] MEDS ORDERED: Bupivacaine 0.25% 20 ML INJ IJ ONE (12:01)
[2017-10-01] MEDS ORDERED: Lidocaine 2% MPF (5 ml) Inj ONE (12:01)
--- NOTE | 2017-10-01 12:04 | CP.PCM.PN ---
Subjective - Date & Time of Evaluation Date of Evaluation: 10/01/17 Time of Evaluation: 12:03 - Subjective Subjective: Pt is going for left partial 1st ray amp today. Medical clearance and vascular clearance in chart. Pt understands that this is a limb salvage operation and that if healing is compromised, future surgery and/or limbloss is possible. Pt understands all risks and alternatives and consents to surgery. Objective - Vital Signs/Intake and Output Vital Signs (last 24 hours): Temp Pulse Resp BP Pulse Ox 98.5 F 64 18 150/63 98 10/01/17 08:09 10/01/17 08:09 10/01/17 08:09 10/01/17 10:33 10/01/17 08:09 Intake and Output: 10/01/17 10/01/17 06:59 18:59 Intake Total 550 Balance 550 - Medications Medications: Current Medications Furosemide (Lasix) 40 mg IVP DAILY [facility] Last Admin: 10/01/17 10:33 Dose: 40 mg Vancomycin HCl 1 gm/ Sodium (Chloride) 200 mls @ 166.7 mls/hr IVPB Q24H [facility] PRN Reason: Protocol Last Admin: 10/01/17 10:41 Dose: 166.7 mls/hr Piperacillin Sod/Tazobactam Sod (Zosyn 3.375 Gm Iv Premix) 3.375 gm in 50 mls @ 100 mls/hr IVPB Q8H [facility] PRN Reason: Protocol Last Admin: 10/01/17 10:40 Dose: 100 mls/hr Sodium Chloride (Sodium Chloride 0.9%) 1,000 mls @ 100 mls/hr IV .Q10H [facility] Last Admin: 10/01/17 05:00 Dose: 100 mls/hr Metoprolol Succinate (Toprol Xl) 50 mg PO DAILY [facility] Last Admin: 10/01/17 10:32 Dose: 50 mg Mupirocin (Bactroban Ointment) 0 gm TOP DAILY [facility] Last Admin: 10/01/17 10:33 Dose: Not Given Naproxen (Anaprox) 275 mg PO QID PRN PRN Reason: Pain, moderate (4-7) Last Admin: 10/01/17 05:46 Dose: 275 mg - Labs Labs: 10/01/17 06:59 10/01/17 06:59 PT 14.4 SECONDS (9.7-12.2) H 09/28/17 09:13 INR 1.3 09/28/17 09:13 APTT 28 SECONDS (21-34) 09/28/17 09:13
--- NOTE | 2017-10-01 12:09 | CP.PCM.PN ---
Subjective - Date & Time of Evaluation Date of Evaluation: 10/01/17 Time of Evaluation: 08:00 - Subjective Subjective: DISCUSSED ON ROUNDS IV RX IN PROGRESS FOR AMPUTATION DIGIT Objective - Vital Signs/Intake and Output Vital Signs (last 24 hours): Temp Pulse Resp BP Pulse Ox 98.5 F 64 18 150/63 98 10/01/17 08:09 10/01/17 08:09 10/01/17 08:09 10/01/17 10:33 10/01/17 08:09 Intake and Output: 10/01/17 10/01/17 06:59 18:59 Intake Total 550 Balance 550 - Medications Medications: Current Medications Furosemide (Lasix) 40 mg IVP DAILY [facility] Last Admin: 10/01/17 10:33 Dose: 40 mg Vancomycin HCl 1 gm/ Sodium (Chloride) 200 mls @ 166.7 mls/hr IVPB Q24H [facility] PRN Reason: Protocol Last Admin: 10/01/17 10:41 Dose: 166.7 mls/hr Piperacillin Sod/Tazobactam Sod (Zosyn 3.375 Gm Iv Premix) 3.375 gm in 50 mls @ 100 mls/hr IVPB Q8H [facility] PRN Reason: Protocol Last Admin: 10/01/17 10:40 Dose: 100 mls/hr Sodium Chloride (Sodium Chloride 0.9%) 1,000 mls @ 100 mls/hr IV .Q10H [facility] Last Admin: 10/01/17 05:00 Dose: 100 mls/hr Metoprolol Succinate (Toprol Xl) 50 mg PO DAILY [facility] Last Admin: 10/01/17 10:32 Dose: 50 mg Mupirocin (Bactroban Ointment) 0 gm TOP DAILY [facility] Last Admin: 10/01/17 10:33 Dose: Not Given Naproxen (Anaprox) 275 mg PO QID PRN PRN Reason: Pain, moderate (4-7) Last Admin: 10/01/17 05:46 Dose: 275 mg - Labs Labs: 10/01/17 06:59 10/01/17 06:59 PT 14.4 SECONDS (9.7-12.2) H 09/28/17 09:13 INR 1.3 09/28/17 09:13 APTT 28 SECONDS (21-34) 09/28/17 09:13 - Constitutional Appears: Non-toxic, Chronically Ill - Head Exam Head Exam: NORMOCEPHALIC - Eye Exam Eye Exam: absent: Scleral icterus - ENT Exam ENT Exam: Mucous Membranes Dry - Neck Exam Neck Exam: absent: Lymphadenopathy - Respiratory Exam Respiratory Exam: Decreased Breath Sounds - Cardiovascular Exam Cardiovascular Exam: REGULAR RHYTHM - GI/Abdominal Exam GI & Abdominal Exam: Distended - Rectal Exam Rectal Exam: Deferred - Extremities Exam Extremities Exam: Pedal Edema - Back Exam Back Exam: absent: CVA tenderness (L), CVA tenderness (R) Assessment and Plan (1) Alcohol intoxication Status: Acute (2) Cellulitis and abscess of foot Status: Acute (3) Chronic congestive heart failure Status: Acute (4) COPD (chronic obstructive pulmonary disease) Status: Chronic (5) Osteomyelitis of toe of left foot Status: Acute
[2017-10-01] MEDS ORDERED: Propofol 10 mg/ml Inj (20 ML) ONE ×2 (12:31→12:55)
[2017-10-01] MEDS ORDERED: Midazolam 2 MG/2 ML VIAL ONE (12:31)
--- NOTE | 2017-10-01 13:37 | PCM.SURG1 ---
Surgeon's Initial Post Op Note - Surgeon's Notes Surgeon: Dr. Harris Process Architect: Dr. Loya PGY2 Type of Anesthesia: General LMA, IV Sedation, Local (20cc 1:1 mixture 2% lidocaine plain & 0.25% marcaine plain) Anesthesia Administered By: Dr. Pichardo Pre-Operative Diagnosis: Left hallux nonhealing wound + osteomyelitis Operative Findings: See operative report. materials: 2-0 vicryl, 3-0 prolene Post-Operative Diagnosis: Same as above Operation Performed: Left hallux amputation Specimen/Specimens Removed: Left hallux Estimated Blood Loss: EBL {In ML}: 10 Blood Products Given: N/A Drains Used: [place] Date of Surgery/Procedure: 10/01/17 Time of Surgery/Procedure: 13:37
[2017-10-01] MEDS ORDERED: Oxycodone/Acetaminophen 5/325 mg Tab PO PRN (13:38)
[2017-10-01] MEDS ORDERED: HYDROmorphone 0.5 mg/0.5 ml ISec IVP PRN (13:55)
--- NOTE | 2017-10-01 14:58 | RAD ---
Date of service: 10/01/2017 PROCEDURE: Left Foot Radiographs. HISTORY: s/p left hallux amputation COMPARISON: Left foot radiographs dated 09/28/2017. FINDINGS: BONES: 1st digit amputation at the level of the metatarsophalangeal joint. JOINTS: Degenerative changes. SOFT TISSUES: Surgical drain in the soft tissues adjacent to the 1st metatarsal head. OTHER FINDINGS: None. IMPRESSION: Interval 1st digit amputation as described above.
[2017-10-01] MEDS: Oxycodone/Acetaminophen 5/325 mg Tab PO PRN (19:30)
[2017-10-02] MEDS: Piperacill/Tazo 3.375gm in Dex 3.375 GM/50 ML BAG IVPB SCH ×3 (02:47→18:18)
[2017-10-02] MEDS: Oxycodone/Acetaminophen 5/325 mg Tab PO PRN ×2 (05:42→21:39)
--- NOTE | 2017-10-02 09:36 | CP.PCM.PN ---
Subjective - Date & Time of Evaluation Date of Evaluation: 10/02/17 Time of Evaluation: 09:36 - Subjective Subjective: Podiatry Progress Note - Dr. Harris 57 year old male patient seen and evaluated this AM POD#1 left hallux amputation. Patient hemodynamically stable and NAD. No acute events overnight. Patient report mild pain to surgical site, well-controlled. Patient states he has been strict NWB LLE, OOB to commode only. States generalized body swelling improving. Denies N/V/F/D/C/SOB/MONTERO/CP. Offers no other complaints. Objective - Vital Signs/Intake and Output Vital Signs (last 24 hours): Temp Pulse Resp BP Pulse Ox 98.3 F 67 20 121/66 97 10/02/17 00:03 10/02/17 00:03 10/02/17 00:03 10/02/17 00:03 10/02/17 00:03 Intake and Output: 10/02/17 10/02/17 06:59 18:59 Intake Total 1700 Output Total 1250 Balance 450 - Medications Medications: Current Medications Acetaminophen (Tylenol 325mg Tab) 650 mg PO Q6 PRN PRN Reason: Pain, Mild (1-3) Furosemide (Lasix) 40 mg IVP DAILY [facility] Last Admin: 10/01/17 10:33 Dose: 40 mg Vancomycin HCl 1 gm/ Sodium (Chloride) 200 mls @ 166.7 mls/hr IVPB Q24H [facility] PRN Reason: Protocol Last Admin: 10/01/17 10:41 Dose: 166.7 mls/hr Piperacillin Sod/Tazobactam Sod (Zosyn 3.375 Gm Iv Premix) 3.375 gm in 50 mls @ 100 mls/hr IVPB Q8H [facility] PRN Reason: Protocol Last Admin: 10/02/17 02:47 Dose: 100 mls/hr Sodium Chloride (Sodium Chloride 0.9%) 1,000 mls @ 100 mls/hr IV .Q10H [facility] Last Admin: 10/01/17 23:45 Dose: 100 mls/hr Lactated Ringer's (Lactated Ringer's) 1,000 mls @ 100 mls/hr IV .Q10H [facility] Last Admin: 10/02/17 00:00 Dose: Not Given Metoprolol Succinate (Toprol Xl) 50 mg PO DAILY [facility] Last Admin: 10/01/17 10:32 Dose: 50 mg Mupirocin (Bactroban Ointment) 0 gm TOP DAILY [facility] Last Admin: 10/01/17 10:33 Dose: Not Given Naproxen (Anaprox) 275 mg PO QID PRN PRN Reason: Pain, Mild (1-3) Oxycodone/Acetaminophen (Percocet 5/325 Mg Tab) 1 tab PO Q6H PRN PRN Reason: Pain, moderate (4-7) Stop: 10/04/17 13:39 Last Admin: 10/02/17 05:42 Dose: 1 tab Oxycodone/Acetaminophen (Percocet 5/325 Mg Tab) 2 tab PO Q6H PRN PRN Reason: Pain, severe (8-10) Stop: 10/04/17 13:39 - Labs Labs: 10/01/17 06:59 10/01/17 06:59 PT 14.4 SECONDS (9.7-12.2) H 09/28/17 09:13 INR 1.3 09/28/17 09:13 APTT 28 SECONDS (21-34) 09/28/17 09:13 - Constitutional Appears: Well, Non-toxic, No Acute Distress - Extremities Exam Additional comments: VASC: DP pulses weakly palpable 1/4 b/l. PT pulses palpable 1/4 b/l. CFT <3 seconds digits 1-5 R and 2-4 L; CFT present to hallux amputation site. +1 pitting edema bilaterally L>R, improving. NEURO: Gross sensation diminished bilaterally. DERM: Linear incision noted to hallux amputation site appears to be well- coapted with sutures intact and no wound dehiscence noted; no pallor present; no drainage present; sathya drain intact; no drainage present. Superficial ulcerations noted circumfirentially around bilateral LE, resolving. ORTHO: s/p left hallux amputation with mild tenderness to palpation noted. Muscle strength 5/5 for all dorsiflexors, plantarflexors, inverters, and everters. - Neurological Exam Neurological Exam: Alert, Awake, Oriented x3 - Psychiatric Exam Psychiatric exam: Normal Affect, Normal Mood Assessment and Plan - Assessment and Plan (Free Text) Assessment: 57M POD#1 left hallux amputation Plan: Patient seen and evaluated alongside attending, Dr. Harris VSRachell Sathya drain removed without incident; steri strips applied to amputation site and dressed with betadine, DSD Wound care note appreciated Activity: strict NWB LLE; OOB to bedside commode only Continue antibiotics per ID - Vancomycin, Zosyn Per ID, patient to have 6 weeks of IV abx IR consulted for PICC placement f/u pathology report Pain control - Naproxen, Tylenol, Percocet Dispo planning in progress - d/c to [facility] Podiatry will continue to follow
[2017-10-02] MEDS: Vancomycin 1 GM in Sodium Chloride 0.9% 200 ML IVPB SCH ×2 (10:02→10:24)
[2017-10-02] MEDS: Metoprolol Succinate 50 mg XL Tab PO SCH (10:24)
[2017-10-02] MEDS: Sodium Chloride 0.9% 1,000 ML IV SCH (10:25)
[2017-10-02] MEDS: Lactated Ringer's 1,000 ML IV SCH ×2 (10:34)
--- NOTE | 2017-10-02 12:24 | CP.PCM.PN ---
Subjective - Date & Time of Evaluation Date of Evaluation: 10/02/17 Time of Evaluation: 12:20 - Subjective Subjective: PT AWAKE, ALERT, ORIENTED. S/P AMPUTATION. AFEBRILE. Objective - Vital Signs/Intake and Output Vital Signs (last 24 hours): Temp Pulse Resp BP Pulse Ox 98.3 F 67 20 121/66 100 10/02/17 00:03 10/02/17 00:03 10/02/17 00:03 10/02/17 00:03 10/02/17 09:41 Intake and Output: 10/02/17 10/02/17 06:59 18:59 Intake Total 1700 Output Total 1250 Balance 450 - Medications Medications: Current Medications Acetaminophen (Tylenol 325mg Tab) 650 mg PO Q6 PRN PRN Reason: Pain, Mild (1-3) Furosemide (Lasix) 40 mg IVP DAILY [facility] Last Admin: 10/02/17 10:01 Dose: Not Given Vancomycin HCl 1 gm/ Sodium (Chloride) 200 mls @ 166.7 mls/hr IVPB Q24H [facility] PRN Reason: Protocol Last Admin: 10/02/17 10:02 Dose: Not Given Piperacillin Sod/Tazobactam Sod (Zosyn 3.375 Gm Iv Premix) 3.375 gm in 50 mls @ 100 mls/hr IVPB Q8H [facility] PRN Reason: Protocol Last Admin: 10/02/17 10:01 Dose: Not Given Sodium Chloride (Sodium Chloride 0.9%) 1,000 mls @ 100 mls/hr IV .Q10H [facility] Last Admin: 10/02/17 10:25 Dose: 100 mls/hr Lactated Ringer's (Lactated Ringer's) 1,000 mls @ 100 mls/hr IV .Q10H [facility] Last Admin: 10/02/17 10:34 Dose: Not Given Metoprolol Succinate (Toprol Xl) 50 mg PO DAILY [facility] Last Admin: 10/02/17 10:24 Dose: 50 mg Mupirocin (Bactroban Ointment) 0 gm TOP DAILY [facility] Last Admin: 10/02/17 11:35 Dose: Not Given Naproxen (Anaprox) 275 mg PO QID PRN PRN Reason: Pain, Mild (1-3) Oxycodone/Acetaminophen (Percocet 5/325 Mg Tab) 1 tab PO Q6H PRN PRN Reason: Pain, moderate (4-7) Stop: 10/04/17 13:39 Last Admin: 10/02/17 05:42 Dose: 1 tab Oxycodone/Acetaminophen (Percocet 5/325 Mg Tab) 2 tab PO Q6H PRN PRN Reason: Pain, severe (8-10) Stop: 10/04/17 13:39 - Labs Labs: 10/01/17 06:59 10/01/17 06:59 PT 14.4 SECONDS (9.7-12.2) H 09/28/17 09:13 INR 1.3 09/28/17 09:13 APTT 28 SECONDS (21-34) 09/28/17 09:13 - Constitutional Appears: No Acute Distress, Chronically Ill - Eye Exam Eye Exam: EOMI, Normal appearance, PERRL Pupil Exam: NORMAL ACCOMODATION, PERRL - ENT Exam ENT Exam: Mucous Membranes Moist, Normal Exam - Respiratory Exam Respiratory Exam: Clear to Ausculation Bilateral, NORMAL BREATHING PATTERN - Cardiovascular Exam Cardiovascular Exam: REGULAR RHYTHM, +S1, +S2. absent: Murmur - GI/Abdominal Exam GI & Abdominal Exam: Soft, Normal Bowel Sounds. absent: Tenderness - Extremities Exam Extremities Exam: Full ROM, Normal Capillary Refill, Normal Inspection. absent : Joint Swelling, Pedal Edema - Back Exam Back Exam: NORMAL INSPECTION - Neurological Exam Neurological Exam: Alert, Awake, CN II-XII Intact, Normal Gait, Oriented x3 - Psychiatric Exam Psychiatric exam: Normal Affect, Normal Mood Assessment and Plan - Assessment and Plan (Free Text) Assessment: IMPROVING. Plan: DISCUSSED WITH DR. TAY OATES. FOR REHAB AND IV ANTIBIOTICS. PICC LINE.
--- NOTE | 2017-10-02 12:25 | CP.PCM.PN ---
Subjective - Date & Time of Evaluation Date of Evaluation: 10/02/17 Time of Evaluation: 07:00 - Subjective Subjective: stable s/p hallux amp for PICC line and iV rx x 6 weeks Objective - Vital Signs/Intake and Output Vital Signs (last 24 hours): Temp Pulse Resp BP Pulse Ox 98.3 F 67 20 121/66 100 10/02/17 00:03 10/02/17 00:03 10/02/17 00:03 10/02/17 00:03 10/02/17 09:41 Intake and Output: 10/02/17 10/02/17 06:59 18:59 Intake Total 1700 Output Total 1250 Balance 450 - Medications Medications: Current Medications Acetaminophen (Tylenol 325mg Tab) 650 mg PO Q6 PRN PRN Reason: Pain, Mild (1-3) Furosemide (Lasix) 40 mg IVP DAILY [facility] Last Admin: 10/02/17 10:01 Dose: Not Given Vancomycin HCl 1 gm/ Sodium (Chloride) 200 mls @ 166.7 mls/hr IVPB Q24H [facility] PRN Reason: Protocol Last Admin: 10/02/17 10:02 Dose: Not Given Piperacillin Sod/Tazobactam Sod (Zosyn 3.375 Gm Iv Premix) 3.375 gm in 50 mls @ 100 mls/hr IVPB Q8H [facility] PRN Reason: Protocol Last Admin: 10/02/17 10:01 Dose: Not Given Sodium Chloride (Sodium Chloride 0.9%) 1,000 mls @ 100 mls/hr IV .Q10H [facility] Last Admin: 10/02/17 10:25 Dose: 100 mls/hr Lactated Ringer's (Lactated Ringer's) 1,000 mls @ 100 mls/hr IV .Q10H [facility] Last Admin: 10/02/17 10:34 Dose: Not Given Metoprolol Succinate (Toprol Xl) 50 mg PO DAILY [facility] Last Admin: 10/02/17 10:24 Dose: 50 mg Mupirocin (Bactroban Ointment) 0 gm TOP DAILY [facility] Last Admin: 10/02/17 11:35 Dose: Not Given Naproxen (Anaprox) 275 mg PO QID PRN PRN Reason: Pain, Mild (1-3) Oxycodone/Acetaminophen (Percocet 5/325 Mg Tab) 1 tab PO Q6H PRN PRN Reason: Pain, moderate (4-7) Stop: 10/04/17 13:39 Last Admin: 10/02/17 05:42 Dose: 1 tab Oxycodone/Acetaminophen (Percocet 5/325 Mg Tab) 2 tab PO Q6H PRN PRN Reason: Pain, severe (8-10) Stop: 10/04/17 13:39 - Labs Labs: 10/01/17 06:59 10/01/17 06:59 PT 14.4 SECONDS (9.7-12.2) H 09/28/17 09:13 INR 1.3 09/28/17 09:13 APTT 28 SECONDS (21-34) 09/28/17 09:13 - Constitutional Appears: Non-toxic, Chronically Ill - Head Exam Head Exam: NORMOCEPHALIC - Eye Exam Eye Exam: PERRL - ENT Exam ENT Exam: Mucous Membranes Dry - Neck Exam Neck Exam: absent: Lymphadenopathy - Respiratory Exam Respiratory Exam: Decreased Breath Sounds - Cardiovascular Exam Cardiovascular Exam: REGULAR RHYTHM - GI/Abdominal Exam GI & Abdominal Exam: Distended Assessment and Plan (1) Alcohol intoxication Status: Acute (2) Cellulitis and abscess of foot Status: Acute (3) Chronic congestive heart failure Status: Acute (4) COPD (chronic obstructive pulmonary disease) Status: Chronic (5) Osteomyelitis of toe of left foot Status: Acute
--- NOTE | 2017-10-02 14:00 | CP.PCM.PN ---
Subjective - Date & Time of Evaluation Date of Evaluation: 10/02/17 Time of Evaluation: 13:58 - Subjective Subjective: Pt is S/P left hallux amp. Pt will require fdc IV abx - discussed case with Dr. Marcus. Pt to go to subacute rehab. Pt to remain strict non wt bearing on left foot. Drain was pulled today. Objective - Vital Signs/Intake and Output Vital Signs (last 24 hours): Temp Pulse Resp BP Pulse Ox 98.3 F 67 20 121/66 100 10/02/17 00:03 10/02/17 00:03 10/02/17 00:03 10/02/17 00:03 10/02/17 09:41 Intake and Output: 10/02/17 10/02/17 06:59 18:59 Intake Total 1700 760 Output Total 1250 350 Balance 450 410 - Medications Medications: Current Medications Acetaminophen (Tylenol 325mg Tab) 650 mg PO Q6 PRN PRN Reason: Pain, Mild (1-3) Furosemide (Lasix) 40 mg IVP DAILY [facility] Last Admin: 10/02/17 10:01 Dose: Not Given Vancomycin HCl 1 gm/ Sodium (Chloride) 200 mls @ 166.7 mls/hr IVPB Q24H [facility] PRN Reason: Protocol Last Admin: 10/02/17 10:02 Dose: Not Given Piperacillin Sod/Tazobactam Sod (Zosyn 3.375 Gm Iv Premix) 3.375 gm in 50 mls @ 100 mls/hr IVPB Q8H [facility] PRN Reason: Protocol Last Admin: 10/02/17 10:01 Dose: Not Given Sodium Chloride (Sodium Chloride 0.9%) 1,000 mls @ 100 mls/hr IV .Q10H [facility] Last Admin: 10/02/17 10:25 Dose: 100 mls/hr Lactated Ringer's (Lactated Ringer's) 1,000 mls @ 100 mls/hr IV .Q10H [facility] Last Admin: 10/02/17 10:34 Dose: Not Given Metoprolol Succinate (Toprol Xl) 50 mg PO DAILY [facility] Last Admin: 10/02/17 10:24 Dose: 50 mg Mupirocin (Bactroban Ointment) 0 gm TOP DAILY [facility] Last Admin: 10/02/17 11:35 Dose: Not Given Naproxen (Anaprox) 275 mg PO QID PRN PRN Reason: Pain, Mild (1-3) Oxycodone/Acetaminophen (Percocet 5/325 Mg Tab) 1 tab PO Q6H PRN PRN Reason: Pain, moderate (4-7) Stop: 10/04/17 13:39 Last Admin: 10/02/17 05:42 Dose: 1 tab Oxycodone/Acetaminophen (Percocet 5/325 Mg Tab) 2 tab PO Q6H PRN PRN Reason: Pain, severe (8-10) Stop: 10/04/17 13:39 - Labs Labs: 10/01/17 06:59 10/01/17 06:59 PT 14.4 SECONDS (9.7-12.2) H 09/28/17 09:13 INR 1.3 09/28/17 09:13 APTT 28 SECONDS (21-34) 09/28/17 09:13
--- NOTE | 2017-10-02 15:42 | RAD ---
Date of service: 10/02/2017 HISTORY: PICC Insertion COMPARISON: 09/28/2017 and 06/05/2012 FINDINGS: LUNGS: No consolidation para PLEURA: No significant pleural effusion identified, no pneumothorax apparent. CARDIOVASCULAR: Borderline mild cardiomegaly. Right subclavian PICC line interval insertion- tip superior vena cava. OSSEOUS STRUCTURES: Old healed left lateral rib fracture deformity - unchanged 2012 Thoracic spondylosis. Left shoulder arthrosis right shoulder excluded from field of view. VISUALIZED UPPER ABDOMEN: Normal. OTHER FINDINGS: None. IMPRESSION: Interval insertion right PICC line tip satisfactory. No pneumothorax. Other findings -as above.
[2017-10-03] MEDS: Piperacill/Tazo 3.375gm in Dex 3.375 GM/50 ML BAG IVPB SCH ×3 (02:42→17:44)
[2017-10-03] MEDS: Lactated Ringer's 1,000 ML IV SCH (06:00)
[2017-10-03] MEDS: Sodium Chloride 0.9% 1,000 ML IV SCH (06:56)
--- NOTE | 2017-10-03 08:50 | VASCLAB ---
Date of service: 09/28/2017 STUDY DESCRIPTION: HISTORY: nonhealing ulcer left hallux PRIORS: None. TECHNIQUE: Pulse volume recording waveforms and segmental pressures of bilateral lower extremities at multiple levels were obtained. Ankle Brachial Indices (ABIs) were calculated. Report prepared by Damaris Harris RD, RVS RIGHT LOWER EXTREMITY: * Brachial artery: Pressure - 147 mmHg. * High thigh: Pressure - 190 mmHg: Ratio - 1.29: PVR waveform - Pulsatile * Low thigh: Pressure - 211 mmHg: Ratio - 1.44 PVR waveform: Pulsatile * Calf: Pressure - 198 mmHg: Ratio - 1.35 PVR waveform: Pulsatile * Posterior tibial Artery: Pressure - 218 mmHg: Ratio - 1.48 PVR waveform: Pulsatile * Dorsalis pedis Artery: Pressure - 193 mmHg: Ratio - 1.31 PVR waveform: Pulsatile * Great toe: Pressure - mmHg: Ratio - PVR waveform: Pulsatile Ankle brachial index (REYNALDO): 1.48 LEFT LOWER EXTREMITY: * Brachial artery: Pressure - 144 mmHg. * High thigh: Pressure - 213 mmHg: Ratio - 1.45: PVR waveform - Pulsatile * Low thigh: Pressure - 211 mmHg: Ratio - 1.44 PVR waveform: Pulsatile * Calf: Pressure - 215 mmHg: Ratio - 1.46 PVR waveform: Pulsatile * Posterior tibial Artery: Pressure - 211 mmHg: Ratio - 1.44 PVR waveform: Pulsatile * Dorsalis pedis Artery: Pressure - mmHg: Ratio - PVR waveform: Pulsatile * Great toe: Pressure - mmHg: Ratio - PVR waveform: Pulsatile Ankle brachial index (REYNALDO): 1.44 OTHER FINDINGS: IMPRESSION: Right: There was no evidence of hemodynamically significant arterial insufficiency in the right lower extremity. Left: There was no evidence of hemodynamically signifacant arterial insufficency in the left lower extremity.
[2017-10-03] MEDS: Vancomycin 1 GM in Sodium Chloride 0.9% 200 ML IVPB SCH (10:56)
[2017-10-03] MEDS: Metoprolol Succinate 50 mg XL Tab PO SCH (10:57)
--- NOTE | 2017-10-03 12:56 | CP.PCM.PN ---
Subjective - Date & Time of Evaluation Date of Evaluation: 10/03/17 Time of Evaluation: 12:55 - Subjective Subjective: PT STABLE. AFEBRILE. BP CONTROLLED. Objective - Vital Signs/Intake and Output Vital Signs (last 24 hours): Temp Pulse Resp BP Pulse Ox 98.8 F 60 20 150/72 100 10/03/17 07:15 10/03/17 07:15 10/03/17 07:15 10/03/17 10:57 10/03/17 07:15 Intake and Output: 10/03/17 10/03/17 06:59 18:59 Intake Total 800 Output Total 550 Balance 250 - Medications Medications: Current Medications Acetaminophen (Tylenol 325mg Tab) 650 mg PO Q6 PRN PRN Reason: Pain, Mild (1-3) Furosemide (Lasix) [address] [facility] Last Admin: 10/03/17 10:57 Dose: 40 mg Vancomycin HCl 1 gm/ Sodium (Chloride) 200 mls @ 166.7 mls/hr IVPB Q24H [facility] PRN Reason: Protocol Last Admin: 10/03/17 10:56 Dose: 166.7 mls/hr Piperacillin Sod/Tazobactam Sod (Zosyn 3.375 Gm Iv Premix) 3.375 gm in 50 mls @ 100 mls/hr IVPB Q8H [facility] PRN Reason: Protocol Last Admin: 10/03/17 10:58 Dose: 100 mls/hr Lactated Ringer's (Lactated Ringer's) 1,000 mls @ 100 mls/hr IV .Q10H [facility] Last Admin: 10/03/17 06:00 Dose: Not Given Metoprolol Succinate (Toprol Xl) [address] [facility] Last Admin: 10/03/17 10:57 Dose: 50 mg Mupirocin (Bactroban Ointment) [address] [facility] Last Admin: 10/03/17 10:56 Dose: Not Given Naproxen (Anaprox) 275 mg PO QID PRN PRN Reason: Pain, Mild (1-3) Oxycodone/Acetaminophen (Percocet 5/325 Mg Tab) 1 tab PO Q6H PRN PRN Reason: Pain, moderate (4-7) Stop: 10/04/17 13:39 Last Admin: 10/02/17 05:42 Dose: 1 tab Oxycodone/Acetaminophen (Percocet 5/325 Mg Tab) 2 tab PO Q6H PRN PRN Reason: Pain, severe (8-10) Stop: 10/04/17 13:39 Last Admin: 10/02/17 21:46 Dose: 2 tab - Labs Labs: 10/01/17 06:59 10/01/17 06:59 PT 14.4 SECONDS (9.7-12.2) H 09/28/17 09:13 INR 1.3 09/28/17 09:13 APTT 28 SECONDS (21-34) 09/28/17 09:13 - Constitutional Appears: No Acute Distress, Chronically Ill - Eye Exam Eye Exam: EOMI, Normal appearance, PERRL Pupil Exam: NORMAL ACCOMODATION, PERRL - ENT Exam ENT Exam: Mucous Membranes Moist, Normal Exam - Respiratory Exam Respiratory Exam: Clear to Ausculation Bilateral, NORMAL BREATHING PATTERN - Cardiovascular Exam Cardiovascular Exam: REGULAR RHYTHM, +S1, +S2. absent: Murmur - GI/Abdominal Exam GI & Abdominal Exam: Soft, Normal Bowel Sounds. absent: Tenderness - Extremities Exam Extremities Exam: Full ROM, Normal Capillary Refill, Normal Inspection. absent : Joint Swelling, Pedal Edema - Back Exam Back Exam: NORMAL INSPECTION - Neurological Exam Neurological Exam: Alert, Awake, CN II-XII Intact, Normal Gait, Oriented x3 Assessment and Plan - Assessment and Plan (Free Text) Assessment: STABLE. Plan: FOR SUBACUTE. IV ABTS. PICC LINE.
--- NOTE | 2017-10-03 17:23 | CP.PCM.PN ---
Subjective - Date & Time of Evaluation Date of Evaluation: 10/03/17 Time of Evaluation: 08:00 - Subjective Subjective: LESS PAIN NO FEVER IV RX REORDERED Objective - Vital Signs/Intake and Output Vital Signs (last 24 hours): Temp Pulse Resp BP Pulse Ox 98.5 F 61 20 155/83 H 100 10/03/17 15:30 10/03/17 15:30 10/03/17 15:30 10/03/17 15:30 10/03/17 15:30 Intake and Output: 10/03/17 10/03/17 06:59 18:59 Intake Total 800 Output Total 550 Balance 250 - Medications Medications: Current Medications Acetaminophen (Tylenol 325mg Tab) 650 mg PO Q6 PRN PRN Reason: Pain, Mild (1-3) Furosemide (Lasix) 40 mg IVP DAILY [facility] Last Admin: 10/03/17 10:57 Dose: 40 mg Vancomycin HCl 1 gm/ Sodium (Chloride) 200 mls @ 166.7 mls/hr IVPB Q24H [facility] PRN Reason: Protocol Last Admin: 10/03/17 10:56 Dose: 166.7 mls/hr Piperacillin Sod/Tazobactam Sod (Zosyn 3.375 Gm Iv Premix) 3.375 gm in 50 mls @ 100 mls/hr IVPB Q8H [facility] PRN Reason: Protocol Last Admin: 10/03/17 10:58 Dose: 100 mls/hr Metoprolol Succinate (Toprol Xl) 50 mg PO DAILY [facility] Last Admin: 10/03/17 10:57 Dose: 50 mg Mupirocin (Bactroban Ointment) 0 gm TOP DAILY [facility] Last Admin: 10/03/17 10:56 Dose: Not Given Naproxen (Anaprox) 275 mg PO QID PRN PRN Reason: Pain, Mild (1-3) Oxycodone/Acetaminophen (Percocet 5/325 Mg Tab) 1 tab PO Q6H PRN PRN Reason: Pain, moderate (4-7) Stop: 10/04/17 13:39 Last Admin: 10/02/17 05:42 Dose: 1 tab Oxycodone/Acetaminophen (Percocet 5/325 Mg Tab) 2 tab PO Q6H PRN PRN Reason: Pain, severe (8-10) Stop: 10/04/17 13:39 Last Admin: 10/02/17 21:46 Dose: 2 tab - Labs Labs: 10/01/17 06:59 10/01/17 06:59 PT 14.4 SECONDS (9.7-12.2) H 09/28/17 09:13 INR 1.3 09/28/17 09:13 APTT 28 SECONDS (21-34) 09/28/17 09:13 - Constitutional Appears: Non-toxic, Chronically Ill - Head Exam Head Exam: NORMOCEPHALIC - Eye Exam Eye Exam: PERRL - ENT Exam ENT Exam: Mucous Membranes Dry - Neck Exam Neck Exam: absent: Lymphadenopathy, Thyromegaly - Respiratory Exam Respiratory Exam: Decreased Breath Sounds - Cardiovascular Exam Cardiovascular Exam: REGULAR RHYTHM, +S1, +S2 - GI/Abdominal Exam GI & Abdominal Exam: Distended, Soft. absent: Tenderness - Rectal Exam Rectal Exam: Deferred - Exam Exam: NORMAL INSPECTION - Extremities Exam Extremities Exam: Pedal Edema, Tenderness. absent: Calf Tenderness - Back Exam Back Exam: absent: CVA tenderness (L), CVA tenderness (R) - Neurological Exam Neurological Exam: Alert, Awake, Oriented x3 - Psychiatric Exam Psychiatric exam: Normal Mood - Skin Skin Exam: Dry Assessment and Plan (1) Alcohol intoxication Status: Acute (2) Cellulitis and abscess of foot Status: Acute (3) Chronic congestive heart failure Status: Acute (4) COPD (chronic obstructive pulmonary disease) Status: Chronic (5) Osteomyelitis of toe of left foot Status: Acute - Assessment and Plan (Free Text) Assessment: CONT IV RX FOR 6 WEEKS
--- NOTE | 2017-10-03 18:52 | CP.PCM.PN ---
Subjective - Date & Time of Evaluation Date of Evaluation: 10/03/17 Time of Evaluation: 11:40 - Subjective Subjective: Podiatry Progress Note - Dr. Harris 57 year old male patient seen and evaluated this AM POD#2 left hallux amputation. Patient resting in bed comfortably, hemodynamically stable and NAD. No acute events overnight. Patient states pain at surgical site is improving, well-control. Patient compliant with strict NWB LLE. Denies N/V/F/D/C/SOB/MONTERO/ CP. Offers no other complaints. Objective - Vital Signs/Intake and Output Vital Signs (last 24 hours): Temp Pulse Resp BP Pulse Ox 98.5 F 61 20 155/83 H 100 10/03/17 15:30 10/03/17 15:30 10/03/17 15:30 10/03/17 15:30 10/03/17 15:30 Intake and Output: 10/03/17 10/03/17 06:59 18:59 Intake Total 800 Output Total 550 Balance 250 - Medications Medications: Current Medications Acetaminophen (Tylenol 325mg Tab) 650 mg PO Q6 PRN PRN Reason: Pain, Mild (1-3) Furosemide (Lasix) 40 mg IVP DAILY [facility] Last Admin: 10/03/17 10:57 Dose: 40 mg Vancomycin HCl 1 gm/ Sodium (Chloride) 200 mls @ 166.7 mls/hr IVPB Q24H [facility] PRN Reason: Protocol Last Admin: 10/03/17 10:56 Dose: 166.7 mls/hr Piperacillin Sod/Tazobactam Sod (Zosyn 3.375 Gm Iv Premix) 3.375 gm in 50 mls @ 100 mls/hr IVPB Q8H [facility] PRN Reason: Protocol Last Admin: 10/03/17 17:44 Dose: 100 mls/hr Metoprolol Succinate (Toprol Xl) 50 mg PO DAILY [facility] Last Admin: 10/03/17 10:57 Dose: 50 mg Mupirocin (Bactroban Ointment) 0 gm TOP DAILY [facility] Last Admin: 10/03/17 10:56 Dose: Not Given Naproxen (Anaprox) 275 mg PO QID PRN PRN Reason: Pain, Mild (1-3) Oxycodone/Acetaminophen (Percocet 5/325 Mg Tab) 1 tab PO Q6H PRN PRN Reason: Pain, moderate (4-7) Stop: 10/04/17 13:39 Last Admin: 10/02/17 05:42 Dose: 1 tab Oxycodone/Acetaminophen (Percocet 5/325 Mg Tab) 2 tab PO Q6H PRN PRN Reason: Pain, severe (8-10) Stop: 10/04/17 13:39 Last Admin: 10/02/17 21:46 Dose: 2 tab - Labs Labs: 10/01/17 06:59 10/01/17 06:59 PT 14.4 SECONDS (9.7-12.2) H 09/28/17 09:13 INR 1.3 09/28/17 09:13 APTT 28 SECONDS (21-34) 09/28/17 09:13 - Constitutional Appears: Well, Non-toxic, No Acute Distress - Extremities Exam Additional comments: VASC: DP pulses weakly palpable 1/4 b/l. PT pulses palpable 1/4 b/l. CFT <3 seconds digits 1-5 R and 2-4 L; CFT present to hallux amputation site. +1 pitting edema bilaterally L>R, improving. NEURO: Gross sensation diminished bilaterally. DERM: Linear incision noted to hallux amputation site appears to be well- coapted with sutures intact and no wound dehiscence noted; no pallor present; no drainage present; no drainage present. Superficial ulcerations noted circumfirentially around bilateral LE, resolving. ORTHO: s/p left hallux amputation with mild tenderness to palpation noted. Muscle strength 5/5 for all dorsiflexors, plantarflexors, inverters, and everters. - Neurological Exam Neurological Exam: Alert, Awake, Oriented x3 - Psychiatric Exam Psychiatric exam: Normal Affect, Normal Mood Assessment and Plan - Assessment and Plan (Free Text) Assessment: 57M POD#2 left hallux amputation Plan: Patient seen and evaluated alongside attending, Dr. Mello VSRachell Continue local wound care - betadine, DSD Wound care note appreciated Activity: strict NWB LLE; OOB to bedside commode only Continue antibiotics per ID - Vancomycin, Zosyn Per ID, patient to have 6 weeks of IV abx -PICC placed Pain control - Naproxen, Tylenol, Percocet Dispo planning in progress - d/c to [facility] Podiatry will continue to follow
[2017-10-03] MEDS: Oxycodone/Acetaminophen 5/325 mg Tab PO PRN (21:19)
[2017-10-04] MEDS: Piperacill/Tazo 3.375gm in Dex 3.375 GM/50 ML BAG IVPB SCH ×3 (02:46→17:47)
--- NOTE | 2017-10-04 05:22 | OP ---
PROCEDURE DATE: 10/01/2017 PATIENT'S AGE: 57. PATIENT'S SEX: Male. SURGEON: Addison Harris MD ASSISTANTS: Ge Loya DPM, PGY-2 ANESTHESIOLOGIST: Radha Mallory MD TYPE OF ANESTHESIA: IV sedation, local 20 mL of 1:1 mixture of 2% lidocaine plain and 0.25% Marcaine plain, turned to general LMA. PREOPERATIVE DIAGNOSIS: Left hallux nonhealing wound. POSTOPERATIVE DIAGNOSIS: Left hallux nonhealing wound. NAME OF THE PROCEDURE: Left hallux amputation. INDICATION: The patient s a 57-year-old male with the above diagnosis. The patient has exhausted conservative treatments at this time and now requires surgical intervention. The patient signed a consent after careful explanation of risks, benefits, alternatives and complications of the procedure and wishes to proceed. No guarantees were given nor implied. PREPARATION: The patient was brought into the operating room and placed on the operating room table in supine position. Time-out was performed for identification of the correct patient and procedure. After the induction of IV sedation, approximately 20 mL of 1:1 mixture of 2% lidocaine plain and 0.5% Marcaine plain were administered in an Francisco block technique. The left foot was then prepped and draped in the normal sterile manner and the procedure began. DESCRIPTION OF PROCEDURE: Left hallux amputation. Attention was directed to the left hallux where a medially based incision which made extending around the hallux utilizing a 15-blade. The incision was deepened down through subcutaneous layers down to the level of the bone. Using a bone clamp, we stabilized the distal hallucal tuft. The hallux was then disarticulated at the level of the first metatarsophalangeal joint. At this point, the hallux passed off the operative field to be sent to Pathology. Amputation site was noted to have healthy bleeding tissue. Skin margins were then debulked to create a suitable flap for closure. Following this, a Sathya drain was at the amputation site. Utilizing 2-0 Vicryl, the subcutaneous tissue was reapproximated. Following this, 3-0 Prolene was utilized to reapproximate skin edges using a simple interrupted suture technique. The suture site was then dressed with Betadine-soaked Adaptic sterile gauze, Zully, and a loosely wrapped Kerlix. POSTOPERATIVE CONDITION: The patient tolerated the procedure and anesthesia well and was escorted to the recovery room with vital signs stable and neurovascular status intact to the left foot. The patient is to remain strict nonweightbearing to the left lower extremity with out of bed privileges only. The patient will remain in house. Podiatry will continue to follow. Ge Loya DPM Addison Harris DPM
--- NOTE | 2017-10-04 10:00 | CP.PCM.PN ---
Subjective - Date & Time of Evaluation Date of Evaluation: 10/04/17 Time of Evaluation: 10:00 - Subjective Subjective: Podiatry Progress Note - Dr. Harris 57 year old male patient seen and evaluated at bedside POD#3 left hallux amputation. Patient hemodynamically stable and NAD. No acute events overnight. Pain in left foot well-controlled. Dressing to LLE clean/dry/intact. Denies N/V/ F/D/C/SOB/MONTERO/CP. No new complaints. Objective - Vital Signs/Intake and Output Vital Signs (last 24 hours): Temp Pulse Resp BP Pulse Ox 98.8 F 61 20 151/75 H 98 10/04/17 08:00 10/04/17 08:00 10/04/17 08:00 10/04/17 08:00 10/04/17 08:00 Intake and Output: 10/04/17 10/04/17 06:59 18:59 Intake Total 550 Output Total 1150 Balance -600 - Medications Medications: Current Medications Acetaminophen (Tylenol 325mg Tab) 650 mg PO Q6 PRN PRN Reason: Pain, Mild (1-3) Furosemide (Lasix) 40 mg IVP DAILY [facility] Last Admin: 10/03/17 10:57 Dose: 40 mg Vancomycin HCl 1 gm/ Sodium (Chloride) 200 mls @ 166.7 mls/hr IVPB Q24H OTIS PRN Reason: Protocol Last Admin: 10/03/17 10:56 Dose: 166.7 mls/hr Piperacillin Sod/Tazobactam Sod (Zosyn 3.375 Gm Iv Premix) 3.375 gm in 50 mls @ 100 mls/hr IVPB Q8H OTIS PRN Reason: Protocol Last Admin: 10/04/17 02:46 Dose: 100 mls/hr Metoprolol Succinate (Toprol Xl) 50 mg PO DAILY [facility] Last Admin: 10/03/17 10:57 Dose: 50 mg Mupirocin (Bactroban Ointment) 0 gm TOP DAILY [facility] Last Admin: 10/03/17 10:56 Dose: Not Given Naproxen (Anaprox) 275 mg PO QID PRN PRN Reason: Pain, Mild (1-3) Oxycodone/Acetaminophen (Percocet 5/325 Mg Tab) 1 tab PO Q6H PRN PRN Reason: Pain, moderate (4-7) Stop: 10/04/17 13:39 Last Admin: 10/03/17 21:19 Dose: 1 tab Oxycodone/Acetaminophen (Percocet 5/325 Mg Tab) 2 tab PO Q6H PRN PRN Reason: Pain, severe (8-10) Stop: 10/04/17 13:39 Last Admin: 10/02/17 21:46 Dose: 2 tab - Labs Labs: 10/01/17 06:59 10/01/17 06:59 PT 14.4 SECONDS (9.7-12.2) H 09/28/17 09:13 INR 1.3 09/28/17 09:13 APTT 28 SECONDS (21-34) 09/28/17 09:13 - Constitutional Appears: Well, Non-toxic, No Acute Distress - Extremities Exam Additional comments: VASC: DP pulses weakly palpable 1/4 b/l. PT pulses palpable 1/4 b/l. CFT <3 seconds digits 1-5 R and 2-4 L; CFT present to hallux amputation site. +1 pitting edema bilaterally L>R, improving. NEURO: Gross sensation diminished bilaterally. DERM: Linear incision noted to hallux amputation site appears to be well- coapted with sutures intact and no wound dehiscence noted; maceration present centrally; no drainage present; serosanguinous drainage present. Superficial ulcerations noted circumfirentially around bilateral LE, resolving. ORTHO: s/p left hallux amputation with mild tenderness to palpation noted. Muscle strength 5/5 for all dorsiflexors, plantarflexors, inverters, and everters. - Neurological Exam Neurological Exam: Alert, Awake, Oriented x3 - Psychiatric Exam Psychiatric exam: Normal Affect, Normal Mood Assessment and Plan - Assessment and Plan (Free Text) Assessment: 57M POD#3 left hallux amputation Plan: Patient seen and evaluated Discussed with attending, Dr. Steven CARVAJAL Continue local wound care - betadine, DSD -Increased drainage centrally, will continue to monitor Wound care note appreciated Activity: strict NWB LLE; OOB to bedside commode only Continue antibiotics per ID - Vancomycin, Zosyn Per ID, patient to have 6 weeks of IV abx Pain control - Naproxen, Tylenol, Percocet Dispo planning in progress - d/c to [facility] pending insurance verification Podiatry will continue to follow
[2017-10-04] MEDS: Metoprolol Succinate 50 mg XL Tab PO SCH (10:01)
--- NOTE | 2017-10-04 12:27 | CP.PCM.PN ---
Subjective - Date & Time of Evaluation Date of Evaluation: 10/04/17 Time of Evaluation: 12:25 - Subjective Subjective: CONDITION STABLE. AFEBRILE. Objective - Vital Signs/Intake and Output Vital Signs (last 24 hours): Temp Pulse Resp BP Pulse Ox 98.8 F 61 20 151/75 H 98 10/04/17 08:00 10/04/17 08:00 10/04/17 08:00 10/04/17 10:01 10/04/17 08:00 Intake and Output: 10/04/17 10/04/17 06:59 18:59 Intake Total 550 Output Total 1150 Balance -600 - Medications Medications: Current Medications Acetaminophen (Tylenol 325mg Tab) 650 mg PO Q6 PRN PRN Reason: Pain, Mild (1-3) Furosemide (Lasix) 40 mg IVP DAILY [facility] Last Admin: 10/04/17 10:01 Dose: 40 mg Vancomycin HCl 1 gm/ Sodium (Chloride) 200 mls @ 166.7 mls/hr IVPB Q24H OTIS PRN Reason: Protocol Last Admin: 10/03/17 10:56 Dose: 166.7 mls/hr Piperacillin Sod/Tazobactam Sod (Zosyn 3.375 Gm Iv Premix) 3.375 gm in 50 mls @ 100 mls/hr IVPB Q8H OTIS PRN Reason: Protocol Last Admin: 10/04/17 10:02 Dose: 100 mls/hr Metoprolol Succinate (Toprol Xl) 50 mg PO DAILY [facility] Last Admin: 10/04/17 10:01 Dose: 50 mg Mupirocin (Bactroban Ointment) 0 gm TOP DAILY [facility] Last Admin: 10/04/17 10:01 Dose: Not Given Naproxen (Anaprox) 275 mg PO QID PRN PRN Reason: Pain, Mild (1-3) Oxycodone/Acetaminophen (Percocet 5/325 Mg Tab) 1 tab PO Q6H PRN PRN Reason: Pain, moderate (4-7) Stop: 10/04/17 13:39 Last Admin: 10/03/17 21:19 Dose: 1 tab Oxycodone/Acetaminophen (Percocet 5/325 Mg Tab) 2 tab PO Q6H PRN PRN Reason: Pain, severe (8-10) Stop: 10/04/17 13:39 Last Admin: 10/02/17 21:46 Dose: 2 tab - Labs Labs: 10/01/17 06:59 10/01/17 06:59 PT 14.4 SECONDS (9.7-12.2) H 09/28/17 09:13 INR 1.3 09/28/17 09:13 APTT 28 SECONDS (21-34) 09/28/17 09:13 - Constitutional Appears: Chronically Ill - Eye Exam Eye Exam: EOMI, Normal appearance, PERRL Pupil Exam: NORMAL ACCOMODATION, PERRL - ENT Exam ENT Exam: Mucous Membranes Moist, Normal Exam - Respiratory Exam Respiratory Exam: Clear to Ausculation Bilateral, NORMAL BREATHING PATTERN - Cardiovascular Exam Cardiovascular Exam: REGULAR RHYTHM, +S1, +S2. absent: Murmur - GI/Abdominal Exam GI & Abdominal Exam: Soft, Normal Bowel Sounds. absent: Tenderness - Extremities Exam Extremities Exam: Full ROM, Normal Capillary Refill, Normal Inspection. absent : Joint Swelling, Pedal Edema - Neurological Exam Neurological Exam: Alert, Awake, CN II-XII Intact, Normal Gait, Oriented x3 - Psychiatric Exam Psychiatric exam: Normal Affect, Normal Mood Assessment and Plan - Assessment and Plan (Free Text) Assessment: SAME. Plan: AWAITING REHAB PLACEMENT.
[2017-10-04] MEDS: Vancomycin 1 GM in Sodium Chloride 0.9% 200 ML IVPB SCH (13:41)
[2017-10-04] MEDS: Naproxen 275 mg Tab PO PRN (15:38)
[2017-10-04] MEDS ORDERED: Oxycodone/Acetaminophen 5/325 mg Tab PO PRN ×2 (16:10)
--- NOTE | 2017-10-04 18:23 | CP.PCM.PN ---
Subjective - Date & Time of Evaluation Date of Evaluation: 10/04/17 Time of Evaluation: 08:00 - Subjective Subjective: afeb alert NAD Objective - Vital Signs/Intake and Output Vital Signs (last 24 hours): Temp Pulse Resp BP Pulse Ox 98.3 F 58 L 20 158/96 H 100 10/04/17 16:00 10/04/17 16:00 10/04/17 16:00 10/04/17 16:00 10/04/17 16:00 Intake and Output: 10/04/17 10/04/17 06:59 18:59 Intake Total 550 Output Total 1150 Balance -600 - Medications Medications: Current Medications Acetaminophen (Tylenol 325mg Tab) 650 mg PO Q6 PRN PRN Reason: Pain, Mild (1-3) Furosemide (Lasix) 40 mg IVP DAILY [facility] Last Admin: 10/04/17 10:01 Dose: 40 mg Vancomycin HCl 1 gm/ Sodium (Chloride) 200 mls @ 166.7 mls/hr IVPB Q24H OTIS PRN Reason: Protocol Last Admin: 10/04/17 13:41 Dose: 166.7 mls/hr Piperacillin Sod/Tazobactam Sod (Zosyn 3.375 Gm Iv Premix) 3.375 gm in 50 mls @ 100 mls/hr IVPB Q8H OTIS PRN Reason: Protocol Last Admin: 10/04/17 17:47 Dose: 100 mls/hr Metoprolol Succinate (Toprol Xl) 50 mg PO DAILY [facility] Last Admin: 10/04/17 10:01 Dose: 50 mg Mupirocin (Bactroban Ointment) 0 gm TOP DAILY [facility] Last Admin: 10/04/17 10:01 Dose: Not Given Naproxen (Anaprox) 275 mg PO QID PRN PRN Reason: Pain, Mild (1-3) Last Admin: 10/04/17 15:38 Dose: 275 mg Oxycodone/Acetaminophen (Percocet 5/325 Mg Tab) 1 tab PO Q4H PRN PRN Reason: Pain, moderate (4-7) Stop: 10/07/17 16:11 Oxycodone/Acetaminophen (Percocet 5/325 Mg Tab) 2 tab PO Q4H PRN PRN Reason: Pain, severe (8-10) Stop: 10/07/17 16:11 - Labs Labs: 10/01/17 06:59 10/01/17 06:59 PT 14.4 SECONDS (9.7-12.2) H 09/28/17 09:13 INR 1.3 09/28/17 09:13 APTT 28 SECONDS (21-34) 09/28/17 09:13 - Constitutional Appears: Non-toxic, Chronically Ill - Head Exam Head Exam: NORMOCEPHALIC - Eye Exam Eye Exam: PERRL - ENT Exam ENT Exam: Mucous Membranes Dry - Neck Exam Neck Exam: absent: Lymphadenopathy - Respiratory Exam Respiratory Exam: Decreased Breath Sounds - Cardiovascular Exam Cardiovascular Exam: REGULAR RHYTHM - GI/Abdominal Exam GI & Abdominal Exam: Distended, Soft - Rectal Exam Rectal Exam: Deferred Assessment and Plan (1) Alcohol intoxication Status: Acute (2) Cellulitis and abscess of foot Status: Acute (3) Chronic congestive heart failure Status: Acute (4) COPD (chronic obstructive pulmonary disease) Status: Chronic (5) Osteomyelitis of toe of left foot Status: Acute - Assessment and Plan (Free Text) Assessment: renew IV rx wound care
[2017-10-05] MEDS: Piperacill/Tazo 3.375gm in Dex 3.375 GM/50 ML BAG IVPB SCH ×3 (02:47→18:45)
[2017-10-05 06:45] LABS: BASO # 0.1 K/uL (0.0-0.2); BASO % 2.2 % (0.0-2.0); EOS # 0.4 K/uL (0.0-0.7); EOS % 7.6 % (0.0-4.0); HEMOGLOBIN 9.2 g/dL (12.0-18.0); LYMPH # 2.3 K/uL (1.0-4.3); LYMPH % 40.9 % (20.0-40.0); MEAN CORPUSCULAR HEMOGLOBIN 31.4 pg (27.0-31.0); MEAN CORPUSCULAR HGB CONC 33.8 g/dL (33.0-37.0); MEAN PLATELET VOLUME 10.3 fL (7.2-11.7); MONO # 0.7 K/uL (0.0-0.8); MONO % 11.7 % (0.0-10.0); NEUT # 2.1 K/uL (1.8-7.0); NEUT % 37.6 % (50.0-75.0); NRBC % 0.2 % (0.0-2.0); RBC 2.92 Mil/uL (4.40-5.90); RED CELL DISTRIBUTION WIDTH 18.1 % (11.5-14.5); WHITE BLOOD COUNT 5.6 K/uL (4.8-10.8)
[2017-10-05 08:33] LABS: ALB/GLOB RATIO 0.5 (1.0-2.1); ALBUMIN 1.6 g/dL (3.5-5.0); ALT/SGPT 48 U/L (21-72); AST/SGOT 65 U/L (17-59); BLOOD UREA NITROGEN 16 mg/dL (9-20); CALCIUM 7.6 mg/dl (8.6-10.4); GFR NON-AFRICAN AMERICAN > 60
--- NOTE | 2017-10-05 08:56 | CP.PCM.PN ---
Subjective - Date & Time of Evaluation Date of Evaluation: 10/05/17 Time of Evaluation: 08:56 - Subjective Subjective: Podiatry Progress Note - Dr. Harris 57M seen and examined this AM POD#4 left hallux amputation. Patient hemodynamically stable and NAD. No acute events overnight. No new complaints to LLE. Dressing to LLE clean/dry/intact. Denies N/V/F/D/C/SOB/MONTERO/CP. Objective - Vital Signs/Intake and Output Vital Signs (last 24 hours): Temp Pulse Resp BP Pulse Ox 98.3 F 56 L 20 158/78 H 98 10/05/17 08:00 10/05/17 08:00 10/05/17 08:00 10/05/17 08:00 10/05/17 08:00 Intake and Output: 10/05/17 10/05/17 06:59 18:59 Intake Total 600 Output Total 800 Balance -200 - Medications Medications: Current Medications Acetaminophen (Tylenol 325mg Tab) 650 mg PO Q6 PRN PRN Reason: Pain, Mild (1-3) Furosemide (Lasix) 40 mg IVP DAILY [facility] Last Admin: 10/04/17 10:01 Dose: 40 mg Vancomycin HCl 1 gm/ Sodium (Chloride) 200 mls @ 166.7 mls/hr IVPB Q24H OTIS PRN Reason: Protocol Last Admin: 10/04/17 13:41 Dose: 166.7 mls/hr Piperacillin Sod/Tazobactam Sod (Zosyn 3.375 Gm Iv Premix) 3.375 gm in 50 mls @ 100 mls/hr IVPB Q8H OTIS PRN Reason: Protocol Last Admin: 10/05/17 02:47 Dose: 100 mls/hr Metoprolol Succinate (Toprol Xl) 50 mg PO DAILY [facility] Last Admin: 10/04/17 10:01 Dose: 50 mg Mupirocin (Bactroban Ointment) 0 gm TOP DAILY [facility] Last Admin: 10/04/17 10:01 Dose: Not Given Naproxen (Anaprox) 275 mg PO QID PRN PRN Reason: Pain, Mild (1-3) Last Admin: 10/04/17 15:38 Dose: 275 mg Oxycodone/Acetaminophen (Percocet 5/325 Mg Tab) 1 tab PO Q4H PRN PRN Reason: Pain, moderate (4-7) Stop: 10/07/17 16:11 Oxycodone/Acetaminophen (Percocet 5/325 Mg Tab) 2 tab PO Q4H PRN PRN Reason: Pain, severe (8-10) Stop: 10/07/17 16:11 - Labs Labs: 10/05/17 06:36 10/05/17 06:36 PT 14.4 SECONDS (9.7-12.2) H 09/28/17 09:13 INR 1.3 09/28/17 09:13 APTT 28 SECONDS (21-34) 09/28/17 09:13 - Constitutional Appears: Well, Non-toxic, No Acute Distress - Extremities Exam Additional comments: VASC: DP pulses weakly palpable 1/4 b/l. PT pulses palpable 1/4 b/l. CFT <3 seconds digits 1-5 R and 2-4 L; CFT present to hallux amputation site. +1 pitting edema bilaterally L>R, improving. NEURO: Gross sensation diminished bilaterally. DERM: Linear incision noted to hallux amputation site appears to be well- coapted with sutures intact and minimal wound dehiscence noted; maceration present centrally; no purulence present; serosanguinous drainage present. Weeping superficial ulcerations noted circumfirentially around bilateral LE, resolving. ORTHO: s/p left hallux amputation with mild tenderness to palpation noted. Muscle strength 5/5 for all dorsiflexors, plantarflexors, inverters, and everters. - Neurological Exam Neurological Exam: Alert, Awake, Oriented x3 - Psychiatric Exam Psychiatric exam: Normal Affect, Normal Mood Assessment and Plan - Assessment and Plan (Free Text) Assessment: 57M POD#4 left hallux amputation Plan: Patient seen and evaluated alongside attending, Dr. Steven CARVAJAL, WBC 5.6 Continue local wound care - betadine, DSD -Drainage improving, will continue to monitor Wound care note appreciated Activity: strict NWB LLE; OOB to bedside commode only Continue antibiotics per ID - Vancomycin, Zosyn Per ID, patient to have 6 weeks of IV abx Pain control - Naproxen, Tylenol, Percocet Dispo planning in progress - d/c to [facility] pending approval Podiatry will continue to follow
[2017-10-05] MEDS: Metoprolol Succinate 50 mg XL Tab PO SCH (09:16)
[2017-10-05] MEDS: Vancomycin 1 GM in Sodium Chloride 0.9% 200 ML IVPB SCH (09:16)
--- NOTE | 2017-10-05 12:39 | CP.PCM.PN ---
Subjective - Date & Time of Evaluation Date of Evaluation: 10/05/17 Time of Evaluation: 12:37 - Subjective Subjective: CONDITION SAME. S/P LT TOE AMPUTATION. VS STABLE. Objective - Vital Signs/Intake and Output Vital Signs (last 24 hours): Temp Pulse Resp BP Pulse Ox 98.3 F 56 L 20 150/70 98 10/05/17 08:00 10/05/17 08:00 10/05/17 08:00 10/05/17 09:16 10/05/17 08:00 Intake and Output: 10/05/17 10/05/17 06:59 18:59 Intake Total 600 Output Total 800 Balance -200 - Medications Medications: Current Medications Acetaminophen (Tylenol 325mg Tab) 650 mg PO Q6 PRN PRN Reason: Pain, Mild (1-3) Furosemide (Lasix) 40 mg IVP DAILY [facility] Last Admin: 10/05/17 09:16 Dose: 40 mg Vancomycin HCl 1 gm/ Sodium (Chloride) 200 mls @ 166.7 mls/hr IVPB Q24H OTIS PRN Reason: Protocol Last Admin: 10/05/17 09:16 Dose: 166.7 mls/hr Piperacillin Sod/Tazobactam Sod (Zosyn 3.375 Gm Iv Premix) 3.375 gm in 50 mls @ 100 mls/hr IVPB Q8H OTIS PRN Reason: Protocol Last Admin: 10/05/17 10:58 Dose: 100 mls/hr Metoprolol Succinate (Toprol Xl) 50 mg PO DAILY [facility] Last Admin: 10/05/17 09:16 Dose: 50 mg Mupirocin (Bactroban Ointment) 0 gm TOP DAILY [facility] Last Admin: 10/05/17 09:15 Dose: Not Given Naproxen (Anaprox) 275 mg PO QID PRN PRN Reason: Pain, Mild (1-3) Last Admin: 10/04/17 15:38 Dose: 275 mg Oxycodone/Acetaminophen (Percocet 5/325 Mg Tab) 1 tab PO Q4H PRN PRN Reason: Pain, moderate (4-7) Stop: 10/07/17 16:11 Oxycodone/Acetaminophen (Percocet 5/325 Mg Tab) 2 tab PO Q4H PRN PRN Reason: Pain, severe (8-10) Stop: 10/07/17 16:11 - Labs Labs: 10/05/17 06:36 10/05/17 06:36 PT 14.4 SECONDS (9.7-12.2) H 09/28/17 09:13 INR 1.3 09/28/17 09:13 APTT 28 SECONDS (21-34) 09/28/17 09:13 - Constitutional Appears: No Acute Distress, Chronically Ill - Eye Exam Eye Exam: EOMI, Normal appearance, PERRL Pupil Exam: NORMAL ACCOMODATION, PERRL - ENT Exam ENT Exam: Mucous Membranes Moist, Normal Exam - Neck Exam Neck Exam: Full ROM, Normal Inspection. absent: Lymphadenopathy - Respiratory Exam Respiratory Exam: Clear to Ausculation Bilateral, NORMAL BREATHING PATTERN - Cardiovascular Exam Cardiovascular Exam: REGULAR RHYTHM, +S1, +S2. absent: Murmur - GI/Abdominal Exam GI & Abdominal Exam: Soft, Normal Bowel Sounds. absent: Tenderness - Extremities Exam Extremities Exam: Full ROM, Normal Capillary Refill, Normal Inspection. absent : Joint Swelling, Pedal Edema - Back Exam Back Exam: NORMAL INSPECTION - Neurological Exam Neurological Exam: Alert, Awake, CN II-XII Intact, Normal Gait, Oriented x3 - Psychiatric Exam Psychiatric exam: Normal Affect, Normal Mood Assessment and Plan - Assessment and Plan (Free Text) Assessment: SAME. Plan: CT PRESENT TREATMENT. AWITING AGA APROVAL
--- NOTE | 2017-10-05 16:14 | CP.PCM.PN ---
Subjective - Date & Time of Evaluation Date of Evaluation: 10/05/17 Time of Evaluation: 10:00 - Subjective Subjective: events noted needs retirement rx Objective - Vital Signs/Intake and Output Vital Signs (last 24 hours): Temp Pulse Resp BP Pulse Ox 98.3 F 56 L 20 150/70 98 10/05/17 08:00 10/05/17 08:00 10/05/17 08:00 10/05/17 09:16 10/05/17 08:00 Intake and Output: 10/05/17 10/05/17 06:59 18:59 Intake Total 600 Output Total 800 Balance -200 - Medications Medications: Current Medications Acetaminophen (Tylenol 325mg Tab) 650 mg PO Q6 PRN PRN Reason: Pain, Mild (1-3) Furosemide (Lasix) 40 mg IVP DAILY [facility] Last Admin: 10/05/17 09:16 Dose: 40 mg Vancomycin HCl 1 gm/ Sodium (Chloride) 200 mls @ 166.7 mls/hr IVPB Q24H OTIS PRN Reason: Protocol Last Admin: 10/05/17 09:16 Dose: 166.7 mls/hr Piperacillin Sod/Tazobactam Sod (Zosyn 3.375 Gm Iv Premix) 3.375 gm in 50 mls @ 100 mls/hr IVPB Q8H OTIS PRN Reason: Protocol Last Admin: 10/05/17 10:58 Dose: 100 mls/hr Metoprolol Succinate (Toprol Xl) 50 mg PO DAILY [facility] Last Admin: 10/05/17 09:16 Dose: 50 mg Mupirocin (Bactroban Ointment) 0 gm TOP DAILY [facility] Last Admin: 10/05/17 09:15 Dose: Not Given Naproxen (Anaprox) 275 mg PO QID PRN PRN Reason: Pain, Mild (1-3) Last Admin: 10/04/17 15:38 Dose: 275 mg Oxycodone/Acetaminophen (Percocet 5/325 Mg Tab) 1 tab PO Q4H PRN PRN Reason: Pain, moderate (4-7) Stop: 10/07/17 16:11 Oxycodone/Acetaminophen (Percocet 5/325 Mg Tab) 2 tab PO Q4H PRN PRN Reason: Pain, severe (8-10) Stop: 10/07/17 16:11 - Labs Labs: 10/05/17 06:36 10/05/17 06:36 PT 14.4 SECONDS (9.7-12.2) H 09/28/17 09:13 INR 1.3 09/28/17 09:13 APTT 28 SECONDS (21-34) 09/28/17 09:13 Assessment and Plan (1) Alcohol intoxication Status: Acute (2) Cellulitis and abscess of foot Status: Acute (3) Chronic congestive heart failure Status: Acute (4) COPD (chronic obstructive pulmonary disease) Status: Chronic (5) Osteomyelitis of toe of left foot Status: Acute
[2017-10-06] MEDS: Piperacill/Tazo 3.375gm in Dex 3.375 GM/50 ML BAG IVPB SCH ×3 (02:08→19:26)
--- NOTE | 2017-10-06 10:38 | CP.PCM.PN ---
Subjective - Date & Time of Evaluation Date of Evaluation: 10/06/17 Time of Evaluation: 10:36 - Subjective Subjective: CONDITION SAME. Objective - Vital Signs/Intake and Output Vital Signs (last 24 hours): Temp Pulse Resp BP Pulse Ox 98.1 F 62 20 133/74 99 10/06/17 07:07 10/06/17 07:07 10/06/17 07:07 10/06/17 07:07 10/06/17 07:07 Intake and Output: 10/06/17 10/06/17 06:59 18:59 Intake Total 300 50 Output Total 800 700 Balance -500 -650 - Medications Medications: Current Medications Acetaminophen (Tylenol 325mg Tab) 650 mg PO Q6 PRN PRN Reason: Pain, Mild (1-3) Furosemide (Lasix) 40 mg IVP DAILY [facility] Last Admin: 10/05/17 09:16 Dose: 40 mg Vancomycin HCl 1 gm/ Sodium (Chloride) 200 mls @ 166.7 mls/hr IVPB Q24H OTIS PRN Reason: Protocol Last Admin: 10/05/17 09:16 Dose: 166.7 mls/hr Piperacillin Sod/Tazobactam Sod (Zosyn 3.375 Gm Iv Premix) 3.375 gm in 50 mls @ 100 mls/hr IVPB Q8H OTIS PRN Reason: Protocol Last Admin: 10/06/17 02:08 Dose: 100 mls/hr Metoprolol Succinate (Toprol Xl) 50 mg PO DAILY [facility] Last Admin: 10/05/17 09:16 Dose: 50 mg Mupirocin (Bactroban Ointment) 0 gm TOP DAILY [facility] Last Admin: 10/05/17 09:15 Dose: Not Given Naproxen (Anaprox) 275 mg PO QID PRN PRN Reason: Pain, Mild (1-3) Last Admin: 10/04/17 15:38 Dose: 275 mg Oxycodone/Acetaminophen (Percocet 5/325 Mg Tab) 1 tab PO Q4H PRN PRN Reason: Pain, moderate (4-7) Stop: 10/07/17 16:11 Oxycodone/Acetaminophen (Percocet 5/325 Mg Tab) 2 tab PO Q4H PRN PRN Reason: Pain, severe (8-10) Stop: 10/07/17 16:11 - Labs Labs: 10/05/17 06:36 10/05/17 06:36 PT 14.4 SECONDS (9.7-12.2) H 09/28/17 09:13 INR 1.3 09/28/17 09:13 APTT 28 SECONDS (21-34) 09/28/17 09:13 - Constitutional Appears: No Acute Distress, Chronically Ill - Eye Exam Eye Exam: EOMI, Normal appearance, PERRL Pupil Exam: NORMAL ACCOMODATION, PERRL - ENT Exam ENT Exam: Mucous Membranes Moist, Normal Exam - Neck Exam Neck Exam: Full ROM, Normal Inspection. absent: Lymphadenopathy - Respiratory Exam Respiratory Exam: Clear to Ausculation Bilateral, NORMAL BREATHING PATTERN - Cardiovascular Exam Cardiovascular Exam: REGULAR RHYTHM, +S1, +S2. absent: Murmur - GI/Abdominal Exam GI & Abdominal Exam: Soft, Normal Bowel Sounds. absent: Tenderness - Extremities Exam Extremities Exam: Full ROM, Normal Capillary Refill, Normal Inspection. absent : Joint Swelling, Pedal Edema - Neurological Exam Neurological Exam: Alert, Awake, CN II-XII Intact, Normal Gait, Oriented x3 Assessment and Plan - Assessment and Plan (Free Text) Assessment: STABLE. Plan: CT PRESENT TREATMENT.
[2017-10-06] MEDS: Vancomycin 1 GM in Sodium Chloride 0.9% 200 ML IVPB SCH (11:11)
[2017-10-06] MEDS: Metoprolol Succinate 50 mg XL Tab PO SCH (11:12)
--- NOTE | 2017-10-06 11:30 | CP.PCM.PN ---
Subjective - Date & Time of Evaluation Date of Evaluation: 10/06/17 Time of Evaluation: 11:28 - Subjective Subjective: Podiatry Progress Note - Dr. Harris 57M seen and examined this AM POD#[address] Harris for left hallux amputation. Patient hemodynamically stable and NAD. No acute events overnight. No new complaints to LLE. Dressing to LLE clean/dry/intact. Denies N/V/F/D/C/SOB /MONTERO/CP. Objective - Vital Signs/Intake and Output Vital Signs (last 24 hours): Temp Pulse Resp BP Pulse Ox 98.1 F 62 20 133/74 99 10/06/17 07:07 10/06/17 07:07 10/06/17 07:07 10/06/17 11:13 10/06/17 07:07 Intake and Output: 10/06/17 10/06/17 06:59 18:59 Intake Total 300 50 Output Total 800 700 Balance -500 -650 - Medications Medications: Current Medications Acetaminophen (Tylenol 325mg Tab) 650 mg PO Q6 PRN PRN Reason: Pain, Mild (1-3) Furosemide (Lasix) 40 mg IVP DAILY [facility] Last Admin: 10/06/17 11:13 Dose: Not Given Vancomycin HCl 1 gm/ Sodium (Chloride) 200 mls @ 166.7 mls/hr IVPB Q24H [facility] PRN Reason: Protocol Last Admin: 10/06/17 11:11 Dose: 166.7 mls/hr Piperacillin Sod/Tazobactam Sod (Zosyn 3.375 Gm Iv Premix) 3.375 gm in 50 mls @ 100 mls/hr IVPB Q8H [facility] PRN Reason: Protocol Last Admin: 10/06/17 11:11 Dose: 100 mls/hr Metoprolol Succinate (Toprol Xl) 50 mg PO DAILY [facility] Last Admin: 10/06/17 11:12 Dose: 50 mg Mupirocin (Bactroban Ointment) 0 gm TOP DAILY [facility] Last Admin: 10/06/17 11:13 Dose: Not Given Naproxen (Anaprox) 275 mg PO QID PRN PRN Reason: Pain, Mild (1-3) Last Admin: 10/04/17 15:38 Dose: 275 mg Oxycodone/Acetaminophen (Percocet 5/325 Mg Tab) 1 tab PO Q4H PRN PRN Reason: Pain, moderate (4-7) Stop: 10/07/17 16:11 Oxycodone/Acetaminophen (Percocet 5/325 Mg Tab) 2 tab PO Q4H PRN PRN Reason: Pain, severe (8-10) Stop: 10/07/17 16:11 - Labs Labs: 10/05/17 06:36 10/05/17 06:36 PT 14.4 SECONDS (9.7-12.2) H 09/28/17 09:13 INR 1.3 09/28/17 09:13 APTT 28 SECONDS (21-34) 09/28/17 09:13 - Constitutional Appears: Well, Non-toxic, No Acute Distress - Head Exam Head Exam: ATRAUMATIC, NORMOCEPHALIC - Extremities Exam Additional comments: VASC: DP pulses weakly palpable 1/4 b/l. PT pulses palpable 1/4 b/l. CFT <3 seconds digits 1-5 R and 2-4 L; CFT present to hallux amputation site. +1 pitting edema bilaterally L>R, improving. NEURO: Gross sensation diminished bilaterally. DERM: Linear incision noted to hallux amputation site appears to be well- coapted with sutures intact and minimal wound dehiscence noted; maceration present centrally; no purulence present; serosanguinous drainage present. Weeping superficial ulcerations noted circumfirentially around bilateral LE, resolving. ORTHO: s/p left hallux amputation with mild tenderness to palpation noted. Muscle strength 5/5 for all dorsiflexors, plantarflexors, inverters, and everters. - Neurological Exam Neurological Exam: Alert, Awake, Oriented x3 - Psychiatric Exam Psychiatric exam: Normal Affect, Normal Mood Assessment and Plan - Assessment and Plan (Free Text) Assessment: 57M POD#5 left hallux amputation Plan: Patient seen and evaluated alongside attending, Dr. Steven CARVAJAL, WBC 5.6 (10/05) Continue local wound care - betadine, DSD -Drainage improving, will continue to monitor Wound care note appreciated Activity: strict NWB LLE; OOB to bedside commode only Continue antibiotics per ID - Vancomycin, Zosyn Per ID, patient to have 6 weeks of IV abx Pain control - Naproxen, Tylenol, Percocet Dispo planning in progress - d/c to [facility] pending approval Podiatry will continue to follow
[2017-10-07] MEDS: Piperacill/Tazo 3.375gm in Dex 3.375 GM/50 ML BAG IVPB SCH ×3 (03:14→18:50)
[2017-10-07] MEDS: Metoprolol Succinate 50 mg XL Tab PO SCH (10:21)
[2017-10-07] MEDS: Vancomycin 1 GM in Sodium Chloride 0.9% 200 ML IVPB SCH (10:23)
--- NOTE | 2017-10-07 11:59 | CP.PCM.PN ---
Subjective - Date & Time of Evaluation Date of Evaluation: 10/07/17 Time of Evaluation: 11:57 - Subjective Subjective: Podiatry Progress Note - Dr. Harris 57M seen and examined this AM POD#6 for left hallux amputation. Patient hemodynamically stable and NAD. Patient states he has not taken medication for the pain. No acute events overnight, however patient "tired" from staying in bed. No new complaints to LLE. Dressing to LLE clean/dry/intact. Denies N/V/F/D/ C/SOB/MONTERO/CP. Objective - Vital Signs/Intake and Output Vital Signs (last 24 hours): Temp Pulse Resp BP Pulse Ox 98.7 F 6 L 20 143/72 97 10/07/17 08:50 10/07/17 08:50 10/07/17 08:50 10/07/17 10:20 10/07/17 08:50 Intake and Output: 10/07/17 10/07/17 06:59 18:59 Intake Total 170 Output Total 600 Balance -430 - Medications Medications: Current Medications Acetaminophen (Tylenol 325mg Tab) 650 mg PO Q6 PRN PRN Reason: Pain, Mild (1-3) Furosemide (Lasix) 40 mg IVP DAILY [facility] Last Admin: 10/07/17 10:20 Dose: Not Given Vancomycin HCl 1 gm/ Sodium (Chloride) 200 mls @ 166.7 mls/hr IVPB Q24H [facility] PRN Reason: Protocol Last Admin: 10/07/17 10:23 Dose: 166.7 mls/hr Piperacillin Sod/Tazobactam Sod (Zosyn 3.375 Gm Iv Premix) 3.375 gm in 50 mls @ 100 mls/hr IVPB Q8H [facility] PRN Reason: Protocol Last Admin: 10/07/17 10:22 Dose: 100 mls/hr Metoprolol Succinate (Toprol Xl) 50 mg PO DAILY [facility] Last Admin: 10/07/17 10:21 Dose: Not Given Mupirocin (Bactroban Ointment) 0 gm TOP DAILY [facility] Last Admin: 10/07/17 10:18 Dose: Not Given Naproxen (Anaprox) 275 mg PO QID PRN PRN Reason: Pain, Mild (1-3) Last Admin: 10/04/17 15:38 Dose: 275 mg Oxycodone/Acetaminophen (Percocet 5/325 Mg Tab) 1 tab PO Q4H PRN PRN Reason: Pain, moderate (4-7) Stop: 10/07/17 16:11 Oxycodone/Acetaminophen (Percocet 5/325 Mg Tab) 2 tab PO Q4H PRN PRN Reason: Pain, severe (8-10) Stop: 10/07/17 16:11 - Labs Labs: 10/05/17 06:36 10/05/17 06:36 PT 14.4 SECONDS (9.7-12.2) H 09/28/17 09:13 INR 1.3 09/28/17 09:13 APTT 28 SECONDS (21-34) 09/28/17 09:13 - Constitutional Appears: Well, Non-toxic, No Acute Distress - Head Exam Head Exam: ATRAUMATIC, NORMOCEPHALIC - Extremities Exam Additional comments: VASC: DP pulses weakly palpable 1/4 b/l. PT pulses palpable 1/4 b/l. CFT <3 seconds digits 1-5 R and 2-4 L; CFT present to hallux amputation site. +1 pitting edema bilaterally L>R, improving. NEURO: Gross sensation diminished bilaterally. DERM: Linear incision noted to hallux amputation site appears to be well- coapted with sutures intact and minimal wound dehiscence noted; maceration present centrally, improving; no purulence present; minimal serosanguinous drainage present. Weeping superficial ulcerations noted circumfirentially around bilateral LE, resolving. ORTHO: s/p left hallux amputation with mild tenderness to palpation noted. Muscle strength 5/5 for all dorsiflexors, plantarflexors, inverters, and everters. - Neurological Exam Neurological Exam: Alert, Awake, Oriented x3 - Psychiatric Exam Psychiatric exam: Normal Affect, Normal Mood Assessment and Plan - Assessment and Plan (Free Text) Assessment: 57M POD#6 left hallux amputation Plan: Patient seen and evaluated in bed Plan discussed with attending Dr. Harris Chart, labs and vital reviewed- VSS, WBC 5.6 (10/05) Continue local wound care - betadine, DSD -Drainage improving, will continue to monitor Wound care note appreciated Activity: strict NWB LLE; OOB to bedside commode only Continue antibiotics per ID - Vancomycin, Zosyn Per ID, patient to have 6 weeks of IV abx Pain control - Naproxen, Tylenol, Percocet Dispo planning in progress - d/c to [facility] pending approval Podiatry will continue to follow
--- NOTE | 2017-10-07 16:01 | CP.PCM.PN ---
Subjective - Date & Time of Evaluation Date of Evaluation: 10/07/17 Time of Evaluation: 09:00 - Subjective Subjective: afeb nad Objective - Vital Signs/Intake and Output Vital Signs (last 24 hours): Temp Pulse Resp BP Pulse Ox 99.1 F 59 L 20 137/67 97 10/07/17 15:43 10/07/17 15:43 10/07/17 15:43 10/07/17 15:43 10/07/17 15:43 Intake and Output: 10/07/17 10/07/17 06:59 18:59 Intake Total 170 Output Total 600 Balance -430 - Medications Medications: Current Medications Acetaminophen (Tylenol 325mg Tab) 650 mg PO Q6 PRN PRN Reason: Pain, Mild (1-3) Furosemide (Lasix) 40 mg IVP DAILY [facility] Last Admin: 10/07/17 10:20 Dose: Not Given Vancomycin HCl 1 gm/ Sodium (Chloride) 200 mls @ 166.7 mls/hr IVPB Q24H [facility] PRN Reason: Protocol Last Admin: 10/07/17 10:23 Dose: 166.7 mls/hr Piperacillin Sod/Tazobactam Sod (Zosyn 3.375 Gm Iv Premix) 3.375 gm in 50 mls @ 100 mls/hr IVPB Q8H [facility] PRN Reason: Protocol Last Admin: 10/07/17 10:22 Dose: 100 mls/hr Metoprolol Succinate (Toprol Xl) 50 mg PO DAILY [facility] Last Admin: 10/07/17 10:21 Dose: Not Given Mupirocin (Bactroban Ointment) 0 gm TOP DAILY [facility] Last Admin: 10/07/17 10:18 Dose: Not Given Naproxen (Anaprox) 275 mg PO QID PRN PRN Reason: Pain, Mild (1-3) Last Admin: 10/04/17 15:38 Dose: 275 mg Oxycodone/Acetaminophen (Percocet 5/325 Mg Tab) 1 tab PO Q4H PRN PRN Reason: Pain, moderate (4-7) Stop: 10/07/17 16:11 Oxycodone/Acetaminophen (Percocet 5/325 Mg Tab) 2 tab PO Q4H PRN PRN Reason: Pain, severe (8-10) Stop: 10/07/17 16:11 - Labs Labs: 10/05/17 06:36 10/05/17 06:36 PT 14.4 SECONDS (9.7-12.2) H 09/28/17 09:13 INR 1.3 09/28/17 09:13 APTT 28 SECONDS (21-34) 09/28/17 09:13 - Constitutional Appears: Non-toxic, Chronically Ill - Head Exam Head Exam: NORMOCEPHALIC - Eye Exam Eye Exam: PERRL - ENT Exam ENT Exam: Mucous Membranes Dry - Neck Exam Neck Exam: absent: Thyromegaly - Respiratory Exam Respiratory Exam: Decreased Breath Sounds - Cardiovascular Exam Cardiovascular Exam: REGULAR RHYTHM - GI/Abdominal Exam GI & Abdominal Exam: Distended, Soft Assessment and Plan (1) Alcohol intoxication Status: Acute (2) Cellulitis and abscess of foot Status: Acute (3) Chronic congestive heart failure Status: Acute (4) COPD (chronic obstructive pulmonary disease) Status: Chronic (5) Osteomyelitis of toe of left foot Status: Acute - Assessment and Plan (Free Text) Assessment: cont iv rx for 6 weeks
[2017-10-08] MEDS: Piperacill/Tazo 3.375gm in Dex 3.375 GM/50 ML BAG IVPB SCH ×3 (02:48→17:54)
[2017-10-08] MEDS: Metoprolol Succinate 50 mg XL Tab PO SCH (09:15)
[2017-10-08] MEDS: Vancomycin 1 GM in Sodium Chloride 0.9% 200 ML IVPB SCH (09:16)
--- NOTE | 2017-10-08 10:25 | CP.PCM.PN ---
Subjective - Date & Time of Evaluation Date of Evaluation: 10/08/17 Time of Evaluation: 10:23 - Subjective Subjective: Podiatry Progress Note - Dr. Harris 57M seen and examined this AM, 7 days s/p left hallux amputation. Patient remains hemodynamically stable and NAD. Patient states he has not taken medication for the pain as the pain is mild and only comes and goes. No acute events overnight. No new complaints to LLE. Dressing to LLE clean/dry/intact. Denies N/V/F/D/C/SOB/MONTERO/CP. Objective - Vital Signs/Intake and Output Vital Signs (last 24 hours): Temp Pulse Resp BP Pulse Ox 99 F 62 20 153/75 H 98 10/08/17 00:00 10/08/17 00:00 10/08/17 00:00 10/08/17 09:15 10/08/17 00:00 Intake and Output: 10/08/17 10/08/17 06:59 18:59 Intake Total 750 Output Total 900 Balance -150 - Medications Medications: Current Medications Acetaminophen (Tylenol 325mg Tab) 650 mg PO Q6 PRN PRN Reason: Pain, Mild (1-3) Furosemide (Lasix) 40 mg IVP DAILY [facility] Last Admin: 10/08/17 09:15 Dose: Not Given Vancomycin HCl 1 gm/ Sodium (Chloride) 200 mls @ 166.7 mls/hr IVPB Q24H [facility] PRN Reason: Protocol Last Admin: 10/08/17 09:16 Dose: 166.7 mls/hr Piperacillin Sod/Tazobactam Sod (Zosyn 3.375 Gm Iv Premix) 3.375 gm in 50 mls @ 100 mls/hr IVPB Q8H [facility] PRN Reason: Protocol Last Admin: 10/08/17 02:48 Dose: 100 mls/hr Metoprolol Succinate (Toprol Xl) 50 mg PO DAILY [facility] Last Admin: 10/08/17 09:15 Dose: 50 mg Mupirocin (Bactroban Ointment) 0 gm TOP DAILY [facility] Last Admin: 10/08/17 09:16 Dose: Not Given Naproxen (Anaprox) 275 mg PO QID PRN PRN Reason: Pain, Mild (1-3) Last Admin: 10/04/17 15:38 Dose: 275 mg - Labs Labs: 10/05/17 06:36 10/05/17 06:36 PT 14.4 SECONDS (9.7-12.2) H 09/28/17 09:13 INR 1.3 09/28/17 09:13 APTT 28 SECONDS (21-34) 09/28/17 09:13 - Constitutional Appears: Well, Non-toxic, No Acute Distress - Extremities Exam Additional comments: VASC: DP pulses weakly palpable 1/4 B/L. PT pulses palpable 1/4 B/L. CFT <3 seconds digits 1-5 R and 2-4 L; CFT present to hallux amputation site. +1 pitting edema bilaterally L>R, improving. NEURO: Gross pedal sensation is diminished B/L. DERM: Linear incision noted to hallux amputation site appears to be well- coapted with sutures intact and minimal wound dehiscence noted. Mild maceration present centrally to incision site. No purulence present; minimal serosanguinous drainage present. Mild weeping superficial ulcerations noted circumferentially around bilateral LE. ORTHO: s/p left hallux amputation with mild tenderness to palpation noted. Muscle strength 5/5 for all dorsiflexors, plantarflexors, inverters, and everters. - Neurological Exam Neurological Exam: Alert, Awake, Oriented x3 - Psychiatric Exam Psychiatric exam: Normal Affect, Normal Mood Assessment and Plan - Assessment and Plan (Free Text) Assessment: 57 y/o male 7 days s/p left hallux amputation Plan: Patient seen and evaluated at bedside Plan discussed with attending Dr. Harris Chart, labs and vital reviewed Continue local wound care - betadine, DSD, NINI Wound care note and assessment appreciated Pt is to remain strict NWB to LLE; OOB to bedside commode only Continue antibiotics per ID - Vancomycin, Zosyn Per ID, patient to have 6 weeks of IV abx Pain control - Naproxen, Tylenol, Percocet Dispo planning in progress - d/c to [facility] pending approval Pt is stable for d/c from podiatry standpoint, to follow up with Dr. Harris as outpatient Podiatry will continue to follow
--- NOTE | 2017-10-08 11:07 | CARD ---
APPROVED REPORT Date of service: 09/28/2017 EKG Measurement Heart [id number] <Conclusion> Normal sinus rhythm Normal ECG
--- NOTE | 2017-10-08 12:04 | CP.PCM.PN ---
Subjective - Date & Time of Evaluation Date of Evaluation: 10/08/17 Time of Evaluation: 12:03 - Subjective Subjective: CONDITION SAME. FOOT IMPROVING. Objective - Vital Signs/Intake and Output Vital Signs (last 24 hours): Temp Pulse Resp BP Pulse Ox 99 F 62 20 153/75 H 98 10/08/17 00:00 10/08/17 00:00 10/08/17 00:00 10/08/17 09:15 10/08/17 00:00 Intake and Output: 10/08/17 10/08/17 06:59 18:59 Intake Total 750 Output Total 900 Balance -150 - Medications Medications: Current Medications Acetaminophen (Tylenol 325mg Tab) 650 mg PO Q6 PRN PRN Reason: Pain, Mild (1-3) Furosemide (Lasix) 40 mg IVP DAILY [facility] Last Admin: 10/08/17 09:15 Dose: Not Given Vancomycin HCl 1 gm/ Sodium (Chloride) 200 mls @ 166.7 mls/hr IVPB Q24H [facility] PRN Reason: Protocol Last Admin: 10/08/17 09:16 Dose: 166.7 mls/hr Piperacillin Sod/Tazobactam Sod (Zosyn 3.375 Gm Iv Premix) 3.375 gm in 50 mls @ 100 mls/hr IVPB Q8H [facility] PRN Reason: Protocol Last Admin: 10/08/17 10:41 Dose: 100 mls/hr Metoprolol Succinate (Toprol Xl) 50 mg PO DAILY [facility] Last Admin: 10/08/17 09:15 Dose: 50 mg Mupirocin (Bactroban Ointment) 0 gm TOP DAILY [facility] Last Admin: 10/08/17 09:16 Dose: Not Given Naproxen (Anaprox) 275 mg PO QID PRN PRN Reason: Pain, Mild (1-3) Last Admin: 10/04/17 15:38 Dose: 275 mg - Labs Labs: 10/05/17 06:36 10/05/17 06:36 PT 14.4 SECONDS (9.7-12.2) H 09/28/17 09:13 INR 1.3 09/28/17 09:13 APTT 28 SECONDS (21-34) 09/28/17 09:13 - Constitutional Appears: No Acute Distress, Chronically Ill - Eye Exam Eye Exam: EOMI, Normal appearance, PERRL Pupil Exam: NORMAL ACCOMODATION, PERRL - ENT Exam ENT Exam: Mucous Membranes Moist, Normal Exam - Respiratory Exam Respiratory Exam: Clear to Ausculation Bilateral, NORMAL BREATHING PATTERN - Cardiovascular Exam Cardiovascular Exam: REGULAR RHYTHM, +S1, +S2. absent: Murmur - GI/Abdominal Exam GI & Abdominal Exam: Soft, Normal Bowel Sounds. absent: Tenderness - Extremities Exam Extremities Exam: Full ROM, Normal Capillary Refill, Normal Inspection. absent : Joint Swelling, Pedal Edema - Back Exam Back Exam: NORMAL INSPECTION - Neurological Exam Neurological Exam: Alert, Awake, CN II-XII Intact, Normal Gait, Oriented x3 - Psychiatric Exam Psychiatric exam: Normal Affect, Normal Mood Assessment and Plan - Assessment and Plan (Free Text) Assessment: STABLE. Plan: FOR AGA. CT IV ABTS.
--- NOTE | 2017-10-08 13:11 | CP.PCM.PN ---
Subjective - Date & Time of Evaluation Date of Evaluation: 10/08/17 Time of Evaluation: 08:00 - Subjective Subjective: no fever tolerating rx Objective - Vital Signs/Intake and Output Vital Signs (last 24 hours): Temp Pulse Resp BP Pulse Ox 99 F 62 20 153/75 H 98 10/08/17 00:00 10/08/17 00:00 10/08/17 00:00 10/08/17 09:15 10/08/17 00:00 Intake and Output: 10/08/17 10/08/17 06:59 18:59 Intake Total 750 Output Total 900 Balance -150 - Medications Medications: Current Medications Acetaminophen (Tylenol 325mg Tab) 650 mg PO Q6 PRN PRN Reason: Pain, Mild (1-3) Furosemide (Lasix) 40 mg PO BID [facility] Vancomycin HCl 1 gm/ Sodium (Chloride) 200 mls @ 166.7 mls/hr IVPB Q24H [facility] PRN Reason: Protocol Last Admin: 10/08/17 09:16 Dose: 166.7 mls/hr Piperacillin Sod/Tazobactam Sod (Zosyn 3.375 Gm Iv Premix) 3.375 gm in 50 mls @ 100 mls/hr IVPB Q8H [facility] PRN Reason: Protocol Last Admin: 10/08/17 10:41 Dose: 100 mls/hr Metoprolol Succinate (Toprol Xl) 50 mg PO DAILY [facility] Last Admin: 10/08/17 09:15 Dose: 50 mg Mupirocin (Bactroban Ointment) 0 gm TOP DAILY [facility] Last Admin: 10/08/17 09:16 Dose: Not Given Naproxen (Anaprox) 275 mg PO QID PRN PRN Reason: Pain, Mild (1-3) Last Admin: 10/04/17 15:38 Dose: 275 mg - Labs Labs: 10/05/17 06:36 10/05/17 06:36 PT 14.4 SECONDS (9.7-12.2) H 09/28/17 09:13 INR 1.3 09/28/17 09:13 APTT 28 SECONDS (21-34) 09/28/17 09:13 - Constitutional Appears: Non-toxic, Chronically Ill - Head Exam Head Exam: NORMOCEPHALIC - Eye Exam Eye Exam: PERRL - ENT Exam ENT Exam: Normal External Ear Exam - Neck Exam Neck Exam: absent: Lymphadenopathy - Respiratory Exam Respiratory Exam: Decreased Breath Sounds - Cardiovascular Exam Cardiovascular Exam: REGULAR RHYTHM - GI/Abdominal Exam GI & Abdominal Exam: Distended, Soft - Rectal Exam Rectal Exam: Deferred - Exam Exam: NORMAL INSPECTION Assessment and Plan (1) Alcohol intoxication Status: Acute (2) Cellulitis and abscess of foot Status: Acute (3) Chronic congestive heart failure Status: Acute (4) COPD (chronic obstructive pulmonary disease) Status: Chronic (5) Osteomyelitis of toe of left foot Status: Acute
[2017-10-09] MEDS: Piperacill/Tazo 3.375gm in Dex 3.375 GM/50 ML BAG IVPB SCH ×3 (02:20→18:45)
[2017-10-09] MEDS: Metoprolol Succinate 50 mg XL Tab PO SCH (09:09)
[2017-10-09] MEDS: Vancomycin 1 GM in Sodium Chloride 0.9% 200 ML IVPB SCH (09:10)
--- NOTE | 2017-10-09 11:40 | CP.PCM.PN ---
Subjective - Date & Time of Evaluation Date of Evaluation: 10/09/17 Time of Evaluation: 11:40 - Subjective Subjective: Podiatry Progress Note - Dr. Harris 57 y/o male seen and examined this morning with attending Dr. Harris, 8 days s/p left hallux amputation. Patient admits to mild intermittent pain in the left foot at the surgical site. States he has not been walking on the foot. No acute events overnight. No new complaints to LLE. Dressing to LLE clean/dry/intact. Denies N/V/F/D/C/SOB/MONTERO/CP. Objective - Vital Signs/Intake and Output Vital Signs (last 24 hours): Temp Pulse Resp BP Pulse Ox 99.3 F 56 L 20 140/70 96 10/09/17 07:53 10/09/17 07:53 10/09/17 07:53 10/09/17 09:09 10/09/17 07:53 Intake and Output: 10/09/17 10/09/17 06:59 18:59 Intake Total 650 Output Total 1300 Balance -650 - Medications Medications: Current Medications Acetaminophen (Tylenol 325mg Tab) 650 mg PO Q6 PRN PRN Reason: Pain, Mild (1-3) Furosemide (Lasix) 40 mg PO BID [facility] Last Admin: 10/09/17 09:09 Dose: 40 mg Vancomycin HCl 1 gm/ Sodium (Chloride) 200 mls @ 166.7 mls/hr IVPB Q24H [facility] PRN Reason: Protocol Last Admin: 10/09/17 09:10 Dose: 166.7 mls/hr Piperacillin Sod/Tazobactam Sod (Zosyn 3.375 Gm Iv Premix) 3.375 gm in 50 mls @ 100 mls/hr IVPB Q8H [facility] PRN Reason: Protocol Last Admin: 10/09/17 10:13 Dose: 100 mls/hr Metoprolol Succinate (Toprol Xl) 50 mg PO DAILY [facility] Last Admin: 10/09/17 09:09 Dose: 50 mg Mupirocin (Bactroban Ointment) 0 gm TOP DAILY [facility] Last Admin: 10/09/17 09:11 Dose: Not Given Naproxen (Anaprox) 275 mg PO QID PRN PRN Reason: Pain, Mild (1-3) Last Admin: 10/04/17 15:38 Dose: 275 mg - Labs Labs: 10/05/17 06:36 10/05/17 06:36 PT 14.4 SECONDS (9.7-12.2) H 09/28/17 09:13 INR 1.3 09/28/17 09:13 APTT 28 SECONDS (21-34) 09/28/17 09:13 - Constitutional Appears: Well, Non-toxic, No Acute Distress - Extremities Exam Additional comments: VASC: DP pulses weakly palpable 1/4 B/L. PT pulses palpable 1/4 B/L. CFT <3 seconds digits 1-5 R and 2-4 L; CFT present to hallux amputation site. +1 pitting edema bilaterally L>R, improving. NEURO: Gross pedal sensation is diminished B/L. DERM: Linear incision noted to hallux amputation site appears to be well- coapted with sutures intact. Mild wound dehiscence is noted to lateral aspect of surgical incision site. Good signs of healthy granulation tissue noted to be filling in this region. Mild maceration present centrally to incision site. No purulence present; minimal serosanguinous drainage present. Mild weeping superficial ulcerations noted circumferentially around bilateral LE. ORTHO: s/p left hallux amputation with mild tenderness to palpation noted. Muscle strength 5/5 for all dorsiflexors, plantarflexors, inverters, and everters. - Neurological Exam Neurological Exam: Alert, Awake, Oriented x3 - Psychiatric Exam Psychiatric exam: Normal Affect, Normal Mood Assessment and Plan - Assessment and Plan (Free Text) Assessment: 57 y/o male 8 days s/p left hallux amputation Plan: Patient seen and evaluated at bedside with attending Dr. Harris Chart, labs and vital reviewed Continue local wound care - betadine, DSD, NINI Wound care note and assessment appreciated Pt is to remain strict NWB to LLE; OOB to bedside commode only Continue antibiotics per ID - Vancomycin, Zosyn Per ID, patient to have 6 weeks of IV abx Pain control - Naproxen, Tylenol, Percocet Dispo planning in progress - d/c to [facility] pending approval Pt is stable for D/C from podiatry standpoint, to follow up with Dr. Harris as outpatient Podiatry will continue to follow
--- NOTE | 2017-10-09 11:47 | CP.PCM.PN ---
Subjective - Date & Time of Evaluation Date of Evaluation: 10/09/17 Time of Evaluation: 11:45 - Subjective Subjective: CONDITION SAME. AFEBRILE. VS WNL. WOUND IMPROVING. Objective - Vital Signs/Intake and Output Vital Signs (last 24 hours): Temp Pulse Resp BP Pulse Ox 99.3 F 56 L 20 140/70 96 10/09/17 07:53 10/09/17 07:53 10/09/17 07:53 10/09/17 09:09 10/09/17 07:53 Intake and Output: 10/09/17 10/09/17 06:59 18:59 Intake Total 650 Output Total 1300 Balance -650 - Medications Medications: Current Medications Acetaminophen (Tylenol 325mg Tab) 650 mg PO Q6 PRN PRN Reason: Pain, Mild (1-3) Furosemide (Lasix) 40 mg PO BID [facility] Last Admin: 10/09/17 09:09 Dose: 40 mg Vancomycin HCl 1 gm/ Sodium (Chloride) 200 mls @ 166.7 mls/hr IVPB Q24H [facility] PRN Reason: Protocol Last Admin: 10/09/17 09:10 Dose: 166.7 mls/hr Piperacillin Sod/Tazobactam Sod (Zosyn 3.375 Gm Iv Premix) 3.375 gm in 50 mls @ 100 mls/hr IVPB Q8H [facility] PRN Reason: Protocol Last Admin: 10/09/17 10:13 Dose: 100 mls/hr Metoprolol Succinate (Toprol Xl) 50 mg PO DAILY [facility] Last Admin: 10/09/17 09:09 Dose: 50 mg Mupirocin (Bactroban Ointment) 0 gm TOP DAILY [facility] Last Admin: 10/09/17 09:11 Dose: Not Given Naproxen (Anaprox) 275 mg PO QID PRN PRN Reason: Pain, Mild (1-3) Last Admin: 10/04/17 15:38 Dose: 275 mg - Labs Labs: 10/05/17 06:36 10/05/17 06:36 PT 14.4 SECONDS (9.7-12.2) H 09/28/17 09:13 INR 1.3 09/28/17 09:13 APTT 28 SECONDS (21-34) 09/28/17 09:13 - Constitutional Appears: No Acute Distress, Chronically Ill - Eye Exam Eye Exam: EOMI, Normal appearance, PERRL Pupil Exam: NORMAL ACCOMODATION, PERRL - ENT Exam ENT Exam: Mucous Membranes Moist, Normal Exam - Neck Exam Neck Exam: Full ROM, Normal Inspection. absent: Lymphadenopathy - Respiratory Exam Respiratory Exam: Clear to Ausculation Bilateral, NORMAL BREATHING PATTERN - Cardiovascular Exam Cardiovascular Exam: REGULAR RHYTHM, +S1, +S2. absent: Murmur - GI/Abdominal Exam GI & Abdominal Exam: Soft, Normal Bowel Sounds. absent: Tenderness - Extremities Exam Extremities Exam: Full ROM, Normal Capillary Refill, Normal Inspection. absent : Joint Swelling, Pedal Edema - Back Exam Back Exam: NORMAL INSPECTION Assessment and Plan - Assessment and Plan (Free Text) Assessment: OM. S/P LT BIG TOE AMPUTATION. Plan: CT PRESENT TREATMENT.
--- NOTE | 2017-10-09 13:23 | CP.PCM.PN ---
Subjective - Date & Time of Evaluation Date of Evaluation: 10/09/17 Time of Evaluation: 08:00 - Subjective Subjective: Patient admits to mild intermittent pain in the left foot at the surgical site. States he has not been walking on the foot. No acute events overnight. No new complaints to LLE. Dressing to LLE clean/dry/intact. Denies N/V/F/D/C/SOB/MONTERO/CP. Objective - Vital Signs/Intake and Output Vital Signs (last 24 hours): Temp Pulse Resp BP Pulse Ox 99.3 F 56 L 20 140/70 96 10/09/17 07:53 10/09/17 07:53 10/09/17 07:53 10/09/17 09:09 10/09/17 07:53 Intake and Output: 10/09/17 10/09/17 06:59 18:59 Intake Total 650 Output Total 1300 Balance -650 - Medications Medications: Current Medications Acetaminophen (Tylenol 325mg Tab) 650 mg PO Q6 PRN PRN Reason: Pain, Mild (1-3) Furosemide (Lasix) 40 mg PO BID [facility] Last Admin: 10/09/17 09:09 Dose: 40 mg Vancomycin HCl 1 gm/ Sodium (Chloride) 200 mls @ 166.7 mls/hr IVPB Q24H [facility] PRN Reason: Protocol Last Admin: 10/09/17 09:10 Dose: 166.7 mls/hr Piperacillin Sod/Tazobactam Sod (Zosyn 3.375 Gm Iv Premix) 3.375 gm in 50 mls @ 100 mls/hr IVPB Q8H [facility] PRN Reason: Protocol Last Admin: 10/09/17 10:13 Dose: 100 mls/hr Metoprolol Succinate (Toprol Xl) 50 mg PO DAILY [facility] Last Admin: 10/09/17 09:09 Dose: 50 mg Mupirocin (Bactroban Ointment) 0 gm TOP DAILY [facility] Last Admin: 10/09/17 09:11 Dose: Not Given Naproxen (Anaprox) 275 mg PO QID PRN PRN Reason: Pain, Mild (1-3) Last Admin: 10/04/17 15:38 Dose: 275 mg - Labs Labs: 10/05/17 06:36 10/05/17 06:36 PT 14.4 SECONDS (9.7-12.2) H 09/28/17 09:13 INR 1.3 09/28/17 09:13 APTT 28 SECONDS (21-34) 09/28/17 09:13 - Constitutional Appears: Non-toxic, Chronically Ill - Head Exam Head Exam: NORMOCEPHALIC - Eye Exam Eye Exam: PERRL - ENT Exam ENT Exam: Mucous Membranes Dry - Neck Exam Neck Exam: absent: Lymphadenopathy - Respiratory Exam Respiratory Exam: Decreased Breath Sounds - Cardiovascular Exam Cardiovascular Exam: REGULAR RHYTHM - GI/Abdominal Exam GI & Abdominal Exam: Distended Assessment and Plan (1) Alcohol intoxication Status: Acute (2) Cellulitis and abscess of foot Status: Acute (3) Chronic congestive heart failure Status: Acute (4) COPD (chronic obstructive pulmonary disease) Status: Chronic (5) Osteomyelitis of toe of left foot Status: Acute - Assessment and Plan (Free Text) Assessment: Patient admits to mild intermittent pain in the left foot at the surgical site. States he has not been walking on the foot. No acute events overnight. No new complaints to LLE. Dressing to LLE clean/dry/intact. Denies N/V/F/D/C/SOB/MONTERO/CP.
[2017-10-10] MEDS: Piperacill/Tazo 3.375gm in Dex 3.375 GM/50 ML BAG IVPB SCH ×2 (01:45→10:43)
[2017-10-10] MEDS: Naproxen 275 mg Tab PO PRN (04:30)
[2017-10-10] MEDS: Vancomycin 1 GM in Sodium Chloride 0.9% 200 ML IVPB SCH (09:33)
[2017-10-10] MEDS: Metoprolol Succinate 50 mg XL Tab PO SCH (09:34)
--- NOTE | 2017-10-10 12:09 | CP.PCM.PN ---
Subjective - Date & Time of Evaluation Date of Evaluation: 10/10/17 Time of Evaluation: 12:08 - Subjective Subjective: WOUND IMPROVING. AFEBRILE. VS WNL. Objective - Vital Signs/Intake and Output Vital Signs (last 24 hours): Temp Pulse Resp BP Pulse Ox 97.6 F 60 20 133/71 95 10/10/17 09:40 10/10/17 09:40 10/10/17 09:40 10/10/17 09:40 10/10/17 09:40 Intake and Output: 10/10/17 10/10/17 06:59 18:59 Intake Total 450 Balance 450 - Medications Medications: Current Medications Acetaminophen (Tylenol 325mg Tab) 650 mg PO Q6 PRN PRN Reason: Pain, Mild (1-3) Furosemide (Lasix) 40 mg PO BID [facility] Last Admin: 10/10/17 09:34 Dose: Not Given Vancomycin HCl 1 gm/ Sodium (Chloride) 200 mls @ 166.7 mls/hr IVPB Q24H [facility] PRN Reason: Protocol Last Admin: 10/10/17 09:33 Dose: 166.7 mls/hr Cefepime HCl (Maxipime Iv 1 Gm Premix) 1 gm in 50 mls @ 100 mls/hr IVPB Q12H [facility] PRN Reason: Protocol Metoprolol Succinate (Toprol Xl) 50 mg PO DAILY [facility] Last Admin: 10/10/17 09:34 Dose: 50 mg Mupirocin (Bactroban Ointment) 0 gm TOP DAILY [facility] Last Admin: 10/10/17 09:34 Dose: Not Given Naproxen (Anaprox) 275 mg PO QID PRN PRN Reason: Pain, Mild (1-3) Last Admin: 10/10/17 04:30 Dose: 275 mg - Labs Labs: 10/05/17 06:36 10/05/17 06:36 PT 14.4 SECONDS (9.7-12.2) H 09/28/17 09:13 INR 1.3 09/28/17 09:13 APTT 28 SECONDS (21-34) 09/28/17 09:13 - Constitutional Appears: No Acute Distress, Chronically Ill - Head Exam Head Exam: ATRAUMATIC, NORMAL INSPECTION, NORMOCEPHALIC - Eye Exam Eye Exam: EOMI, Normal appearance, PERRL Pupil Exam: NORMAL ACCOMODATION, PERRL - ENT Exam ENT Exam: Mucous Membranes Moist, Normal Exam - Neck Exam Neck Exam: Full ROM, Normal Inspection. absent: Lymphadenopathy - Respiratory Exam Respiratory Exam: Clear to Ausculation Bilateral, NORMAL BREATHING PATTERN - Cardiovascular Exam Cardiovascular Exam: REGULAR RHYTHM, +S1, +S2. absent: Murmur - GI/Abdominal Exam GI & Abdominal Exam: Soft, Normal Bowel Sounds. absent: Tenderness - Extremities Exam Extremities Exam: Full ROM, Normal Capillary Refill, Normal Inspection. absent : Joint Swelling, Pedal Edema - Back Exam Back Exam: NORMAL INSPECTION - Neurological Exam Neurological Exam: Alert, Awake, CN II-XII Intact, Normal Gait, Oriented x3 - Psychiatric Exam Psychiatric exam: Normal Affect, Normal Mood Assessment and Plan - Assessment and Plan (Free Text) Assessment: STABLE. Plan: FOR IV ABTS.
--- NOTE | 2017-10-10 13:01 | CP.PCM.PN ---
Subjective - Date & Time of Evaluation Date of Evaluation: 10/10/17 Time of Evaluation: 11:50 - Subjective Subjective: Podiatry Patient seen along with resident DR Rosalie Martinez( [place]). Patient was seen resting in bed. Foot redressed and wound appears to be healing well with a small amount of dehiscence. No edema or exudate noted. To continue wound care as long as patient is hospitalized. Objective - Vital Signs/Intake and Output Vital Signs (last 24 hours): Temp Pulse Resp BP Pulse Ox 97.6 F 60 20 133/71 95 10/10/17 09:40 10/10/17 09:40 10/10/17 09:40 10/10/17 09:40 10/10/17 09:40 Intake and Output: 10/10/17 10/10/17 06:59 18:59 Intake Total 450 Balance 450 - Medications Medications: Current Medications Acetaminophen (Tylenol 325mg Tab) 650 mg PO Q6 PRN PRN Reason: Pain, Mild (1-3) Furosemide (Lasix) 40 mg PO BID [facility] Last Admin: 10/10/17 09:34 Dose: Not Given Vancomycin HCl 1 gm/ Sodium (Chloride) 200 mls @ 166.7 mls/hr IVPB Q24H [facility] PRN Reason: Protocol Last Admin: 10/10/17 09:33 Dose: 166.7 mls/hr Cefepime HCl (Maxipime Iv 1 Gm Premix) 1 gm in 50 mls @ 100 mls/hr IVPB Q12H [facility] PRN Reason: Protocol Metoprolol Succinate (Toprol Xl) 50 mg PO DAILY [facility] Last Admin: 10/10/17 09:34 Dose: 50 mg Mupirocin (Bactroban Ointment) 0 gm TOP DAILY [facility] Last Admin: 10/10/17 09:34 Dose: Not Given Naproxen (Anaprox) 275 mg PO QID PRN PRN Reason: Pain, Mild (1-3) Last Admin: 10/10/17 04:30 Dose: 275 mg - Labs Labs: 10/05/17 06:36 10/05/17 06:36 PT 14.4 SECONDS (9.7-12.2) H 09/28/17 09:13 INR 1.3 09/28/17 09:13 APTT 28 SECONDS (21-34) 09/28/17 09:13
--- NOTE | 2017-10-10 15:15 | CP.PCM.PN ---
Subjective - Date & Time of Evaluation Date of Evaluation: 10/10/17 Time of Evaluation: 07:00 - Subjective Subjective: wound appears to be healing well with a small amount of dehiscence. Objective - Vital Signs/Intake and Output Vital Signs (last 24 hours): Temp Pulse Resp BP Pulse Ox 97.6 F 60 20 133/71 95 10/10/17 09:40 10/10/17 09:40 10/10/17 09:40 10/10/17 09:40 10/10/17 09:40 Intake and Output: 10/10/17 10/10/17 06:59 18:59 Intake Total 450 Balance 450 - Medications Medications: Current Medications Acetaminophen (Tylenol 325mg Tab) 650 mg PO Q6 PRN PRN Reason: Pain, Mild (1-3) Furosemide (Lasix) 40 mg PO BID [facility] Last Admin: 10/10/17 09:34 Dose: Not Given Vancomycin HCl 1 gm/ Sodium (Chloride) 200 mls @ 166.7 mls/hr IVPB Q24H [facility] PRN Reason: Protocol Last Admin: 10/10/17 09:33 Dose: 166.7 mls/hr Cefepime HCl (Maxipime Iv 1 Gm Premix) 1 gm in 50 mls @ 100 mls/hr IVPB Q12H [facility] PRN Reason: Protocol Metoprolol Succinate (Toprol Xl) 50 mg PO DAILY [facility] Last Admin: 10/10/17 09:34 Dose: 50 mg Mupirocin (Bactroban Ointment) 0 gm TOP DAILY [facility] Last Admin: 10/10/17 09:34 Dose: Not Given Naproxen (Anaprox) 275 mg PO QID PRN PRN Reason: Pain, Mild (1-3) Last Admin: 10/10/17 04:30 Dose: 275 mg - Labs Labs: 10/05/17 06:36 10/05/17 06:36 PT 14.4 SECONDS (9.7-12.2) H 09/28/17 09:13 INR 1.3 09/28/17 09:13 APTT 28 SECONDS (21-34) 09/28/17 09:13 - Constitutional Appears: Non-toxic, Chronically Ill - Head Exam Head Exam: NORMOCEPHALIC - Eye Exam Eye Exam: PERRL - ENT Exam ENT Exam: Mucous Membranes Dry - Neck Exam Neck Exam: absent: Lymphadenopathy - Respiratory Exam Respiratory Exam: Decreased Breath Sounds - Cardiovascular Exam Cardiovascular Exam: REGULAR RHYTHM - GI/Abdominal Exam GI & Abdominal Exam: Distended, Soft - Rectal Exam Rectal Exam: Deferred - Exam Exam: NORMAL INSPECTION - Extremities Exam Extremities Exam: Pedal Edema - Back Exam Back Exam: absent: CVA tenderness (L), CVA tenderness (R), paraspinal tenderness Assessment and Plan (1) Alcohol intoxication Status: Acute (2) Cellulitis and abscess of foot Status: Acute (3) Chronic congestive heart failure Status: Acute (4) COPD (chronic obstructive pulmonary disease) Status: Chronic (5) Osteomyelitis of toe of left foot Status: Acute - Assessment and Plan (Free Text) Assessment: cont iv rx and wound care
[2017-10-10] MEDS: Cefepime IV 1 gm in Dextrose 1 GM/50 ML BAG IVPB SCH (20:28)
[2017-10-11] MEDS: Naproxen 275 mg Tab PO PRN (01:42)
[2017-10-11] MEDS: Cefepime IV 1 gm in Dextrose 1 GM/50 ML BAG IVPB SCH ×2 (07:25→20:40)
[2017-10-11] MEDS: Vancomycin 1 GM in Sodium Chloride 0.9% 200 ML IVPB SCH (09:12)
[2017-10-11] MEDS: Metoprolol Succinate 50 mg XL Tab PO SCH (09:12)
--- NOTE | 2017-10-11 09:58 | CP.PCM.PN ---
Subjective - Date & Time of Evaluation Date of Evaluation: 10/11/17 Time of Evaluation: 09:58 - Subjective Subjective: Podiatry Progress Note - Dr. Harris 57 y/o male seen and examined today 10 days s/p left hallux amputation. Patient denies putting any weight on the foot. States he has some mild pain now and then which is well controlled. No acute events overnight. No new complaints to LLE. Dressing to LLE clean/dry/intact. Denies N/V/F/D/C/SOB/MONTERO/CP. Objective - Vital Signs/Intake and Output Vital Signs (last 24 hours): Temp Pulse Resp BP Pulse Ox 98.6 F 60 20 160/75 H 98 10/11/17 00:00 10/11/17 00:00 10/11/17 00:00 10/11/17 00:00 10/11/17 00:00 Intake and Output: 10/11/17 10/11/17 06:59 18:59 Intake Total 540 Balance 540 - Medications Medications: Current Medications Acetaminophen (Tylenol 325mg Tab) 650 mg PO Q6 PRN PRN Reason: Pain, Mild (1-3) Furosemide (Lasix) 40 mg PO BID [facility] Last Admin: 10/11/17 09:13 Dose: Not Given Vancomycin HCl 1 gm/ Sodium (Chloride) 200 mls @ 166.7 mls/hr IVPB Q24H [facility] PRN Reason: Protocol Last Admin: 10/11/17 09:12 Dose: 166.7 mls/hr Cefepime HCl (Maxipime Iv 1 Gm Premix) 1 gm in 50 mls @ 100 mls/hr IVPB Q12H [facility] PRN Reason: Protocol Last Admin: 10/11/17 07:25 Dose: 100 mls/hr Metoprolol Succinate (Toprol Xl) 50 mg PO DAILY [facility] Last Admin: 10/11/17 09:12 Dose: 50 mg Mupirocin (Bactroban Ointment) 0 gm TOP DAILY [facility] Last Admin: 10/11/17 09:12 Dose: Not Given Naproxen (Anaprox) 275 mg PO QID PRN PRN Reason: Pain, Mild (1-3) Last Admin: 10/11/17 01:42 Dose: 275 mg - Labs Labs: 10/05/17 06:36 10/05/17 06:36 PT 14.4 SECONDS (9.7-12.2) H 09/28/17 09:13 INR 1.3 09/28/17 09:13 APTT 28 SECONDS (21-34) 09/28/17 09:13 - Constitutional Appears: Well, Non-toxic, No Acute Distress - Extremities Exam Additional comments: VASC: DP pulses weakly palpable 1/4 B/L. PT pulses palpable 1/4 B/L. CFT <3 seconds digits 1-5 R and 2-4 L; CFT present to hallux amputation site. Mild pedal edema noted B/L. NEURO: Gross pedal sensation is diminished B/L. DERM: Linear incision noted to hallux amputation site appears to be well- coapted with sutures intact. Mild wound dehiscence is noted to lateral 1/3 of surgical incision site. Granulation tissue noted to dehisced part of post- surgical wound. Mild maceration present centrally to incision site, improving. No purulence or serosanguinous drainage present. Mild weeping superficial ulcerations noted circumferentially around bilateral LE, improving since admission ORTHO: s/p left hallux amputation with mild tenderness to palpation noted. Muscle strength 5/5 for all dorsiflexors, plantarflexors, inverters, and everters. - Neurological Exam Neurological Exam: Alert, Awake, Oriented x3 - Psychiatric Exam Psychiatric exam: Normal Affect, Normal Mood Assessment and Plan - Assessment and Plan (Free Text) Assessment: 57 y/o male 10 days s/p left hallux amputation Plan: Patient seen and evaluated at bedside Discussed plan with attending Dr. Harris Chart, labs and vital reviewed Continue local wound care - betadine, DSD, NINI Wound care note and assessment appreciated Pt is to remain strict NWB to LLE; OOB to bedside commode only Continue antibiotics per ID - Vancomycin, Zosyn Per ID, patient to have 6 weeks of IV abx Pain control - Naproxen, Tylenol, Percocet Dispo planning in progress - d/c to [facility] pending approval Pt is stable for D/C from podiatry standpoint, to follow up with Dr. Harris as outpatient Podiatry will continue to follow
--- NOTE | 2017-10-11 11:58 | CP.PCM.PN ---
Subjective - Date & Time of Evaluation Date of Evaluation: 10/11/17 Time of Evaluation: 11:56 - Subjective Subjective: condition remains same. stable. wound improving. Objective - Vital Signs/Intake and Output Vital Signs (last 24 hours): Temp Pulse Resp BP Pulse Ox 98.6 F 60 20 160/75 H 98 10/11/17 00:00 10/11/17 00:00 10/11/17 00:00 10/11/17 00:00 10/11/17 00:00 Intake and Output: 10/11/17 10/11/17 06:59 18:59 Intake Total 540 Balance 540 - Medications Medications: Current Medications Acetaminophen (Tylenol 325mg Tab) 650 mg PO Q6 PRN PRN Reason: Pain, Mild (1-3) Furosemide (Lasix) 40 mg PO BID [facility] Last Admin: 10/11/17 09:13 Dose: Not Given Vancomycin HCl 1 gm/ Sodium (Chloride) 200 mls @ 166.7 mls/hr IVPB Q24H [facility] PRN Reason: Protocol Last Admin: 10/11/17 09:12 Dose: 166.7 mls/hr Cefepime HCl (Maxipime Iv 1 Gm Premix) 1 gm in 50 mls @ 100 mls/hr IVPB Q12H [facility] PRN Reason: Protocol Last Admin: 10/11/17 07:25 Dose: 100 mls/hr Metoprolol Succinate (Toprol Xl) 50 mg PO DAILY [facility] Last Admin: 10/11/17 09:12 Dose: 50 mg Mupirocin (Bactroban Ointment) 0 gm TOP DAILY [facility] Last Admin: 10/11/17 09:12 Dose: Not Given Naproxen (Anaprox) 275 mg PO QID PRN PRN Reason: Pain, Mild (1-3) Last Admin: 10/11/17 01:42 Dose: 275 mg - Labs Labs: 10/05/17 06:36 10/05/17 06:36 PT 14.4 SECONDS (9.7-12.2) H 09/28/17 09:13 INR 1.3 09/28/17 09:13 APTT 28 SECONDS (21-34) 09/28/17 09:13 - Constitutional Appears: No Acute Distress, Chronically Ill - Head Exam Head Exam: ATRAUMATIC, NORMAL INSPECTION, NORMOCEPHALIC - Eye Exam Eye Exam: EOMI, Normal appearance, PERRL Pupil Exam: NORMAL ACCOMODATION, PERRL - ENT Exam ENT Exam: Mucous Membranes Moist, Normal Exam - Neck Exam Neck Exam: Full ROM, Normal Inspection. absent: Lymphadenopathy - Respiratory Exam Respiratory Exam: Clear to Ausculation Bilateral, NORMAL BREATHING PATTERN - Cardiovascular Exam Cardiovascular Exam: REGULAR RHYTHM, +S1, +S2. absent: Murmur - GI/Abdominal Exam GI & Abdominal Exam: Soft, Normal Bowel Sounds. absent: Tenderness - Extremities Exam Extremities Exam: Full ROM, Normal Capillary Refill, Normal Inspection. absent : Joint Swelling, Pedal Edema - Neurological Exam Neurological Exam: Alert, Awake, CN II-XII Intact, Normal Gait, Oriented x3 Assessment and Plan - Assessment and Plan (Free Text) Assessment: stable. Plan: ct present treatment.
[2017-10-12] MEDS: Cefepime IV 1 gm in Dextrose 1 GM/50 ML BAG IVPB SCH ×2 (10:19→19:03)
[2017-10-12] MEDS: Vancomycin 1 GM in Sodium Chloride 0.9% 200 ML IVPB SCH (10:20)
[2017-10-12] MEDS: Metoprolol Succinate 50 mg XL Tab PO SCH (10:23)
--- NOTE | 2017-10-12 11:38 | CP.PCM.PN ---
Subjective - Date & Time of Evaluation Date of Evaluation: 10/12/17 Time of Evaluation: 11:36 - Subjective Subjective: CONDITION STABLE. AFEBRILE. Objective - Vital Signs/Intake and Output Vital Signs (last 24 hours): Temp Pulse Resp BP Pulse Ox 98.1 F 61 20 139/76 98 10/12/17 07:50 10/12/17 07:50 10/12/17 07:50 10/12/17 10:23 10/12/17 07:50 Intake and Output: 10/12/17 10/12/17 06:59 18:59 Intake Total 640 Balance 640 - Medications Medications: Current Medications Acetaminophen (Tylenol 325mg Tab) 650 mg PO Q6 PRN PRN Reason: Pain, Mild (1-3) Furosemide (Lasix) 40 mg PO BID [facility] Last Admin: 10/12/17 10:23 Dose: 40 mg Vancomycin HCl 1 gm/ Sodium (Chloride) 200 mls @ 166.7 mls/hr IVPB Q24H [facility] PRN Reason: Protocol Last Admin: 10/12/17 10:20 Dose: 166.7 mls/hr Cefepime HCl (Maxipime Iv 1 Gm Premix) 1 gm in 50 mls @ 100 mls/hr IVPB Q12H [facility] PRN Reason: Protocol Last Admin: 10/12/17 10:19 Dose: 100 mls/hr Metoprolol Succinate (Toprol Xl) 50 mg PO DAILY [facility] Last Admin: 10/12/17 10:23 Dose: 50 mg Mupirocin (Bactroban Ointment) 0 gm TOP DAILY [facility] Last Admin: 10/11/17 09:12 Dose: Not Given Naproxen (Anaprox) 275 mg PO QID PRN PRN Reason: Pain, Mild (1-3) Last Admin: 10/11/17 01:42 Dose: 275 mg - Labs Labs: 10/05/17 06:36 10/05/17 06:36 PT 14.4 SECONDS (9.7-12.2) H 09/28/17 09:13 INR 1.3 09/28/17 09:13 APTT 28 SECONDS (21-34) 09/28/17 09:13 - Constitutional Appears: No Acute Distress, Chronically Ill - Eye Exam Eye Exam: Normal appearance, PERRL - ENT Exam ENT Exam: Mucous Membranes Moist - Neck Exam Neck Exam: Normal Inspection - Respiratory Exam Respiratory Exam: Clear to Ausculation Bilateral, NORMAL BREATHING PATTERN - Cardiovascular Exam Cardiovascular Exam: REGULAR RHYTHM, +S1, +S2 - GI/Abdominal Exam GI & Abdominal Exam: Soft, Normal Bowel Sounds - Extremities Exam Extremities Exam: Full ROM, Normal Capillary Refill, Normal Inspection. absent : Joint Swelling, Pedal Edema - Back Exam Back Exam: NORMAL INSPECTION - Neurological Exam Neurological Exam: Alert, Awake, CN II-XII Intact, Normal Gait, Oriented x3 Assessment and Plan - Assessment and Plan (Free Text) Assessment: OM LT BIG TOE. Plan: FOR IV ANTIBIOTICS.
--- NOTE | 2017-10-12 12:11 | CP.PCM.PN ---
Subjective - Date & Time of Evaluation Date of Evaluation: 10/12/17 Time of Evaluation: 12:08 - Subjective Subjective: Podiatry Progress Note - Dr. Harris 57 y/o male seen and examined this morning with attending Dr. Harris, 11 days s/p left hallux amputation. Patient says he is not walking on the foot. Continues to report intermittent mild pain to the left foot surgical site which is well controlled. No acute events overnight. No new complaints to LLE. Dressing to LLE clean/dry/intact. Denies N/V/F/D/C/SOB/MONTERO/CP. Objective - Vital Signs/Intake and Output Vital Signs (last 24 hours): Temp Pulse Resp BP Pulse Ox 98.1 F 61 20 139/76 98 10/12/17 07:50 10/12/17 07:50 10/12/17 07:50 10/12/17 10:23 10/12/17 07:50 Intake and Output: 10/12/17 10/12/17 06:59 18:59 Intake Total 640 Balance 640 - Medications Medications: Current Medications Acetaminophen (Tylenol 325mg Tab) 650 mg PO Q6 PRN PRN Reason: Pain, Mild (1-3) Furosemide (Lasix) 40 mg PO BID [facility] Last Admin: 10/12/17 10:23 Dose: 40 mg Vancomycin HCl 1 gm/ Sodium (Chloride) 200 mls @ 166.7 mls/hr IVPB Q24H [facility] PRN Reason: Protocol Last Admin: 10/12/17 10:20 Dose: 166.7 mls/hr Cefepime HCl (Maxipime Iv 1 Gm Premix) 1 gm in 50 mls @ 100 mls/hr IVPB Q12H [facility] PRN Reason: Protocol Last Admin: 10/12/17 10:19 Dose: 100 mls/hr Metoprolol Succinate (Toprol Xl) 50 mg PO DAILY [facility] Last Admin: 10/12/17 10:23 Dose: 50 mg Mupirocin (Bactroban Ointment) 0 gm TOP DAILY [facility] Last Admin: 10/12/17 11:45 Dose: Not Given Naproxen (Anaprox) 275 mg PO QID PRN PRN Reason: Pain, Mild (1-3) Last Admin: 10/11/17 01:42 Dose: 275 mg - Labs Labs: 10/05/17 06:36 10/05/17 06:36 PT 14.4 SECONDS (9.7-12.2) H 09/28/17 09:13 INR 1.3 09/28/17 09:13 APTT 28 SECONDS (21-34) 09/28/17 09:13 - Constitutional Appears: Well, Non-toxic, No Acute Distress - Extremities Exam Additional comments: VASC: DP pulses weakly palpable 1/4 B/L. PT pulses palpable 1/4 B/L. CFT <3 seconds digits 1-5 R and 2-4 L; CFT present to hallux amputation site. Mild pedal edema noted B/L. NEURO: Gross pedal sensation is diminished B/L. DERM: Linear incision noted to hallux amputation site. Medial aspect of surgical site appears to be well-coapted with sutures intact. Mild wound dehiscence is noted to lateral 1/3 of surgical incision site with granulation tissue noted to dehisced part of post-surgical wound. Mild maceration present centrally to incision site, improving. No purulence or serosanguinous drainage present. Mild weeping superficial ulcerations noted circumferentially around bilateral LE, improving since admission ORTHO: s/p left hallux amputation with mild tenderness to palpation noted. Prominent 1st metatarsal head is palpable at distal tip of surgical site wound. Muscle strength 5/5 for all dorsiflexors, plantarflexors, inverters, and everters. - Neurological Exam Neurological Exam: Alert, Awake, Oriented x3 - Psychiatric Exam Psychiatric exam: Normal Affect, Normal Mood Assessment and Plan - Assessment and Plan (Free Text) Assessment: 57 y/o male 11 days s/p left hallux amputation, to go to OR for partial 1st met head resection Plan: Patient seen and evaluated at bedside with attending Dr. Harris Chart, labs and vital reviewed Continue local wound care - betadine, DSD, NINI Wound care note and assessment appreciated Pt is to remain strict NWB to LLE; OOB to bedside commode only Continue antibiotics per ID - Vancomycin, Zosyn Per ID, patient to have 6 weeks of IV abx Pain control - Naproxen, Tylenol, Percocet Patient to be taken back to OR on Sunday at 1:30pm for revisional amputation/ partial 1st metatarsal head resection to remove pressure on surgical wound site which may be preventing good healing Anti-coagulants to be held Sunday night Pt to be NPO after midnight on Sunday Will continue to follow patient daily
--- NOTE | 2017-10-12 14:35 | CP.PCM.PN ---
Subjective - Date & Time of Evaluation Date of Evaluation: 10/12/17 Time of Evaluation: 11:00 - Subjective Subjective: c/o pain NAD IV rx renewed Objective - Vital Signs/Intake and Output Vital Signs (last 24 hours): Temp Pulse Resp BP Pulse Ox 98.1 F 61 20 139/76 98 10/12/17 07:50 10/12/17 07:50 10/12/17 07:50 10/12/17 10:23 10/12/17 07:50 Intake and Output: 10/12/17 10/12/17 06:59 18:59 Intake Total 640 Balance 640 - Medications Medications: Current Medications Acetaminophen (Tylenol 325mg Tab) 650 mg PO Q6 PRN PRN Reason: Pain, Mild (1-3) Furosemide (Lasix) 40 mg PO BID [facility] Last Admin: 10/12/17 10:23 Dose: 40 mg Vancomycin HCl 1 gm/ Sodium (Chloride) 200 mls @ 166.7 mls/hr IVPB Q24H [facility] PRN Reason: Protocol Last Admin: 10/12/17 10:20 Dose: 166.7 mls/hr Cefepime HCl (Maxipime Iv 1 Gm Premix) 1 gm in 50 mls @ 100 mls/hr IVPB Q12H [facility] PRN Reason: Protocol Last Admin: 10/12/17 10:19 Dose: 100 mls/hr Metoprolol Succinate (Toprol Xl) 50 mg PO DAILY [facility] Last Admin: 10/12/17 10:23 Dose: 50 mg Mupirocin (Bactroban Ointment) 0 gm TOP DAILY [facility] Last Admin: 10/12/17 11:45 Dose: Not Given Naproxen (Anaprox) 275 mg PO QID PRN PRN Reason: Pain, Mild (1-3) Last Admin: 10/11/17 01:42 Dose: 275 mg - Labs Labs: 10/05/17 06:36 10/05/17 06:36 PT 14.4 SECONDS (9.7-12.2) H 09/28/17 09:13 INR 1.3 09/28/17 09:13 APTT 28 SECONDS (21-34) 09/28/17 09:13 - Constitutional Appears: Non-toxic, Chronically Ill - Head Exam Head Exam: NORMOCEPHALIC - Eye Exam Eye Exam: PERRL - ENT Exam ENT Exam: Mucous Membranes Dry - Neck Exam Neck Exam: absent: Lymphadenopathy - Respiratory Exam Respiratory Exam: Decreased Breath Sounds - Cardiovascular Exam Cardiovascular Exam: REGULAR RHYTHM - GI/Abdominal Exam GI & Abdominal Exam: Distended, Soft Assessment and Plan (1) Alcohol intoxication Status: Acute (2) Cellulitis and abscess of foot Status: Acute (3) Chronic congestive heart failure Status: Acute (4) COPD (chronic obstructive pulmonary disease) Status: Chronic (5) Osteomyelitis of toe of left foot Status: Acute
[2017-10-13] MEDS: Naproxen 275 mg Tab PO PRN (02:10)
[2017-10-13 07:06] LABS: BASO # 0.2 K/uL (0.0-0.2); BASO % 2.6 % (0.0-2.0); EOS # 0.4 K/uL (0.0-0.7); EOS % 4.2 % (0.0-4.0); HEMOGLOBIN 10.3 g/dL (12.0-18.0); LYMPH # 1.7 K/uL (1.0-4.3); LYMPH % 20.1 % (20.0-40.0); MEAN CELL VOLUME 92.8 fL (80.0-94.0); MEAN CORPUSCULAR HEMOGLOBIN 31.4 pg (27.0-31.0); MEAN CORPUSCULAR HGB CONC 33.9 g/dL (33.0-37.0); MEAN PLATELET VOLUME 10.9 fL (7.2-11.7); MONO # 0.7 K/uL (0.0-0.8); MONO % 8.8 % (0.0-10.0); NEUT # 5.4 K/uL (1.8-7.0); NEUT % 64.3 % (50.0-75.0); RBC 3.28 Mil/uL (4.40-5.90); RED CELL DISTRIBUTION WIDTH 16.8 % (11.5-14.5); WHITE BLOOD COUNT 8.3 K/uL (4.8-10.8)
[2017-10-13 07:31] LABS: ALB/GLOB RATIO 0.6 (1.0-2.1); ALBUMIN 1.8 g/dL (3.5-5.0); ALT/SGPT 34 U/L (21-72); AST/SGOT 50 U/L (17-59); BLOOD UREA NITROGEN 17 mg/dL (9-20); CALCIUM 8.2 mg/dl (8.6-10.4); GFR NON-AFRICAN AMERICAN > 60
[2017-10-13] MEDS: Metoprolol Succinate 50 mg XL Tab PO SCH (10:29)
[2017-10-13] MEDS: Cefepime IV 1 gm in Dextrose 1 GM/50 ML BAG IVPB SCH ×2 (10:29→20:55)
--- NOTE | 2017-10-13 11:36 | CP.PCM.PN ---
Subjective - Date & Time of Evaluation Date of Evaluation: 10/13/17 Time of Evaluation: 11:33 - Subjective Subjective: Podiatry Progress Note for Dr. Harris 57 y/o male seen and examined this morning with attending Dr. Harris, 12 days s/p left hallux amputation. Patient says he is not walking on the foot. Continues to report intermittent mild pain to the left foot surgical site which is well controlled. No acute events overnight. No new complaints to LLE. Dressing to LLE clean/dry/intact. Denies N/V/F/D/C/SOB/MONTERO/CP. Objective - Vital Signs/Intake and Output Vital Signs (last 24 hours): Temp Pulse Resp BP Pulse Ox 98.2 F 64 20 125/63 100 10/13/17 02:45 10/13/17 05:30 10/13/17 05:30 10/13/17 10:29 10/13/17 05:30 Intake and Output: 10/13/17 10/13/17 06:59 18:59 Intake Total 520 Output Total 500 Balance 20 - Medications Medications: Current Medications Acetaminophen (Tylenol 325mg Tab) 650 mg PO Q6 PRN PRN Reason: Pain, Mild (1-3) Furosemide (Lasix) 40 mg PO BID [facility] Last Admin: 10/13/17 10:29 Dose: 40 mg Vancomycin HCl 1 gm/ Sodium (Chloride) 200 mls @ 166.7 mls/hr IVPB Q24H [facility] PRN Reason: Protocol Last Admin: 10/12/17 10:20 Dose: 166.7 mls/hr Cefepime HCl (Maxipime Iv 1 Gm Premix) 1 gm in 50 mls @ 100 mls/hr IVPB Q12H [facility] PRN Reason: Protocol Last Admin: 10/13/17 10:29 Dose: 100 mls/hr Metoprolol Succinate (Toprol Xl) 50 mg PO DAILY [facility] Last Admin: 10/13/17 10:29 Dose: 50 mg Mupirocin (Bactroban Ointment) 0 gm TOP DAILY [facility] Last Admin: 10/13/17 10:35 Dose: Not Given Naproxen (Anaprox) 275 mg PO QID PRN PRN Reason: Pain, Mild (1-3) Last Admin: 10/13/17 02:10 Dose: 275 mg - Labs Labs: 10/13/17 06:52 10/13/17 06:52 PT 14.4 SECONDS (9.7-12.2) H 09/28/17 09:13 INR 1.3 09/28/17 09:13 APTT 28 SECONDS (21-34) 09/28/17 09:13 - Constitutional Appears: Well, Non-toxic, No Acute Distress - Head Exam Head Exam: ATRAUMATIC, NORMOCEPHALIC - Extremities Exam Additional comments: VASC: DP pulses weakly palpable 1/4 B/L. PT pulses palpable 1/4 B/L. CFT <3 seconds digits 1-5 R and 2-4 L; CFT present to hallux amputation site. Mild pedal edema noted B/L. NEURO: Gross pedal sensation is diminished B/L. DERM: Linear incision noted to hallux amputation site. Medial aspect of surgical site appears to be well-coapted with sutures intact. Mild wound dehiscence is noted to lateral 1/3 of surgical incision site with granulation tissue noted to dehisced part of post-surgical wound. Mild maceration present centrally to incision site, improving. No purulence or serosanguinous drainage present. Mild weeping superficial ulcerations noted circumferentially around bilateral LE, improving since admission ORTHO: s/p left hallux amputation with mild tenderness to palpation noted. Prominent 1st metatarsal head is palpable at distal tip of surgical site wound. Muscle strength 5/5 for all dorsiflexors, plantarflexors, inverters, and everters. - Neurological Exam Neurological Exam: Alert, Awake, Oriented x3 - Psychiatric Exam Psychiatric exam: Normal Affect, Normal Mood Assessment and Plan - Assessment and Plan (Free Text) Assessment: 57 y/o male 11 days s/p left hallux amputation, to go to OR for partial 1st met head resection Plan: Patient seen and evaluated at bedside with attending Dr. Harris Chart, labs and vital reviewed Continue local wound care - betadine, DSD, NINI Wound care note and assessment appreciated Pt is to remain strict NWB to LLE; OOB to bedside commode only Continue antibiotics per ID - Vancomycin, Zosyn Per ID, patient to have 6 weeks of IV abx Pain control - Naproxen, Tylenol, Percocet Patient to be taken back to OR on Sunday at 1:30pm for revisional amputation/ partial 1st metatarsal head resection to remove pressure on surgical wound site which may be preventing good healing Anti-coagulants to be held tonight Pt to be NPO after midnight on Sunday Will continue to follow patient daily
--- NOTE | 2017-10-13 12:01 | CP.PCM.PN ---
Subjective - Date & Time of Evaluation Date of Evaluation: 10/13/17 Time of Evaluation: 11:58 - Subjective Subjective: Pt seen at bedside for right hallux amp. Dehiscence noted at amp site. Will perform right 1st partial met head resection on Sunday at 1:30 PM in OR. Pt understands all risks and alternatives and consents to procedure. Pt understands that this is a limb salvage procedure and if healing is compromised , future surgery and/or limbloss is possible. Blood thinners were held. NPO orders will be put in tomorrow. Objective - Vital Signs/Intake and Output Vital Signs (last 24 hours): Temp Pulse Resp BP Pulse Ox 98.2 F 64 20 125/63 100 10/13/17 02:45 10/13/17 05:30 10/13/17 05:30 10/13/17 10:29 10/13/17 05:30 Intake and Output: 10/13/17 10/13/17 06:59 18:59 Intake Total 520 Output Total 500 Balance 20 - Medications Medications: Current Medications Acetaminophen (Tylenol 325mg Tab) 650 mg PO Q6 PRN PRN Reason: Pain, Mild (1-3) Furosemide (Lasix) 40 mg PO BID [facility] Last Admin: 10/13/17 10:29 Dose: 40 mg Vancomycin HCl 1 gm/ Sodium (Chloride) 200 mls @ 166.7 mls/hr IVPB Q24H [facility] PRN Reason: Protocol Last Admin: 10/12/17 10:20 Dose: 166.7 mls/hr Cefepime HCl (Maxipime Iv 1 Gm Premix) 1 gm in 50 mls @ 100 mls/hr IVPB Q12H [facility] PRN Reason: Protocol Last Admin: 10/13/17 10:29 Dose: 100 mls/hr Metoprolol Succinate (Toprol Xl) 50 mg PO DAILY [facility] Last Admin: 10/13/17 10:29 Dose: 50 mg Mupirocin (Bactroban Ointment) 0 gm TOP DAILY [facility] Last Admin: 10/13/17 10:35 Dose: Not Given Naproxen (Anaprox) 275 mg PO QID PRN PRN Reason: Pain, Mild (1-3) Last Admin: 10/13/17 02:10 Dose: 275 mg - Labs Labs: 10/13/17 06:52 10/13/17 06:52 PT 14.4 SECONDS (9.7-12.2) H 09/28/17 09:13 INR 1.3 09/28/17 09:13 APTT 28 SECONDS (21-34) 09/28/17 09:13
[2017-10-13] MEDS: Vancomycin 1 GM in Sodium Chloride 0.9% 200 ML IVPB SCH (14:47)
--- NOTE | 2017-10-13 17:56 | CP.PCM.PN ---
Subjective - Date & Time of Evaluation Date of Evaluation: 10/13/17 Time of Evaluation: 11:00 - Subjective Subjective: PT MEDICALLY STABLE. AFEBRILE. VS NORMAL. GOING FOR FOOT SURGERY SUNDAY LABS WNL. Objective - Vital Signs/Intake and Output Vital Signs (last 24 hours): Temp Pulse Resp BP Pulse Ox 98.1 F 62 20 134/60 100 10/13/17 17:11 10/13/17 17:11 10/13/17 17:11 10/13/17 17:11 10/13/17 17:11 Intake and Output: 10/13/17 10/13/17 06:59 18:59 Intake Total 520 200 Output Total 500 Balance 20 200 - Medications Medications: Current Medications Acetaminophen (Tylenol 325mg Tab) 650 mg PO Q6 PRN PRN Reason: Pain, Mild (1-3) Furosemide (Lasix) 40 mg PO BID [facility] Last Admin: 10/13/17 10:29 Dose: 40 mg Vancomycin HCl 1 gm/ Sodium (Chloride) 200 mls @ 166.7 mls/hr IVPB Q24H [facility] PRN Reason: Protocol Last Admin: 10/13/17 14:47 Dose: 166.7 mls/hr Cefepime HCl (Maxipime Iv 1 Gm Premix) 1 gm in 50 mls @ 100 mls/hr IVPB Q12H [facility] PRN Reason: Protocol Last Admin: 10/13/17 10:29 Dose: 100 mls/hr Metoprolol Succinate (Toprol Xl) 50 mg PO DAILY [facility] Last Admin: 10/13/17 10:29 Dose: 50 mg Mupirocin (Bactroban Ointment) 0 gm TOP DAILY [facility] Last Admin: 10/13/17 10:35 Dose: Not Given Naproxen (Anaprox) 275 mg PO QID PRN PRN Reason: Pain, Mild (1-3) Last Admin: 10/13/17 02:10 Dose: 275 mg - Labs Labs: 10/13/17 06:52 10/13/17 06:52 PT 14.4 SECONDS (9.7-12.2) H 09/28/17 09:13 INR 1.3 09/28/17 09:13 APTT 28 SECONDS (21-34) 09/28/17 09:13 - Constitutional Appears: No Acute Distress, Chronically Ill - Eye Exam Eye Exam: Normal appearance, PERRL - ENT Exam ENT Exam: Mucous Membranes Moist, Normal Exam - Respiratory Exam Respiratory Exam: Clear to Ausculation Bilateral, NORMAL BREATHING PATTERN - Cardiovascular Exam Cardiovascular Exam: REGULAR RHYTHM, +S1, +S2. absent: Murmur - GI/Abdominal Exam GI & Abdominal Exam: Soft, Normal Bowel Sounds. absent: Tenderness - Extremities Exam Extremities Exam: Full ROM, Normal Capillary Refill, Normal Inspection. absent : Joint Swelling, Pedal Edema - Neurological Exam Neurological Exam: Alert, Awake, CN II-XII Intact, Normal Gait, Oriented x3 - Psychiatric Exam Psychiatric exam: Normal Affect, Normal Mood Assessment and Plan - Assessment and Plan (Free Text) Assessment: MEDICALLY STABLE. Plan: CLEARED MEDICALLY FOR SURGERY SUNDAY.
[2017-10-14] MEDS: Cefepime IV 1 gm in Dextrose 1 GM/50 ML BAG IVPB SCH ×2 (07:34→19:23)
[2017-10-14] MEDS: Metoprolol Succinate 50 mg XL Tab PO SCH (09:33)
[2017-10-14] MEDS: Vancomycin 1 GM in Sodium Chloride 0.9% 200 ML IVPB SCH (09:35)
--- NOTE | 2017-10-14 11:12 | CP.PCM.PN ---
Subjective - Date & Time of Evaluation Date of Evaluation: 10/14/17 Time of Evaluation: 11:10 - Subjective Subjective: condition stable. Objective - Vital Signs/Intake and Output Vital Signs (last 24 hours): Temp Pulse Resp BP Pulse Ox 99.3 F 76 20 136/73 98 10/14/17 05:30 10/14/17 05:30 10/14/17 05:30 10/14/17 09:33 10/14/17 05:30 Intake and Output: 10/14/17 10/14/17 06:59 18:59 Intake Total 600 Output Total 600 Balance 0 - Medications Medications: Current Medications Acetaminophen (Tylenol 325mg Tab) 650 mg PO Q6 PRN PRN Reason: Pain, Mild (1-3) Furosemide (Lasix) 40 mg PO BID [facility] Last Admin: 10/14/17 09:33 Dose: Not Given Vancomycin HCl 1 gm/ Sodium (Chloride) 200 mls @ 166.7 mls/hr IVPB Q24H [facility] PRN Reason: Protocol Last Admin: 10/14/17 09:35 Dose: 166.7 mls/hr Cefepime HCl (Maxipime Iv 1 Gm Premix) 1 gm in 50 mls @ 100 mls/hr IVPB Q12H [facility] PRN Reason: Protocol Last Admin: 10/14/17 07:34 Dose: 100 mls/hr Naproxen (Anaprox) 275 mg PO QID PRN PRN Reason: Pain, Mild (1-3) Last Admin: 10/13/17 02:10 Dose: 275 mg - Labs Labs: 10/13/17 06:52 10/13/17 06:52 PT 14.4 SECONDS (9.7-12.2) H 09/28/17 09:13 INR 1.3 09/28/17 09:13 APTT 28 SECONDS (21-34) 09/28/17 09:13 - Constitutional Appears: No Acute Distress, Chronically Ill - Eye Exam Eye Exam: Normal appearance, PERRL - ENT Exam ENT Exam: Mucous Membranes Moist - Neck Exam Neck Exam: Normal Inspection - Respiratory Exam Respiratory Exam: Clear to Ausculation Bilateral, NORMAL BREATHING PATTERN - Cardiovascular Exam Cardiovascular Exam: REGULAR RHYTHM, +S1, +S2 - GI/Abdominal Exam GI & Abdominal Exam: Soft, Normal Bowel Sounds - Extremities Exam Extremities Exam: Full ROM, Normal Capillary Refill, Normal Inspection. absent : Joint Swelling, Pedal Edema - Back Exam Back Exam: NORMAL INSPECTION - Neurological Exam Neurological Exam: Alert, Awake, CN II-XII Intact, Normal Gait, Oriented x3 - Psychiatric Exam Psychiatric exam: Normal Affect, Normal Mood Assessment and Plan - Assessment and Plan (Free Text) Assessment: medically stable. Plan: cleared for or.
--- NOTE | 2017-10-14 14:02 | CP.PCM.PN ---
Subjective - Date & Time of Evaluation Date of Evaluation: 10/14/17 Time of Evaluation: 13:59 - Subjective Subjective: Podiatry Progress Note for Dr. Harris 57 y/o male seen and examined this morning with attending Dr. Harris, 13 days s/p left hallux amputation. Patient says he is not walking on the foot. Continues to report intermittent mild pain to the left foot surgical site which is well controlled. No acute events overnight. No new complaints to LLE. Dressing to LLE clean/dry/intact. Denies N/V/F/D/C/SOB/MONTERO/CP. Aware of surgery tomorrow. Objective - Vital Signs/Intake and Output Vital Signs (last 24 hours): Temp Pulse Resp BP Pulse Ox 99.3 F 76 20 136/73 98 10/14/17 05:30 10/14/17 05:30 10/14/17 05:30 10/14/17 09:33 10/14/17 05:30 Intake and Output: 10/14/17 10/14/17 06:59 18:59 Intake Total 600 Output Total 600 Balance 0 - Medications Medications: Current Medications Acetaminophen (Tylenol 325mg Tab) 650 mg PO Q6 PRN PRN Reason: Pain, Mild (1-3) Furosemide (Lasix) 40 mg PO BID [facility] Last Admin: 10/14/17 09:33 Dose: Not Given Vancomycin HCl 1 gm/ Sodium (Chloride) 200 mls @ 166.7 mls/hr IVPB Q24H [facility] PRN Reason: Protocol Last Admin: 10/14/17 09:35 Dose: 166.7 mls/hr Cefepime HCl (Maxipime Iv 1 Gm Premix) 1 gm in 50 mls @ 100 mls/hr IVPB Q12H [facility] PRN Reason: Protocol Last Admin: 10/14/17 07:34 Dose: 100 mls/hr Naproxen (Anaprox) 275 mg PO QID PRN PRN Reason: Pain, Mild (1-3) Last Admin: 10/13/17 02:10 Dose: 275 mg - Labs Labs: 10/13/17 06:52 10/13/17 06:52 PT 14.4 SECONDS (9.7-12.2) H 09/28/17 09:13 INR 1.3 09/28/17 09:13 APTT 28 SECONDS (21-34) 09/28/17 09:13 - Constitutional Appears: Well, Non-toxic, No Acute Distress - Head Exam Head Exam: ATRAUMATIC, NORMOCEPHALIC - Extremities Exam Additional comments: VASC: DP pulses weakly palpable 1/4 B/L. PT pulses palpable 1/4 B/L. CFT <3 seconds digits 1-5 R and 2-4 L; CFT present to hallux amputation site. Mild pedal edema noted B/L. NEURO: Gross pedal sensation is diminished B/L. DERM: Linear incision noted to hallux amputation site. Medial aspect of surgical site appears to be well-coapted with sutures intact. Mild wound dehiscence is noted to lateral 1/3 of surgical incision site with granulation tissue noted to dehisced part of post-surgical wound. Mild maceration present centrally to incision site, improving. No purulence or serosanguinous drainage present. Mild weeping superficial ulcerations noted circumferentially around bilateral LE, improving since admission ORTHO: s/p left hallux amputation with mild tenderness to palpation noted. Prominent 1st metatarsal head is palpable at distal tip of surgical site wound. Muscle strength 5/5 for all dorsiflexors, plantarflexors, inverters, and everters. - Neurological Exam Neurological Exam: Alert, Awake, Oriented x3 - Psychiatric Exam Psychiatric exam: Normal Affect, Normal Mood Assessment and Plan - Assessment and Plan (Free Text) Assessment: 57 y/o male 11 days s/p left hallux amputation, to go to OR for partial 1st met head resection Plan: Patient seen and evaluated at bedside with attending Dr. Harris Chart, labs and vital reviewed Continue local wound care - betadine, DSD, NINI Wound care note and assessment appreciated Pt is to remain strict NWB to LLE; OOB to bedside commode only Continue antibiotics per ID - Vancomycin, Zosyn Per ID, patient to have 6 weeks of IV abx Pain control - Naproxen, Tylenol, Percocet Patient to be taken back to OR on Sunday at 1:30pm for revisional amputation/ partial 1st metatarsal head resection to remove pressure on surgical wound site which may be preventing good healing Patient aware and consented 10/13 Pt NPO order for midnight tonight Anti-coagulants held Will continue to follow patient daily while in house
[2017-10-14] MEDS: Naproxen 275 mg Tab PO PRN (18:29)
[2017-10-15] MEDS: Cefepime IV 1 gm in Dextrose 1 GM/50 ML BAG IVPB SCH ×2 (08:03→20:14)
[2017-10-15] MEDS: Vancomycin 1 GM in Sodium Chloride 0.9% 200 ML IVPB SCH (09:28)
--- NOTE | 2017-10-15 12:23 | CP.PCM.PN ---
Subjective - Date & Time of Evaluation Date of Evaluation: 10/15/17 Time of Evaluation: 12:21 - Subjective Subjective: CONDITION SAME. AFEBRILE. FOR OR TODAY. Objective - Vital Signs/Intake and Output Vital Signs (last 24 hours): Temp Pulse Resp BP Pulse Ox 98.5 F 71 20 192/88 H 98 10/15/17 08:06 10/15/17 08:06 10/15/17 08:06 10/15/17 09:28 10/15/17 08:06 Intake and Output: 10/15/17 10/15/17 06:59 18:59 Intake Total 530 0 Balance 530 0 - Medications Medications: Current Medications Acetaminophen (Tylenol 325mg Tab) 650 mg PO Q6 PRN PRN Reason: Pain, Mild (1-3) Furosemide (Lasix) 40 mg PO BID [facility] Last Admin: 10/15/17 09:28 Dose: 40 mg Vancomycin HCl 1 gm/ Sodium (Chloride) 200 mls @ 166.7 mls/hr IVPB Q24H [facility] PRN Reason: Protocol Last Admin: 10/15/17 09:28 Dose: 166.7 mls/hr Cefepime HCl (Maxipime Iv 1 Gm Premix) 1 gm in 50 mls @ 100 mls/hr IVPB Q12H [facility] PRN Reason: Protocol Last Admin: 10/15/17 08:03 Dose: 100 mls/hr Naproxen (Anaprox) 275 mg PO QID PRN PRN Reason: Pain, Mild (1-3) Last Admin: 10/14/17 18:29 Dose: 275 mg - Labs Labs: 10/13/17 06:52 10/13/17 06:52 PT 14.4 SECONDS (9.7-12.2) H 09/28/17 09:13 INR 1.3 09/28/17 09:13 APTT 28 SECONDS (21-34) 09/28/17 09:13 - Constitutional Appears: No Acute Distress, Chronically Ill - Eye Exam Eye Exam: Normal appearance, PERRL - ENT Exam ENT Exam: Normal Exam - Neck Exam Neck Exam: Normal Inspection - Respiratory Exam Respiratory Exam: Clear to Ausculation Bilateral, NORMAL BREATHING PATTERN - Cardiovascular Exam Cardiovascular Exam: REGULAR RHYTHM, +S1, +S2 - GI/Abdominal Exam GI & Abdominal Exam: Soft, Normal Bowel Sounds - Extremities Exam Extremities Exam: Full ROM, Normal Capillary Refill, Normal Inspection. absent : Joint Swelling, Pedal Edema - Back Exam Back Exam: NORMAL INSPECTION - Neurological Exam Neurological Exam: Alert, Awake, CN II-XII Intact, Normal Gait, Oriented x3 Assessment and Plan - Assessment and Plan (Free Text) Assessment: MEDICALLY STABLE. Plan: CT PRESENT TREATMENT.
[2017-10-15] MEDS ORDERED: Lidocaine 2% MPF (5 ml) Inj ONE (13:01)
[2017-10-15] MEDS ORDERED: Bupivacaine 0.25% 20 ML INJ IJ ONE (13:01)
[2017-10-15] MEDS ORDERED: Propofol 10 mg/ml Inj (20 ML) ONE (13:05)
[2017-10-15] MEDS ORDERED: Midazolam 2 MG/2 ML VIAL ONE (13:05)
[2017-10-15] MEDS ORDERED: HYDROmorphone 0.5 mg/0.5 ml ISec IVP PRN (13:57)
--- NOTE | 2017-10-15 13:57 | PCM.SURG1 ---
Surgeon's Initial Post Op Note - Surgeon's Notes Surgeon: Dr. Addison Harris Square Cutter: Dr. Rosalie Garza PGY-2 Type of Anesthesia: IV Sedation, Local Anesthesia Administered By: Dr. Anderson Pre-Operative Diagnosis: left foot non-healing dehisced surgical wound at hallux amputation site Operative Findings: see dictation. I: 13cc 1:1 mixture 2% Lidocaine plain and 0.25% Marcaine plain. M: 2-0 Vicryl, 3-0 Prolene, 1/4" Sathya drain Post-Operative Diagnosis: same Operation Performed: left foot 1st metatarsal head resection Specimen/Specimens Removed: left foot 1st metatarsal head Estimated Blood Loss: EBL {In ML}: 50 Blood Products Given: N/A Drains Used: Sathya Post-Op Condition: Good Date of Surgery/Procedure: 10/15/17 Time of Surgery/Procedure: 13:57
[2017-10-15 15:44] VITALS: RESP 20
[2017-10-15] MEDS: Metoprolol Succinate 50 mg XL Tab PO SCH (16:16)
[2017-10-15] MEDS: Naproxen 275 mg Tab PO PRN (17:40)
[2017-10-15] MEDS: Oxycodone/Acetaminophen 5/325 mg Tab PO PRN (21:45)
[2017-10-16] MEDS: Cefepime IV 1 gm in Dextrose 1 GM/50 ML BAG IVPB SCH ×2 (08:06→20:00)
[2017-10-16] MEDS: Metoprolol Succinate 50 mg XL Tab PO SCH (09:46)
[2017-10-16] MEDS: Vancomycin 1 GM in Sodium Chloride 0.9% 200 ML IVPB SCH (10:56)
--- NOTE | 2017-10-16 12:03 | CP.PCM.PN ---
Subjective - Date & Time of Evaluation Date of Evaluation: 10/16/17 Time of Evaluation: 12:02 - Subjective Subjective: medically stable. afebrile. bp controlled. Objective - Vital Signs/Intake and Output Vital Signs (last 24 hours): Temp Pulse Resp BP Pulse Ox 98.3 F 62 20 167/73 H 99 10/16/17 08:00 10/16/17 08:00 10/16/17 08:00 10/16/17 08:00 10/16/17 08:00 Intake and Output: 10/16/17 10/16/17 06:59 18:59 Intake Total 540 Balance 540 - Medications Medications: Current Medications Acetaminophen (Tylenol 325mg Tab) 650 mg PO Q6 PRN PRN Reason: Pain, Mild (1-3) Amlodipine Besylate (Norvasc) 5 mg PO DAILY [facility] Last Admin: 10/16/17 09:46 Dose: 5 mg Furosemide (Lasix) 40 mg PO BID [facility] Last Admin: 10/16/17 09:50 Dose: Not Given Vancomycin HCl 1 gm/ Sodium (Chloride) 200 mls @ 166.7 mls/hr IVPB Q24H [facility] PRN Reason: Protocol Last Admin: 10/16/17 10:56 Dose: 166.7 mls/hr Cefepime HCl (Maxipime Iv 1 Gm Premix) 1 gm in 50 mls @ 100 mls/hr IVPB Q12H [facility] PRN Reason: Protocol Last Admin: 10/16/17 08:06 Dose: 100 mls/hr Metoprolol Succinate (Toprol Xl) 50 mg PO DAILY [facility] Last Admin: 10/16/17 09:46 Dose: 50 mg Naproxen (Anaprox) 275 mg PO QID PRN PRN Reason: Pain, Mild (1-3) Last Admin: 10/15/17 17:40 Dose: 275 mg Oxycodone/Acetaminophen (Percocet 5/325 Mg Tab) 1 tab PO Q8H PRN PRN Reason: Pain, moderate (4-7) Stop: 10/18/17 21:02 Last Admin: 10/15/17 21:45 Dose: 1 tab - Labs Labs: 10/13/17 06:52 10/13/17 06:52 PT 14.4 SECONDS (9.7-12.2) H 09/28/17 09:13 INR 1.3 07/20/18 09:13 APTT 28 SECONDS (21-34) 09/28/17 09:13 - Constitutional Appears: No Acute Distress, Chronically Ill - Eye Exam Eye Exam: Normal appearance, PERRL - ENT Exam ENT Exam: Mucous Membranes Moist - Respiratory Exam Respiratory Exam: Clear to Ausculation Bilateral, NORMAL BREATHING PATTERN - Cardiovascular Exam Cardiovascular Exam: REGULAR RHYTHM, +S1, +S2. absent: Murmur - GI/Abdominal Exam GI & Abdominal Exam: Soft, Normal Bowel Sounds. absent: Tenderness - Extremities Exam Extremities Exam: Full ROM, Normal Capillary Refill, Normal Inspection. absent : Joint Swelling, Pedal Edema - Back Exam Back Exam: NORMAL INSPECTION - Neurological Exam Neurological Exam: Alert, Awake, CN II-XII Intact, Normal Gait, Oriented x3 Assessment and Plan - Assessment and Plan (Free Text) Assessment: stable. post op. Plan: ct present treatment.
[2017-10-16] MEDS: Oxycodone/Acetaminophen 5/325 mg Tab PO PRN (14:45)
--- NOTE | 2017-10-16 15:08 | CP.PCM.PN ---
Subjective - Date & Time of Evaluation Date of Evaluation: 10/16/17 Time of Evaluation: 15:08 - Subjective Subjective: 57 y/o male seen at bedside this morning with attending Dr. Harris, 1 day s/p left foot revisional hallux amp with first met head resection. Pt says he had some pain overnight and was given meds which helped. Denies walking on the left foot at all except to/from commode. Denies numbness, tingling or burning. States dressing has remained intact since surgery. Denies F/C/N/V/CP/SOB Objective - Vital Signs/Intake and Output Vital Signs (last 24 hours): Temp Pulse Resp BP Pulse Ox 98.3 F 62 20 167/73 H 99 10/16/17 08:00 10/16/17 08:00 10/16/17 08:00 10/16/17 08:00 10/16/17 08:00 Intake and Output: 10/16/17 10/16/17 06:59 18:59 Intake Total 540 730 Balance 540 730 - Medications Medications: Current Medications Amlodipine Besylate (Norvasc) 5 mg PO DAILY [facility] Last Admin: 10/16/17 09:46 Dose: 5 mg Furosemide (Lasix) 40 mg PO BID [facility] Last Admin: 10/16/17 09:50 Dose: Not Given Vancomycin HCl 1 gm/ Sodium (Chloride) 200 mls @ 166.7 mls/hr IVPB Q24H [facility] PRN Reason: Protocol Last Admin: 10/16/17 10:56 Dose: 166.7 mls/hr Cefepime HCl (Maxipime Iv 1 Gm Premix) 1 gm in 50 mls @ 100 mls/hr IVPB Q12H [facility] PRN Reason: Protocol Last Admin: 10/16/17 08:06 Dose: 100 mls/hr Metoprolol Succinate (Toprol Xl) 50 mg PO DAILY [facility] Last Admin: 10/16/17 09:46 Dose: 50 mg Oxycodone/Acetaminophen (Percocet 5/325 Mg Tab) 1 tab PO Q8H PRN PRN Reason: Pain, moderate (4-7) Stop: 10/18/17 21:02 Last Admin: 10/16/17 14:45 Dose: 1 tab - Labs Labs: 10/13/17 06:52 08/04/18 06:52 PT 14.4 SECONDS (9.7-12.2) H 09/28/17 09:13 INR 1.3 09/28/17 09:13 APTT 28 SECONDS (21-34) 09/28/17 09:13 - Constitutional Appears: Well, Non-toxic, No Acute Distress - Extremities Exam Additional comments: VASC: DP pulses weakly palpable 1/4 B/L. PT pulses palpable 1/4 B/L. CFT <3 seconds digits 1-5 R and 2-4 L; CFT present to hallux amputation site and met head resection site. Mild pedal edema noted B/L. NEURO: Gross pedal sensation is diminished B/L. DERM: Surgical site noted to left dorsomedial forefoot at site of 1st met head resection and hallux amputation. Mild maceration present centrally to incision site. No purulence or serosanguinous drainage present. Sutures intact with skin edges well-coapted. ORTHO: s/p left hallux amputation and 1st met head resection with mild tenderness to palpation noted. Prominent 1st metatarsal head is palpable at distal tip of surgical site wound. Muscle strength 5/5 for all dorsiflexors, plantarflexors, inverters, and everters. - Neurological Exam Neurological Exam: Alert, Awake, Oriented x3 - Psychiatric Exam Psychiatric exam: Normal Affect, Normal Mood Assessment and Plan - Assessment and Plan (Free Text) Assessment: 57 y/o male 1 day s/p 1st met head resection secondary to non-healing hallux amp site Plan: Patient seen and evaluated at bedside with attending Dr. Harris Chart, labs and vital reviewed Continue local wound care - betadine, DSD, NINI Wound care note and assessment appreciated Pt is to remain strict NWB to LLE; OOB to bedside commode only Continue antibiotics per ID - Vancomycin, Zosyn Per ID, patient to have 6 weeks of IV abx Pain control - Naproxen, Tylenol, Percocet Will continue to follow patient daily while in house
[2017-10-16] MEDS: Naproxen 275 mg Tab PO PRN (21:58)
--- NOTE | 2017-10-16 22:03 | OP ---
Copied To: Rosalie Garza DPM Attending MD: Addison Harris DPM PROCEDURE DATE: 10/15/2017 PREOPERATIVE DIAGNOSIS: Left foot dehisced nonhealing hallux amputation site. POSTOPERATIVE DIAGNOSIS: Left foot dehisced nonhealing hallux amputation site. PROCEDURE: Left foot first metatarsal head resection. SURGEON: Addison Harris DPM EMBROIDERY SPECIALIST: Rosalie Garza DPM, PGY-2 TYPE OF ANESTHESIA: IV sedation plus local. ANESTHESIA ADMINISTERED BY: Dr. Burns. INDICATIONS: The patient is a 57-year-old male with the above diagnosis. The patient has exhausted conservative treatment at this time and now requires surgical intervention. The patient signed a consent after careful explanation of risks, benefits, complications, and alternatives for surgical procedure. No guarantees were given nor implied. NPO status was confirmed prior to taking the patient to the operating room. PREPARATION: The patient was brought into the operating room and placed on the operating room table in a supine position. No tourniquet was utilized during the procedure. After induction of IV sedation, the patient received a total of 13 mL of a 1:1 mixture of 2% lidocaine plain and 0.25% Marcaine plain in a Francisco block fashion to the left foot. Once local anesthesia was achieved, the left foot was then prepped and draped in normal sterile manner. DESCRIPTION OF PROCEDURE: At this time, attention was then directed to the left foot hallux amputation site where it was noted that the postsurgical amputation site was dehiscing with an open wound present to the lateral aspect of the surgical incision site. At this time, sterile scissors were utilized to excise all remaining Prolene sutures from the prior surgical intervention. Next, a sterile 15-blade was utilized to follow the same incision previously made for the hallux amputation. This incision was extended down to the level of the first metatarsal bone. At this time, sterile forceps and a sterile 15 blade were utilized to free all soft tissues in the distal aspect of the first metatarsal. Next, a sagittal saw was utilized to resect the first metatarsal head, passing it off the field, and sending it to pathology. All bleeders were cauterized and ligated as necessary. The wound was then copiously irrigated with sterile saline. Deep layers were reapproximated at this time with 2-0 Vicryl. A 1/4 inch Sathya drain was then inserted into the surgical site, and the skin was closed with 3-0 Prolene sutures. Postoperative bandages included Betadine-soaked Adaptic, 4x4 gauze, and ABD pad and a light Celestino bandage. The attending was present during the entirety of the case. POSTOPERATIVE CONDITION: The patient tolerated the anesthesia and the procedure well and was escorted to the recovery room with vital signs stable and neurovascular status intact to the left lower extremity. The patient will remain in-house, and Podiatry will continue to follow this patient. Upon discharge, the patient is to followup with Dr. Harris in his office within one week. Rosalie Garza DPM Addison Harris DPM
[2017-10-17] MEDS: Oxycodone/Acetaminophen 5/325 mg Tab PO PRN (01:13)
[2017-10-17] MEDS: Cefepime IV 1 gm in Dextrose 1 GM/50 ML BAG IVPB SCH ×2 (08:13→20:00)
--- NOTE | 2017-10-17 08:47 | CP.PCM.PN ---
Subjective - Date & Time of Evaluation Date of Evaluation: 10/17/17 Time of Evaluation: 08:40 - Subjective Subjective: Podiatry: Patient seen resting in bed. Patient seen along with resident Dr Rosalie Garza. Foot redressed wound has a small amount of dehiscence but overall looks good at this point. To continue local care as ordered. Objective - Vital Signs/Intake and Output Vital Signs (last 24 hours): Temp Pulse Resp BP Pulse Ox 98.7 F 62 20 175/73 H 99 10/17/17 08:00 10/17/17 08:00 10/17/17 08:00 10/17/17 08:00 10/17/17 08:00 Intake and Output: 10/17/17 10/17/17 06:59 18:59 Intake Total 350 750 Balance 350 750 - Medications Medications: Current Medications Acetaminophen (Tylenol 325mg Tab) 650 mg PO Q6 PRN PRN Reason: Pain, Mild (1-3) Amlodipine Besylate (Norvasc) 5 mg PO DAILY [facility] Last Admin: 10/16/17 09:46 Dose: 5 mg Furosemide (Lasix) 40 mg PO BID [facility] Last Admin: 10/16/17 17:14 Dose: Not Given Vancomycin HCl 1 gm/ Sodium (Chloride) 200 mls @ 166.7 mls/hr IVPB Q24H [facility] PRN Reason: Protocol Last Admin: 10/16/17 10:56 Dose: 166.7 mls/hr Cefepime HCl (Maxipime Iv 1 Gm Premix) 1 gm in 50 mls @ 100 mls/hr IVPB Q12H [facility] PRN Reason: Protocol Last Admin: 10/17/17 08:13 Dose: 100 mls/hr Metoprolol Succinate (Toprol Xl) 50 mg PO DAILY [facility] Last Admin: 10/16/17 09:46 Dose: 50 mg Naproxen (Anaprox) 275 mg PO QID PRN PRN Reason: Pain, moderate (4-7) Last Admin: 10/16/17 21:58 Dose: 275 mg Oxycodone/Acetaminophen (Percocet 5/325 Mg Tab) 1 tab PO Q8H PRN PRN Reason: Pain, moderate (4-7) Stop: 10/18/17 21:02 Last Admin: 10/17/17 01:13 Dose: 1 tab - Labs Labs: 10/13/17 06:52 10/13/17 06:52 PT 14.4 SECONDS (9.7-12.2) H 09/28/17 09:13 INR 1.3 09/28/17 09:13 APTT 28 SECONDS (21-34) 09/28/17 09:13
[2017-10-17] MEDS: Metoprolol Succinate 50 mg XL Tab PO SCH (10:19)
[2017-10-17] MEDS: Vancomycin 1 GM in Sodium Chloride 0.9% 200 ML IVPB SCH (10:46)
--- NOTE | 2017-10-17 13:33 | CP.PCM.PN ---
Subjective - Date & Time of Evaluation Date of Evaluation: 10/17/17 Time of Evaluation: 13:30 - Subjective Subjective: CONDITION SAME. AFEBRILE. Objective - Vital Signs/Intake and Output Vital Signs (last 24 hours): Temp Pulse Resp BP Pulse Ox 98.7 F 62 20 175/73 H 99 10/17/17 08:00 10/17/17 08:00 10/17/17 08:00 10/17/17 08:00 10/17/17 08:00 Intake and Output: 10/17/17 10/17/17 06:59 18:59 Intake Total 350 750 Balance 350 750 - Medications Medications: Current Medications Acetaminophen (Tylenol 325mg Tab) 650 mg PO Q6 PRN PRN Reason: Pain, Mild (1-3) Amlodipine Besylate (Norvasc) 5 mg PO DAILY [facility] Last Admin: 10/17/17 10:19 Dose: 5 mg Furosemide (Lasix) 40 mg PO BID [facility] Last Admin: 10/17/17 10:24 Dose: Not Given Vancomycin HCl 1 gm/ Sodium (Chloride) 200 mls @ 166.7 mls/hr IVPB Q24H OTIS PRN Reason: Protocol Last Admin: 10/17/17 10:46 Dose: 166.7 mls/hr Cefepime HCl (Maxipime Iv 1 Gm Premix) 1 gm in 50 mls @ 100 mls/hr IVPB Q12H [facility]IS PRN Reason: Protocol Last Admin: 10/17/17 08:13 Dose: 100 mls/hr Metoprolol Succinate (Toprol Xl) 50 mg PO DAILY [facility] Last Admin: 10/17/17 10:19 Dose: 50 mg Naproxen (Anaprox) 275 mg PO QID PRN PRN Reason: Pain, moderate (4-7) Last Admin: 10/16/17 21:58 Dose: 275 mg Oxycodone/Acetaminophen (Percocet 5/325 Mg Tab) 1 tab PO Q8H PRN PRN Reason: Pain, moderate (4-7) Stop: 10/18/17 21:02 Last Admin: 10/17/17 01:13 Dose: 1 tab - Labs Labs: 10/13/17 06:52 10/13/17 06:52 PT 14.4 SECONDS (9.7-12.2) H 07/20/18 09:13 INR 1.3 09/28/17 09:13 APTT 28 SECONDS (21-34) 09/28/17 09:13 - Constitutional Appears: No Acute Distress, Chronically Ill - Eye Exam Eye Exam: Normal appearance, PERRL - ENT Exam ENT Exam: Mucous Membranes Moist - Neck Exam Neck Exam: Full ROM, Normal Inspection. absent: Lymphadenopathy - Respiratory Exam Respiratory Exam: Clear to Ausculation Bilateral, NORMAL BREATHING PATTERN - Cardiovascular Exam Cardiovascular Exam: REGULAR RHYTHM, +S1, +S2. absent: Murmur - GI/Abdominal Exam GI & Abdominal Exam: Soft, Normal Bowel Sounds. absent: Tenderness - Extremities Exam Extremities Exam: Full ROM, Normal Capillary Refill, Normal Inspection. absent : Joint Swelling, Pedal Edema - Back Exam Back Exam: NORMAL INSPECTION - Neurological Exam Neurological Exam: Alert, Awake, CN II-XII Intact, Normal Gait, Oriented x3 Assessment and Plan - Assessment and Plan (Free Text) Assessment: STABLE Plan: CT PRESENT TREATMENT.
--- NOTE | 2017-10-17 15:20 | CP.PCM.PN ---
Subjective - Date & Time of Evaluation Date of Evaluation: 10/17/17 Time of Evaluation: 08:00 - Subjective Subjective: afeb nad rx renewed Objective - Vital Signs/Intake and Output Vital Signs (last 24 hours): Temp Pulse Resp BP Pulse Ox 98.7 F 62 20 175/73 H 99 10/17/17 08:00 10/17/17 08:00 10/17/17 08:00 10/17/17 08:00 10/17/17 08:00 Intake and Output: 10/17/17 10/17/17 06:59 18:59 Intake Total 350 1480 Balance 350 1480 - Medications Medications: Current Medications Acetaminophen (Tylenol 325mg Tab) 650 mg PO Q6 PRN PRN Reason: Pain, Mild (1-3) Amlodipine Besylate (Norvasc) 5 mg PO DAILY [facility] Last Admin: 10/17/17 10:19 Dose: 5 mg Furosemide (Lasix) 40 mg PO BID [facility] Last Admin: 10/17/17 10:24 Dose: Not Given Vancomycin HCl 1 gm/ Sodium (Chloride) 200 mls @ 166.7 mls/hr IVPB Q24H [facility] PRN Reason: Protocol Last Admin: 10/17/17 10:46 Dose: 166.7 mls/hr Cefepime HCl (Maxipime Iv 1 Gm Premix) 1 gm in 50 mls @ 100 mls/hr IVPB Q12H [facility] PRN Reason: Protocol Last Admin: 10/17/17 08:13 Dose: 100 mls/hr Metoprolol Succinate (Toprol Xl) 50 mg PO DAILY [facility] Last Admin: 10/17/17 10:19 Dose: 50 mg Naproxen (Anaprox) 275 mg PO QID PRN PRN Reason: Pain, moderate (4-7) Last Admin: 10/16/17 21:58 Dose: 275 mg Oxycodone/Acetaminophen (Percocet 5/325 Mg Tab) 1 tab PO Q8H PRN PRN Reason: Pain, moderate (4-7) Stop: 10/18/17 21:02 Last Admin: 10/17/17 01:13 Dose: 1 tab - Labs Labs: 10/13/17 06:52 10/13/17 06:52 PT 14.4 SECONDS (9.7-12.2) H 09/28/17 09:13 INR 1.3 09/28/17 09:13 APTT 28 SECONDS (21-34) 09/28/17 09:13 - Constitutional Appears: Non-toxic, Chronically Ill - Head Exam Head Exam: NORMOCEPHALIC - Eye Exam Eye Exam: PERRL - ENT Exam ENT Exam: Mucous Membranes Dry - Neck Exam Neck Exam: absent: Lymphadenopathy - Respiratory Exam Respiratory Exam: Decreased Breath Sounds - Cardiovascular Exam Cardiovascular Exam: REGULAR RHYTHM - GI/Abdominal Exam GI & Abdominal Exam: Distended Assessment and Plan (1) Alcohol intoxication Status: Acute (2) Cellulitis and abscess of foot Status: Acute (3) Chronic congestive heart failure Status: Acute (4) COPD (chronic obstructive pulmonary disease) Status: Chronic (5) Osteomyelitis of toe of left foot Status: Acute
--- NOTE | 2017-10-17 16:40 | PCM.PSYCH ---
Initial Psychiatric Evaluation - Initial Psychiatric Evaluation Type of Admission: Voluntary Legal Status: Capacity Chief Complaint (in patient's own words): "I'm fine" History of Present Illness and Precipitating Events: Pt is seen, chart reviewed, and case discussed. This is a 57 y/o [place] male, with PMHx of liver cirrhosis, HTN, alcohol abuse seen and presented to the ED on 09-28-17, concerning bilateral lower extremity swelling and nonhealing wounds. Patient complains of worsening lower extremity swelling ongoing for 2 weeks. Pt was admitted to the medical unit. He has been in the hospital for surgery. Today he consulted as yesterday he made statements about killing himself and was crying. Patient reports some irritability, but denies any feelings of hopelessness, helplessness, and worthlessness, denies any problem with the sleep or appetite, denies suicidal ideation or homicidal ideation. Pt denies any auditory or visual hallucinations. He reports drinking 1-2 beers daily, but denies any withdrawal symptoms. Psych hx: denies Medical hx: arthritis, CHF, HTN, cirrhosis of liver Family psych hx: denies Current Medications: Active Medications Generic Name Dose Route Start Last Admin Trade Name Freq PRN Reason Stop Dose Admin Acetaminophen 650 mg 10/16/17 21:02 Tylenol 325mg Tab PO Q6 PRN Pain, Mild (1-3) Amlodipine Besylate 5 mg 10/16/17 10:00 10/17/17 10:19 Norvasc PO 5 mg DAILY [facility] Administration Furosemide 40 mg 10/08/17 18:00 10/17/17 10:24 Lasix PO Not Given BID [facility] Vancomycin HCl 1 gm/ Sodium 200 mls @ 166.7 mls/hr 09/29/17 10:00 10/17/17 10 :46 Chloride IVPB 166.7 mls/hr Q24H OT[facility] Administration Protocol Cefepime HCl 1 gm in 50 mls @ 100 mls/hr 10/10/17 20:00 10/17/17 08:13 Maxipime Iv 1 Gm Premix IVPB 100 mls/hr Q12H [facility] Administration Protocol Metoprolol Succinate 50 mg 10/15/17 16:00 10/17/17 10:19 Toprol Xl PO 50 mg DAILY [facility] Administration Naproxen 275 mg 10/16/17 21:03 10/16/17 21:58 Anaprox PO 275 mg QID PRN Administration Pain, moderate (4-7) Oxycodone/Acetaminophen 1 tab 10/15/17 21:01 10/17/17 01:13 Percocet 5/325 Mg Tab PO 10/18/17 21:02 1 tab Q8H PRN Administration Pain, moderate (4-7) Past Psychiatric History - Past Psychiatric History Previous Treatment History: None Pertinent Medical Hx (Current Medical&Sleep Prob, Allergies): Allergies Allergy/AdvReac Type Severity Reaction Status Date / Time No Known Allergies Allergy Verified 09/12/17 17:28 Ciprofloxacin HCl [Cipro] 500 mg PO BID 09/28/17 Metoprolol Succinate 25 mg PO DAILY 09/28/17 Naproxen 375 mg PO QID PRN 09/28/17 Spironolactone 25 mg PO DAILY 09/28/17 Review of Systems - Review of Systems Systems not reviewed;Unavailable: Language Barrier All systems: reviewed and no additional remarkable complaints except - Psychiatric Psychiatric: As Per HPI, Anxiety, Irritability. absent: Auditory Hallucinations , Hallucinations, Suicidal Ideation Mental Status Examination - Personal Presentation Personal Presentation: Looks older than stated age - Affect Affect: Constricted - Motor Activity Motor Activity: Calm - Reliability in Providing Information Reliability in Providing Information: Good - Speech Speech: Organized, Relevant - Mood Mood: Neutral - Formal Thought Process Formal Thought Process: No Impairment - Obsessions/Compulsions Obsessions: None Compulsions: None - Cognitive Functions Orientation: Person, Place, Situation, Time Sensorium: Alert Attention/Concentration: Attentive Abstract Thinking: [place] Estimate of Intelligence: Below average Judgement: Imparied, as evidence by: Poor judgement, Intact, as evidence by: Insight regarding need for hospitalization Memory: Recent intact, as evidence by: Ability to recall events of the day, Remote intact, as evidenced by: Abilit to recall sig. life events - Risk Risk: Diminished functioning - Limitations Limitations: Living alone DSM 5 DX - DSM 5 DSM 5 Diagnosis: Adjustment disorder Alcohol use disorder moderate - Recommended/Plan of Treatment Treatment Recommendations and Plan of Treatment: Adjustment disorder Alcohol use disorder moderate Thiamine/Folic Acid Hydroxyzine 25 mg PO Q6 hr prn Pt psychiatrically stable and clear for discharge.
[2017-10-17] MEDS: Naproxen 275 mg Tab PO PRN (22:06)
[2017-10-18 07:41] LABS: BASO # 0.1 K/uL (0.0-0.2); BASO % 2.2 % (0.0-2.0); EOS # 0.6 K/uL (0.0-0.7); EOS % 9.9 % (0.0-4.0); HEMOGLOBIN 8.9 g/dL (12.0-18.0); LYMPH % 34.7 % (20.0-40.0); MEAN CELL VOLUME 91.5 fL (80.0-94.0); MEAN CORPUSCULAR HGB CONC 33.9 g/dL (33.0-37.0); MEAN PLATELET VOLUME 11.3 fL (7.2-11.7); MONO # 0.8 K/uL (0.0-0.8); MONO % 13.6 % (0.0-10.0); NEUT # 2.2 K/uL (1.8-7.0); NEUT % 39.6 % (50.0-75.0); NRBC % 0.1 % (0.0-2.0); RBC 2.88 Mil/uL (4.40-5.90); WHITE BLOOD COUNT 5.6 K/uL (4.8-10.8)
[2017-10-18 07:59] LABS: ALB/GLOB RATIO 0.6 (1.0-2.1); ALBUMIN 1.8 g/dL (3.5-5.0); ALT/SGPT 38 U/L (21-72); AST/SGOT 52 U/L (17-59); BLOOD UREA NITROGEN 29 mg/dL (9-20); CALCIUM 7.6 mg/dl (8.6-10.4); GFR NON-AFRICAN AMERICAN > 60
[2017-10-18] MEDS: Cefepime IV 1 gm in Dextrose 1 GM/50 ML BAG IVPB SCH ×2 (08:32→19:14)
[2017-10-18] MEDS: Vancomycin 1 GM in Sodium Chloride 0.9% 200 ML IVPB SCH (10:31)
[2017-10-18] MEDS: Metoprolol Succinate 50 mg XL Tab PO SCH (10:32)
--- NOTE | 2017-10-18 12:28 | CP.PCM.PN ---
Subjective - Date & Time of Evaluation Date of Evaluation: 10/18/17 Time of Evaluation: 12:25 - Subjective Subjective: stable. anemia present. hb 8.9 thrombocytopenia cirrhosis of liver. om lt toe. Objective - Vital Signs/Intake and Output Vital Signs (last 24 hours): Temp Pulse Resp BP Pulse Ox 98.7 F 65 20 132/56 L 98 10/18/17 08:00 10/18/17 08:00 10/18/17 08:00 10/18/17 08:00 10/18/17 08:00 Intake and Output: 10/18/17 10/18/17 06:59 18:59 Intake Total 700 Balance 700 - Medications Medications: Current Medications Acetaminophen (Tylenol 325mg Tab) 650 mg PO Q6 PRN PRN Reason: Pain, Mild (1-3) Amlodipine Besylate (Norvasc) 5 mg PO DAILY [facility] Last Admin: 10/18/17 10:32 Dose: 5 mg Folic Acid (Folic Acid) 1 mg PO DAILY [facility] Last Admin: 10/18/17 10:32 Dose: 1 mg Furosemide (Lasix) 40 mg PO BID [facility] Last Admin: 10/18/17 10:52 Dose: Not Given Hydroxyzine HCl (Atarax) 25 mg PO Q6 PRN PRN Reason: Agitation Vancomycin HCl 1 gm/ Sodium (Chloride) 200 mls @ 166.7 mls/hr IVPB Q24H [facility] PRN Reason: Protocol Last Admin: 10/18/17 10:31 Dose: 166.7 mls/hr Cefepime HCl (Maxipime Iv 1 Gm Premix) 1 gm in 50 mls @ 100 mls/hr IVPB Q12H [facility] PRN Reason: Protocol Last Admin: 10/18/17 08:32 Dose: 100 mls/hr Metoprolol Succinate (Toprol Xl) 50 mg PO DAILY [facility] Last Admin: 10/18/17 10:32 Dose: 50 mg Naproxen (Anaprox) 275 mg PO QID PRN PRN Reason: Pain, moderate (4-7) Last Admin: 10/17/17 22:06 Dose: 275 mg Oxycodone/Acetaminophen (Percocet 5/325 Mg Tab) 1 tab PO Q8H PRN PRN Reason: Pain, moderate (4-7) Stop: 10/18/17 21:02 Last Admin: 10/17/17 01:13 Dose: 1 tab Thiamine HCl (Vitamin B1 Tab) 100 mg PO BID [facility] Last Admin: 10/18/17 10:31 Dose: 100 mg - Labs Labs: 10/18/17 07:23 10/18/17 07:23 PT 14.4 SECONDS (9.7-12.2) H 09/28/17 09:13 INR 1.3 09/28/17 09:13 APTT 28 SECONDS (21-34) 09/28/17 09:13 - Constitutional Appears: No Acute Distress, Chronically Ill - Eye Exam Eye Exam: EOMI, Normal appearance, PERRL Pupil Exam: NORMAL ACCOMODATION, PERRL - ENT Exam ENT Exam: Mucous Membranes Moist, Normal Exam - Neck Exam Neck Exam: Full ROM, Normal Inspection. absent: Lymphadenopathy - Respiratory Exam Respiratory Exam: Clear to Ausculation Bilateral, NORMAL BREATHING PATTERN - Cardiovascular Exam Cardiovascular Exam: REGULAR RHYTHM, +S1, +S2. absent: Murmur - GI/Abdominal Exam GI & Abdominal Exam: Soft, Normal Bowel Sounds. absent: Tenderness - Extremities Exam Extremities Exam: Full ROM, Normal Capillary Refill, Normal Inspection. absent : Joint Swelling, Pedal Edema - Back Exam Back Exam: NORMAL INSPECTION - Neurological Exam Neurological Exam: Alert, Awake, CN II-XII Intact, Normal Gait, Oriented x3 - Psychiatric Exam Psychiatric exam: Normal Affect, Normal Mood Assessment and Plan - Assessment and Plan (Free Text) Assessment: stable. Plan: ct present treatment.
--- NOTE | 2017-10-18 16:13 | CP.PCM.PN ---
Subjective - Date & Time of Evaluation Date of Evaluation: 10/18/17 Time of Evaluation: 16:09 - Subjective Subjective: Podiatry progress note for attending Dr. Harris 57 y/o male seen and in bed and evaluated. Patient was resting comfortably. Patient denies ambulating with left foot. Patient denies F/N/V/SOB/posterior calf pain. Patient dressing intact and clean. Patient seen with Dr. Harris Objective - Vital Signs/Intake and Output Vital Signs (last 24 hours): Temp Pulse Resp BP Pulse Ox 98.7 F 65 20 132/56 L 98 10/18/17 08:00 10/18/17 08:00 10/18/17 08:00 10/18/17 08:00 10/18/17 08:00 Intake and Output: 10/18/17 10/18/17 06:59 18:59 Intake Total 700 560 Output Total 800 Balance 700 -240 - Medications Medications: Current Medications Acetaminophen (Tylenol 325mg Tab) 650 mg PO Q6 PRN PRN Reason: Pain, Mild (1-3) Amlodipine Besylate (Norvasc) 5 mg PO DAILY [facility] Last Admin: 10/18/17 10:32 Dose: 5 mg Folic Acid (Folic Acid) 1 mg PO DAILY [facility] Last Admin: 10/18/17 10:32 Dose: 1 mg Furosemide (Lasix) 40 mg PO BID [facility] Last Admin: 10/18/17 10:52 Dose: Not Given Hydroxyzine HCl (Atarax) 25 mg PO Q6 PRN PRN Reason: Agitation Vancomycin HCl 1 gm/ Sodium (Chloride) 200 mls @ 166.7 mls/hr IVPB Q24H [facility] PRN Reason: Protocol Last Admin: 10/18/17 10:31 Dose: 166.7 mls/hr Cefepime HCl (Maxipime Iv 1 Gm Premix) 1 gm in 50 mls @ 100 mls/hr IVPB Q12H [facility] PRN Reason: Protocol Last Admin: 10/18/17 08:32 Dose: 100 mls/hr Metoprolol Succinate (Toprol Xl) 50 mg PO DAILY [facility] Last Admin: 10/18/17 10:32 Dose: 50 mg Naproxen (Anaprox) 275 mg PO QID PRN PRN Reason: Pain, moderate (4-7) Last Admin: 10/17/17 22:06 Dose: 275 mg Oxycodone/Acetaminophen (Percocet 5/325 Mg Tab) 1 tab PO Q8H PRN PRN Reason: Pain, moderate (4-7) Stop: 10/18/17 21:02 Last Admin: 10/17/17 01:13 Dose: 1 tab Thiamine HCl (Vitamin B1 Tab) 100 mg PO BID [facility] Last Admin: 10/18/17 10:31 Dose: 100 mg - Labs Labs: 10/18/17 07:23 10/18/17 07:23 PT 14.4 SECONDS (9.7-12.2) H 09/28/17 09:13 INR 1.3 09/28/17 09:13 APTT 28 SECONDS (21-34) 09/28/17 09:13 - Constitutional Appears: Well, Non-toxic, No Acute Distress - Head Exam Head Exam: ATRAUMATIC, NORMOCEPHALIC - Extremities Exam Additional comments: LE focused exam: VASC: DP pulses weakly palpable 1/4 B/L. PT pulses palpable 1/4 B/L. CFT <3 seconds digits 1-5 R and 2-4 L; CFT present to hallux amputation site and met head resection site. Mild pedal edema noted B/L. NEURO: Gross pedal sensation is diminished B/L. DERM: Surgical site noted to left dorsomedial forefoot at site of 1st met head resection and hallux amputation with some sutures intact, small opening noted centrally with Mild maceration present centrally and laterally to incision site. minimal sanguinous drainage noted, no purulence ORTHO: s/p left hallux amputation and 1st met head resection with mild tenderness to palpation noted. Prominent 1st metatarsal head is palpable at distal tip of surgical site wound. Muscle strength 5/5 for all dorsiflexors, plantarflexors, inverters, and everters. - Neurological Exam Neurological Exam: Alert, Awake, Oriented x3 - Psychiatric Exam Psychiatric exam: Normal Affect, Normal Mood Assessment and Plan - Assessment and Plan (Free Text) Assessment: 57 y/o male 3 days s/p 1st met head resection secondary to non-healing hallux amputation site Plan: Patient seen and evaluated at bedside with attending Dr. Harris Chart, labs and vital reviewed Continue local wound care - betadine, DSD, NINI Wound care note and assessment appreciated Pt to remain strict NWB with OOB to/from commode only Continue antibiotics per ID - Vancomycin, Zosyn Per ID, patient to have 6 weeks of IV abx Pain control - Naproxen, Tylenol, Percocet Will continue to follow patient daily while in house
[2017-10-19] MEDS: Cefepime IV 1 gm in Dextrose 1 GM/50 ML BAG IVPB SCH ×2 (08:22→19:45)
[2017-10-19] MEDS: Metoprolol Succinate 50 mg XL Tab PO SCH (09:52)
[2017-10-19] MEDS: Vancomycin 1 GM in Sodium Chloride 0.9% 200 ML IVPB SCH (09:52)
--- NOTE | 2017-10-19 12:28 | CP.PCM.PN ---
Subjective - Date & Time of Evaluation Date of Evaluation: 10/19/17 Time of Evaluation: 12:28 - Subjective Subjective: Podiatry Progress Note -Dr. Harris 57 y/o male seen and in bed and evaluated with attending Dr. Harris, 4 days s/p revisional hallux amputation of R foot with 1st metatarsal head resection. Patient was resting comfortably. Patient denies ambulating with left foot at all at this time. States a couple of his stitches popped yesterday when he was ambulating to commode. Patient denies F/N/V/SOB/posterior calf pain. Patient dressing intact and clean on visit. Objective - Vital Signs/Intake and Output Vital Signs (last 24 hours): Temp Pulse Resp BP Pulse Ox 97.4 F L 56 L 20 159/71 H 100 10/19/17 08:00 10/19/17 08:00 10/19/17 08:00 10/19/17 09:46 10/19/17 08:00 Intake and Output: 10/19/17 10/19/17 06:59 18:59 Intake Total 700 Balance 700 - Medications Medications: Current Medications Acetaminophen (Tylenol 325mg Tab) 650 mg PO Q6 PRN PRN Reason: Pain, Mild (1-3) Amlodipine Besylate (Norvasc) 5 mg PO DAILY [facility] Last Admin: 10/19/17 09:47 Dose: 5 mg Folic Acid (Folic Acid) 1 mg PO DAILY [facility] Last Admin: 10/19/17 09:46 Dose: 1 mg Furosemide (Lasix) 40 mg PO BID [facility] Last Admin: 10/19/17 09:46 Dose: 40 mg Hydroxyzine HCl (Atarax) 25 mg PO Q6 PRN PRN Reason: Agitation Vancomycin HCl 1 gm/ Sodium (Chloride) 200 mls @ 166.7 mls/hr IVPB Q24H [facility] PRN Reason: Protocol Last Admin: 10/19/17 09:52 Dose: 166.7 mls/hr Cefepime HCl (Maxipime Iv 1 Gm Premix) 1 gm in 50 mls @ 100 mls/hr IVPB Q12H [facility] PRN Reason: Protocol Last Admin: 10/19/17 08:22 Dose: 100 mls/hr Metoprolol Succinate (Toprol Xl) 50 mg PO DAILY [facility] Last Admin: 08/10/18 09:52 Dose: 50 mg Naproxen (Anaprox) 275 mg PO QID PRN PRN Reason: Pain, moderate (4-7) Last Admin: 10/17/17 22:06 Dose: 275 mg Thiamine HCl (Vitamin B1 Tab) 100 mg PO BID [facility] Last Admin: 10/19/17 09:46 Dose: 100 mg - Labs Labs: 10/18/17 07:23 10/18/17 07:23 PT 14.4 SECONDS (9.7-12.2) H 09/28/17 09:13 INR 1.3 09/28/17 09:13 APTT 28 SECONDS (21-34) 09/28/17 09:13 - Constitutional Appears: Well, Non-toxic, No Acute Distress - Extremities Exam Additional comments: LE focused exam: VASC: DP pulses weakly palpable 1/4 B/L. PT pulses palpable 1/4 B/L. CFT <3 seconds digits 1-5 R and 2-4 L; CFT present to hallux amputation site and met head resection site. Mild pedal edema noted B/L. NEURO: Gross pedal sensation is diminished B/L. DERM: Surgical site noted to left dorsomedial forefoot at site of 1st met head resection and hallux amputation with some sutures intact, small opening noted centrally with mild maceration present centrally and laterally to incision site. No active drainage or purulence is noted ORTHO: s/p left hallux amputation and 1st met head resection with mild tenderness to palpation noted. Prominent 1st metatarsal head is palpable at distal tip of surgical site wound. - Neurological Exam Neurological Exam: Alert, Awake, Oriented x3 - Psychiatric Exam Psychiatric exam: Normal Affect, Normal Mood Assessment and Plan - Assessment and Plan (Free Text) Plan: 57 y/o male 4 days s/p 1st met head resection secondary to non-healing hallux amputation site Plan: Patient seen and evaluated at bedside with attending Dr. Harris Chart, labs and vital reviewed Continue local wound care - betadine, DSD, NINI Wound care note and assessment appreciated Pt to remain strict NWB with OOB to/from commode only Continue antibiotics per ID - Vancomycin, Zosyn Per ID, patient to have 6 weeks of IV abx Pain control - Naproxen, Tylenol, Percocet Will continue to follow patient daily while in house
[2017-10-19] MEDS: Naproxen 275 mg Tab PO PRN (17:26)
--- NOTE | 2017-10-19 17:54 | CP.PCM.PN ---
Subjective - Date & Time of Evaluation Date of Evaluation: 10/19/17 Time of Evaluation: 08:00 - Subjective Subjective: 4 days s/p revisional hallux amputation of R foot with 1st metatarsal head resection. Patient was resting comfortably Objective - Vital Signs/Intake and Output Vital Signs (last 24 hours): Temp Pulse Resp BP Pulse Ox 97.4 F L 55 L 20 138/88 100 10/19/17 16:43 10/19/17 16:43 10/19/17 16:43 10/19/17 17:32 10/19/17 16:43 Intake and Output: 10/19/17 10/19/17 06:59 18:59 Intake Total 700 800 Balance 700 800 - Medications Medications: Current Medications Acetaminophen (Tylenol 325mg Tab) 650 mg PO Q6 PRN PRN Reason: Pain, Mild (1-3) Amlodipine Besylate (Norvasc) 5 mg PO DAILY [facility] Last Admin: 10/19/17 09:47 Dose: 5 mg Folic Acid (Folic Acid) 1 mg PO DAILY [facility] Last Admin: 10/19/17 09:46 Dose: 1 mg Furosemide (Lasix) 40 mg PO BID [facility] Last Admin: 10/19/17 17:32 Dose: 40 mg Hydroxyzine HCl (Atarax) 25 mg PO Q6 PRN PRN Reason: Agitation Vancomycin HCl 1 gm/ Sodium (Chloride) 200 mls @ 166.7 mls/hr IVPB Q24H [facility] PRN Reason: Protocol Last Admin: 10/19/17 09:52 Dose: 166.7 mls/hr Cefepime HCl (Maxipime Iv 1 Gm Premix) 1 gm in 50 mls @ 100 mls/hr IVPB Q12H [facility] PRN Reason: Protocol Last Admin: 10/19/17 08:22 Dose: 100 mls/hr Metoprolol Succinate (Toprol Xl) 50 mg PO DAILY [facility] Last Admin: 10/19/17 09:52 Dose: 50 mg Naproxen (Anaprox) 275 mg PO QID PRN PRN Reason: Pain, moderate (4-7) Last Admin: 10/19/17 17:26 Dose: 275 mg Thiamine HCl (Vitamin B1 Tab) 100 mg PO BID [facility] Last Admin: 10/19/17 17:30 Dose: 100 mg - Labs Labs: 10/18/17 07:23 10/18/17 07:23 PT 14.4 SECONDS (9.7-12.2) H 09/28/17 09:13 INR 1.3 09/28/17 09:13 APTT 28 SECONDS (21-34) 09/28/17 09:13 - Constitutional Appears: Non-toxic, Chronically Ill - Head Exam Head Exam: NORMOCEPHALIC - Eye Exam Eye Exam: PERRL - ENT Exam ENT Exam: Mucous Membranes Dry - Neck Exam Neck Exam: absent: Lymphadenopathy - Respiratory Exam Respiratory Exam: Decreased Breath Sounds - Cardiovascular Exam Cardiovascular Exam: REGULAR RHYTHM - GI/Abdominal Exam GI & Abdominal Exam: Distended, Soft - Rectal Exam Rectal Exam: Deferred - Exam Exam: NORMAL INSPECTION Assessment and Plan (1) Alcohol intoxication Status: Acute (2) Cellulitis and abscess of foot Status: Acute (3) Chronic congestive heart failure Status: Acute (4) COPD (chronic obstructive pulmonary disease) Status: Chronic (5) Osteomyelitis of toe of left foot Status: Acute - Assessment and Plan (Free Text) Assessment: IV rx renewed
[2017-10-20] MEDS: Cefepime IV 1 gm in Dextrose 1 GM/50 ML BAG IVPB SCH ×2 (08:53→20:45)
[2017-10-20] MEDS: Metoprolol Succinate 50 mg XL Tab PO SCH (09:07)
[2017-10-20] MEDS: Vancomycin 1 GM in Sodium Chloride 0.9% 200 ML IVPB SCH (10:11)
--- NOTE | 2017-10-20 14:47 | CP.PCM.PN ---
Subjective - Date & Time of Evaluation Date of Evaluation: 10/19/17 Time of Evaluation: 11:00 - Subjective Subjective: CONDITION SAME. AFEBRILE. Objective - Vital Signs/Intake and Output Vital Signs (last 24 hours): Temp Pulse Resp BP Pulse Ox 97.9 F 59 L 20 160/78 H 98 10/20/17 00:00 10/20/17 00:00 10/20/17 00:00 10/20/17 09:07 10/20/17 00:00 Intake and Output: 10/20/17 10/20/17 06:59 18:59 Intake Total 1050 Output Total 1500 Balance 1050 -1500 - Medications Medications: Current Medications Acetaminophen (Tylenol 325mg Tab) 650 mg PO Q6 PRN PRN Reason: Pain, Mild (1-3) Amlodipine Besylate (Norvasc) 5 mg PO DAILY [facility] Last Admin: 10/20/17 09:07 Dose: 5 mg Folic Acid (Folic Acid) 1 mg PO DAILY [facility] Last Admin: 10/20/17 09:07 Dose: 1 mg Furosemide (Lasix) 40 mg PO BID [facility] Last Admin: 10/20/17 09:07 Dose: 40 mg Hydroxyzine HCl (Atarax) 25 mg PO Q6 PRN PRN Reason: Agitation Vancomycin HCl 1 gm/ Sodium (Chloride) 200 mls @ 166.7 mls/hr IVPB Q24H [facility] PRN Reason: Protocol Last Admin: 10/20/17 10:11 Dose: 166.7 mls/hr Cefepime HCl (Maxipime Iv 1 Gm Premix) 1 gm in 50 mls @ 100 mls/hr IVPB Q12H [facility] PRN Reason: Protocol Last Admin: 10/20/17 08:53 Dose: 100 mls/hr Metoprolol Succinate (Toprol Xl) 50 mg PO DAILY [facility] Last Admin: 10/20/17 09:07 Dose: 50 mg Naproxen (Anaprox) 275 mg PO QID PRN PRN Reason: Pain, moderate (4-7) Last Admin: 10/19/17 17:26 Dose: 275 mg Thiamine HCl (Vitamin B1 Tab) 100 mg PO BID [facility] Last Admin: 10/20/17 09:07 Dose: 100 mg - Labs Labs: 10/18/17 07:23 10/18/17 07:23 PT 14.4 SECONDS (9.7-12.2) H 09/28/17 09:13 INR 1.3 09/28/17 09:13 APTT 28 SECONDS (21-34) 09/28/17 09:13 - Constitutional Appears: No Acute Distress, Chronically Ill - Eye Exam Eye Exam: Normal appearance, PERRL - ENT Exam ENT Exam: Mucous Membranes Moist - Respiratory Exam Respiratory Exam: Clear to Ausculation Bilateral, NORMAL BREATHING PATTERN - Cardiovascular Exam Cardiovascular Exam: REGULAR RHYTHM, +S1, +S2 - GI/Abdominal Exam GI & Abdominal Exam: Soft, Normal Bowel Sounds - Extremities Exam Extremities Exam: Full ROM, Normal Capillary Refill, Normal Inspection. absent : Joint Swelling, Pedal Edema - Neurological Exam Neurological Exam: Alert, Awake, CN II-XII Intact, Normal Gait, Oriented x3 Assessment and Plan - Assessment and Plan (Free Text) Assessment: STABLE. Plan: CT PRESENT TREATMENT.
--- NOTE | 2017-10-20 14:49 | CP.PCM.PN ---
Subjective - Date & Time of Evaluation Date of Evaluation: 10/20/17 Time of Evaluation: 11:00 - Subjective Subjective: CONDITION SAME AND STABLE. Objective - Vital Signs/Intake and Output Vital Signs (last 24 hours): Temp Pulse Resp BP Pulse Ox 97.9 F 59 L 20 160/78 H 98 10/20/17 00:00 10/20/17 00:00 10/20/17 00:00 10/20/17 09:07 10/20/17 00:00 Intake and Output: 10/20/17 10/20/17 06:59 18:59 Intake Total 1050 Output Total 1500 Balance 1050 -1500 - Medications Medications: Current Medications Acetaminophen (Tylenol 325mg Tab) 650 mg PO Q6 PRN PRN Reason: Pain, Mild (1-3) Amlodipine Besylate (Norvasc) 5 mg PO DAILY [facility] Last Admin: 10/20/17 09:07 Dose: 5 mg Folic Acid (Folic Acid) 1 mg PO DAILY [facility] Last Admin: 10/20/17 09:07 Dose: 1 mg Furosemide (Lasix) 40 mg PO BID [facility] Last Admin: 10/20/17 09:07 Dose: 40 mg Hydroxyzine HCl (Atarax) 25 mg PO Q6 PRN PRN Reason: Agitation Vancomycin HCl 1 gm/ Sodium (Chloride) 200 mls @ 166.7 mls/hr IVPB Q24H [facility] PRN Reason: Protocol Last Admin: 10/20/17 10:11 Dose: 166.7 mls/hr Cefepime HCl (Maxipime Iv 1 Gm Premix) 1 gm in 50 mls @ 100 mls/hr IVPB Q12H [facility] PRN Reason: Protocol Last Admin: 10/20/17 08:53 Dose: 100 mls/hr Metoprolol Succinate (Toprol Xl) 50 mg PO DAILY [facility] Last Admin: 10/20/17 09:07 Dose: 50 mg Naproxen (Anaprox) 275 mg PO QID PRN PRN Reason: Pain, moderate (4-7) Last Admin: 10/19/17 17:26 Dose: 275 mg Thiamine HCl (Vitamin B1 Tab) 100 mg PO BID [facility] Last Admin: 10/20/17 09:07 Dose: 100 mg - Labs Labs: 10/18/17 07:23 10/18/17 07:23 PT 14.4 SECONDS (9.7-12.2) H 09/28/17 09:13 INR 1.3 09/28/17 09:13 APTT 28 SECONDS (21-34) 09/28/17 09:13 - Constitutional Appears: No Acute Distress, Chronically Ill - Eye Exam Eye Exam: PERRL - ENT Exam ENT Exam: Normal Exam - Neck Exam Neck Exam: Full ROM, Normal Inspection. absent: Lymphadenopathy - Respiratory Exam Respiratory Exam: Clear to Ausculation Bilateral, NORMAL BREATHING PATTERN - Cardiovascular Exam Cardiovascular Exam: REGULAR RHYTHM, +S1, +S2. absent: Murmur - GI/Abdominal Exam GI & Abdominal Exam: Soft, Normal Bowel Sounds. absent: Tenderness Assessment and Plan - Assessment and Plan (Free Text) Assessment: SAME. Plan: IV ABTS.
--- NOTE | 2017-10-20 18:10 | CP.PCM.PN ---
Subjective - Date & Time of Evaluation Date of Evaluation: 10/20/17 Time of Evaluation: 18:04 - Subjective Subjective: Podiatry Progress Note -Dr. Harris 57 y/o male seen and in bed and evaluated with attending Dr. Harris, 5 days s/p revisional hallux amputation of R foot with 1st metatarsal head resection. Patient was resting comfortably. Patient denies F/N/V/SOB/posterior calf pain. Patient dressing intact and clean on visit. Objective - Vital Signs/Intake and Output Vital Signs (last 24 hours): Temp Pulse Resp BP Pulse Ox 98.1 F 57 L 20 142/72 98 10/20/17 15:00 10/20/17 15:00 10/20/17 15:00 10/20/17 15:00 10/20/17 15:00 Intake and Output: 10/20/17 10/20/17 06:59 18:59 Intake Total 1050 Output Total 1500 Balance 1050 -1500 - Medications Medications: Current Medications Acetaminophen (Tylenol 325mg Tab) 650 mg PO Q6 PRN PRN Reason: Pain, Mild (1-3) Amlodipine Besylate (Norvasc) 5 mg PO DAILY [facility] Last Admin: 10/20/17 09:07 Dose: 5 mg Folic Acid (Folic Acid) 1 mg PO DAILY [facility] Last Admin: 10/20/17 09:07 Dose: 1 mg Furosemide (Lasix) 40 mg PO BID [facility] Last Admin: 10/20/17 09:07 Dose: 40 mg Hydroxyzine HCl (Atarax) 25 mg PO Q6 PRN PRN Reason: Agitation Vancomycin HCl 1 gm/ Sodium (Chloride) 200 mls @ 166.7 mls/hr IVPB Q24H [facility] PRN Reason: Protocol Last Admin: 10/20/17 10:11 Dose: 166.7 mls/hr Cefepime HCl (Maxipime Iv 1 Gm Premix) 1 gm in 50 mls @ 100 mls/hr IVPB Q12H [facility] PRN Reason: Protocol Last Admin: 10/20/17 08:53 Dose: 100 mls/hr Metoprolol Succinate (Toprol Xl) 50 mg PO DAILY [facility] Last Admin: 10/20/17 09:07 Dose: 50 mg Naproxen (Anaprox) 275 mg PO QID PRN PRN Reason: Pain, moderate (4-7) Last Admin: 10/19/17 17:26 Dose: 275 mg Thiamine HCl (Vitamin B1 Tab) 100 mg PO BID [facility] Last Admin: 10/20/17 09:07 Dose: 100 mg - Labs Labs: 10/18/17 07:23 10/18/17 07:23 PT 14.4 SECONDS (9.7-12.2) H 09/28/17 09:13 INR 1.3 09/28/17 09:13 APTT 28 SECONDS (21-34) 09/28/17 09:13 - Constitutional Appears: Well, Non-toxic, No Acute Distress - Head Exam Head Exam: ATRAUMATIC, NORMOCEPHALIC - Extremities Exam Additional comments: Left Lower extremity focused exam: VASC: DP pulses weakly palpable 1/4. PT pulses palpable 1/4 . CFT <3 seconds 2- 4 L; CFT present to hallux amputation site and met head resection site. Mild pedal edema noted B/L. NEURO: Gross pedal sensation is diminished left DERM: Surgical site noted to left dorsomedial forefoot at site of 1st met head resection and hallux amputation with some sutures intact, small opening noted centrally with mild maceration present centrally and laterally to incision site. No active drainage or purulence is noted ORTHO: s/p left hallux amputation and 1st met head resection with mild tenderness to palpation noted. Prominent 1st metatarsal head is palpable at distal tip of surgical site wound. - Neurological Exam Neurological Exam: Alert, Awake, Oriented x3 - Psychiatric Exam Psychiatric exam: Normal Affect, Normal Mood - Skin Skin Exam: Normal Color Assessment and Plan - Assessment and Plan (Free Text) Assessment: 57 y/o male 5 days s/p 1st met head resection secondary to non-healing hallux amputation site Plan: Patient seen and evaluated at bedside with attending Dr. Harris Chart, labs and vital reviewed Continue local wound care - betadine, DSD, NINI Wound care note and assessment appreciated Pt to remain strict NWB with OOB to/from commode only Continue antibiotics per ID - Vancomycin, Zosyn Per ID, patient to have 6 weeks of IV abx Pain control - Naproxen, Tylenol, Percocet Will continue to follow patient daily while in house
[2017-10-21] MEDS: Naproxen 275 mg Tab PO PRN (07:09)
[2017-10-21] MEDS: Cefepime IV 1 gm in Dextrose 1 GM/50 ML BAG IVPB SCH ×2 (08:17→19:16)
[2017-10-21] MEDS: Vancomycin 1 GM in Sodium Chloride 0.9% 200 ML IVPB SCH (10:00)
[2017-10-21] MEDS: Metoprolol Succinate 50 mg XL Tab PO SCH (10:00)
--- NOTE | 2017-10-21 13:58 | CP.PCM.PN ---
Subjective - Date & Time of Evaluation Date of Evaluation: 10/21/17 Time of Evaluation: 11:00 - Subjective Subjective: condition same and stable. Objective - Vital Signs/Intake and Output Vital Signs (last 24 hours): Temp Pulse Resp BP Pulse Ox 98.5 F 59 L 20 146/82 96 10/21/17 09:05 10/21/17 09:05 10/21/17 09:05 10/21/17 09:05 10/21/17 09:05 Intake and Output: 10/21/17 10/21/17 06:59 18:59 Intake Total 880 500 Output Total 800 Balance 80 500 - Medications Medications: Current Medications Acetaminophen (Tylenol 325mg Tab) 650 mg PO Q6 PRN PRN Reason: Pain, Mild (1-3) Amlodipine Besylate (Norvasc) 5 mg PO DAILY [facility] Last Admin: 10/21/17 10:00 Dose: 5 mg Folic Acid (Folic Acid) 1 mg PO DAILY [facility] Last Admin: 10/21/17 10:00 Dose: 1 mg Furosemide (Lasix) 40 mg PO BID [facility] Last Admin: 10/21/17 10:00 Dose: Not Given Hydroxyzine HCl (Atarax) 25 mg PO Q6 PRN PRN Reason: Agitation Vancomycin HCl 1 gm/ Sodium (Chloride) 200 mls @ 166.7 mls/hr IVPB Q24H [facility] PRN Reason: Protocol Last Admin: 10/21/17 10:00 Dose: 166.7 mls/hr Cefepime HCl (Maxipime Iv 1 Gm Premix) 1 gm in 50 mls @ 100 mls/hr IVPB Q12H [facility] PRN Reason: Protocol Last Admin: 10/21/17 08:17 Dose: 100 mls/hr Metoprolol Succinate (Toprol Xl) 50 mg PO DAILY [facility] Last Admin: 10/21/17 10:00 Dose: 50 mg Naproxen (Anaprox) 275 mg PO QID PRN PRN Reason: Pain, moderate (4-7) Last Admin: 10/21/17 07:09 Dose: 275 mg Thiamine HCl (Vitamin B1 Tab) 100 mg PO BID [facility] Last Admin: 10/21/17 10:00 Dose: 100 mg - Labs Labs: 10/18/17 07:23 10/18/17 07:23 PT 14.4 SECONDS (9.7-12.2) H 09/28/17 09:13 INR 1.3 09/28/17 09:13 APTT 28 SECONDS (21-34) 09/28/17 09:13 - Constitutional Appears: No Acute Distress, Chronically Ill - Eye Exam Eye Exam: Normal appearance, PERRL - ENT Exam ENT Exam: Normal Exam - Neck Exam Neck Exam: Normal Inspection - Respiratory Exam Respiratory Exam: Clear to Ausculation Bilateral, NORMAL BREATHING PATTERN - Cardiovascular Exam Cardiovascular Exam: REGULAR RHYTHM, +S1, +S2 - GI/Abdominal Exam GI & Abdominal Exam: Soft, Normal Bowel Sounds - Neurological Exam Neurological Exam: Alert, Awake, CN II-XII Intact, Normal Gait, Oriented x3 Assessment and Plan - Assessment and Plan (Free Text) Assessment: same. Plan: ct present treatment.
--- NOTE | 2017-10-21 15:06 | CP.PCM.PN ---
Subjective - Date & Time of Evaluation Date of Evaluation: 10/21/17 Time of Evaluation: 15:04 - Subjective Subjective: Podiatry Progress Note -Dr. Harris 57 y/o male seen and in bed and evaluated with attending Dr. Harris, 6 days s/p revisional hallux amputation of R foot with 1st metatarsal head resection. Patient was resting comfortably. Patient denies F/N/V/SOB/posterior calf pain. Patient dressing intact and clean on visit. Patient denies ambulating. Objective - Vital Signs/Intake and Output Vital Signs (last 24 hours): Temp Pulse Resp BP Pulse Ox 98.5 F 59 L 20 146/82 96 10/21/17 09:05 10/21/17 09:05 10/21/17 09:05 10/21/17 09:05 10/21/17 09:05 Intake and Output: 10/21/17 10/21/17 06:59 18:59 Intake Total 880 1380 Output Total 800 Balance 80 1380 - Medications Medications: Current Medications Acetaminophen (Tylenol 325mg Tab) 650 mg PO Q6 PRN PRN Reason: Pain, Mild (1-3) Amlodipine Besylate (Norvasc) 5 mg PO DAILY [facility] Last Admin: 10/21/17 10:00 Dose: 5 mg Folic Acid (Folic Acid) 1 mg PO DAILY [facility] Last Admin: 10/21/17 10:00 Dose: 1 mg Furosemide (Lasix) 40 mg PO BID [facility] Last Admin: 10/21/17 10:00 Dose: Not Given Hydroxyzine HCl (Atarax) 25 mg PO Q6 PRN PRN Reason: Agitation Vancomycin HCl 1 gm/ Sodium (Chloride) 200 mls @ 166.7 mls/hr IVPB Q24H [facility] PRN Reason: Protocol Last Admin: 10/21/17 10:00 Dose: 166.7 mls/hr Cefepime HCl (Maxipime Iv 1 Gm Premix) 1 gm in 50 mls @ 100 mls/hr IVPB Q12H [facility] PRN Reason: Protocol Last Admin: 10/21/17 08:17 Dose: 100 mls/hr Metoprolol Succinate (Toprol Xl) 50 mg PO DAILY [facility] Last Admin: 10/21/17 10:00 Dose: 50 mg Naproxen (Anaprox) 275 mg PO QID PRN PRN Reason: Pain, moderate (4-7) Last Admin: 10/21/17 07:09 Dose: 275 mg Thiamine HCl (Vitamin B1 Tab) 100 mg PO BID [facility] Last Admin: 10/21/17 10:00 Dose: 100 mg - Labs Labs: 10/18/17 07:23 10/18/17 07:23 PT 14.4 SECONDS (9.7-12.2) H 09/28/17 09:13 INR 1.3 09/28/17 09:13 APTT 28 SECONDS (21-34) 09/28/17 09:13 - Constitutional Appears: Well, Non-toxic, No Acute Distress - Head Exam Head Exam: ATRAUMATIC, NORMOCEPHALIC - Extremities Exam Additional comments: Left Lower extremity focused exam: VASC: DP pulses weakly palpable 1/4. PT pulses palpable 1/4 . CFT <3 seconds 2- 4 L; CFT present to hallux amputation site and met head resection site. Mild pedal edema noted B/L. NEURO: Gross pedal sensation is diminished left DERM: Surgical site noted to left dorsomedial forefoot at site of 1st met head resection and hallux amputation with some sutures intact, small opening noted centrally on the surgical incision No active drainage or purulence is noted ORTHO: s/p left hallux amputation and 1st met head resection with mild tenderness to palpation noted. Prominent 1st metatarsal head is palpable at distal tip of surgical site wound. - Neurological Exam Neurological Exam: Alert, Awake, Oriented x3 - Psychiatric Exam Psychiatric exam: Normal Affect, Normal Mood Assessment and Plan - Assessment and Plan (Free Text) Assessment: 57 y/o male 6 days s/p 1st met head resection secondary to non-healing hallux amputation site Plan: Patient seen and evaluated at bedside with attending Dr. Harris Chart, labs and vital reviewed Continue local wound care - betadine, DSD, NINI Wound care note and assessment appreciated Pt to remain strict NWB with OOB to/from commode only Continue antibiotics per ID - Vancomycin, Zosyn Per ID, patient to have 6 weeks of IV abx Pain control - Naproxen, Tylenol, Percocet Will continue to follow patient daily while in house
[2017-10-22] MEDS: Cefepime IV 1 gm in Dextrose 1 GM/50 ML BAG IVPB SCH ×2 (08:51→20:18)
[2017-10-22] MEDS: Metoprolol Succinate 50 mg XL Tab PO SCH (09:32)
[2017-10-22] MEDS: Vancomycin 1 GM in Sodium Chloride 0.9% 200 ML IVPB SCH (09:33)
--- NOTE | 2017-10-22 12:44 | CP.PCM.PN ---
Subjective - Date & Time of Evaluation Date of Evaluation: 10/22/17 Time of Evaluation: 12:43 - Subjective Subjective: CONDITION STABLE. FOOT IMPROVING. Objective - Vital Signs/Intake and Output Vital Signs (last 24 hours): Temp Pulse Resp BP Pulse Ox 98.1 F 56 L 20 155/62 H 99 10/22/17 00:00 10/22/17 00:00 10/22/17 00:00 10/22/17 09:32 10/22/17 00:00 Intake and Output: 10/22/17 10/22/17 06:59 18:59 Intake Total 500 Balance 500 - Medications Medications: Current Medications Acetaminophen (Tylenol 325mg Tab) 650 mg PO Q6 PRN PRN Reason: Pain, Mild (1-3) Amlodipine Besylate (Norvasc) 5 mg PO DAILY [facility] Last Admin: 10/22/17 09:32 Dose: 5 mg Folic Acid (Folic Acid) 1 mg PO DAILY [facility] Last Admin: 10/22/17 09:32 Dose: 1 mg Furosemide (Lasix) 40 mg PO BID [facility] Last Admin: 10/22/17 09:32 Dose: 40 mg Hydroxyzine HCl (Atarax) 25 mg PO Q6 PRN PRN Reason: Agitation Vancomycin HCl 1 gm/ Sodium (Chloride) 200 mls @ 166.7 mls/hr IVPB Q24H [facility] PRN Reason: Protocol Last Admin: 10/22/17 09:33 Dose: 166.7 mls/hr Cefepime HCl (Maxipime Iv 1 Gm Premix) 1 gm in 50 mls @ 100 mls/hr IVPB Q12H [facility] PRN Reason: Protocol Last Admin: 10/22/17 08:51 Dose: 100 mls/hr Metoprolol Succinate (Toprol Xl) 50 mg PO DAILY [facility] Last Admin: 10/22/17 09:32 Dose: 50 mg Naproxen (Anaprox) 275 mg PO QID PRN PRN Reason: Pain, moderate (4-7) Last Admin: 10/21/17 07:09 Dose: 275 mg Thiamine HCl (Vitamin B1 Tab) 100 mg PO BID [facility] Last Admin: 10/22/17 09:32 Dose: 100 mg - Labs Labs: 10/18/17 07:23 10/18/17 07:23 PT 14.4 SECONDS (9.7-12.2) H 09/28/17 09:13 INR 1.3 09/28/17 09:13 APTT 28 SECONDS (21-34) 09/28/17 09:13 - Constitutional Appears: No Acute Distress, Chronically Ill - Eye Exam Eye Exam: Normal appearance, PERRL - ENT Exam ENT Exam: Mucous Membranes Moist - Respiratory Exam Respiratory Exam: Clear to Ausculation Bilateral, NORMAL BREATHING PATTERN - Cardiovascular Exam Cardiovascular Exam: REGULAR RHYTHM, +S1, +S2. absent: Murmur - GI/Abdominal Exam GI & Abdominal Exam: Soft, Normal Bowel Sounds. absent: Tenderness - Extremities Exam Extremities Exam: Full ROM, Normal Capillary Refill, Normal Inspection. absent : Joint Swelling, Pedal Edema - Neurological Exam Neurological Exam: Alert, Awake, CN II-XII Intact, Normal Gait, Oriented x3 Assessment and Plan - Assessment and Plan (Free Text) Assessment: STABLE. Plan: CT IV ABTS.
--- NOTE | 2017-10-22 17:39 | CP.PCM.PN ---
Subjective - Date & Time of Evaluation Date of Evaluation: 10/22/17 Time of Evaluation: 06:00 - Subjective Subjective: Podiatry Progress Note- Dr. Harris 57M seen and evaluated at bedside 7 days s/p revisional hallux amp with met head resection. Patient is seen resting comfortably in bed, in NAD, and AA0x3. Patient reports that he slept well. No acute overnight events. Denies nausea, fever, shortness of breath, chest pains or chills. Objective - Vital Signs/Intake and Output Vital Signs (last 24 hours): Temp Pulse Resp BP Pulse Ox 98.6 F 59 L 20 149/72 97 10/22/17 16:00 10/22/17 16:00 10/22/17 16:00 10/22/17 16:00 10/22/17 16:00 Intake and Output: 10/22/17 10/22/17 06:59 18:59 Intake Total 500 Balance 500 - Medications Medications: Current Medications Acetaminophen (Tylenol 325mg Tab) 650 mg PO Q6 PRN PRN Reason: Pain, Mild (1-3) Amlodipine Besylate (Norvasc) 5 mg PO DAILY [facility] Last Admin: 10/22/17 09:32 Dose: 5 mg Folic Acid (Folic Acid) 1 mg PO DAILY [facility] Last Admin: 10/22/17 09:32 Dose: 1 mg Furosemide (Lasix) 40 mg PO BID [facility] Last Admin: 10/22/17 09:32 Dose: 40 mg Hydroxyzine HCl (Atarax) 25 mg PO Q6 PRN PRN Reason: Agitation Vancomycin HCl 1 gm/ Sodium (Chloride) 200 mls @ 166.7 mls/hr IVPB Q24H [facility] PRN Reason: Protocol Last Admin: 10/22/17 09:33 Dose: 166.7 mls/hr Cefepime HCl (Maxipime Iv 1 Gm Premix) 1 gm in 50 mls @ 100 mls/hr IVPB Q12H [facility] PRN Reason: Protocol Last Admin: 10/22/17 08:51 Dose: 100 mls/hr Metoprolol Succinate (Toprol Xl) 50 mg PO DAILY [facility] Last Admin: 10/22/17 09:32 Dose: 50 mg Naproxen (Anaprox) 275 mg PO QID PRN PRN Reason: Pain, moderate (4-7) Last Admin: 10/21/17 07:09 Dose: 275 mg Thiamine HCl (Vitamin B1 Tab) 100 mg PO BID [facility] Last Admin: 10/22/17 09:32 Dose: 100 mg - Labs Labs: 10/18/17 07:23 10/18/17 07:23 PT 14.4 SECONDS (9.7-12.2) H 09/28/17 09:13 INR 1.3 09/28/17 09:13 APTT 28 SECONDS (21-34) 09/28/17 09:13 - Constitutional Appears: Well, Non-toxic, No Acute Distress - Extremities Exam Extremities Exam: absent: Calf Tenderness Additional comments: Left Lower extremity focused exam: VASC: DP pulses weakly palpable 1/4. PT pulses palpable 1/4 . CFT <3 seconds 2- 4 L; CFT present to hallux amputation site and met head resection site. Mild pedal edema noted B/L. NEURO: Gross pedal sensation is diminished left DERM: Surgical site noted to left dorsomedial forefoot at site of 1st met head resection and hallux amputation with sutures intact to the peripheral, opening and dehiscence noted centrally to the surgical incision No active drainage or purulence is noted. No streaking. No increase warmth or erythema. ORTHO: s/p left hallux amputation and 1st met head resection with mild tenderness to palpation noted to surrounding surgical site - Neurological Exam Neurological Exam: Alert, Awake - Psychiatric Exam Psychiatric exam: Normal Affect, Normal Mood Assessment and Plan - Assessment and Plan (Free Text) Assessment: 57M 7 days s/p 1st met head resection secondary to non-healing hallux amputation site- stable Plan: Patient seen and evaluated at bedside Discussed plan in detail with attending Dr. Harris Chart, labs and vital reviewed Afebrile, absent leukocytosis Continue local wound care - betadine, DSD, NINI Wound care note and assessment appreciated Pt to remain strict NWB with OOB to/from commode only Continue antibiotics per ID - Vancomycin, Zosyn Per ID, patient to have 6 weeks of IV abx Pain control - Naproxen, Tylenol, Percocet Will continue to follow patient daily while in house
[2017-10-22] MEDS: Naproxen 275 mg Tab PO PRN (17:44)
[2017-10-23 07:10] LABS: BASO # 0.1 K/uL (0.0-0.2); BASO % 2.1 % (0.0-2.0); EOS # 0.6 K/uL (0.0-0.7); EOS % 13.3 % (0.0-4.0); HEMOGLOBIN 8.9 g/dL (12.0-18.0); LYMPH % 46.3 % (20.0-40.0); MEAN CELL VOLUME 90.4 fL (80.0-94.0); MEAN CORPUSCULAR HEMOGLOBIN 30.8 pg (27.0-31.0); MEAN PLATELET VOLUME 10.4 fL (7.2-11.7); MONO # 0.9 K/uL (0.0-0.8); MONO % 19.8 % (0.0-10.0); NEUT # 0.8 K/uL (1.8-7.0); NEUT % 18.5 % (50.0-75.0); NRBC % 0.1 % (0.0-2.0); RBC 2.9 Mil/uL (4.40-5.90); RED CELL DISTRIBUTION WIDTH 14.7 % (11.5-14.5); WHITE BLOOD COUNT 4.3 K/uL (4.8-10.8)
[2017-10-23 08:14] LABS: ALB/GLOB RATIO 0.6 (1.0-2.1); ALBUMIN 1.8 g/dL (3.5-5.0); ALT/SGPT 32 U/L (21-72); AST/SGOT 37 U/L (17-59); BLOOD UREA NITROGEN 23 mg/dL (9-20); CALCIUM 7.8 mg/dl (8.6-10.4); GFR NON-AFRICAN AMERICAN > 60
[2017-10-23] MEDS: Cefepime IV 1 gm in Dextrose 1 GM/50 ML BAG IVPB SCH ×2 (08:47→19:14)
[2017-10-23] MEDS: Metoprolol Succinate 50 mg XL Tab PO SCH (09:34)
[2017-10-23] MEDS: Vancomycin 1 GM in Sodium Chloride 0.9% 200 ML IVPB SCH (10:13)
--- NOTE | 2017-10-23 12:46 | CP.PCM.PN ---
Subjective - Date & Time of Evaluation Date of Evaluation: 10/23/17 Time of Evaluation: 12:44 - Subjective Subjective: low grade temp. evaluated by dr. jun jeong. wound opening up. needs fixing. medically stable. Objective - Vital Signs/Intake and Output Vital Signs (last 24 hours): Temp Pulse Resp BP Pulse Ox 99.4 F 68 20 171/75 H 98 10/23/17 08:00 10/23/17 08:00 10/23/17 08:00 10/23/17 08:00 10/23/17 08:00 Intake and Output: 10/23/17 10/23/17 06:59 18:59 Intake Total 200 Balance 200 - Medications Medications: Current Medications Acetaminophen (Tylenol 325mg Tab) 650 mg PO Q6 PRN PRN Reason: Pain, Mild (1-3) Amlodipine Besylate (Norvasc) 5 mg PO DAILY [facility] Last Admin: 10/23/17 09:34 Dose: 5 mg Folic Acid (Folic Acid) 1 mg PO DAILY [facility] Last Admin: 10/23/17 09:34 Dose: 1 mg Furosemide (Lasix) 40 mg PO BID [facility] Last Admin: 10/23/17 09:34 Dose: Not Given Hydroxyzine HCl (Atarax) 25 mg PO Q6 PRN PRN Reason: Agitation Vancomycin HCl 1 gm/ Sodium (Chloride) 200 mls @ 166.7 mls/hr IVPB Q24H [facility] PRN Reason: Protocol Last Admin: 10/23/17 10:13 Dose: 166.7 mls/hr Cefepime HCl (Maxipime Iv 1 Gm Premix) 1 gm in 50 mls @ 100 mls/hr IVPB Q12H [facility] PRN Reason: Protocol Last Admin: 10/23/17 08:47 Dose: 100 mls/hr Metoprolol Succinate (Toprol Xl) 50 mg PO DAILY [facility] Last Admin: 10/23/17 09:34 Dose: 50 mg Naproxen (Anaprox) 275 mg PO QID PRN PRN Reason: Pain, moderate (4-7) Last Admin: 10/22/17 17:44 Dose: 275 mg Thiamine HCl (Vitamin B1 Tab) 100 mg PO BID [facility] Last Admin: 10/23/17 09:35 Dose: 100 mg - Labs Labs: 10/23/17 07:00 10/23/17 07:00 PT 14.4 SECONDS (9.7-12.2) H 09/28/17 09:13 INR 1.3 09/28/17 09:13 APTT 28 SECONDS (21-34) 09/28/17 09:13 - Constitutional Appears: No Acute Distress, Chronically Ill - Eye Exam Eye Exam: PERRL - ENT Exam ENT Exam: Normal Exam - Neck Exam Neck Exam: Normal Inspection - Respiratory Exam Respiratory Exam: Clear to Ausculation Bilateral, NORMAL BREATHING PATTERN - Cardiovascular Exam Cardiovascular Exam: REGULAR RHYTHM, +S1, +S2 - GI/Abdominal Exam GI & Abdominal Exam: Soft, Normal Bowel Sounds - Extremities Exam Extremities Exam: Full ROM, Normal Capillary Refill, Normal Inspection. absent : Joint Swelling, Pedal Edema - Back Exam Back Exam: NORMAL INSPECTION - Neurological Exam Neurological Exam: Alert, Awake, CN II-XII Intact, Normal Gait, Oriented x3 Assessment and Plan - Assessment and Plan (Free Text) Assessment: as above. Plan: as per podietry.
--- NOTE | 2017-10-23 13:04 | CP.PCM.PN ---
Subjective - Date & Time of Evaluation Date of Evaluation: 10/23/17 Time of Evaluation: 11:30 - Subjective Subjective: Podiatry Progress Note- Dr. Harris 57M seen and evaluated at bedside 8 days s/p left revisional hallux amp with met head resection with attending present at bedside, Patient is seen resting comfortably in bed, in NAD, and AA0x3. Patient reports that he slept well. Denies acute overnight events. Denies nausea, fever, shortness of breath, chest pains or chills. Denies putting weight on the left lower extremity. Objective - Vital Signs/Intake and Output Vital Signs (last 24 hours): Temp Pulse Resp BP Pulse Ox 99.4 F 68 20 171/75 H 98 10/23/17 08:00 10/23/17 08:00 10/23/17 08:00 10/23/17 08:00 10/23/17 08:00 Intake and Output: 10/23/17 10/23/17 06:59 18:59 Intake Total 200 Balance 200 - Medications Medications: Current Medications Acetaminophen (Tylenol 325mg Tab) 650 mg PO Q6 PRN PRN Reason: Pain, Mild (1-3) Amlodipine Besylate (Norvasc) 5 mg PO DAILY [facility] Last Admin: 10/23/17 09:34 Dose: 5 mg Folic Acid (Folic Acid) 1 mg PO DAILY [facility] Last Admin: 10/23/17 09:34 Dose: 1 mg Furosemide (Lasix) 40 mg PO BID [facility] Last Admin: 10/23/17 09:34 Dose: Not Given Hydroxyzine HCl (Atarax) 25 mg PO Q6 PRN PRN Reason: Agitation Vancomycin HCl 1 gm/ Sodium (Chloride) 200 mls @ 166.7 mls/hr IVPB Q24H [facility] PRN Reason: Protocol Last Admin: 10/23/17 10:13 Dose: 166.7 mls/hr Cefepime HCl (Maxipime Iv 1 Gm Premix) 1 gm in 50 mls @ 100 mls/hr IVPB Q12H [facility] PRN Reason: Protocol Last Admin: 10/23/17 08:47 Dose: 100 mls/hr Metoprolol Succinate (Toprol Xl) 50 mg PO DAILY [facility] Last Admin: 10/23/17 09:34 Dose: 50 mg Naproxen (Anaprox) 275 mg PO QID PRN PRN Reason: Pain, moderate (4-7) Last Admin: 10/22/17 17:44 Dose: 275 mg Thiamine HCl (Vitamin B1 Tab) 100 mg PO BID [facility] Last Admin: 10/23/17 09:35 Dose: 100 mg - Labs Labs: 10/23/17 07:00 10/23/17 07:00 PT 14.4 SECONDS (9.7-12.2) H 09/28/17 09:13 INR 1.3 09/28/17 09:13 APTT 28 SECONDS (21-34) 09/28/17 09:13 - Constitutional Appears: Well, Non-toxic, No Acute Distress - Extremities Exam Extremities Exam: absent: Calf Tenderness Additional comments: Left Lower extremity focused exam: VASC: DP pulses weakly palpable 1/4. PT pulses palpable 1/4 . CFT <3 seconds 2- 4 L; CFT present to hallux amputation site and met head resection site. Mild pedal edema noted B/L. NEURO: Gross pedal sensation is diminished left DERM: Surgical site noted to left dorsomedial forefoot at site of 1st met head resection and hallux amputation with sutures intact to the peripheral, opening and dehiscence noted centrally to the surgical incision No active drainage or purulence is noted. No streaking. No increase warmth or erythema. No clinical signs of infection. Serosangious drainaged noted to inner dressings. ORTHO: s/p left hallux amputation and 1st met head resection with mild tenderness to palpation noted to surrounding surgical site - Neurological Exam Neurological Exam: Alert, Awake, Oriented x3 - Psychiatric Exam Psychiatric exam: Normal Affect, Normal Mood Assessment and Plan - Assessment and Plan (Free Text) Assessment: 57M 8 days s/p 1st met head resection secondary to non-healing hallux amputation site with central medial dehiscence- stable Plan: Patient seen and evaluated at bedside with attending Dr. Harris Chart, labs and vital reviewed Afebrile, absent leukocytosis Cleansed surgical site with betadine, applied two steristrips to the dehiscence site May need to place sutures to central medial surgical site at bedside. At this time will continue to provide local wound care and apply steristrips Continue local wound care - betadine, DSD, NINI Wound care note and assessment appreciated Pt to remain strict NWB with OOB to/from commode only Continue antibiotics per ID - Vancomycin, Cefepime Per ID, patient to have 6 weeks of IV abx Pain control - Naproxen, Tylenol, Percocet Will continue to follow patient daily while in house
[2017-10-24] MEDS: Cefepime IV 1 gm in Dextrose 1 GM/50 ML BAG IVPB SCH (10:24)
[2017-10-24] MEDS: Metoprolol Succinate 50 mg XL Tab PO SCH (10:26)
[2017-10-24] MEDS: Vancomycin 1 GM in Sodium Chloride 0.9% 200 ML IVPB SCH (10:40)
--- NOTE | 2017-10-24 11:22 | RAD ---
Date of service: 10/24/2017 PROCEDURE: Left Foot Radiographs. HISTORY: nonhealing surgical site COMPARISON: None. FINDINGS: BONES: Status post amputation 1st digit at the distal aspect of the 1st metatarsal. No acute fracture. JOINTS: Normal. SOFT TISSUES: Normal. OTHER FINDINGS: None. IMPRESSION: Amputation 1st metatarsal head.
--- NOTE | 2017-10-24 12:34 | CP.PCM.PN ---
Subjective - Date & Time of Evaluation Date of Evaluation: 10/24/17 Time of Evaluation: 12:32 - Subjective Subjective: CONDITION STABLE. WOUND INF PRESENT. AFEBRILE. Objective - Vital Signs/Intake and Output Vital Signs (last 24 hours): Temp Pulse Resp BP Pulse Ox 98.3 F 65 20 173/69 H 99 10/24/17 07:10 10/24/17 07:10 10/24/17 07:10 10/24/17 07:10 10/24/17 07:10 Intake and Output: 10/24/17 10/24/17 06:59 18:59 Intake Total 240 Output Total 600 Balance -360 - Medications Medications: Current Medications Acetaminophen (Tylenol 325mg Tab) 650 mg PO Q6 PRN PRN Reason: Pain, Mild (1-3) Amlodipine Besylate (Norvasc) 5 mg PO DAILY [facility] Last Admin: 10/24/17 10:26 Dose: 5 mg Folic Acid (Folic Acid) 1 mg PO DAILY [facility] Last Admin: 10/24/17 10:25 Dose: 1 mg Hydroxyzine HCl (Atarax) 25 mg PO Q6 PRN PRN Reason: Agitation Vancomycin HCl 1 gm/ Sodium (Chloride) 200 mls @ 166.7 mls/hr IVPB Q24H [facility] PRN Reason: Protocol Last Admin: 10/24/17 10:40 Dose: 166.7 mls/hr Metoprolol Succinate (Toprol Xl) 50 mg PO DAILY [facility] Last Admin: 10/24/17 10:26 Dose: 50 mg Naproxen (Anaprox) 275 mg PO QID PRN PRN Reason: Pain, moderate (4-7) Last Admin: 10/22/17 17:44 Dose: 275 mg Thiamine HCl (Vitamin B1 Tab) 100 mg PO BID [facility] Last Admin: 10/24/17 10:25 Dose: 100 mg - Labs Labs: 10/23/17 07:00 10/23/17 07:00 PT 14.4 SECONDS (9.7-12.2) H 09/28/17 09:13 INR 1.3 09/28/17 09:13 APTT 28 SECONDS (21-34) 09/28/17 09:13 - Constitutional Appears: No Acute Distress, Chronically Ill - Eye Exam Eye Exam: PERRL - ENT Exam ENT Exam: Normal Exam - Respiratory Exam Respiratory Exam: Clear to Ausculation Bilateral, NORMAL BREATHING PATTERN - Cardiovascular Exam Cardiovascular Exam: REGULAR RHYTHM, +S1, +S2 - GI/Abdominal Exam GI & Abdominal Exam: Soft, Normal Bowel Sounds - Extremities Exam Extremities Exam: Full ROM, Normal Capillary Refill, Normal Inspection. absent : Joint Swelling, Pedal Edema - Neurological Exam Neurological Exam: Alert, Awake, CN II-XII Intact, Normal Gait, Oriented x3 - Psychiatric Exam Psychiatric exam: Normal Affect, Normal Mood Assessment and Plan - Assessment and Plan (Free Text) Assessment: SAME. Plan: FOR PODIETRY CARE.
--- NOTE | 2017-10-24 13:37 | CP.PCM.PN ---
Subjective - Date & Time of Evaluation Date of Evaluation: 10/24/17 Time of Evaluation: 01:30 - Subjective Subjective: Podiatry: Patient seen resting at bedside. I redressed the wound of the left foot. There remains some maceration at the mid-portion of the wound. The base looks like good granulation tissue. There is no drainage at present. I will call DR Harris to discuss options for further wound care. To continue local care as ordered for now. Objective - Vital Signs/Intake and Output Vital Signs (last 24 hours): Temp Pulse Resp BP Pulse Ox 98.3 F 65 20 173/69 H 99 10/24/17 07:10 10/24/17 07:10 10/24/17 07:10 10/24/17 07:10 10/24/17 07:10 Intake and Output: 10/24/17 10/24/17 06:59 18:59 Intake Total 240 Output Total 600 Balance -360 - Medications Medications: Current Medications Acetaminophen (Tylenol 325mg Tab) 650 mg PO Q6 PRN PRN Reason: Pain, Mild (1-3) Amlodipine Besylate (Norvasc) 5 mg PO DAILY [facility] Last Admin: 10/24/17 10:26 Dose: 5 mg Folic Acid (Folic Acid) 1 mg PO DAILY [facility] Last Admin: 10/24/17 10:25 Dose: 1 mg Hydroxyzine HCl (Atarax) 25 mg PO Q6 PRN PRN Reason: Agitation Vancomycin HCl 1 gm/ Sodium (Chloride) 200 mls @ 166.7 mls/hr IVPB Q24H [facility] PRN Reason: Protocol Last Admin: 10/24/17 10:40 Dose: 166.7 mls/hr Metoprolol Succinate (Toprol Xl) 50 mg PO DAILY [facility] Last Admin: 10/24/17 10:26 Dose: 50 mg Naproxen (Anaprox) 275 mg PO QID PRN PRN Reason: Pain, moderate (4-7) Last Admin: 10/22/17 17:44 Dose: 275 mg Thiamine HCl (Vitamin B1 Tab) 100 mg PO BID [facility] Last Admin: 10/24/17 10:25 Dose: 100 mg - Labs Labs: 10/23/17 07:00 10/23/17 07:00 PT 14.4 SECONDS (9.7-12.2) H 07/20/18 09:13 INR 1.3 09/28/17 09:13 APTT 28 SECONDS (21-34) 09/28/17 09:13
--- NOTE | 2017-10-24 18:25 | CP.PCM.PN ---
Subjective - Date & Time of Evaluation Date of Evaluation: 10/24/17 Time of Evaluation: 09:00 - Subjective Subjective: events noted iv rx renewed Objective - Vital Signs/Intake and Output Vital Signs (last 24 hours): Temp Pulse Resp BP Pulse Ox 98.1 F 59 L 20 156/72 H 98 10/24/17 16:00 10/24/17 16:00 10/24/17 16:00 10/24/17 16:00 10/24/17 16:00 Intake and Output: 10/24/17 10/24/17 06:59 18:59 Intake Total 240 Output Total 600 Balance -360 - Medications Medications: Current Medications Acetaminophen (Tylenol 325mg Tab) 650 mg PO Q6 PRN PRN Reason: Pain, Mild (1-3) Amlodipine Besylate (Norvasc) 5 mg PO DAILY [facility] Last Admin: 10/24/17 10:26 Dose: 5 mg Folic Acid (Folic Acid) 1 mg PO DAILY [facility] Last Admin: 10/24/17 10:25 Dose: 1 mg Hydroxyzine HCl (Atarax) 25 mg PO Q6 PRN PRN Reason: Agitation Vancomycin HCl 1 gm/ Sodium (Chloride) 200 mls @ 166.7 mls/hr IVPB Q24H [facility] PRN Reason: Protocol Last Admin: 10/24/17 10:40 Dose: 166.7 mls/hr Metoprolol Succinate (Toprol Xl) 50 mg PO DAILY [facility] Last Admin: 10/24/17 10:26 Dose: 50 mg Naproxen (Anaprox) 275 mg PO QID PRN PRN Reason: Pain, moderate (4-7) Last Admin: 10/22/17 17:44 Dose: 275 mg Sodium Hypochlorite (Dakins Solution 0.125%) 1 appl TOP DAILY [facility] Last Admin: 10/24/17 16:39 Dose: Not Given Thiamine HCl (Vitamin B1 Tab) 100 mg PO BID [facility] Last Admin: 10/24/17 17:34 Dose: 100 mg - Labs Labs: 10/23/17 07:00 10/23/17 07:00 PT 14.4 SECONDS (9.7-12.2) H 09/28/17 09:13 INR 1.3 09/28/17 09:13 APTT 28 SECONDS (21-34) 09/28/17 09:13 - Constitutional Appears: Non-toxic, Chronically Ill - Head Exam Head Exam: NORMOCEPHALIC - Eye Exam Eye Exam: PERRL - ENT Exam ENT Exam: Mucous Membranes Dry - Neck Exam Neck Exam: absent: Lymphadenopathy - Respiratory Exam Respiratory Exam: Decreased Breath Sounds - Cardiovascular Exam Cardiovascular Exam: REGULAR RHYTHM - GI/Abdominal Exam GI & Abdominal Exam: Distended, Soft Assessment and Plan (1) Alcohol intoxication Status: Acute (2) Cellulitis and abscess of foot Status: Acute (3) Chronic congestive heart failure Status: Acute (4) COPD (chronic obstructive pulmonary disease) Status: Chronic (5) Osteomyelitis of toe of left foot Status: Acute
[2017-10-25] MEDS: Vancomycin 1 GM in Sodium Chloride 0.9% 200 ML IVPB SCH (09:55)
[2017-10-25] MEDS: Metoprolol Succinate 50 mg XL Tab PO SCH (09:58)
--- NOTE | 2017-10-25 10:36 | CP.PCM.PN ---
Subjective - Date & Time of Evaluation Date of Evaluation: 10/25/17 Time of Evaluation: 10:36 - Subjective Subjective: Podiatry Progress Note- Dr. Harris/Dr. Mello 57M seen and evaluated at bedside 10 days s/p left revisional hallux amp with met head resection with attending present at bedside, Patient is seen resting comfortably in bed, in NAD, and AA0x3. Patient continues to nonweightbear to the right lower extremity. Reports has been working with physical therapy. Denies acute overnight events. Reports has been using the SCDs while in bed. Denies nausea, fever, shortness of breath, chest pains or chills. Objective - Vital Signs/Intake and Output Vital Signs (last 24 hours): Temp Pulse Resp BP Pulse Ox 98 F 60 20 162/81 H 95 10/25/17 08:22 10/25/17 08:22 10/25/17 08:22 10/25/17 08:22 10/25/17 08:22 Intake and Output: 10/25/17 10/25/17 06:59 18:59 Intake Total 240 Balance 240 - Medications Medications: Current Medications Acetaminophen (Tylenol 325mg Tab) 650 mg PO Q6 PRN PRN Reason: Pain, Mild (1-3) Amlodipine Besylate (Norvasc) 5 mg PO DAILY [facility] Last Admin: 10/25/17 09:58 Dose: 5 mg Folic Acid (Folic Acid) 1 mg PO DAILY [facility] Last Admin: 10/25/17 09:57 Dose: 1 mg Hydroxyzine HCl (Atarax) 25 mg PO Q6 PRN PRN Reason: Agitation Last Admin: 10/25/17 09:57 Dose: 25 mg Vancomycin HCl 1 gm/ Sodium (Chloride) 200 mls @ 166.7 mls/hr IVPB Q24H [facility] PRN Reason: Protocol Last Admin: 10/25/17 09:55 Dose: 166.7 mls/hr Metoprolol Succinate (Toprol Xl) 50 mg PO DAILY [facility] Last Admin: 10/25/17 09:58 Dose: 50 mg Naproxen (Anaprox) 275 mg PO QID PRN PRN Reason: Pain, moderate (4-7) Last Admin: 10/22/17 17:44 Dose: 275 mg Sodium Hypochlorite (Dakins Solution 0.125%) 1 appl TOP DAILY [facility] Last Admin: 10/24/17 16:39 Dose: Not Given Thiamine HCl (Vitamin B1 Tab) 100 mg PO BID [facility] Last Admin: 10/25/17 09:57 Dose: 100 mg - Labs Labs: 10/23/17 07:00 10/23/17 07:00 PT 14.4 SECONDS (9.7-12.2) H 09/28/17 09:13 INR 1.3 09/28/17 09:13 APTT 28 SECONDS (21-34) 09/28/17 09:13 - Constitutional Appears: Well, Non-toxic, No Acute Distress - Extremities Exam Extremities Exam: absent: Calf Tenderness Additional comments: Left Lower extremity focused exam: VASC: DP pulses weakly palpable 1/4. PT pulses palpable 1/4 . CFT <3 seconds 2- 4 L; CFT present to hallux amputation site and met head resection site. Mild pedal edema noted B/L. NEURO: Gross pedal sensation is diminished left DERM: Surgical site noted to left dorsomedial forefoot at site of 1st met head resection and hallux amputation with sutures intact to the peripheral, opening and dehiscence noted centrally to the surgical incision. Granulating in. Wound base is mainly granular. No active drainage or purulence is noted. No streaking. No increase warmth or erythema. No clinical signs of infection. Serosangious drainaged noted to inner dressings. ORTHO: s/p left hallux amputation and 1st met head resection with mild tenderness to palpation noted to surrounding surgical site - Neurological Exam Neurological Exam: Alert, Awake, Oriented x3 - Psychiatric Exam Psychiatric exam: Normal Affect, Normal Mood Assessment and Plan - Assessment and Plan (Free Text) Assessment: 57M 10 days s/p 1st met head resection secondary to non-healing hallux amputation site with central medial dehiscence- stable Plan: Patient seen and evaluated at bedside with attending Dr. Harris Chart, labs and vital reviewed Afebrile, absent leukocytosis Cleansed surgical site with saline solution, dressed surgical incision with datkins wet to dry, abd, and kerlix. Light NINI applied. May need to place sutures to central medial surgical site at bedside. At this time will continue to provide local wound care and apply steristrips Continue local wound care Wound care note and assessment appreciated Pt to remain strict NWB with OOB to/from commode only Continue antibiotics per ID - Vancomycin, Cefepime Per ID, patient to have 6 weeks of IV abx Pain control - Naproxen, Tylenol, Percocet Will continue to follow patient daily while in house C/w physical therapy c/w SCDs
[2017-10-26] MEDS: Metoprolol Succinate 50 mg XL Tab PO SCH (10:06)
[2017-10-26] MEDS: Vancomycin 1 gm/NS 200 ml 1 GM/200 ML BAG IVPB SCH (11:33)
--- NOTE | 2017-10-26 17:50 | CP.PCM.PN ---
Subjective - Date & Time of Evaluation Date of Evaluation: 10/26/17 Time of Evaluation: 11:40 - Subjective Subjective: Podiatry Progress Note- Dr. Harris/Dr. Mello 57M seen and evaluated at bedside 11 days s/p left revisional hallux amp with met head resection with attending present at bedside. Patient is seen resting comfortably in bed, in NAD, and AA0x3. Patient continues to nonweightbear to the right lower extremity. Patient reports that his body aches. Reports has been working with physical therapy. Denies acute overnight events. Denies nausea, fever, shortness of breath, chest pains or chills. Objective - Vital Signs/Intake and Output Vital Signs (last 24 hours): Temp Pulse Resp BP Pulse Ox 98.7 F 55 L 20 153/79 H 97 10/26/17 16:21 10/26/17 16:21 10/26/17 16:21 10/26/17 16:21 10/26/17 16:21 Intake and Output: 10/26/17 10/26/17 06:59 18:59 Intake Total 300 Balance 300 - Medications Medications: Current Medications Acetaminophen (Tylenol 325mg Tab) 650 mg PO Q6 PRN PRN Reason: Pain, Mild (1-3) Last Admin: 10/26/17 15:36 Dose: 650 mg Amlodipine Besylate (Norvasc) 5 mg PO DAILY [facility] Last Admin: 10/26/17 10:06 Dose: 5 mg Folic Acid (Folic Acid) 1 mg PO DAILY [facility] Last Admin: 10/26/17 10:06 Dose: 1 mg Hydroxyzine HCl (Atarax) 25 mg PO Q6 PRN PRN Reason: Agitation Last Admin: 10/25/17 09:57 Dose: 25 mg Vancomycin/Sodium Chloride (Vancomycin 1 Gm/Ns 200 Ml) 1 gm in 200 mls @ 133.333 mls/hr IVPB Q24H [facility] PRN Reason: Protocol Stop: 10/31/17 12:01 Last Admin: 10/26/17 11:33 Dose: 133.333 mls/hr Metoprolol Succinate (Toprol Xl) 50 mg PO DAILY [facility] Last Admin: 10/26/17 10:06 Dose: 50 mg Naproxen (Anaprox) 275 mg PO QID PRN PRN Reason: Pain, moderate (4-7) Last Admin: 10/22/17 17:44 Dose: 275 mg Sodium Hypochlorite (Dakins Solution 0.125%) 1 appl TOP DAILY [facility] Last Admin: 10/26/17 10:07 Dose: Not Given Thiamine HCl (Vitamin B1 Tab) 100 mg PO BID [facility] Last Admin: 10/26/17 10:07 Dose: 100 mg - Labs Labs: 10/23/17 07:00 10/23/17 07:00 PT 14.4 SECONDS (9.7-12.2) H 09/28/17 09:13 INR 1.3 09/28/17 09:13 APTT 28 SECONDS (21-34) 09/28/17 09:13 - Constitutional Appears: Well, Non-toxic, No Acute Distress - Extremities Exam Extremities Exam: absent: Calf Tenderness Additional comments: Left Lower extremity focused exam: VASC: DP pulses weakly palpable 1/4. PT pulses palpable 1/4 . CFT <3 seconds 2- 4 L; CFT present to hallux amputation site and met head resection site. Mild pedal edema noted B/L. NEURO: Gross pedal sensation is diminished left DERM: Surgical site noted to left dorsomedial forefoot at site of 1st met head resection and hallux amputation with sutures intact to the peripheral, opening and dehiscence noted centrally to the surgical incision. Granulating in. Wound base is mainly granular. No active drainage or purulence is noted. No streaking. No increase warmth or erythema. No clinical signs of infection. Very minimal serosangious drainaged noted to inner dressings. ORTHO: s/p left hallux amputation and 1st met head resection with mild tenderness to palpation noted to surrounding surgical site - Neurological Exam Neurological Exam: Alert, Awake, Oriented x3 - Psychiatric Exam Psychiatric exam: Normal Affect, Normal Mood Assessment and Plan - Assessment and Plan (Free Text) Assessment: 57M 11 days s/p 1st met head resection secondary to non-healing hallux amputation site with central medial dehiscence- stable Plan: Patient seen and evaluated at bedside with attending Dr. Harris Chart, labs and vital reviewed Afebrile, absent leukocytosis Cleansed surgical site with saline and betadine solution. Prep surgical site with betadine Using 2-0 prolene, reapproximated dehiscence skin using a simple suture technique. Dressed surgical incision with betadine wet to dry, abd, and kerlix. Light NINI applied. Continue local wound care Wound care note and assessment appreciated Pt to remain strict NWB with OOB to/from commode only Continue antibiotics per ID Per ID, patient to have 6 weeks of IV abx Pain control - Naproxen, Tylenol, Percocet Will continue to follow patient daily while in house C/w physical therapy c/w SCDs Will continue to follow while in house
[2017-10-27] MEDS: Metoprolol Succinate 50 mg XL Tab PO SCH (10:02)
[2017-10-27] MEDS: Vancomycin 1 gm/NS 200 ml 1 GM/200 ML BAG IVPB SCH (11:11)
--- NOTE | 2017-10-27 13:12 | CP.PCM.PN ---
Subjective - Date & Time of Evaluation Date of Evaluation: 10/27/17 Time of Evaluation: 12:57 - Subjective Subjective: Podiatry Progress Note Dr. Harris/Dr. Mello 57 yo male seen and evaluated at bedside with Dr. Harris s/p L revisional hallux amp with met head resection. Patient is resting comfortably in bed and in NAD. Patient remains NWB to right lower extremity. Patient states that he has some acid reflux in his chest however denies N/V/F/SOB/CP. Denies any other pedal complaints at this time. Objective - Vital Signs/Intake and Output Vital Signs (last 24 hours): Temp Pulse Resp BP Pulse Ox 99 F 60 20 159/72 H 98 10/27/17 08:14 10/27/17 08:14 10/27/17 08:14 10/27/17 08:14 10/27/17 08:14 Intake and Output: 10/27/17 10/27/17 06:59 18:59 Intake Total 300 Balance 300 - Medications Medications: Current Medications Acetaminophen (Tylenol 325mg Tab) 650 mg PO Q6 PRN PRN Reason: Pain, Mild (1-3) Last Admin: 10/26/17 15:36 Dose: 650 mg Amlodipine Besylate (Norvasc) 5 mg PO DAILY [facility] Last Admin: 10/27/17 10:02 Dose: 5 mg Folic Acid (Folic Acid) 1 mg PO DAILY [facility] Last Admin: 10/27/17 10:01 Dose: 1 mg Hydroxyzine HCl (Atarax) 25 mg PO Q6 PRN PRN Reason: Agitation Last Admin: 10/25/17 09:57 Dose: 25 mg Vancomycin/Sodium Chloride (Vancomycin 1 Gm/Ns 200 Ml) 1 gm in 200 mls @ 133.333 mls/hr IVPB Q24H [facility] PRN Reason: Protocol Stop: 10/31/17 12:01 Last Admin: 10/27/17 11:11 Dose: 133.333 mls/hr Metoprolol Succinate (Toprol Xl) 50 mg PO DAILY [facility] Last Admin: 10/27/17 10:02 Dose: 50 mg Naproxen (Anaprox) 275 mg PO QID PRN PRN Reason: Pain, moderate (4-7) Last Admin: 10/22/17 17:44 Dose: 275 mg Sodium Hypochlorite (Dakins Solution 0.125%) 1 appl TOP DAILY [facility] Last Admin: 10/27/17 10:13 Dose: Not Given Thiamine HCl (Vitamin B1 Tab) 100 mg PO BID [facility] Last Admin: 10/27/17 10:01 Dose: 100 mg - Labs Labs: 10/23/17 07:00 10/23/17 07:00 PT 14.4 SECONDS (9.7-12.2) H 09/28/17 09:13 INR 1.3 09/28/17 09:13 APTT 28 SECONDS (21-34) 09/28/17 09:13 - Constitutional Appears: Well, Non-toxic, No Acute Distress - Head Exam Head Exam: ATRAUMATIC, NORMOCEPHALIC - Extremities Exam Additional comments: Left Lower extremity focused exam: Vasc: DP pulses weakly palpable 1/4. PT pulses palpable 1/4 . CFT <3 seconds 2- 4 L; CFT present to hallux amputation site and met head resection site. Mild pedal edema noted B/L. Ortho: s/p left hallux amputation and 1st met head resection with mild tenderness to palpation noted to surrounding surgical site Neuro: Gross pedal sensation is diminished left, gross sensation intact Derm: Surgical site noted to left hallux amputation with sutures intact and skin edges well coapted. No erythema, no purulence, no serous drainage, no clinical signs of infection. - Neurological Exam Neurological Exam: Alert, Awake, Oriented x3 - Psychiatric Exam Psychiatric exam: Normal Affect, Normal Mood Assessment and Plan - Assessment and Plan (Free Text) Assessment: 57 yo male, 11 days s/p 1st met head resection secondary to non-healing hallux amputation site Plan: Patient seen and evaluated at bedside with attending Dr. Harris Chart, labs and vital reviewed; afebrile, absent leukocytosis Surgical site dressed with betadine wet to dry, DSD, Kerlix, and light NINI wrap Patient to remain NWB to right lower extremity Continue antibiotics; patient to have 6 weeks of IV abx per ID reccs Podiatry will continue to follow while in house
[2017-10-28] MEDS: Metoprolol Succinate 50 mg XL Tab PO SCH (10:04)
[2017-10-28] MEDS: Vancomycin 1 gm/NS 200 ml 1 GM/200 ML BAG IVPB SCH (11:57)
--- NOTE | 2017-10-28 14:52 | CP.PCM.PN ---
Subjective - Date & Time of Evaluation Date of Evaluation: 10/28/17 Time of Evaluation: 07:00 - Subjective Subjective: s/p L revisional hallux amp with met head resection. Objective - Vital Signs/Intake and Output Vital Signs (last 24 hours): Temp Pulse Resp BP Pulse Ox 99 F 57 L 20 159/53 H 98 10/28/17 08:00 10/28/17 08:00 10/28/17 08:00 10/28/17 08:00 10/28/17 08:00 Intake and Output: 10/28/17 10/28/17 06:59 18:59 Intake Total 300 920 Output Total 400 Balance -100 920 - Medications Medications: Current Medications Acetaminophen (Tylenol 325mg Tab) 650 mg PO Q6 PRN PRN Reason: Pain, Mild (1-3) Last Admin: 10/26/17 15:36 Dose: 650 mg Amlodipine Besylate (Norvasc) 5 mg PO DAILY [facility] Last Admin: 10/28/17 10:04 Dose: 5 mg Folic Acid (Folic Acid) 1 mg PO DAILY [facility] Last Admin: 10/28/17 10:04 Dose: 1 mg Hydroxyzine HCl (Atarax) 25 mg PO Q6 PRN PRN Reason: Agitation Last Admin: 10/25/17 09:57 Dose: 25 mg Vancomycin/Sodium Chloride (Vancomycin 1 Gm/Ns 200 Ml) 1 gm in 200 mls @ 133.333 mls/hr IVPB Q24H [facility] PRN Reason: Protocol Stop: 10/31/17 12:01 Last Admin: 10/28/17 11:57 Dose: 133.333 mls/hr Metoprolol Succinate (Toprol Xl) 50 mg PO DAILY [facility] Last Admin: 10/28/17 10:04 Dose: 50 mg Naproxen (Anaprox) 275 mg PO QID PRN PRN Reason: Pain, moderate (4-7) Last Admin: 10/22/17 17:44 Dose: 275 mg Sodium Hypochlorite (Dakins Solution 0.125%) 1 appl TOP DAILY [facility] Last Admin: 10/28/17 10:06 Dose: 1 appl Thiamine HCl (Vitamin B1 Tab) 100 mg PO BID [facility] Last Admin: 10/28/17 10:04 Dose: 100 mg - Labs Labs: 10/23/17 07:00 10/23/17 07:00 PT 14.4 SECONDS (9.7-12.2) H 09/28/17 09:13 INR 1.3 09/28/17 09:13 APTT 28 SECONDS (21-34) 09/28/17 09:13 - Constitutional Appears: Non-toxic - Head Exam Head Exam: NORMOCEPHALIC - Eye Exam Eye Exam: PERRL - ENT Exam ENT Exam: Mucous Membranes Dry - Neck Exam Neck Exam: absent: Lymphadenopathy - Respiratory Exam Respiratory Exam: Decreased Breath Sounds - Cardiovascular Exam Cardiovascular Exam: REGULAR RHYTHM - GI/Abdominal Exam GI & Abdominal Exam: Distended, Soft Assessment and Plan (1) Alcohol intoxication Status: Acute (2) Cellulitis and abscess of foot Status: Acute (3) Chronic congestive heart failure Status: Acute (4) COPD (chronic obstructive pulmonary disease) Status: Chronic (5) Osteomyelitis of toe of left foot Status: Acute - Assessment and Plan (Free Text) Assessment: cont rx
--- NOTE | 2017-10-28 21:02 | CP.PCM.PN ---
Subjective - Date & Time of Evaluation Date of Evaluation: 10/28/17 Time of Evaluation: 20:57 - Subjective Subjective: Podiatry Progress Note Dr. Harris 57 yo male seen and evaluated at bedside s/p left revisional hallux amp with met head resection. Patient is resting comfortably in bed and in NAD. Patients friend is accompanying him at bedside Patient states that he feels well today and is in no pain to his left foot. He continues to remain NWB. Denies any other pedal complaints at this time. Denies N/V/F/SOB Objective - Vital Signs/Intake and Output Vital Signs (last 24 hours): Temp Pulse Resp BP Pulse Ox 99.6 F 88 20 154/72 H 98 10/28/17 16:23 10/28/17 16:23 10/28/17 16:23 10/28/17 16:23 10/28/17 16:23 Intake and Output: 10/28/17 10/29/17 18:59 06:59 Intake Total 920 Balance 920 - Medications Medications: Current Medications Acetaminophen (Tylenol 325mg Tab) 650 mg PO Q6 PRN PRN Reason: Pain, Mild (1-3) Last Admin: 10/26/17 15:36 Dose: 650 mg Amlodipine Besylate (Norvasc) 5 mg PO DAILY [facility] Last Admin: 10/28/17 10:04 Dose: 5 mg Folic Acid (Folic Acid) 1 mg PO DAILY [facility] Last Admin: 10/28/17 10:04 Dose: 1 mg Hydroxyzine HCl (Atarax) 25 mg PO Q6 PRN PRN Reason: Agitation Last Admin: 10/25/17 09:57 Dose: 25 mg Vancomycin/Sodium Chloride (Vancomycin 1 Gm/Ns 200 Ml) 1 gm in 200 mls @ 133.333 mls/hr IVPB Q24H [facility] PRN Reason: Protocol Stop: 10/31/17 12:01 Last Admin: 10/28/17 11:57 Dose: 133.333 mls/hr Metoprolol Succinate (Toprol Xl) 50 mg PO DAILY [facility] Last Admin: 10/28/17 10:04 Dose: 50 mg Naproxen (Anaprox) 275 mg PO QID PRN PRN Reason: Pain, moderate (4-7) Last Admin: 10/22/17 17:44 Dose: 275 mg Sodium Hypochlorite (Dakins Solution 0.125%) 1 appl TOP DAILY [facility] Last Admin: 10/28/17 10:06 Dose: 1 appl Thiamine HCl (Vitamin B1 Tab) 100 mg PO BID [facility] Last Admin: 10/28/17 17:59 Dose: 100 mg - Labs Labs: 10/23/17 07:00 10/23/17 07:00 PT 14.4 SECONDS (9.7-12.2) H 09/28/17 09:13 INR 1.3 09/28/17 09:13 APTT 28 SECONDS (21-34) 09/28/17 09:13 - Constitutional Appears: Well, Non-toxic, No Acute Distress - Head Exam Head Exam: ATRAUMATIC - Extremities Exam Additional comments: LLE focused exam: Vasc: DP/PT pulses 1/4. CFT <3 seconds to remaining digits and to amputation site, mild +1 edema noted B/L. Ortho: L hallux amputation and 1st met head resection. Mild tenderness to palpation to surrounding surgical site, MMT 4/5 to all compartments Neuro: Gross sensation intact, protective sensation diminished Derm: Surgical site noted to left hallux amputation with sutures intact and skin edges well coapted. No erythema, no purulence, no serous drainage, no tunneling, no tracking, no clinical signs of infection. - Neurological Exam Neurological Exam: Alert, Awake - Psychiatric Exam Psychiatric exam: Normal Affect, Normal Mood Assessment and Plan - Assessment and Plan (Free Text) Assessment: 57 yo male, 13 days s/p left 1st met head resection secondary to non-healing hallux amputation site Plan: Patient seen and evaluated at bedside Discussed patient plan with Dr. Harris Chart, labs and vital reviewed; afebrile, absent leukocytosis (10/28) Surgical site dressed with betadine wet to dry, DSD, Kerlix, and light NINI wrap Patient to remain NWB to right lower extremity Continue antibiotics; patient to have 6 weeks of IV abx per ID reccs Podiatry will continue to follow while in house
[2017-10-29 08:15] LABS: BASO # 0.1 K/uL (0.0-0.2); EOS # 0.6 K/uL (0.0-0.7); EOS % 12.2 % (0.0-4.0); HEMOGLOBIN 9.2 g/dL (12.0-18.0); LYMPH # 2.1 K/uL (1.0-4.3); LYMPH % 43.3 % (20.0-40.0); MEAN CELL VOLUME 88.6 fL (80.0-94.0); MEAN CORPUSCULAR HEMOGLOBIN 30.8 pg (27.0-31.0); MEAN CORPUSCULAR HGB CONC 34.7 g/dL (33.0-37.0); MEAN PLATELET VOLUME 10.4 fL (7.2-11.7); MONO # 0.8 K/uL (0.0-0.8); MONO % 16.2 % (0.0-10.0); NEUT # 1.3 K/uL (1.8-7.0); NEUT % 26.3 % (50.0-75.0); NRBC % 0.3 % (0.0-2.0); RBC 2.99 Mil/uL (4.40-5.90); RED CELL DISTRIBUTION WIDTH 13.7 % (11.5-14.5); WHITE BLOOD COUNT 4.9 K/uL (4.8-10.8)
[2017-10-29 08:29] LABS: ALB/GLOB RATIO 0.6 (1.0-2.1); ALBUMIN 1.8 g/dL (3.5-5.0); ALT/SGPT 29 U/L (21-72); AST/SGOT 34 U/L (17-59); BLOOD UREA NITROGEN 23 mg/dL (9-20); CALCIUM 7.6 mg/dl (8.6-10.4); GFR NON-AFRICAN AMERICAN > 60
[2017-10-29] MEDS: Metoprolol Succinate 50 mg XL Tab PO SCH (09:06)
--- NOTE | 2017-10-29 12:02 | CP.PCM.PN ---
Subjective - Date & Time of Evaluation Date of Evaluation: 10/29/17 Time of Evaluation: 12:00 - Subjective Subjective: CONDITION STABLE. NO FEVER. VS WNL. WOUND IMPROVING. Objective - Vital Signs/Intake and Output Vital Signs (last 24 hours): Temp Pulse Resp BP Pulse Ox 97.9 F 72 20 121/70 95 10/29/17 08:10 10/29/17 08:10 10/29/17 08:10 10/29/17 08:10 10/29/17 08:10 Intake and Output: 10/29/17 10/29/17 06:59 18:59 Intake Total 350 180 Output Total 450 Balance -100 180 - Medications Medications: Current Medications Acetaminophen (Tylenol 325mg Tab) 650 mg PO Q6 PRN PRN Reason: Pain, Mild (1-3) Last Admin: 10/26/17 15:36 Dose: 650 mg Amlodipine Besylate (Norvasc) 5 mg PO DAILY [facility] Last Admin: 10/29/17 09:07 Dose: 5 mg Folic Acid (Folic Acid) 1 mg PO DAILY [facility] Last Admin: 10/29/17 09:06 Dose: 1 mg Hydroxyzine HCl (Atarax) 25 mg PO Q6 PRN PRN Reason: Agitation Last Admin: 10/25/17 09:57 Dose: 25 mg Vancomycin/Sodium Chloride (Vancomycin 1 Gm/Ns 200 Ml) 1 gm in 200 mls @ 133.333 mls/hr IVPB Q24H [facility] PRN Reason: Protocol Stop: 10/31/17 12:01 Last Admin: 10/28/17 11:57 Dose: 133.333 mls/hr Metoprolol Succinate (Toprol Xl) 50 mg PO DAILY [facility] Last Admin: 10/29/17 09:06 Dose: 50 mg Naproxen (Anaprox) 275 mg PO QID PRN PRN Reason: Pain, moderate (4-7) Last Admin: 10/22/17 17:44 Dose: 275 mg Sodium Hypochlorite (Dakins Solution 0.125%) 1 appl TOP DAILY [facility] Last Admin: 10/29/17 09:07 Dose: 1 appl Thiamine HCl (Vitamin B1 Tab) 100 mg PO BID [facility] Last Admin: 10/29/17 09:06 Dose: 100 mg - Labs Labs: 10/29/17 07:55 10/29/17 07:55 PT 14.4 SECONDS (9.7-12.2) H 09/28/17 09:13 INR 1.3 09/28/17 09:13 APTT 28 SECONDS (21-34) 09/28/17 09:13 - Constitutional Appears: No Acute Distress, Chronically Ill - Eye Exam Eye Exam: Normal appearance, PERRL - ENT Exam ENT Exam: Mucous Membranes Moist - Respiratory Exam Respiratory Exam: Clear to Ausculation Bilateral, NORMAL BREATHING PATTERN - Cardiovascular Exam Cardiovascular Exam: REGULAR RHYTHM, +S1, +S2 - GI/Abdominal Exam GI & Abdominal Exam: Soft, Normal Bowel Sounds Assessment and Plan - Assessment and Plan (Free Text) Assessment: SAME. Plan: CT IV ABTS.
[2017-10-29] MEDS: Vancomycin 1 gm/NS 200 ml 1 GM/200 ML BAG IVPB SCH (12:04)
[2017-10-30] MEDS: Metoprolol Succinate 50 mg XL Tab PO SCH (09:28)
--- NOTE | 2017-10-30 11:32 | CP.PCM.PN ---
Subjective - Date & Time of Evaluation Date of Evaluation: 10/30/17 Time of Evaluation: 11:30 - Subjective Subjective: Pt seen at bedside for f/u right partial 1st ray amp. Pt in NAD. Right amp site - sutures intact with minimal drainage. Wound is healing well. Cont IV abx as per ID. Will cont to follow while inhouse. Objective - Vital Signs/Intake and Output Vital Signs (last 24 hours): Temp Pulse Resp BP Pulse Ox 99 F 61 20 169/69 H 98 10/30/17 00:00 10/30/17 00:00 10/30/17 00:00 10/30/17 00:00 10/30/17 00:00 Intake and Output: 10/30/17 10/30/17 06:59 18:59 Intake Total 550 240 Balance 550 240 - Medications Medications: Current Medications Acetaminophen (Tylenol 325mg Tab) 650 mg PO Q6 PRN PRN Reason: Pain, Mild (1-3) Last Admin: 10/26/17 15:36 Dose: 650 mg Amlodipine Besylate (Norvasc) 5 mg PO DAILY [facility] Last Admin: 10/30/17 09:27 Dose: 5 mg Folic Acid (Folic Acid) 1 mg PO DAILY [facility] Last Admin: 10/30/17 09:28 Dose: 1 mg Hydroxyzine HCl (Atarax) 25 mg PO Q6 PRN PRN Reason: Agitation Last Admin: 10/25/17 09:57 Dose: 25 mg Vancomycin/Sodium Chloride (Vancomycin 1 Gm/Ns 200 Ml) 1 gm in 200 mls @ 133.333 mls/hr IVPB Q24H [facility] PRN Reason: Protocol Stop: 10/31/17 12:01 Last Admin: 10/29/17 12:04 Dose: 133.333 mls/hr Metoprolol Succinate (Toprol Xl) 50 mg PO DAILY [facility] Last Admin: 10/30/17 09:28 Dose: 50 mg Naproxen (Anaprox) 275 mg PO QID PRN PRN Reason: Pain, moderate (4-7) Last Admin: 10/22/17 17:44 Dose: 275 mg Sodium Hypochlorite (Dakins Solution 0.125%) 1 appl TOP DAILY [facility] Last Admin: 10/30/17 09:28 Dose: 1 appl Thiamine HCl (Vitamin B1 Tab) 100 mg PO BID [facility] Last Admin: 10/30/17 09:27 Dose: 100 mg - Labs Labs: 10/29/17 07:55 10/29/17 07:55 PT 14.4 SECONDS (9.7-12.2) H 09/28/17 09:13 INR 1.3 09/28/17 09:13 APTT 28 SECONDS (21-34) 09/28/17 09:13
--- NOTE | 2017-10-30 12:24 | CP.PCM.PN ---
Subjective - Date & Time of Evaluation Date of Evaluation: 10/30/17 Time of Evaluation: 12:23 - Subjective Subjective: CONDITION STABLE. AFEBRILE. VS WNL. Objective - Vital Signs/Intake and Output Vital Signs (last 24 hours): Temp Pulse Resp BP Pulse Ox 99 F 61 20 169/69 H 98 10/30/17 00:00 10/30/17 00:00 10/30/17 00:00 10/30/17 00:00 10/30/17 00:00 Intake and Output: 10/30/17 10/30/17 06:59 18:59 Intake Total 550 240 Balance 550 240 - Medications Medications: Current Medications Acetaminophen (Tylenol 325mg Tab) 650 mg PO Q6 PRN PRN Reason: Pain, Mild (1-3) Last Admin: 10/26/17 15:36 Dose: 650 mg Amlodipine Besylate (Norvasc) 5 mg PO DAILY [facility] Last Admin: 10/30/17 09:27 Dose: 5 mg Folic Acid (Folic Acid) 1 mg PO DAILY [facility] Last Admin: 10/30/17 09:28 Dose: 1 mg Hydroxyzine HCl (Atarax) 25 mg PO Q6 PRN PRN Reason: Agitation Last Admin: 10/25/17 09:57 Dose: 25 mg Vancomycin/Sodium Chloride (Vancomycin 1 Gm/Ns 200 Ml) 1 gm in 200 mls @ 133.333 mls/hr IVPB Q24H [facility] PRN Reason: Protocol Stop: 10/31/17 12:01 Last Admin: 10/29/17 12:04 Dose: 133.333 mls/hr Metoprolol Succinate (Toprol Xl) 50 mg PO DAILY [facility] Last Admin: 10/30/17 09:28 Dose: 50 mg Naproxen (Anaprox) 275 mg PO QID PRN PRN Reason: Pain, moderate (4-7) Last Admin: 10/22/17 17:44 Dose: 275 mg Sodium Hypochlorite (Dakins Solution 0.125%) 1 appl TOP DAILY [facility] Last Admin: 10/30/17 09:28 Dose: 1 appl Thiamine HCl (Vitamin B1 Tab) 100 mg PO BID [facility] Last Admin: 10/30/17 09:27 Dose: 100 mg - Labs Labs: 10/29/17 07:55 10/29/17 07:55 PT 14.4 SECONDS (9.7-12.2) H 09/28/17 09:13 INR 1.3 09/28/17 09:13 APTT 28 SECONDS (21-34) 09/28/17 09:13 - Constitutional Appears: No Acute Distress, Chronically Ill - Eye Exam Eye Exam: PERRL - ENT Exam ENT Exam: Mucous Membranes Moist - Respiratory Exam Respiratory Exam: Clear to Ausculation Bilateral, NORMAL BREATHING PATTERN - Cardiovascular Exam Cardiovascular Exam: REGULAR RHYTHM, +S1, +S2 - GI/Abdominal Exam GI & Abdominal Exam: Soft, Normal Bowel Sounds - Neurological Exam Neurological Exam: Alert, Awake, CN II-XII Intact, Normal Gait, Oriented x3 - Additional Findings Additional findings: WOUND HEALING. Assessment and Plan - Assessment and Plan (Free Text) Assessment: S/P OM. Plan: CT PRESENT TREATMENT.
[2017-10-30] MEDS: Vancomycin 1 gm/NS 200 ml 1 GM/200 ML BAG IVPB SCH (12:33)
[2017-10-31] MEDS: Metoprolol Succinate 50 mg XL Tab PO SCH (09:33)
--- NOTE | 2017-10-31 11:08 | CP.PCM.PN ---
Subjective - Date & Time of Evaluation Date of Evaluation: 10/31/17 Time of Evaluation: 11:05 - Subjective Subjective: Podiatry Progress Note Dr. Harris 57 yo male seen and evaluated at bedside s/p left revisional hallux amp with met head resection. Patient is resting comfortably in bed, in NAD, and AA0x3. Patient denies acute overnight events. Reports sleeping well. He continues to remain NWB. Denies any other pedal complaints at this time. Denies N/V/F/SOB Objective - Vital Signs/Intake and Output Vital Signs (last 24 hours): Temp Pulse Resp BP Pulse Ox 98.9 F 59 L 20 162/79 H 100 10/31/17 07:19 10/31/17 07:19 10/31/17 07:19 10/31/17 07:19 10/31/17 07:19 Intake and Output: 10/31/17 10/31/17 06:59 18:59 Intake Total 660 Balance 660 - Medications Medications: Current Medications Acetaminophen (Tylenol 325mg Tab) 650 mg PO Q6 PRN PRN Reason: Pain, Mild (1-3) Last Admin: 10/26/17 15:36 Dose: 650 mg Amlodipine Besylate (Norvasc) 5 mg PO DAILY [facility] Last Admin: 10/31/17 09:33 Dose: 5 mg Folic Acid (Folic Acid) 1 mg PO DAILY [facility] Last Admin: 10/31/17 09:33 Dose: 1 mg Hydroxyzine HCl (Atarax) 25 mg PO Q6 PRN PRN Reason: Agitation Last Admin: 10/25/17 09:57 Dose: 25 mg Vancomycin/Sodium Chloride (Vancomycin 1 Gm/Ns 200 Ml) 1 gm in 200 mls @ 133.333 mls/hr IVPB Q24H [facility] PRN Reason: Protocol Stop: 10/31/17 12:01 Last Admin: 10/30/17 12:33 Dose: 133.333 mls/hr Metoprolol Succinate (Toprol Xl) 50 mg PO DAILY [facility] Last Admin: 10/31/17 09:33 Dose: 50 mg Naproxen (Anaprox) 275 mg PO QID PRN PRN Reason: Pain, moderate (4-7) Last Admin: 10/22/17 17:44 Dose: 275 mg Sodium Hypochlorite (Dakins Solution 0.125%) 1 appl TOP DAILY [facility] Last Admin: 10/31/17 09:35 Dose: 1 appl Thiamine HCl (Vitamin B1 Tab) 100 mg PO BID [facility] Last Admin: 10/31/17 09:33 Dose: 100 mg - Labs Labs: 10/29/17 07:55 10/29/17 07:55 PT 14.4 SECONDS (9.7-12.2) H 09/28/17 09:13 INR 1.3 09/28/17 09:13 APTT 28 SECONDS (21-34) 09/28/17 09:13 - Constitutional Appears: Well, Non-toxic, No Acute Distress - Extremities Exam Extremities Exam: absent: Calf Tenderness Additional comments: LLE focused exam: Vasc: DP/PT pulses 1/4. CFT <3 seconds to remaining digits and to amputation site, mild +1 edema noted B/L. Ortho: L hallux amputation and 1st met head resection. Mild tenderness to palpation to surrounding surgical site, MMT 4/5 to all compartments Neuro: Gross sensation intact, protective sensation diminished Derm: Surgical site noted to left hallux amputation with sutures intact and skin edges well coapted. No erythema, no purulence, no serous drainage, no tunneling, no tracking, no clinical signs of infection. - Neurological Exam Neurological Exam: Alert, Awake - Psychiatric Exam Psychiatric exam: Normal Affect, Normal Mood Assessment and Plan - Assessment and Plan (Free Text) Assessment: 57 yo male, 16 days s/p left 1st met head resection secondary to non-healing hallux amputation site (DOS: 10/15/17) - healing Plan: Patient seen and evaluated at bedside Discussed patient plan with Dr. Harris Chart, labs and vital reviewed; afebrile, absent leukocytosis WBC 4.9 (10/29/17) Surgical site dressed with betadine wet to dry, DSD, Kerlix, and light NINI wrap Patient to remain NWB to right lower extremity Continue antibiotics; patient to have 6 weeks of IV abx per ID reccs Podiatry will continue to follow while in house
[2017-10-31] MEDS: Vancomycin 1 gm/NS 200 ml 1 GM/200 ML BAG IVPB SCH (11:13)
--- NOTE | 2017-10-31 11:49 | CP.PCM.PN ---
Subjective - Date & Time of Evaluation Date of Evaluation: 10/31/17 Time of Evaluation: 11:48 - Subjective Subjective: CONDITION STABLE. AFEBRILE. OM LT TOE. Objective - Vital Signs/Intake and Output Vital Signs (last 24 hours): Temp Pulse Resp BP Pulse Ox 98.9 F 59 L 20 162/79 H 100 10/31/17 07:19 10/31/17 07:19 10/31/17 07:19 10/31/17 07:19 10/31/17 07:19 Intake and Output: 10/31/17 10/31/17 06:59 18:59 Intake Total 660 Balance 660 - Medications Medications: Current Medications Acetaminophen (Tylenol 325mg Tab) 650 mg PO Q6 PRN PRN Reason: Pain, Mild (1-3) Last Admin: 10/26/17 15:36 Dose: 650 mg Amlodipine Besylate (Norvasc) 5 mg PO DAILY [facility] Last Admin: 10/31/17 09:33 Dose: 5 mg Folic Acid (Folic Acid) 1 mg PO DAILY [facility] Last Admin: 10/31/17 09:33 Dose: 1 mg Hydroxyzine HCl (Atarax) 25 mg PO Q6 PRN PRN Reason: Agitation Last Admin: 10/25/17 09:57 Dose: 25 mg Vancomycin/Sodium Chloride (Vancomycin 1 Gm/Ns 200 Ml) 1 gm in 200 mls @ 133.333 mls/hr IVPB Q24H [facility] PRN Reason: Protocol Stop: 10/31/17 12:01 Last Admin: 10/31/17 11:13 Dose: 133.333 mls/hr Metoprolol Succinate (Toprol Xl) 50 mg PO DAILY [facility] Last Admin: 10/31/17 09:33 Dose: 50 mg Naproxen (Anaprox) 275 mg PO QID PRN PRN Reason: Pain, moderate (4-7) Last Admin: 10/22/17 17:44 Dose: 275 mg Sodium Hypochlorite (Dakins Solution 0.125%) 1 appl TOP DAILY [facility] Last Admin: 10/31/17 09:35 Dose: 1 appl Thiamine HCl (Vitamin B1 Tab) 100 mg PO BID [facility] Last Admin: 10/31/17 09:33 Dose: 100 mg - Labs Labs: 10/29/17 07:55 10/29/17 07:55 PT 14.4 SECONDS (9.7-12.2) H 09/28/17 09:13 INR 1.3 09/28/17 09:13 APTT 28 SECONDS (21-34) 09/28/17 09:13 - Constitutional Appears: No Acute Distress, Chronically Ill - Eye Exam Eye Exam: PERRL - ENT Exam ENT Exam: Normal Exam - Respiratory Exam Respiratory Exam: Clear to Ausculation Bilateral, NORMAL BREATHING PATTERN - Cardiovascular Exam Cardiovascular Exam: REGULAR RHYTHM, +S1, +S2 - GI/Abdominal Exam GI & Abdominal Exam: Soft, Normal Bowel Sounds - Extremities Exam Extremities Exam: Full ROM, Normal Capillary Refill, Normal Inspection. absent : Joint Swelling, Pedal Edema - Back Exam Back Exam: NORMAL INSPECTION - Neurological Exam Neurological Exam: Alert, Awake, CN II-XII Intact, Normal Gait, Oriented x3 Assessment and Plan - Assessment and Plan (Free Text) Assessment: STABLE. Plan: CT PRESENT TREATMENT.
[2017-11-01] MEDS: Metoprolol Succinate 50 mg XL Tab PO SCH (09:45)
--- NOTE | 2017-11-01 10:32 | CP.PCM.PN ---
Subjective - Date & Time of Evaluation Date of Evaluation: 11/01/17 Time of Evaluation: 10:31 - Subjective Subjective: CONDITION SAME. Objective - Vital Signs/Intake and Output Vital Signs (last 24 hours): Temp Pulse Resp BP Pulse Ox 98.7 F 69 20 166/78 H 100 11/01/17 08:16 11/01/17 08:16 11/01/17 08:16 11/01/17 08:16 11/01/17 08:16 Intake and Output: 11/01/17 11/01/17 06:59 18:59 Intake Total 360 Output Total 400 Balance -40 - Medications Medications: Current Medications Amlodipine Besylate (Norvasc) 5 mg PO DAILY [facility] Last Admin: 11/01/17 09:45 Dose: 5 mg Folic Acid (Folic Acid) 1 mg PO DAILY [facility] Last Admin: 11/01/17 09:45 Dose: 1 mg Hydroxyzine HCl (Atarax) 25 mg PO Q6 PRN PRN Reason: Agitation Last Admin: 10/25/17 09:57 Dose: 25 mg Metoprolol Succinate (Toprol Xl) 50 mg PO DAILY [facility] Last Admin: 11/01/17 09:45 Dose: 50 mg Sodium Hypochlorite (Dakins Solution 0.125%) 1 appl TOP DAILY [facility] Last Admin: 11/01/17 09:49 Dose: 1 appl Thiamine HCl (Vitamin B1 Tab) 100 mg PO BID [facility] Last Admin: 11/01/17 09:45 Dose: 100 mg - Labs Labs: 10/29/17 07:55 10/29/17 07:55 PT 14.4 SECONDS (9.7-12.2) H 09/28/17 09:13 INR 1.3 09/28/17 09:13 APTT 28 SECONDS (21-34) 09/28/17 09:13 - Constitutional Appears: No Acute Distress, Chronically Ill - Eye Exam Eye Exam: PERRL - ENT Exam ENT Exam: Normal Exam - Respiratory Exam Respiratory Exam: NORMAL BREATHING PATTERN - Cardiovascular Exam Cardiovascular Exam: REGULAR RHYTHM - GI/Abdominal Exam GI & Abdominal Exam: Soft, Normal Bowel Sounds. absent: Tenderness Assessment and Plan - Assessment and Plan (Free Text) Assessment: SAME. Plan: FOR IV ANTIBIOTICS.
[2017-11-01] MEDS: Vancomycin 1 gm/NS 200 ml 1 GM/200 ML BAG IVPB SCH (11:27)
--- NOTE | 2017-11-01 12:22 | CP.PCM.PN ---
Subjective - Date & Time of Evaluation Date of Evaluation: 11/01/17 Time of Evaluation: 11:20 - Subjective Subjective: Podiatry Progress Note Dr. Harris 57 yo male seen and evaluated at bedside s/p left revisional hallux amp with met head resection. Patient reports he is doing well. Patient is resting comfortably in bed, in NAD, and AA0x3. No acute overnight events. He continues to remain NWB. Denies any other pedal complaints at this time. Denies N/V/F/SOB Objective - Vital Signs/Intake and Output Vital Signs (last 24 hours): Temp Pulse Resp BP Pulse Ox 98.7 F 69 20 166/78 H 100 11/01/17 08:16 11/01/17 08:16 11/01/17 08:16 11/01/17 08:16 11/01/17 08:16 Intake and Output: 11/01/17 11/01/17 06:59 18:59 Intake Total 360 Output Total 400 Balance -40 - Medications Medications: Current Medications Amlodipine Besylate (Norvasc) 5 mg PO DAILY [facility] Last Admin: 11/01/17 09:45 Dose: 5 mg Folic Acid (Folic Acid) 1 mg PO DAILY [facility] Last Admin: 11/01/17 09:45 Dose: 1 mg Hydroxyzine HCl (Atarax) 25 mg PO Q6 PRN PRN Reason: Agitation Last Admin: 10/25/17 09:57 Dose: 25 mg Vancomycin/Sodium Chloride (Vancomycin 1 Gm/Ns 200 Ml) 1 gm in 200 mls @ 133.333 mls/hr IVPB Q24H [facility] PRN Reason: Protocol Stop: 11/06/17 12:01 Last Admin: 11/01/17 11:27 Dose: 133.333 mls/hr Metoprolol Succinate (Toprol Xl) 50 mg PO DAILY [facility] Last Admin: 11/01/17 09:45 Dose: 50 mg Sodium Hypochlorite (Dakins Solution 0.125%) 1 appl TOP DAILY [facility] Last Admin: 11/01/17 09:49 Dose: 1 appl Thiamine HCl (Vitamin B1 Tab) 100 mg PO BID [facility] Last Admin: 11/01/17 09:45 Dose: 100 mg - Labs Labs: 10/29/17 07:55 10/29/17 07:55 PT 14.4 SECONDS (9.7-12.2) H 09/28/17 09:13 INR 1.3 09/28/17 09:13 APTT 28 SECONDS (21-34) 09/28/17 09:13 - Constitutional Appears: Well, Non-toxic, No Acute Distress - Extremities Exam Extremities Exam: absent: Calf Tenderness Additional comments: LLE focused exam: Vasc: DP/PT pulses 1/4. CFT <3 seconds to remaining digits and to amputation site, mild +1 edema noted B/L. Ortho: L hallux amputation and 1st met head resection. Mild tenderness to palpation to surrounding surgical site, MMT 4/5 to all compartments Neuro: Gross sensation intact, protective sensation diminished Derm: Surgical site noted to left hallux amputation with sutures intact and skin edges well coapted. No erythema, no purulence, no serous drainage, no tunneling, no tracking, no clinical signs of infection. - Neurological Exam Neurological Exam: Alert, Awake, Oriented x3 - Psychiatric Exam Psychiatric exam: Normal Affect, Normal Mood Assessment and Plan - Assessment and Plan (Free Text) Assessment: 57 yo male, 17 days s/p left 1st met head resection secondary to non-healing hallux amputation site (DOS: 10/15/17) - healing Plan: Patient seen and evaluated at bedside Discussed patient plan with Dr. Harris Chart, labs and vital reviewed; afebrile, absent leukocytosis WBC 4.9 (10/29/17) Surgical site dressed with betadine wet to dry, DSD, Kerlix, and light NINI wrap Patient to remain NWB to right lower extremity Continue antibiotics; patient to have 6 weeks of IV abx per ID reccs Podiatry will continue to follow while in house
[2017-11-02 08:27] LABS: BASO # 0.1 K/uL (0.0-0.2); BASO % 1.5 % (0.0-2.0); EOS # 0.8 K/uL (0.0-0.7); EOS % 8.5 % (0.0-4.0); HEMOGLOBIN 10.4 g/dL (12.0-18.0); LYMPH # 3.2 K/uL (1.0-4.3); LYMPH % 36.4 % (20.0-40.0); MEAN CORPUSCULAR HEMOGLOBIN 30.5 pg (27.0-31.0); MEAN CORPUSCULAR HGB CONC 35.5 g/dL (33.0-37.0); MEAN PLATELET VOLUME 10.1 fL (7.2-11.7); MONO % 10.9 % (0.0-10.0); NEUT # 3.8 K/uL (1.8-7.0); NEUT % 42.7 % (50.0-75.0); NRBC % 0.1 % (0.0-2.0); RBC 3.4 Mil/uL (4.40-5.90); RED CELL DISTRIBUTION WIDTH 13.5 % (11.5-14.5)
[2017-11-02 08:30] LABS: WHITE BLOOD COUNT 8.9 K/uL (4.8-10.8)
[2017-11-02 09:00] LABS: BLOOD UREA NITROGEN 19 mg/dL (9-20); CALCIUM 7.3 mg/dl (8.6-10.4); GFR NON-AFRICAN AMERICAN > 60
[2017-11-02] MEDS: Metoprolol Succinate 50 mg XL Tab PO SCH (09:37)
[2017-11-02] MEDS: Vancomycin 1 gm/NS 200 ml 1 GM/200 ML BAG IVPB SCH (11:13)
--- NOTE | 2017-11-02 11:41 | CP.PCM.PN ---
Subjective - Date & Time of Evaluation Date of Evaluation: 11/02/17 Time of Evaluation: 11:39 - Subjective Subjective: CONDITION SAME. Objective - Vital Signs/Intake and Output Vital Signs (last 24 hours): Temp Pulse Resp BP Pulse Ox 98.5 F 66 20 164/80 H 100 11/02/17 08:40 11/02/17 08:40 11/02/17 08:40 11/02/17 08:40 11/02/17 08:40 Intake and Output: 11/02/17 11/02/17 06:59 18:59 Intake Total 300 200 Output Total 500 400 Balance -200 -200 - Medications Medications: Current Medications Amlodipine Besylate (Norvasc) 5 mg PO DAILY [facility] Last Admin: 11/02/17 09:36 Dose: 5 mg Folic Acid (Folic Acid) 1 mg PO DAILY [facility] Last Admin: 11/02/17 09:37 Dose: 1 mg Hydroxyzine HCl (Atarax) 25 mg PO Q6 PRN PRN Reason: Agitation Last Admin: 10/25/17 09:57 Dose: 25 mg Vancomycin/Sodium Chloride (Vancomycin 1 Gm/Ns 200 Ml) 1 gm in 200 mls @ 133.333 mls/hr IVPB Q24H [facility] PRN Reason: Protocol Stop: 11/06/17 12:01 Last Admin: 11/02/17 11:13 Dose: 133.333 mls/hr Metoprolol Succinate (Toprol Xl) 50 mg PO DAILY [facility] Last Admin: 11/02/17 09:37 Dose: 50 mg Sodium Hypochlorite (Dakins Solution 0.125%) 1 appl TOP DAILY [facility] Last Admin: 11/02/17 09:37 Dose: 1 appl Thiamine HCl (Vitamin B1 Tab) 100 mg PO BID [facility] Last Admin: 11/02/17 09:36 Dose: 100 mg - Labs Labs: 11/02/17 08:04 11/02/17 08:04 PT 14.4 SECONDS (9.7-12.2) H 09/28/17 09:13 INR 1.3 09/28/17 09:13 APTT 28 SECONDS (21-34) 09/28/17 09:13 - Constitutional Appears: No Acute Distress, Chronically Ill - Eye Exam Eye Exam: PERRL - ENT Exam ENT Exam: Normal Exam - Respiratory Exam Respiratory Exam: Clear to Ausculation Bilateral, NORMAL BREATHING PATTERN - Cardiovascular Exam Cardiovascular Exam: REGULAR RHYTHM - GI/Abdominal Exam GI & Abdominal Exam: Soft, Normal Bowel Sounds - Extremities Exam Extremities Exam: Full ROM, Normal Capillary Refill, Normal Inspection. absent : Joint Swelling, Pedal Edema - Back Exam Back Exam: NORMAL INSPECTION - Neurological Exam Neurological Exam: Alert, Awake, CN II-XII Intact, Normal Gait, Oriented x3 - Psychiatric Exam Psychiatric exam: Normal Affect, Normal Mood Assessment and Plan - Assessment and Plan (Free Text) Assessment: STABLE. Plan: CT PRESENT TREATMENT.
--- NOTE | 2017-11-02 12:25 | CP.PCM.PN ---
Subjective - Date & Time of Evaluation Date of Evaluation: 11/02/17 Time of Evaluation: 12:23 - Subjective Subjective: Pt seen at bedside for left partial 1st ray amp. Pt in NAD. Amp site looks well. Very minimal drainage noted. Sutures intact with no dehiscence. Redressed wound. Pt can partial wt bear on left foot starting Sunday with use of post op shoe and walker. Objective - Vital Signs/Intake and Output Vital Signs (last 24 hours): Temp Pulse Resp BP Pulse Ox 98.5 F 66 20 164/80 H 100 11/02/17 08:40 11/02/17 08:40 11/02/17 08:40 11/02/17 08:40 11/02/17 08:40 Intake and Output: 11/02/17 11/02/17 06:59 18:59 Intake Total 300 200 Output Total 500 400 Balance -200 -200 - Medications Medications: Current Medications Amlodipine Besylate (Norvasc) 5 mg PO DAILY [facility] Last Admin: 11/02/17 09:36 Dose: 5 mg Folic Acid (Folic Acid) 1 mg PO DAILY [facility] Last Admin: 11/02/17 09:37 Dose: 1 mg Hydroxyzine HCl (Atarax) 25 mg PO Q6 PRN PRN Reason: Agitation Last Admin: 10/25/17 09:57 Dose: 25 mg Vancomycin/Sodium Chloride (Vancomycin 1 Gm/Ns 200 Ml) 1 gm in 200 mls @ 133.333 mls/hr IVPB Q24H [facility] PRN Reason: Protocol Stop: 11/06/17 12:01 Last Admin: 11/02/17 11:13 Dose: 133.333 mls/hr Metoprolol Succinate (Toprol Xl) 50 mg PO DAILY [facility] Last Admin: 11/02/17 09:37 Dose: 50 mg Sodium Hypochlorite (Dakins Solution 0.125%) 1 appl TOP DAILY [facility] Last Admin: 11/02/17 09:37 Dose: 1 appl Thiamine HCl (Vitamin B1 Tab) 100 mg PO BID [facility] Last Admin: 11/02/17 09:36 Dose: 100 mg - Labs Labs: 11/02/17 08:04 11/02/17 08:04 PT 14.4 SECONDS (9.7-12.2) H 09/28/17 09:13 INR 1.3 09/28/17 09:13 APTT 28 SECONDS (21-34) 09/28/17 09:13
--- NOTE | 2017-11-02 20:08 | CP.PCM.PN ---
Subjective - Date & Time of Evaluation Date of Evaluation: 11/02/17 Time of Evaluation: 09:00 - Subjective Subjective: vanco / zosyn ordered labs reviewed Objective - Vital Signs/Intake and Output Vital Signs (last 24 hours): Temp Pulse Resp BP Pulse Ox 98.4 F 66 20 159/74 H 99 11/02/17 16:27 11/02/17 16:27 11/02/17 16:27 11/02/17 16:27 11/02/17 16:27 Intake and Output: 11/02/17 11/03/17 18:59 06:59 Intake Total 760 Output Total 400 Balance 360 - Medications Medications: Current Medications Amlodipine Besylate (Norvasc) 5 mg PO DAILY [facility] Last Admin: 11/02/17 09:36 Dose: 5 mg Folic Acid (Folic Acid) 1 mg PO DAILY [facility] Last Admin: 11/02/17 09:37 Dose: 1 mg Hydroxyzine HCl (Atarax) 25 mg PO Q6 PRN PRN Reason: Agitation Last Admin: 10/25/17 09:57 Dose: 25 mg Vancomycin/Sodium Chloride (Vancomycin 1 Gm/Ns 200 Ml) 1 gm in 200 mls @ 133.333 mls/hr IVPB Q24H [facility] PRN Reason: Protocol Stop: 11/06/17 12:01 Last Admin: 11/02/17 11:13 Dose: 133.333 mls/hr Piperacillin Sod/Tazobactam Sod (Zosyn 3.375 Gm Iv Premix) 3.375 gm in 50 mls @ 100 mls/hr IVPB Q8H [facility] PRN Reason: Protocol Stop: 11/30/17 23:59 Metoprolol Succinate (Toprol Xl) 50 mg PO DAILY [facility] Last Admin: 11/02/17 09:37 Dose: 50 mg Sodium Hypochlorite (Dakins Solution 0.125%) 1 appl TOP DAILY [facility] Last Admin: 11/02/17 09:37 Dose: 1 appl Thiamine HCl (Vitamin B1 Tab) 100 mg PO BID [facility] Last Admin: 11/02/17 17:29 Dose: 100 mg - Labs Labs: 11/02/17 08:04 11/02/17 08:04 PT 14.4 SECONDS (9.7-12.2) H 09/28/17 09:13 INR 1.3 09/28/17 09:13 APTT 28 SECONDS (21-34) 09/28/17 09:13 Assessment and Plan (1) Alcohol intoxication Status: Acute (2) Cellulitis and abscess of foot Status: Acute (3) Chronic congestive heart failure Status: Acute (4) COPD (chronic obstructive pulmonary disease) Status: Chronic (5) Osteomyelitis of toe of left foot Status: Acute
[2017-11-02] MEDS: Piperacill/Tazo 3.375gm in Dex 3.375 GM/50 ML BAG IVPB SCH (21:56)
[2017-11-03] MEDS: Piperacill/Tazo 3.375gm in Dex 3.375 GM/50 ML BAG IVPB SCH ×3 (05:45→22:00)
[2017-11-03] MEDS: Metoprolol Succinate 50 mg XL Tab PO SCH (09:45)
[2017-11-03] MEDS: Vancomycin 1 gm/NS 200 ml 1 GM/200 ML BAG IVPB SCH (11:22)
--- NOTE | 2017-11-03 14:43 | CP.PCM.PN ---
Subjective - Date & Time of Evaluation Date of Evaluation: 11/03/17 Time of Evaluation: 02:30 - Subjective Subjective: Podiatry Patient seen along with resident Dr Sylvia Mckeon. Patient resting comfortably. Left foot redressed. Wound is looking much better and is now showing signs of healing with maceration amost completey resolved. To continue daily dressing changes. Objective - Vital Signs/Intake and Output Vital Signs (last 24 hours): Temp Pulse Resp BP Pulse Ox 98.5 F 64 20 159/70 H 100 11/03/17 08:00 11/03/17 08:00 11/03/17 08:00 11/03/17 08:00 11/03/17 08:00 Intake and Output: 11/03/17 11/03/17 06:59 18:59 Intake Total 700 Output Total 500 Balance 200 - Medications Medications: Current Medications Amlodipine Besylate (Norvasc) 5 mg PO DAILY [facility] Last Admin: 11/03/17 09:45 Dose: 5 mg Folic Acid (Folic Acid) 1 mg PO DAILY [facility] Last Admin: 11/03/17 09:45 Dose: 1 mg Hydroxyzine HCl (Atarax) 25 mg PO Q6 PRN PRN Reason: Agitation Last Admin: 10/25/17 09:57 Dose: 25 mg Vancomycin/Sodium Chloride (Vancomycin 1 Gm/Ns 200 Ml) 1 gm in 200 mls @ 133.333 mls/hr IVPB Q24H [facility] PRN Reason: Protocol Stop: 11/06/17 12:01 Last Admin: 11/03/17 11:22 Dose: 133.333 mls/hr Piperacillin Sod/Tazobactam Sod (Zosyn 3.375 Gm Iv Premix) 3.375 gm in 50 mls @ 100 mls/hr IVPB Q8 [facility] PRN Reason: Protocol Last Admin: 11/03/17 14:20 Dose: 100 mls/hr Metoprolol Succinate (Toprol Xl) 50 mg PO DAILY [facility] Last Admin: 11/03/17 09:45 Dose: 50 mg Sodium Hypochlorite (Dakins Solution 0.125%) 1 appl TOP DAILY [facility] Last Admin: 11/03/17 14:34 Dose: Not Given Thiamine HCl (Vitamin B1 Tab) 100 mg PO BID [facility] Last Admin: 11/03/17 09:45 Dose: 100 mg - Labs Labs: 11/02/17 08:04 11/02/17 08:04 PT 14.4 SECONDS (9.7-12.2) H 09/28/17 09:13 INR 1.3 09/28/17 09:13 APTT 28 SECONDS (21-34) 09/28/17 09:13
--- NOTE | 2017-11-03 16:22 | CP.PCM.PN ---
Subjective - Date & Time of Evaluation Date of Evaluation: 11/03/17 Time of Evaluation: 16:20 - Subjective Subjective: Podiatry Progress Note Dr. Mello 57 yo male seen and evaluated at bedside s/p left revisional hallux amp with met head resection. Patient seen with Dr. Mello. Patient reports he is doing well. Patient is resting comfortably in bed, in NAD, and AA0x3. No acute overnight events. He continues to remain NWB. Denies any other pedal complaints at this time. Denies N/V/F/SOB Objective - Vital Signs/Intake and Output Vital Signs (last 24 hours): Temp Pulse Resp BP Pulse Ox 98.5 F 64 20 159/70 H 100 11/03/17 08:00 11/03/17 08:00 11/03/17 08:00 11/03/17 08:00 11/03/17 08:00 Intake and Output: 11/03/17 11/03/17 06:59 18:59 Intake Total 700 750 Output Total 500 Balance 200 750 - Medications Medications: Current Medications Amlodipine Besylate (Norvasc) 5 mg PO DAILY [facility] Last Admin: 11/03/17 09:45 Dose: 5 mg Folic Acid (Folic Acid) 1 mg PO DAILY [facility] Last Admin: 11/03/17 09:45 Dose: 1 mg Hydroxyzine HCl (Atarax) 25 mg PO Q6 PRN PRN Reason: Agitation Last Admin: 10/25/17 09:57 Dose: 25 mg Vancomycin/Sodium Chloride (Vancomycin 1 Gm/Ns 200 Ml) 1 gm in 200 mls @ 133.333 mls/hr IVPB Q24H [facility] PRN Reason: Protocol Stop: 11/06/17 12:01 Last Admin: 11/03/17 11:22 Dose: 133.333 mls/hr Piperacillin Sod/Tazobactam Sod (Zosyn 3.375 Gm Iv Premix) 3.375 gm in 50 mls @ 100 mls/hr IVPB Q8 [facility] PRN Reason: Protocol Last Admin: 11/03/17 14:20 Dose: 100 mls/hr Metoprolol Succinate (Toprol Xl) 50 mg PO DAILY [facility] Last Admin: 11/03/17 09:45 Dose: 50 mg Thiamine HCl (Vitamin B1 Tab) 100 mg PO BID [facility] Last Admin: 11/03/17 09:45 Dose: 100 mg - Labs Labs: 11/02/17 08:04 11/02/17 08:04 PT 14.4 SECONDS (9.7-12.2) H 09/28/17 09:13 INR 1.3 09/28/17 09:13 APTT 28 SECONDS (21-34) 09/28/17 09:13 - Constitutional Appears: Well, Non-toxic, No Acute Distress - Head Exam Head Exam: ATRAUMATIC, NORMOCEPHALIC - Extremities Exam Additional comments: LLE focused exam: Vasc: DP/PT pulses 1/4. CFT <3 seconds to remaining digits and to amputation site, mild +1 edema noted B/L. Ortho: L hallux amputation and 1st met head resection. Mild tenderness to palpation to surrounding surgical site, MMT 4/5 to all compartments Neuro: Gross sensation intact, protective sensation diminished Derm: Surgical site noted to left hallux amputation with sutures intact and skin edges well coapted. No erythema, no purulence, no serous drainage, no tunneling, no tracking, no clinical signs of infection. - Neurological Exam Neurological Exam: Alert, Awake, Oriented x3 - Psychiatric Exam Psychiatric exam: Normal Affect, Normal Mood Assessment and Plan - Assessment and Plan (Free Text) Assessment: 57 yo male, 19 days s/p left 1st met head resection secondary to non-healing hallux amputation site (DOS: 10/15/17) - healing Plan: Patient seen and evaluated at bedside Discussed patient plan with Dr. Mello Chart, labs and vital reviewed; afebrile, absent leukocytosis Surgical site dressed with betadine wet to dry, DSD, Kerlix, and light NINI wrap Dakin's discontinued Patient to remain NWB to right lower extremity Continue antibiotics; patient to have 6 weeks of IV abx per ID reccs Podiatry will continue to follow while in house
--- NOTE | 2017-11-03 21:51 | CP.PCM.PN ---
Subjective - Date & Time of Evaluation Date of Evaluation: 11/03/17 Time of Evaluation: 11:00 - Subjective Subjective: condition same. vs wnl. Objective - Vital Signs/Intake and Output Vital Signs (last 24 hours): Temp Pulse Resp BP Pulse Ox 98.5 F 64 20 159/70 H 100 11/03/17 08:00 11/03/17 08:00 11/03/17 08:00 11/03/17 08:00 11/03/17 08:00 Intake and Output: 11/03/17 11/04/17 18:59 06:59 Intake Total 750 Balance 750 - Medications Medications: Current Medications Amlodipine Besylate (Norvasc) 5 mg PO DAILY [facility] Last Admin: 11/03/17 09:45 Dose: 5 mg Folic Acid (Folic Acid) 1 mg PO DAILY [facility] Last Admin: 11/03/17 09:45 Dose: 1 mg Hydroxyzine HCl (Atarax) 25 mg PO Q6 PRN PRN Reason: Agitation Last Admin: 10/25/17 09:57 Dose: 25 mg Vancomycin/Sodium Chloride (Vancomycin 1 Gm/Ns 200 Ml) 1 gm in 200 mls @ 133.333 mls/hr IVPB Q24H [facility] PRN Reason: Protocol Stop: 11/06/17 12:01 Last Admin: 11/03/17 11:22 Dose: 133.333 mls/hr Piperacillin Sod/Tazobactam Sod (Zosyn 3.375 Gm Iv Premix) 3.375 gm in 50 mls @ 100 mls/hr IVPB Q8 [facility] PRN Reason: Protocol Last Admin: 11/03/17 14:20 Dose: 100 mls/hr Metoprolol Succinate (Toprol Xl) 50 mg PO DAILY [facility] Last Admin: 11/03/17 09:45 Dose: 50 mg Thiamine HCl (Vitamin B1 Tab) 100 mg PO BID [facility] Last Admin: 11/03/17 17:52 Dose: 100 mg - Labs Labs: 11/02/17 08:04 11/02/17 08:04 PT 14.4 SECONDS (9.7-12.2) H 09/28/17 09:13 INR 1.3 09/28/17 09:13 APTT 28 SECONDS (21-34) 09/28/17 09:13 - Constitutional Appears: No Acute Distress, Chronically Ill - Eye Exam Eye Exam: PERRL - ENT Exam ENT Exam: Mucous Membranes Moist - Respiratory Exam Respiratory Exam: Clear to Ausculation Bilateral, NORMAL BREATHING PATTERN - Cardiovascular Exam Cardiovascular Exam: REGULAR RHYTHM, +S1, +S2 - GI/Abdominal Exam GI & Abdominal Exam: Soft, Normal Bowel Sounds - Extremities Exam Extremities Exam: Full ROM, Normal Capillary Refill, Normal Inspection. absent : Joint Swelling, Pedal Edema - Back Exam Back Exam: NORMAL INSPECTION - Neurological Exam Neurological Exam: Alert, Awake, CN II-XII Intact, Normal Gait, Oriented x3 - Psychiatric Exam Psychiatric exam: Normal Affect, Normal Mood Assessment and Plan - Assessment and Plan (Free Text) Assessment: same. Plan: ct same treatment.
[2017-11-04] MEDS: Piperacill/Tazo 3.375gm in Dex 3.375 GM/50 ML BAG IVPB SCH ×3 (05:23→21:21)
[2017-11-04] MEDS: Metoprolol Succinate 50 mg XL Tab PO SCH (10:02)
[2017-11-04] MEDS: Vancomycin 1 gm/NS 200 ml 1 GM/200 ML BAG IVPB SCH (11:07)
--- NOTE | 2017-11-04 13:06 | CP.PCM.PN ---
Subjective - Date & Time of Evaluation Date of Evaluation: 11/04/17 Time of Evaluation: 10:04 - Subjective Subjective: stable. Objective - Vital Signs/Intake and Output Vital Signs (last 24 hours): Temp Pulse Resp BP Pulse Ox 98 F 59 L 20 163/76 H 96 11/04/17 07:44 11/04/17 07:44 11/04/17 07:44 11/04/17 07:44 11/04/17 07:44 Intake and Output: 11/04/17 11/04/17 06:59 18:59 Intake Total 50 Balance 50 - Medications Medications: Current Medications Amlodipine Besylate (Norvasc) 5 mg PO DAILY [facility] Last Admin: 11/04/17 09:59 Dose: 5 mg Folic Acid (Folic Acid) 1 mg PO DAILY [facility] Last Admin: 11/04/17 09:59 Dose: 1 mg Hydroxyzine HCl (Atarax) 25 mg PO Q6 PRN PRN Reason: Agitation Last Admin: 10/25/17 09:57 Dose: 25 mg Vancomycin/Sodium Chloride (Vancomycin 1 Gm/Ns 200 Ml) 1 gm in 200 mls @ 133.333 mls/hr IVPB Q24H [facility] PRN Reason: Protocol Stop: 11/06/17 12:01 Last Admin: 11/04/17 11:07 Dose: 133.333 mls/hr Piperacillin Sod/Tazobactam Sod (Zosyn 3.375 Gm Iv Premix) 3.375 gm in 50 mls @ 100 mls/hr IVPB Q8 [facility] PRN Reason: Protocol Last Admin: 11/04/17 05:23 Dose: 100 mls/hr Metoprolol Succinate (Toprol Xl) 50 mg PO DAILY [facility] Last Admin: 11/04/17 10:02 Dose: 50 mg Thiamine HCl (Vitamin B1 Tab) 100 mg PO BID [facility] Last Admin: 11/04/17 09:59 Dose: 100 mg - Labs Labs: 11/02/17 08:04 11/02/17 08:04 PT 14.4 SECONDS (9.7-12.2) H 09/28/17 09:13 INR 1.3 09/28/17 09:13 APTT 28 SECONDS (21-34) 09/28/17 09:13 - Constitutional Appears: No Acute Distress, Chronically Ill - Eye Exam Eye Exam: Normal appearance - ENT Exam ENT Exam: Mucous Membranes Moist, Normal Exam - Respiratory Exam Respiratory Exam: Clear to Ausculation Bilateral, NORMAL BREATHING PATTERN - Cardiovascular Exam Cardiovascular Exam: REGULAR RHYTHM, +S1, +S2 - GI/Abdominal Exam GI & Abdominal Exam: Soft, Normal Bowel Sounds - Extremities Exam Extremities Exam: Full ROM, Normal Capillary Refill, Normal Inspection. absent : Joint Swelling, Pedal Edema - Back Exam Back Exam: NORMAL INSPECTION Assessment and Plan - Assessment and Plan (Free Text) Assessment: same Plan: for abts.
--- NOTE | 2017-11-04 17:39 | CP.PCM.PN ---
Subjective - Date & Time of Evaluation Date of Evaluation: 11/04/17 Time of Evaluation: 17:36 - Subjective Subjective: Podiatry Progress Note Dr. Mello 57 yo male seen and evaluated at bedside s/p left revisional hallux amp with met head resection. Patient reports he is doing well. Patient is resting comfortably in bed, in NAD, and AA0x3. No acute overnight events. He continues to remain NWB. Denies any other pedal complaints at this time. Denies N/V/F/C/CP /SOB Objective - Vital Signs/Intake and Output Vital Signs (last 24 hours): Temp Pulse Resp BP Pulse Ox 98.3 F 60 20 166/77 H 99 11/04/17 16:00 11/04/17 16:00 11/04/17 16:00 11/04/17 16:00 11/04/17 16:00 Intake and Output: 11/04/17 11/04/17 06:59 18:59 Intake Total 50 750 Balance 50 750 - Medications Medications: Current Medications Amlodipine Besylate (Norvasc) 5 mg PO DAILY [facility] Last Admin: 11/04/17 09:59 Dose: 5 mg Folic Acid (Folic Acid) 1 mg PO DAILY [facility] Last Admin: 11/04/17 09:59 Dose: 1 mg Hydroxyzine HCl (Atarax) 25 mg PO Q6 PRN PRN Reason: Agitation Last Admin: 10/25/17 09:57 Dose: 25 mg Vancomycin/Sodium Chloride (Vancomycin 1 Gm/Ns 200 Ml) 1 gm in 200 mls @ 133.333 mls/hr IVPB Q24H [facility] PRN Reason: Protocol Stop: 11/06/17 12:01 Last Admin: 11/04/17 11:07 Dose: 133.333 mls/hr Piperacillin Sod/Tazobactam Sod (Zosyn 3.375 Gm Iv Premix) 3.375 gm in 50 mls @ 100 mls/hr IVPB Q8 [facility] PRN Reason: Protocol Last Admin: 11/04/17 13:55 Dose: 100 mls/hr Metoprolol Succinate (Toprol Xl) 50 mg PO DAILY [facility] Last Admin: 11/04/17 10:02 Dose: 50 mg Thiamine HCl (Vitamin B1 Tab) 100 mg PO BID [facility] Last Admin: 11/04/17 09:59 Dose: 100 mg - Labs Labs: 11/02/17 08:04 11/02/17 08:04 PT 14.4 SECONDS (9.7-12.2) H 09/28/17 09:13 INR 1.3 09/28/17 09:13 APTT 28 SECONDS (21-34) 09/28/17 09:13 - Constitutional Appears: Well, Non-toxic, No Acute Distress - Extremities Exam Additional comments: LLE focused exam: Vasc: DP/PT pulses 1/4. CFT <3 seconds to remaining digits and to amputation site, mild +1 edema noted B/L. Ortho: L hallux amputation and 1st met head resection. Mild tenderness to palpation to surrounding surgical site, MMT 4/5 to all compartments Neuro: Gross sensation intact, protective sensation diminished Derm: Surgical site noted to left hallux amputation with sutures intact and skin edges well coapted. No erythema, no purulence, no serous drainage, no tunneling, no tracking, no clinical signs of infection. - Neurological Exam Neurological Exam: Alert, Awake, Oriented x3 - Psychiatric Exam Psychiatric exam: Normal Affect, Normal Mood Assessment and Plan - Assessment and Plan (Free Text) Assessment: 57 yo male seen and evaluated at bedside s/p left revisional hallux amp with met head resection Plan: Patient seen and evaluated Plan discussed with Dr. Mello Afebrile Continue abx Wound dressed with betadine, gauze, kirlix, NINI No plan for further surgical intervention at this time. Podiatry will continue to follow while patient in house
[2017-11-05] MEDS: Piperacill/Tazo 3.375gm in Dex 3.375 GM/50 ML BAG IVPB SCH ×3 (06:41→21:41)
[2017-11-05 08:17] LABS: ALB/GLOB RATIO 0.5 (1.0-2.1); ALBUMIN 1.8 g/dL (3.5-5.0); ALT/SGPT 26 U/L (21-72); AST/SGOT 35 U/L (17-59); BLOOD UREA NITROGEN 22 mg/dL (9-20); CALCIUM 7.4 mg/dl (8.6-10.4); GFR NON-AFRICAN AMERICAN 52
[2017-11-05] MEDS: Metoprolol Succinate 50 mg XL Tab PO SCH (10:24)
--- NOTE | 2017-11-05 11:43 | CP.PCM.PN ---
Subjective - Date & Time of Evaluation Date of Evaluation: 11/05/17 Time of Evaluation: 11:42 - Subjective Subjective: STABLE. Objective - Vital Signs/Intake and Output Vital Signs (last 24 hours): Temp Pulse Resp BP Pulse Ox 97.7 F 60 20 165/78 H 100 11/05/17 09:05 11/05/17 09:05 11/05/17 09:05 11/05/17 09:05 11/05/17 09:05 Intake and Output: 11/05/17 11/05/17 06:59 18:59 Intake Total 350 Balance 350 - Medications Medications: Current Medications Amlodipine Besylate (Norvasc) 5 mg PO DAILY [facility] Last Admin: 11/05/17 10:24 Dose: 5 mg Folic Acid (Folic Acid) 1 mg PO DAILY [facility] Last Admin: 11/05/17 10:24 Dose: 1 mg Hydroxyzine HCl (Atarax) 25 mg PO Q6 PRN PRN Reason: Agitation Last Admin: 10/25/17 09:57 Dose: 25 mg Vancomycin/Sodium Chloride (Vancomycin 1 Gm/Ns 200 Ml) 1 gm in 200 mls @ 133.333 mls/hr IVPB Q24H [facility] PRN Reason: Protocol Stop: 11/06/17 12:01 Last Admin: 11/04/17 11:07 Dose: 133.333 mls/hr Piperacillin Sod/Tazobactam Sod (Zosyn 3.375 Gm Iv Premix) 3.375 gm in 50 mls @ 100 mls/hr IVPB Q8 [facility] PRN Reason: Protocol Last Admin: 11/05/17 06:41 Dose: 100 mls/hr Metoprolol Succinate (Toprol Xl) 50 mg PO DAILY [facility] Last Admin: 11/05/17 10:24 Dose: 50 mg Thiamine HCl (Vitamin B1 Tab) 100 mg PO BID [facility] Last Admin: 11/05/17 10:24 Dose: 100 mg - Labs Labs: 11/02/17 08:04 11/05/17 07:15 PT 14.4 SECONDS (9.7-12.2) H 09/28/17 09:13 INR 1.3 09/28/17 09:13 APTT 28 SECONDS (21-34) 09/28/17 09:13 - Constitutional Appears: No Acute Distress, Chronically Ill - Eye Exam Eye Exam: PERRL - ENT Exam ENT Exam: Mucous Membranes Moist - Respiratory Exam Respiratory Exam: Clear to Ausculation Bilateral, NORMAL BREATHING PATTERN - Cardiovascular Exam Cardiovascular Exam: REGULAR RHYTHM, +S1, +S2 - GI/Abdominal Exam GI & Abdominal Exam: Soft - Extremities Exam Extremities Exam: Full ROM, Normal Capillary Refill, Normal Inspection. absent : Joint Swelling, Pedal Edema - Neurological Exam Neurological Exam: Alert, Awake, CN II-XII Intact, Normal Gait, Oriented x3 Assessment and Plan - Assessment and Plan (Free Text) Assessment: SAME. Plan: CT PRESENT TREATMENT.
[2017-11-05] MEDS: Vancomycin 1 gm/NS 200 ml 1 GM/200 ML BAG IVPB SCH (11:53)
[2017-11-06] MEDS: Piperacill/Tazo 3.375gm in Dex 3.375 GM/50 ML BAG IVPB SCH ×3 (05:34→21:34)
[2017-11-06] MEDS: Metoprolol Succinate 50 mg XL Tab PO SCH (09:00)
--- NOTE | 2017-11-06 12:04 | CP.PCM.PN ---
Subjective - Date & Time of Evaluation Date of Evaluation: 11/06/17 Time of Evaluation: 12:01 - Subjective Subjective: Podiatry Progress Note Dr. Harris 57 yo male seen and evaluated at bedside s/p left revisional hallux amp with met head resection. Patient reports he is doing well. Patient is resting comfortably in bed, in NAD, and AA0x3. No acute overnight events. He continues to remain NWB. Denies any other pedal complaints at this time. Denies N/V/F/C/CP /SOB. Dr. Harris discussed with patient that he may be PWB to heel. Patient demonstrated good understanding Objective - Vital Signs/Intake and Output Vital Signs (last 24 hours): Temp Pulse Resp BP Pulse Ox 98.5 F 70 20 186/90 H 98 11/06/17 08:00 11/06/17 08:00 11/06/17 08:00 11/06/17 08:00 11/06/17 08:00 Intake and Output: 11/06/17 11/06/17 06:59 18:59 Intake Total 1010 Balance 1010 - Medications Medications: Current Medications Amlodipine Besylate (Norvasc) 10 mg PO DAILY [facility] Folic Acid (Folic Acid) 1 mg PO DAILY [facility] Last Admin: 11/06/17 09:00 Dose: 1 mg Hydroxyzine HCl (Atarax) 25 mg PO Q6 PRN PRN Reason: Agitation Last Admin: 10/25/17 09:57 Dose: 25 mg Vancomycin/Sodium Chloride (Vancomycin 1 Gm/Ns 200 Ml) 1 gm in 200 mls @ 133.333 mls/hr IVPB Q24H [facility] PRN Reason: Protocol Stop: 11/06/17 12:01 Last Admin: 11/05/17 11:53 Dose: 133.333 mls/hr Piperacillin Sod/Tazobactam Sod (Zosyn 3.375 Gm Iv Premix) 3.375 gm in 50 mls @ 100 mls/hr IVPB Q8 [facility] PRN Reason: Protocol Last Admin: 11/06/17 05:34 Dose: 100 mls/hr Metoprolol Succinate (Toprol Xl) 50 mg PO DAILY [facility] Last Admin: 11/06/17 09:00 Dose: 50 mg Thiamine HCl (Vitamin B1 Tab) 100 mg PO BID [facility] Last Admin: 11/06/17 09:00 Dose: 100 mg - Labs Labs: 11/02/17 08:04 11/05/17 07:15 PT 14.4 SECONDS (9.7-12.2) H 09/28/17 09:13 INR 1.3 09/28/17 09:13 APTT 28 SECONDS (21-34) 09/28/17 09:13 - Constitutional Appears: Well, Non-toxic, No Acute Distress - Extremities Exam Additional comments: LLE focused exam: Vasc: DP/PT pulses 1/4. CFT <3 seconds to remaining digits and to amputation site. No edema noted b/l Ortho: L hallux amputation and 1st met head resection. No tenderness to palpation to surrounding surgical site, MMT 4/5 to all compartments Neuro: Gross sensation intact, protective sensation diminished Derm: Surgical site noted to left hallux amputation with sutures intact and skin edges well coapted. No erythema, no purulence, no serous drainage, no tunneling, no tracking, no clinical signs of infection. - Neurological Exam Neurological Exam: Alert, Awake, Oriented x3 - Psychiatric Exam Psychiatric exam: Normal Affect, Normal Mood Assessment and Plan - Assessment and Plan (Free Text) Assessment: 57 yo male seen and evaluated at bedside s/p left revisional hallux amp with met head resection Plan: Patient seen and evaluated with Dr. Harris Afebrile Continue abx per ID Patient may begin PWB to heel in surgical shoe with quad walker No plan for further surgical intervention at this time Surgical site dressed with DSD Podiatry will continue to follow while patient in house
[2017-11-06] MEDS: Vancomycin 1 gm/NS 200 ml 1 GM/200 ML BAG IVPB SCH (12:23)
--- NOTE | 2017-11-06 12:36 | CP.PCM.PN ---
Subjective - Date & Time of Evaluation Date of Evaluation: 11/06/17 Time of Evaluation: 12:34 - Subjective Subjective: condition same. improving. Objective - Vital Signs/Intake and Output Vital Signs (last 24 hours): Temp Pulse Resp BP Pulse Ox 98.5 F 70 20 186/90 H 98 11/06/17 08:00 11/06/17 08:00 11/06/17 08:00 11/06/17 08:00 11/06/17 08:00 Intake and Output: 11/06/17 11/06/17 06:59 18:59 Intake Total 1010 Balance 1010 - Medications Medications: Current Medications Amlodipine Besylate (Norvasc) 10 mg PO DAILY [facility] Folic Acid (Folic Acid) 1 mg PO DAILY [facility] Last Admin: 11/06/17 09:00 Dose: 1 mg Hydroxyzine HCl (Atarax) 25 mg PO Q6 PRN PRN Reason: Agitation Last Admin: 10/25/17 09:57 Dose: 25 mg Piperacillin Sod/Tazobactam Sod (Zosyn 3.375 Gm Iv Premix) 3.375 gm in 50 mls @ 100 mls/hr IVPB Q8 [facility] PRN Reason: Protocol Last Admin: 11/06/17 05:34 Dose: 100 mls/hr Metoprolol Succinate (Toprol Xl) 50 mg PO DAILY [facility] Last Admin: 11/06/17 09:00 Dose: 50 mg Thiamine HCl (Vitamin B1 Tab) 100 mg PO BID [facility] Last Admin: 11/06/17 09:00 Dose: 100 mg - Labs Labs: 11/02/17 08:04 11/05/17 07:15 PT 14.4 SECONDS (9.7-12.2) H 09/28/17 09:13 INR 1.3 09/28/17 09:13 APTT 28 SECONDS (21-34) 09/28/17 09:13 - Constitutional Appears: No Acute Distress, Chronically Ill - Eye Exam Eye Exam: PERRL - ENT Exam ENT Exam: Mucous Membranes Moist - Respiratory Exam Respiratory Exam: Clear to Ausculation Bilateral, NORMAL BREATHING PATTERN - Cardiovascular Exam Cardiovascular Exam: REGULAR RHYTHM, +S1, +S2 - GI/Abdominal Exam GI & Abdominal Exam: Soft, Normal Bowel Sounds - Extremities Exam Extremities Exam: Full ROM, Normal Capillary Refill, Normal Inspection. absent : Joint Swelling, Pedal Edema Assessment and Plan - Assessment and Plan (Free Text) Assessment: stable. Plan: ct present treatment.
[2017-11-07] MEDS: Piperacill/Tazo 3.375gm in Dex 3.375 GM/50 ML BAG IVPB SCH ×4 (05:52→21:41)
[2017-11-07] MEDS: Metoprolol Succinate 50 mg XL Tab PO SCH (09:04)
[2017-11-07] MEDS: Vancomycin 1 gm/NS 200 ml 1 GM/200 ML BAG IVPB SCH (11:58)
--- NOTE | 2017-11-07 12:16 | CP.PCM.PN ---
Subjective - Date & Time of Evaluation Date of Evaluation: 11/07/17 Time of Evaluation: 12:14 - Subjective Subjective: CONDITION STABLE. AFEBRILE. Objective - Vital Signs/Intake and Output Vital Signs (last 24 hours): Temp Pulse Resp BP Pulse Ox 98.3 F 48 L 20 155/80 H 99 11/07/17 08:00 11/07/17 08:00 11/07/17 08:00 11/07/17 08:00 11/07/17 08:00 Intake and Output: 11/07/17 11/07/17 06:59 18:59 Intake Total 540 Output Total 800 Balance -260 - Medications Medications: Current Medications Amlodipine Besylate (Norvasc) 10 mg PO DAILY [facility] Last Admin: 11/07/17 09:04 Dose: 10 mg Folic Acid (Folic Acid) 1 mg PO DAILY [facility] Last Admin: 11/07/17 09:04 Dose: 1 mg Hydroxyzine HCl (Atarax) 25 mg PO Q6 PRN PRN Reason: Agitation Last Admin: 10/25/17 09:57 Dose: 25 mg Piperacillin Sod/Tazobactam Sod (Zosyn 3.375 Gm Iv Premix) 3.375 gm in 50 mls @ 100 mls/hr IVPB Q8 [facility] PRN Reason: Protocol Last Admin: 11/07/17 05:52 Dose: 100 mls/hr Vancomycin/Sodium Chloride (Vancomycin 1 Gm/Ns 200 Ml) 1 gm in 200 mls @ 133 mls/hr IVPB Q24H [facility] PRN Reason: Protocol Stop: 11/12/17 12:01 Last Admin: 11/07/17 11:58 Dose: 133 mls/hr Metoprolol Succinate (Toprol Xl) 50 mg PO DAILY [facility] Last Admin: 11/07/17 09:04 Dose: 50 mg Thiamine HCl (Vitamin B1 Tab) 100 mg PO BID [facility] Last Admin: 11/07/17 09:04 Dose: 100 mg Tramadol HCl (Ultram) 50 mg PO Q6H PRN PRN Reason: Pain, severe (8-10) Last Admin: 11/06/17 21:58 Dose: 50 mg - Labs Labs: 11/02/17 08:04 11/05/17 07:15 PT 14.4 SECONDS (9.7-12.2) H 07/20/18 09:13 INR 1.3 09/28/17 09:13 APTT 28 SECONDS (21-34) 09/28/17 09:13 - Constitutional Appears: Chronically Ill - Eye Exam Eye Exam: PERRL - ENT Exam ENT Exam: Mucous Membranes Moist - Respiratory Exam Respiratory Exam: Clear to Ausculation Bilateral, NORMAL BREATHING PATTERN - Cardiovascular Exam Cardiovascular Exam: REGULAR RHYTHM, +S1, +S2 - GI/Abdominal Exam GI & Abdominal Exam: Soft, Normal Bowel Sounds - Extremities Exam Extremities Exam: Full ROM, Normal Capillary Refill, Normal Inspection. absent : Joint Swelling, Pedal Edema - Back Exam Back Exam: NORMAL INSPECTION - Neurological Exam Neurological Exam: Alert, Awake, CN II-XII Intact, Normal Gait, Oriented x3 Assessment and Plan - Assessment and Plan (Free Text) Assessment: SAME. Plan: CT PRESENT TREATMENT.
[2017-11-08] MEDS: Metoprolol Succinate 50 mg XL Tab PO SCH (10:17)
[2017-11-08] MEDS: Vancomycin 1 gm/NS 200 ml 1 GM/200 ML BAG IVPB SCH (12:03)
--- NOTE | 2017-11-08 12:37 | CP.PCM.PN ---
Subjective - Date & Time of Evaluation Date of Evaluation: 11/08/17 Time of Evaluation: 12:36 - Subjective Subjective: condition remains stable. Objective - Vital Signs/Intake and Output Vital Signs (last 24 hours): Temp Pulse Resp BP Pulse Ox 97.5 F L 54 L 20 163/77 H 98 11/08/17 07:20 11/08/17 07:20 11/08/17 07:20 11/08/17 07:20 11/08/17 07:20 Intake and Output: 11/08/17 11/08/17 06:59 18:59 Intake Total 300 Output Total 600 Balance -300 - Medications Medications: Current Medications Amlodipine Besylate (Norvasc) 10 mg PO DAILY [facility] Last Admin: 11/08/17 10:16 Dose: 10 mg Folic Acid (Folic Acid) 1 mg PO DAILY [facility] Last Admin: 11/08/17 10:15 Dose: 1 mg Hydroxyzine HCl (Atarax) 25 mg PO Q6 PRN PRN Reason: Agitation Last Admin: 10/25/17 09:57 Dose: 25 mg Vancomycin/Sodium Chloride (Vancomycin 1 Gm/Ns 200 Ml) 1 gm in 200 mls @ 133 mls/hr IVPB Q24H [facility] PRN Reason: Protocol Stop: 11/12/17 12:01 Last Admin: 11/08/17 12:03 Dose: 133 mls/hr Metoprolol Succinate (Toprol Xl) 50 mg PO DAILY [facility] Last Admin: 11/08/17 10:17 Dose: 50 mg Thiamine HCl (Vitamin B1 Tab) 100 mg PO BID [facility] Last Admin: 11/08/17 10:16 Dose: 100 mg Tramadol HCl (Ultram) 50 mg PO Q6H PRN PRN Reason: Pain, severe (8-10) Last Admin: 11/07/17 21:37 Dose: 50 mg - Labs Labs: 11/02/17 08:04 11/05/17 07:15 PT 14.4 SECONDS (9.7-12.2) H 09/28/17 09:13 INR 1.3 09/28/17 09:13 APTT 28 SECONDS (21-34) 09/28/17 09:13 - Constitutional Appears: No Acute Distress, Chronically Ill - Eye Exam Eye Exam: PERRL - ENT Exam ENT Exam: Mucous Membranes Moist - Respiratory Exam Respiratory Exam: Clear to Ausculation Bilateral, NORMAL BREATHING PATTERN - Cardiovascular Exam Cardiovascular Exam: REGULAR RHYTHM - GI/Abdominal Exam GI & Abdominal Exam: Soft, Normal Bowel Sounds - Extremities Exam Extremities Exam: Full ROM, Normal Capillary Refill, Normal Inspection. absent : Joint Swelling, Pedal Edema - Back Exam Back Exam: NORMAL INSPECTION - Neurological Exam Neurological Exam: Alert, Awake, CN II-XII Intact, Normal Gait, Oriented x3 - Psychiatric Exam Psychiatric exam: Normal Affect, Normal Mood Assessment and Plan - Assessment and Plan (Free Text) Assessment: stable. Plan: ct present treatment. pt.
[2017-11-09] MEDS: Metoprolol Succinate 50 mg XL Tab PO SCH (10:49)
[2017-11-09] MEDS: Vancomycin 1 gm/NS 200 ml 1 GM/200 ML BAG IVPB SCH (12:36)
--- NOTE | 2017-11-09 12:36 | CP.PCM.PN ---
Subjective - Date & Time of Evaluation Date of Evaluation: 11/09/17 Time of Evaluation: 12:34 - Subjective Subjective: IMPROVING. ASYMPTOMATIC. Objective - Vital Signs/Intake and Output Vital Signs (last 24 hours): Temp Pulse Resp BP Pulse Ox 98.7 F 52 L 20 127/65 97 11/09/17 08:14 11/09/17 08:14 11/09/17 08:14 11/09/17 08:14 11/09/17 08:14 - Medications Medications: Current Medications Amlodipine Besylate (Norvasc) 10 mg PO DAILY [facility] Last Admin: 11/09/17 10:49 Dose: 10 mg Folic Acid (Folic Acid) 1 mg PO DAILY [facility] Last Admin: 11/09/17 10:50 Dose: 1 mg Hydroxyzine HCl (Atarax) 25 mg PO Q6 PRN PRN Reason: Agitation Vancomycin/Sodium Chloride (Vancomycin 1 Gm/Ns 200 Ml) 1 gm in 200 mls @ 133 mls/hr IVPB Q24H [facility] PRN Reason: Protocol Stop: 11/12/17 12:01 Last Admin: 11/08/17 12:03 Dose: 133 mls/hr Metoprolol Succinate (Toprol Xl) 50 mg PO DAILY [facility] Last Admin: 11/09/17 10:49 Dose: 50 mg Thiamine HCl (Vitamin B1 Tab) 100 mg PO BID [facility] Last Admin: 11/09/17 10:49 Dose: 100 mg Tramadol HCl (Ultram) 50 mg PO Q6H PRN PRN Reason: Pain, severe (8-10) - Labs Labs: 11/02/17 08:04 11/05/17 07:15 PT 14.4 SECONDS (9.7-12.2) H 09/28/17 09:13 INR 1.3 09/28/17 09:13 APTT 28 SECONDS (21-34) 09/28/17 09:13 - Constitutional Appears: No Acute Distress, Chronically Ill - Eye Exam Eye Exam: PERRL - ENT Exam ENT Exam: Mucous Membranes Moist - Respiratory Exam Respiratory Exam: Clear to Ausculation Bilateral, NORMAL BREATHING PATTERN - Cardiovascular Exam Cardiovascular Exam: REGULAR RHYTHM, +S1, +S2 - GI/Abdominal Exam GI & Abdominal Exam: Soft, Normal Bowel Sounds - Extremities Exam Extremities Exam: Full ROM, Normal Capillary Refill, Normal Inspection. absent : Joint Swelling, Pedal Edema - Neurological Exam Neurological Exam: Alert, Awake, CN II-XII Intact, Normal Gait, Oriented x3 Assessment and Plan - Assessment and Plan (Free Text) Assessment: SAME. Plan: CT PRESENT TREATMENT.
--- NOTE | 2017-11-09 13:56 | CP.PCM.PN ---
Subjective - Date & Time of Evaluation Date of Evaluation: 11/09/17 Time of Evaluation: 13:53 - Subjective Subjective: Podiatry Progress Note Dr. Harris 57 yo male seen and evaluated at bedside s/p left revisional hallux amp with met head resection. Patient reports he is doing well. Patient is AAO x 3 and NAD , resting comfortably in bed. No acute overnight events. He continues to remain NWB. Denies any other pedal complaints at this time. Denies N/V/F/C/CP/SOB. Objective - Vital Signs/Intake and Output Vital Signs (last 24 hours): Temp Pulse Resp BP Pulse Ox 98.7 F 52 L 20 127/65 97 11/09/17 08:14 11/09/17 08:14 11/09/17 08:14 11/09/17 08:14 11/09/17 08:14 - Medications Medications: Current Medications Amlodipine Besylate (Norvasc) 10 mg PO DAILY [facility] Last Admin: 11/09/17 10:49 Dose: 10 mg Folic Acid (Folic Acid) 1 mg PO DAILY [facility] Last Admin: 11/09/17 10:50 Dose: 1 mg Hydroxyzine HCl (Atarax) 25 mg PO Q6 PRN PRN Reason: Agitation Vancomycin/Sodium Chloride (Vancomycin 1 Gm/Ns 200 Ml) 1 gm in 200 mls @ 133 mls/hr IVPB Q24H [facility] PRN Reason: Protocol Stop: 11/12/17 12:01 Last Admin: 11/09/17 12:36 Dose: 133 mls/hr Metoprolol Succinate (Toprol Xl) 50 mg PO DAILY [facility] Last Admin: 11/09/17 10:49 Dose: 50 mg Thiamine HCl (Vitamin B1 Tab) 100 mg PO BID [facility] Last Admin: 11/09/17 10:49 Dose: 100 mg Tramadol HCl (Ultram) 50 mg PO Q6H PRN PRN Reason: Pain, severe (8-10) - Labs Labs: 11/02/17 08:04 11/05/17 07:15 PT 14.4 SECONDS (9.7-12.2) H 09/28/17 09:13 INR 1.3 09/28/17 09:13 APTT 28 SECONDS (21-34) 09/28/17 09:13 - Constitutional Appears: Well, Non-toxic, No Acute Distress - Extremities Exam Additional comments: LLE focused exam: Vasc: DP/PT pulses 1/4. CFT <3 seconds to remaining digits and to amputation site. No edema noted b/l Ortho: L hallux amputation and 1st met head resection. No tenderness to palpation to surrounding surgical site, MMT 4/5 to all compartments Neuro: Gross sensation intact, protective sensation diminished Derm: Surgical site noted to left hallux amputation with sutures intact and skin edges well coapted. No erythema, no purulence, no serous drainage, no tunneling, no tracking, no clinical signs of infection. - Neurological Exam Neurological Exam: Alert, Awake, Oriented x3 - Psychiatric Exam Psychiatric exam: Normal Affect, Normal Mood Assessment and Plan - Assessment and Plan (Free Text) Assessment: 57 yo male seen and evaluated at bedside s/p left revisional hallux amp with met head resection Plan: Patient seen and evaluated with Dr. Harris Afebrile Continue abx per ID Patient may begin PWB to heel in surgical shoe with quad walker No plan for further surgical intervention at this time Surgical site dressed with DSD Sutures will be removed next week Podiatry will continue to follow while patient in house
[2017-11-10] MEDS: Metoprolol Succinate 50 mg XL Tab PO SCH (09:53)
[2017-11-10] MEDS: Vancomycin 1 gm/NS 200 ml 1 GM/200 ML BAG IVPB SCH (11:37)
[2017-11-11] MEDS: Metoprolol Succinate 50 mg XL Tab PO SCH (09:28)
[2017-11-11] MEDS: Vancomycin 1 gm/NS 200 ml 1 GM/200 ML BAG IVPB SCH (11:39)
--- NOTE | 2017-11-11 16:19 | CP.PCM.PN ---
Subjective - Date & Time of Evaluation Date of Evaluation: 11/11/17 Time of Evaluation: 07:00 - Subjective Subjective: afeb alert nad Objective - Vital Signs/Intake and Output Vital Signs (last 24 hours): Temp Pulse Resp BP Pulse Ox 98.4 F 57 L 20 142/66 99 11/11/17 15:00 11/11/17 15:00 11/11/17 15:00 11/11/17 15:00 11/11/17 15:00 Intake and Output: 11/11/17 11/11/17 06:59 18:59 Intake Total 540 680 Output Total 850 Balance -310 680 - Medications Medications: Current Medications Amlodipine Besylate (Norvasc) 10 mg PO DAILY [facility] Last Admin: 11/11/17 09:28 Dose: 10 mg Folic Acid (Folic Acid) 1 mg PO DAILY [facility] Last Admin: 11/11/17 09:28 Dose: 1 mg Hydroxyzine HCl (Atarax) 25 mg PO Q6 PRN PRN Reason: Agitation Vancomycin/Sodium Chloride (Vancomycin 1 Gm/Ns 200 Ml) 1 gm in 200 mls @ 133 mls/hr IVPB Q24H [facility] PRN Reason: Protocol Stop: 11/12/17 12:01 Last Admin: 11/11/17 11:39 Dose: 133 mls/hr Metoprolol Succinate (Toprol Xl) 50 mg PO DAILY [facility] Last Admin: 11/11/17 09:28 Dose: 50 mg Thiamine HCl (Vitamin B1 Tab) 100 mg PO BID [facility] Last Admin: 11/11/17 09:28 Dose: 100 mg Tramadol HCl (Ultram) 50 mg PO Q6H PRN PRN Reason: Pain, severe (8-10) - Labs Labs: 11/02/17 08:04 11/05/17 07:15 PT 14.4 SECONDS (9.7-12.2) H 09/28/17 09:13 INR 1.3 09/28/17 09:13 APTT 28 SECONDS (21-34) 09/28/17 09:13 - Constitutional Appears: Non-toxic, Chronically Ill - Head Exam Head Exam: NORMOCEPHALIC - Eye Exam Eye Exam: PERRL - ENT Exam ENT Exam: Mucous Membranes Dry - Neck Exam Neck Exam: absent: Lymphadenopathy - Respiratory Exam Respiratory Exam: Decreased Breath Sounds - Cardiovascular Exam Cardiovascular Exam: REGULAR RHYTHM - GI/Abdominal Exam GI & Abdominal Exam: Distended, Soft - Rectal Exam Rectal Exam: Deferred - Exam Exam: NORMAL INSPECTION - Extremities Exam Extremities Exam: absent: Pedal Edema - Back Exam Back Exam: absent: CVA tenderness (L), CVA tenderness (R) Assessment and Plan (1) Alcohol intoxication Status: Acute (2) Cellulitis and abscess of foot Status: Acute (3) Chronic congestive heart failure Status: Acute (4) COPD (chronic obstructive pulmonary disease) Status: Chronic (5) Osteomyelitis of toe of left foot Status: Acute - Assessment and Plan (Free Text) Assessment: iv rx renewed cont rx as ordered will check AM labs
[2017-11-12 08:39] LABS: BASO # 0.1 K/uL (0.0-0.2); BASO % 1.2 % (0.0-2.0); EOS # 0.7 K/uL (0.0-0.7); EOS % 8.3 % (0.0-4.0); HEMOGLOBIN 8.6 g/dL (12.0-18.0); LYMPH % 34.7 % (20.0-40.0); MEAN CELL VOLUME 85.8 fL (80.0-94.0); MEAN CORPUSCULAR HEMOGLOBIN 29.9 pg (27.0-31.0); MEAN CORPUSCULAR HGB CONC 34.8 g/dL (33.0-37.0); MEAN PLATELET VOLUME 9.5 fL (7.2-11.7); MONO # 0.8 K/uL (0.0-0.8); NEUT % 46.8 % (50.0-75.0); NRBC % 0.1 % (0.0-2.0); RBC 2.88 Mil/uL (4.40-5.90); RED CELL DISTRIBUTION WIDTH 14.2 % (11.5-14.5); WHITE BLOOD COUNT 8.6 K/uL (4.8-10.8)
[2017-11-12 08:57] LABS: ALB/GLOB RATIO 0.6 (1.0-2.1); ALBUMIN 1.8 g/dL (3.5-5.0); ALT/SGPT 26 U/L (21-72); AST/SGOT 33 U/L (17-59); BLOOD UREA NITROGEN 21 mg/dL (9-20); CALCIUM 7.8 mg/dl (8.6-10.4); GFR NON-AFRICAN AMERICAN > 60
[2017-11-12] MEDS: Metoprolol Succinate 50 mg XL Tab PO SCH (09:56)
[2017-11-12] MEDS: Vancomycin 1 gm/NS 200 ml 1 GM/200 ML BAG IVPB SCH (12:43)
--- NOTE | 2017-11-12 13:08 | CP.PCM.PN ---
Subjective - Date & Time of Evaluation Date of Evaluation: 11/12/17 Time of Evaluation: 13:05 - Subjective Subjective: Podiatry Progress Note Dr. Harris: 57 yo male patient seen and evaluated, at bedside s/p L revisional hallux amputation with met head resection. Patient is resting comfortably and in NAD. Patient states that he is in no pain today, however the top of his foot is itchy. He continues to remain PWB to left foot. Denies any other pedal complaints at this time. Denies N/V/F/SOB/CP. Objective - Vital Signs/Intake and Output Vital Signs (last 24 hours): Temp Pulse Resp BP Pulse Ox 98.1 F 60 20 152/74 H 98 11/12/17 07:00 11/12/17 07:00 11/12/17 07:00 11/12/17 07:00 11/12/17 07:00 Intake and Output: 11/12/17 11/12/17 06:59 18:59 Intake Total 880 Output Total 400 Balance 480 - Medications Medications: Current Medications Amlodipine Besylate (Norvasc) 10 mg PO DAILY [facility] Last Admin: 11/12/17 09:56 Dose: 10 mg Folic Acid (Folic Acid) 1 mg PO DAILY [facility] Last Admin: 11/12/17 09:56 Dose: 1 mg Hydroxyzine HCl (Atarax) 25 mg PO Q6 PRN PRN Reason: Agitation Metoprolol Succinate (Toprol Xl) 50 mg PO DAILY [facility] Last Admin: 11/12/17 09:56 Dose: 50 mg Thiamine HCl (Vitamin B1 Tab) 100 mg PO BID [facility] Last Admin: 11/12/17 09:56 Dose: 100 mg Tramadol HCl (Ultram) 50 mg PO Q6H PRN PRN Reason: Pain, severe (8-10) - Labs Labs: 11/12/17 08:16 11/12/17 08:16 PT 14.4 SECONDS (9.7-12.2) H 09/28/17 09:13 INR 1.3 09/28/17 09:13 APTT 28 SECONDS (21-34) 09/28/17 09:13 - Constitutional Appears: Well, Non-toxic, No Acute Distress - Head Exam Head Exam: ATRAUMATIC, NORMOCEPHALIC - Extremities Exam Additional comments: LLE focused exam: Vasc: DP/PT pulses 1/4. CFT <3 seconds to remaining digits and to amputation site. No edema noted b/l Ortho: L hallux amputation and 1st met head resection. No tenderness to palpation to surrounding surgical site, MMT 4/5 to all compartments Neuro: Gross sensation intact, protective sensation diminished Derm: Surgical site noted to left hallux amputation with sutures intact and skin edges well coapted. No erythema, no purulence, no serous drainage, no tunneling, no tracking, no clinical signs of infection. - Neurological Exam Neurological Exam: Alert, Awake, Oriented x3 - Psychiatric Exam Psychiatric exam: Normal Affect, Normal Mood Assessment and Plan - Assessment and Plan (Free Text) Assessment: 57 yo male seen and evaluated at bedside s/p left revisional hallux amp with met head resection Plan: Patient seen and evaluated Patient discussed with Dr. Harris Labs, vitals, and chart reviewed; Afebrile, absent leukocytosis (/) Continue abx per ID Patient may begin PWB to heel in surgical shoe Surgical site dressed with DSD Sutures will be removed next week Podiatry will continue to follow while patient in house
[2017-11-13] MEDS: Metoprolol Succinate 50 mg XL Tab PO SCH (09:40)
--- NOTE | 2017-11-13 11:33 | CP.PCM.PN ---
Subjective - Date & Time of Evaluation Date of Evaluation: 11/13/17 Time of Evaluation: 11:31 - Subjective Subjective: Pt seen at bedside for f/u left hallux amp. Pt is in NAD. Left hallux amp site is healing well with wound margins well coapted and sutures intact. Removal of sutures left hallux amp site. Cont with ABX as per ID. Pt to cont with PT partial wt bear as tolerated. Will f/u Objective - Vital Signs/Intake and Output Vital Signs (last 24 hours): Temp Pulse Resp BP Pulse Ox 98.2 F 72 20 144/73 96 11/13/17 08:21 11/13/17 08:21 11/13/17 08:21 11/13/17 08:21 11/13/17 08:21 Intake and Output: 11/13/17 11/13/17 06:59 18:59 Intake Total 580 Output Total 300 Balance 280 - Medications Medications: Current Medications Amlodipine Besylate (Norvasc) 10 mg PO DAILY [facility] Last Admin: 11/13/17 09:40 Dose: 10 mg Folic Acid (Folic Acid) 1 mg PO DAILY [facility] Last Admin: 11/13/17 09:40 Dose: 1 mg Hydroxyzine HCl (Atarax) 25 mg PO Q6 PRN PRN Reason: Agitation Metoprolol Succinate (Toprol Xl) 50 mg PO DAILY [facility] Last Admin: 11/13/17 09:40 Dose: 50 mg Thiamine HCl (Vitamin B1 Tab) 100 mg PO BID [facility] Last Admin: 11/13/17 09:40 Dose: 100 mg Tramadol HCl (Ultram) 50 mg PO Q6H PRN PRN Reason: Pain, severe (8-10) - Labs Labs: 11/12/17 08:16 11/12/17 08:16 PT 14.4 SECONDS (9.7-12.2) H 09/28/17 09:13 INR 1.3 09/28/17 09:13 APTT 28 SECONDS (21-34) 09/28/17 09:13
--- NOTE | 2017-11-13 12:35 | CP.PCM.PN ---
Subjective - Date & Time of Evaluation Date of Evaluation: 11/13/17 Time of Evaluation: 12:33 - Subjective Subjective: CONDITION STABLE. Objective - Vital Signs/Intake and Output Vital Signs (last 24 hours): Temp Pulse Resp BP Pulse Ox 98.2 F 72 20 144/73 96 11/13/17 08:21 11/13/17 08:21 11/13/17 08:21 11/13/17 08:21 11/13/17 08:21 Intake and Output: 11/13/17 11/13/17 06:59 18:59 Intake Total 580 Output Total 300 Balance 280 - Medications Medications: Current Medications Amlodipine Besylate (Norvasc) 10 mg PO DAILY [facility] Last Admin: 11/13/17 09:40 Dose: 10 mg Folic Acid (Folic Acid) 1 mg PO DAILY [facility] Last Admin: 11/13/17 09:40 Dose: 1 mg Hydroxyzine HCl (Atarax) 25 mg PO Q6 PRN PRN Reason: Agitation Metoprolol Succinate (Toprol Xl) 50 mg PO DAILY [facility] Last Admin: 11/13/17 09:40 Dose: 50 mg Thiamine HCl (Vitamin B1 Tab) 100 mg PO BID [facility] Last Admin: 11/13/17 09:40 Dose: 100 mg Tramadol HCl (Ultram) 50 mg PO Q6H PRN PRN Reason: Pain, severe (8-10) - Labs Labs: 11/12/17 08:16 11/12/17 08:16 PT 14.4 SECONDS (9.7-12.2) H 09/28/17 09:13 INR 1.3 09/28/17 09:13 APTT 28 SECONDS (21-34) 09/28/17 09:13 - Constitutional Appears: No Acute Distress, Chronically Ill - Eye Exam Eye Exam: PERRL - ENT Exam ENT Exam: Mucous Membranes Moist - Respiratory Exam Respiratory Exam: Clear to Ausculation Bilateral, NORMAL BREATHING PATTERN - Cardiovascular Exam Cardiovascular Exam: REGULAR RHYTHM, +S1, +S2 - GI/Abdominal Exam GI & Abdominal Exam: Soft, Normal Bowel Sounds - Extremities Exam Extremities Exam: Full ROM, Normal Capillary Refill, Normal Inspection. absent : Joint Swelling, Pedal Edema - Neurological Exam Neurological Exam: Alert, Awake, CN II-XII Intact, Normal Gait, Oriented x3 Assessment and Plan - Assessment and Plan (Free Text) Assessment: S/P OM. Plan: CT PRESENT TREATMENT.
--- NOTE | 2017-11-13 12:37 | CP.PCM.PN ---
Subjective - Date & Time of Evaluation Date of Evaluation: 11/13/17 Time of Evaluation: 07:00 - Subjective Subjective: afeb nad IV rx in progress Objective - Vital Signs/Intake and Output Vital Signs (last 24 hours): Temp Pulse Resp BP Pulse Ox 98.2 F 72 20 144/73 96 11/13/17 08:21 11/13/17 08:21 11/13/17 08:21 11/13/17 08:21 11/13/17 08:21 Intake and Output: 11/13/17 11/13/17 06:59 18:59 Intake Total 580 Output Total 300 Balance 280 - Medications Medications: Current Medications Amlodipine Besylate (Norvasc) 10 mg PO DAILY [facility] Last Admin: 11/13/17 09:40 Dose: 10 mg Folic Acid (Folic Acid) 1 mg PO DAILY [facility] Last Admin: 11/13/17 09:40 Dose: 1 mg Hydroxyzine HCl (Atarax) 25 mg PO Q6 PRN PRN Reason: Agitation Metoprolol Succinate (Toprol Xl) 50 mg PO DAILY [facility] Last Admin: 11/13/17 09:40 Dose: 50 mg Thiamine HCl (Vitamin B1 Tab) 100 mg PO BID [facility] Last Admin: 11/13/17 09:40 Dose: 100 mg Tramadol HCl (Ultram) 50 mg PO Q6H PRN PRN Reason: Pain, severe (8-10) - Labs Labs: 11/12/17 08:16 11/12/17 08:16 PT 14.4 SECONDS (9.7-12.2) H 09/28/17 09:13 INR 1.3 09/28/17 09:13 APTT 28 SECONDS (21-34) 09/28/17 09:13 - Constitutional Appears: Non-toxic, Chronically Ill - Head Exam Head Exam: NORMOCEPHALIC - Eye Exam Eye Exam: PERRL - ENT Exam ENT Exam: Mucous Membranes Dry - Neck Exam Neck Exam: absent: Lymphadenopathy - Respiratory Exam Respiratory Exam: Decreased Breath Sounds - Cardiovascular Exam Cardiovascular Exam: REGULAR RHYTHM - GI/Abdominal Exam GI & Abdominal Exam: Distended, Soft - Rectal Exam Rectal Exam: Deferred - Exam Exam: NORMAL INSPECTION Assessment and Plan (1) Alcohol intoxication Status: Acute (2) Cellulitis and abscess of foot Status: Acute (3) Chronic congestive heart failure Status: Acute (4) COPD (chronic obstructive pulmonary disease) Status: Chronic (5) Osteomyelitis of toe of left foot Status: Acute - Assessment and Plan (Free Text) Assessment: labs reviewed cont iv rx
[2017-11-14] MEDS: Metoprolol Succinate 50 mg XL Tab PO SCH (11:00)
--- NOTE | 2017-11-14 11:40 | CP.PCM.PN ---
Subjective - Date & Time of Evaluation Date of Evaluation: 11/14/17 Time of Evaluation: 11:37 - Subjective Subjective: Podiatry Progress Note for Dr. Harris 57M seen and evaluated at bedside s/p L revisional hallux amputation with met head resection (DOS: 10/15/17). Patient is AAO x 3 and NAD, resting comfortably in bed. Denies any acute overnight events or new pedal complaints at this time. Denies any pain to the surgical site. Denies any recent N/V/F/C/CP/SOB/D/ posterior calf pain when squeezed. Objective - Vital Signs/Intake and Output Vital Signs (last 24 hours): Temp Pulse Resp BP Pulse Ox 98.3 F 60 20 154/80 H 98 11/13/17 23:42 11/13/17 23:42 11/13/17 23:42 11/13/17 23:42 11/13/17 23:42 Intake and Output: 11/14/17 11/14/17 06:59 18:59 Intake Total 610 Output Total 900 Balance -290 - Medications Medications: Current Medications Amlodipine Besylate (Norvasc) 10 mg PO DAILY [facility] Last Admin: 11/14/17 11:00 Dose: 10 mg Folic Acid (Folic Acid) 1 mg PO DAILY [facility] Last Admin: 11/14/17 11:00 Dose: 1 mg Hydroxyzine HCl (Atarax) 25 mg PO Q6 PRN PRN Reason: Agitation Metoprolol Succinate (Toprol Xl) 50 mg PO DAILY [facility] Last Admin: 11/14/17 11:00 Dose: 50 mg Thiamine HCl (Vitamin B1 Tab) 100 mg PO BID [facility] Last Admin: 11/14/17 11:00 Dose: 100 mg Tramadol HCl (Ultram) 50 mg PO Q6H PRN PRN Reason: Pain, severe (8-10) - Labs Labs: 11/12/17 08:16 11/12/17 08:16 PT 14.4 SECONDS (9.7-12.2) H 09/28/17 09:13 INR 1.3 09/28/17 09:13 APTT 28 SECONDS (21-34) 09/28/17 09:13 - Constitutional Appears: Well, Non-toxic, No Acute Distress - Extremities Exam Additional comments: LLE focused exam: Vasc: DP/PT pulses 1/4. CFT <3 seconds to remaining digits and to amputation site. No edema noted b/l Ortho: L hallux amputation and 1st met head resection. No tenderness to palpation to surrounding surgical site, MMT 4/5 to all compartments Neuro: Gross sensation intact, protective sensation diminished Derm: Surgical site noted to left hallux amputation with skin edges well coapted. No erythema, no purulence, no serous drainage, no tunneling, no tracking, no clinical signs of infection. - Neurological Exam Neurological Exam: Alert, Awake, Oriented x3 - Psychiatric Exam Psychiatric exam: Normal Affect, Normal Mood Assessment and Plan - Assessment and Plan (Free Text) Assessment: 57M seen and evaluated at bedside s/p L revisional hallux amputation with met head resection (DOS: 10/15/17) Plan: Patient seen and evaluated Plan discussed with Dr. Harris Afebrile Continue abx per ID Wound dressed with betadine, DSD No plan for further surgical intervention at this time Podiatry will continue to follow while patient in house
--- NOTE | 2017-11-14 11:46 | CP.PCM.PN ---
Subjective - Date & Time of Evaluation Date of Evaluation: 11/14/17 Time of Evaluation: 11:45 - Subjective Subjective: Podiatry: I saw the patient just after the bandage was changed by the resident Dr Nagel. Patient resting in bed. I checked the wound and it is stable and continues to heal. To continue to monitor the patient while he is here. Objective - Vital Signs/Intake and Output Vital Signs (last 24 hours): Temp Pulse Resp BP Pulse Ox 98.3 F 60 20 154/80 H 98 11/13/17 23:42 11/13/17 23:42 11/13/17 23:42 11/13/17 23:42 11/13/17 23:42 Intake and Output: 11/14/17 11/14/17 06:59 18:59 Intake Total 610 Output Total 900 Balance -290 - Medications Medications: Current Medications Amlodipine Besylate (Norvasc) 10 mg PO DAILY [facility] Last Admin: 11/14/17 11:00 Dose: 10 mg Folic Acid (Folic Acid) 1 mg PO DAILY [facility] Last Admin: 11/14/17 11:00 Dose: 1 mg Hydroxyzine HCl (Atarax) 25 mg PO Q6 PRN PRN Reason: Agitation Metoprolol Succinate (Toprol Xl) 50 mg PO DAILY [facility] Last Admin: 11/14/17 11:00 Dose: 50 mg Thiamine HCl (Vitamin B1 Tab) 100 mg PO BID [facility] Last Admin: 11/14/17 11:00 Dose: 100 mg Tramadol HCl (Ultram) 50 mg PO Q6H PRN PRN Reason: Pain, severe (8-10) - Labs Labs: 11/12/17 08:16 11/12/17 08:16 PT 14.4 SECONDS (9.7-12.2) H 09/28/17 09:13 INR 1.3 09/28/17 09:13 APTT 28 SECONDS (21-34) 09/28/17 09:13
--- NOTE | 2017-11-14 12:18 | CP.PCM.PN ---
Subjective - Date & Time of Evaluation Date of Evaluation: 11/14/17 Time of Evaluation: 12:16 - Subjective Subjective: ASYMPTOMATIC. IMPROVING. HOMELESS. Objective - Vital Signs/Intake and Output Vital Signs (last 24 hours): Temp Pulse Resp BP Pulse Ox 98.3 F 60 20 154/80 H 98 11/13/17 23:42 11/13/17 23:42 11/13/17 23:42 11/13/17 23:42 11/13/17 23:42 Intake and Output: 11/14/17 11/14/17 06:59 18:59 Intake Total 610 Output Total 900 Balance -290 - Medications Medications: Current Medications Amlodipine Besylate (Norvasc) 10 mg PO DAILY [facility] Last Admin: 11/14/17 11:00 Dose: 10 mg Folic Acid (Folic Acid) 1 mg PO DAILY [facility] Last Admin: 11/14/17 11:00 Dose: 1 mg Hydroxyzine HCl (Atarax) 25 mg PO Q6 PRN PRN Reason: Agitation Metoprolol Succinate (Toprol Xl) 50 mg PO DAILY [facility] Last Admin: 11/14/17 11:00 Dose: 50 mg Thiamine HCl (Vitamin B1 Tab) 100 mg PO BID [facility] Last Admin: 11/14/17 11:00 Dose: 100 mg Tramadol HCl (Ultram) 50 mg PO Q6H PRN PRN Reason: Pain, severe (8-10) - Labs Labs: 11/12/17 08:16 11/12/17 08:16 PT 14.4 SECONDS (9.7-12.2) H 09/28/17 09:13 INR 1.3 09/28/17 09:13 APTT 28 SECONDS (21-34) 09/28/17 09:13 - Constitutional Appears: No Acute Distress, Chronically Ill - Eye Exam Eye Exam: Normal appearance, PERRL - ENT Exam ENT Exam: Normal Exam - Respiratory Exam Respiratory Exam: Clear to Ausculation Bilateral, NORMAL BREATHING PATTERN - Cardiovascular Exam Cardiovascular Exam: REGULAR RHYTHM, +S1, +S2 - GI/Abdominal Exam GI & Abdominal Exam: Soft, Normal Bowel Sounds - Extremities Exam Extremities Exam: Full ROM, Normal Capillary Refill, Normal Inspection. absent : Joint Swelling, Pedal Edema - Neurological Exam Neurological Exam: Alert, Awake, CN II-XII Intact, Normal Gait, Oriented x3 - Psychiatric Exam Psychiatric exam: Normal Affect, Normal Mood Assessment and Plan - Assessment and Plan (Free Text) Assessment: SAME. Plan: SOCIAL SERVICE FOR DISCHARGE PLANNING.
[2017-11-14 16:18] VITALS: BP 144/67; PULSE 61; TEMP 98.4; O2SAT 97
--- NOTE | 2017-11-14 18:17 | CP.PCM.PN ---
Objective - Vital Signs/Intake and Output Vital Signs (last 24 hours): Temp Pulse Resp BP Pulse Ox 98.4 F 61 20 144/67 97 11/14/17 10:00 11/14/17 10:00 11/14/17 10:00 11/14/17 10:00 11/14/17 10:00 Intake and Output: 11/14/17 11/14/17 06:59 18:59 Intake Total 610 450 Output Total 900 400 Balance -290 50 - Labs Labs: 11/12/17 08:16 11/12/17 08:16 PT 14.4 SECONDS (9.7-12.2) H 09/28/17 09:13 INR 1.3 09/28/17 09:13 APTT 28 SECONDS (21-34) 09/28/17 09:13 Assessment and Plan - Assessment and Plan (Free Text) Assessment: Patient is discharged home as per DR Sylvia Burns. production line worker and human services case manager arranged for placement. All meds given to the patient.
== END 2017-11-14 16:23 | disposition home or self-care (01) | DRG 225 ==
LOC: C.ER 07:58 → C.9E 10:19 → C.3T 15:59
PROVIDERS: ADMIT Internal Medicine; ATTEND Internal Medicine
PROC: 0Y6Q0Z0 Detachment at Left 1st Toe, Complete, Open Approach (ICD-10-PCS; principal; 2017-10-01 13:00)
PROC: 02HV33Z Insertion of Infusion Device into Superior Vena Cava, Percutaneous Approach (ICD-10-PCS; 2017-10-02)
PROC: 0QTP0ZZ Resection of Left Metatarsal, Open Approach (ICD-10-PCS; 2017-10-15)
PROC: 0HQNXZZ Repair Left Foot Skin, External Approach (ICD-10-PCS; 2017-10-15)
DX: M86.172 Other acute osteomyelitis, left ankle and foot (principal); I70.262 Atherosclerosis of native arteries of extremities with gangrene, left leg; L97.528 Non-pressure chronic ulcer of other part of left foot with other specified severity; L03.116 Cellulitis of left lower limb; T87.81 Dehiscence of amputation stump; T87.89 Other complications of amputation stump; K70.30 Alcoholic cirrhosis of liver without ascites; J44.9 Chronic obstructive pulmonary disease, unspecified; I11.0 Hypertensive heart disease with heart failure; I50.9 Heart failure, unspecified; D69.6 Thrombocytopenia, unspecified; B96.89 Other specified bacterial agents as the cause of diseases classified elsewhere; F10.220 Alcohol dependence with intoxication, uncomplicated; D64.9 Anemia, unspecified; G89.18 Other acute postprocedural pain; F43.20 Adjustment disorder, unspecified; S80.822A Blister (nonthermal), left lower leg, initial encounter; S80.821A Blister (nonthermal), right lower leg, initial encounter; M16.11 Unilateral primary osteoarthritis, right hip; K21.9 Gastro-esophageal reflux disease without esophagitis; Z59.0 Homelessness

== ENCOUNTER 2017-12-11 02:42 | Emergency (ER) | payer MEDICAID, OTHER ==
[2017-12-11 02:42] VITALS: BMI 25.7
[2017-12-11 03:06] VITALS: BP 165/91; PULSE 95; RESP 20; TEMP 97.8; O2SAT 99
--- NOTE | 2017-12-11 05:22 | C.PDOC ---
Time Seen by Provider: 12/11/17 03:15 Chief Complaint (Nursing): Lower Extremity Problem/Injury Past Medical History Vital Signs: Last Vital Signs Temp 97.8 F 12/11/17 02:54 Pulse 95 H 12/11/17 02:54 Resp 20 12/11/17 02:54 BP 165/91 H 12/11/17 02:54 Pulse Ox 99 12/11/17 02:54 - Medical History PMH: Anemia, Arthritis (Right hip and back), CHF, Fractures, HTN, Migraine Denies: Chronic Kidney Disease - [facility] Procedures CENTRAL VENOUS CATHETER PLACEMENT WITH GUIDANCE (11/20/14) DETACHMENT AT LEFT 1ST TOE, COMPLETE, OPEN APPROACH (09/28/17) DETOXIFICATION SERVICES FOR SUBSTANCE ABUSE TREATMENT (11/07/16) INSERTION OF INFUSION DEV INTO INF VENA CAVA, PERC APPROACH (12/27/14) INSERTION OF INFUSION DEV INTO SUP VENA CAVA, PERC APPROACH (09/28/17) INTRODUCE OTH ANTI-INFECT IN CENTRAL VEIN, PERC (12/27/14) REPAIR LEFT FOOT SKIN, EXTERNAL APPROACH (09/28/17) RESECTION OF LEFT METATARSAL, OPEN APPROACH (09/28/17) Family History: States: Unknown Family Hx - Social History Hx Alcohol Use: Yes Hx Substance Use: No - Immunization History Hx Tetanus Toxoid Vaccination: No Hx Influenza Vaccination: No Hx Pneumococcal Vaccination: No ED Course And Treatment O2 Sat by Pulse Oximetry: 99 Disposition Counseled Patient/Family Regarding: Diagnosis, Need For Followup - Disposition Disposition Time: 05:20 Condition: STABLE Additional Instructions: Follow up with PMD in clinic/Off[facility]' Elevate leg Tylenol or advil if pain Return to ER if worse Instructions: Chronic Pain (DC) - Clinical Impression Clinical Impression: Chronic leg pain
--- NOTE | 2017-12-11 05:23 | C.PDOC ---
History Of Present Illness 57 y/o male presents to the ED complaining of pain to the left foot. States my legs are tired, I walked a lot, and my amputated area is hurting. Patient [place] in [place] [facility], where he was treated and discharged. Otherwise patient denies any SOB, falls, or trauma. Time Seen by Provider: 12/11/17 03:15 Chief Complaint (Nursing): Lower Extremity Problem/Injury History Per: Patient History/Exam Limitations: no limitations Onset/Duration Of Symptoms: Days Current Symptoms Are (Timing): Still Present Past Medical History Reviewed: Historical Data, Nursing Documentation, Vital Signs Vital Signs: Last Vital Signs Temp 97.8 F 12/11/17 02:54 Pulse 95 H 12/11/17 02:54 Resp 20 12/11/17 02:54 BP 165/91 H 12/11/17 02:54 Pulse Ox 99 12/11/17 02:54 - Medical History PMH: Anemia, Arthritis (Right hip and back), CHF, Fractures, HTN, Migraine Denies: Chronic Kidney Disease - [facility] Procedures CENTRAL VENOUS CATHETER PLACEMENT WITH GUIDANCE (11/20/14) DETACHMENT AT LEFT 1ST TOE, COMPLETE, OPEN APPROACH (09/28/17) DETOXIFICATION SERVICES FOR SUBSTANCE ABUSE TREATMENT (11/07/16) INSERTION OF INFUSION DEV INTO INF VENA CAVA, PERC APPROACH (12/27/14) INSERTION OF INFUSION DEV INTO SUP VENA CAVA, PERC APPROACH (09/28/17) INTRODUCE OTH ANTI-INFECT IN CENTRAL VEIN, PERC (12/27/14) REPAIR LEFT FOOT SKIN, EXTERNAL APPROACH (09/28/17) RESECTION OF LEFT METATARSAL, OPEN APPROACH (09/28/17) Family History: States: Unknown Family Hx - Social History Hx Alcohol Use: Yes Hx Substance Use: No - Immunization History Hx Tetanus Toxoid Vaccination: No Hx Influenza Vaccination: No Hx Pneumococcal Vaccination: No Review Of Systems Except As Marked, All Systems Reviewed And Found Negative. Constitutional: Negative for: Fever, Chills Cardiovascular: Negative for: Chest Pain Respiratory: Negative for: Shortness of Breath Musculoskeletal: Positive for: Foot Pain Neurological: Negative for: Weakness, Numbness, Incoordination Physical Exam - Physical Exam Appears: Non-toxic, No Acute Distress Skin: Warm, Dry Head: Atraumatic, Normacephalic Eye(s): bilateral: Normal Inspection Neck: Normal ROM, Supple Chest: Symmetrical Cardiovascular: Rhythm Regular, No Murmur Respiratory: No Rales, No Rhonchi, No Wheezing, Other (Lungs clear to auscultation) Gastrointestinal/Abdominal: Soft, No Tenderness, No Distention Extremity: Normal ROM, Pedal Edema (Legs w/ chronic pedal edema), Deformity (s/p amputated left great toe), Other (Surgical area appears well-healed with no erythema, warmth, drainage, or fluctuance) Neurological/Psych: Oriented x3, Normal Speech, Other (Patient arrives, ambulatory using cane) Gait: Steady ED Course And Treatment O2 Sat by Pulse Oximetry: 99 (RA) Pulse Ox Interpretation: Normal Progress Note: Patient is ambulatory in the ED, stable for discharge home. Disposition Counseled Patient/Family Regarding: Diagnosis, Need For Followup - Disposition Disposition: HOME/ ROUTINE Disposition Time: 05:20 Condition: STABLE Additional Instructions: Follow up with PMD in clinic/Offce' Elevate leg Tylenol or advil if pain Return to ER if worse Instructions: Chronic Pain (DC) Forms: [employer] (Slovenian) - POA Present On Arrival: None - Clinical Impression Clinical Impression: Chronic leg pain - PA / INSURANCE AGENCY OWNER / Resident Statement MD/DO has reviewed & agrees with the documentation as recorded. - Scribe Statement The provider has reviewed the documentation as recorded by the Scribe (Ashlie Meade) All medical record entries made by the Scribe were at my direction and personally dictated by me. I have reviewed the chart and agree that the record accurately reflects my personal performance of the history, physical exam, medical decision making, and the department course for this patient. I have also personally directed, reviewed, and agree with the discharge instructions and disposition.
== END 2017-12-11 06:10 | disposition home or self-care (01) ==
LOC: C.ER 02:42
DX: G89.29 Other chronic pain (principal); M79.672 Pain in left foot; I50.9 Heart failure, unspecified; I10 Essential (primary) hypertension

== ENCOUNTER 2017-12-21 17:06 | Inpatient (IN) | payer MEDICAID ==
[2017-12-21 17:07] VITALS: BMI 25.7
--- NOTE | 2017-12-21 18:40 | C.PDOC ---
History Of Present Illness 57 year old male patient sent to the ER by Dr. Jovita Burns for evaluation of cirrhosis and anasarca. Patient has a hx of alcohol abuse. Time Seen by Provider: 12/21/17 18:10 Chief Complaint (Nursing): Abdominal Pain History Per: Patient History/Exam Limitations: no limitations Current Symptoms Are (Timing): Still Present Past Medical History Reviewed: Historical Data, Nursing Documentation, Vital Signs Vital Signs: Last Vital Signs Temp 98.2 F 12/21/17 17:34 Pulse 95 H 12/21/17 17:34 Resp 22 12/21/17 17:34 BP 178/84 H 12/21/17 17:34 Pulse Ox 100 12/21/17 17:34 - Medical History PMH: Anemia, Arthritis (Right hip and back), CHF, Fractures, HTN, Migraine - [facility] Procedures CENTRAL VENOUS CATHETER PLACEMENT WITH GUIDANCE (11/20/14) DETACHMENT AT LEFT 1ST TOE, COMPLETE, OPEN APPROACH (09/28/17) DETOXIFICATION SERVICES FOR SUBSTANCE ABUSE TREATMENT (11/07/16) INSERTION OF INFUSION DEV INTO INF VENA CAVA, PERC APPROACH (12/27/14) INSERTION OF INFUSION DEV INTO SUP VENA CAVA, PERC APPROACH (09/28/17) INTRODUCE OTH ANTI-INFECT IN CENTRAL VEIN, PERC (12/27/14) REPAIR LEFT FOOT SKIN, EXTERNAL APPROACH (09/28/17) RESECTION OF LEFT METATARSAL, OPEN APPROACH (09/28/17) Family History: States: Unknown Family Hx - Social History Hx Alcohol Use: Yes Hx Substance Use: No - Immunization History Hx Tetanus Toxoid Vaccination: (unk) Hx Influenza Vaccination: Yes Hx Pneumococcal Vaccination: (unk) Review Of Systems Except As Marked, All Systems Reviewed And Found Negative. Constitutional: Positive for: Other (cirrhosis; anasarca) Respiratory: Positive for: Other (diminished b/l breath sounds ) Musculoskeletal: Positive for: Other (+3, +4 pedal edema) Physical Exam - Physical Exam Appears: Non-toxic, No Acute Distress Skin: Normal Color, Warm, Dry Head: Atraumatic, Normacephalic Eye(s): bilateral: Normal Inspection, PERRL, EOMI Nose: Normal Oral Mucosa: Moist Chest: Symmetrical Cardiovascular: Rhythm Regular, No Murmur Respiratory: Decreased Breath Sounds Gastrointestinal/Abdominal: Soft, No Tenderness Extremity: Normal ROM (x4), Pedal Edema (+3, +4) Neurological/Psych: Oriented x3, Normal Speech ED Course And Treatment - Laboratory Results Result Diagrams: 12/21/17 19:40 12/21/17 19:40 ECG: Interpreted By Me, Viewed By Me ECG Rhythm: Sinus Rhythm ECG Interpretation: Normal, No Acute Changes Interpretation Of ECG: nml intervals, nml axis; non-specific T-wave changes Rate From EC O2 Sat by Pulse Oximetry: 100 (RA) Pulse Ox Interpretation: Normal Medical Decision Making Medical Decision Making: Impression: anasarca and alcohol abuse Plans: --EKG -- chem labs -- blood work -- CXR Reassess: Disposition Discussed With : Marcelino Burns Doctor Will See Patient In The: Hospital Counseled Patient/Family Regarding: Studies Performed, Diagnosis - Disposition Disposition: HOSPITALIZED Disposition Time: 20:50 Condition: FAIR Forms: [facility] (Turkish) - Clinical Impression Clinical Impression: Anasarca - Scribe Statement The provider has reviewed the documentation as recorded by the Andreea Coats Do Provider Attestation: All medical record entries made by the Yaoibkrzysztof were at my direction and personally dictated by me. I have reviewed the chart and agree that the record accurately reflects my personal performance of the history, physical exam, medical decision making, and the department course for this patient. I have also personally directed, reviewed, and agree with the discharge instructions and disposition.
[2017-12-21 19:46] LABS: BASO # 0.3 K/uL (0.0-0.2); EOS # 0.3 K/uL (0.0-0.7); EOS % 3.1 % (0.0-4.0); LYMPH # 2.4 K/uL (1.0-4.3); LYMPH % 26.2 % (20.0-40.0); MEAN CELL VOLUME 84.5 fL (80.0-94.0); MEAN CORPUSCULAR HEMOGLOBIN 27.6 pg (27.0-31.0); MEAN CORPUSCULAR HGB CONC 32.6 g/dL (33.0-37.0); MONO # 0.9 K/uL (0.0-0.8); MONO % 9.6 % (0.0-10.0); NEUT # 5.2 K/uL (1.8-7.0); NEUT % 58.1 % (50.0-75.0); NRBC % 0.1 % (0.0-2.0); RBC 3.61 Mil/uL (4.40-5.90); RED CELL DISTRIBUTION WIDTH 15.4 % (11.5-14.5)
[2017-12-21 19:55] LABS: INR 1.4; PROTHROMBIN TIME 14.9 SECONDS (9.7-12.2)
[2017-12-21 20:03] LABS: ALB/GLOB RATIO 0.5 (1.0-2.1); ALBUMIN 1.7 g/dL (3.5-5.0); ALT/SGPT 45 U/L (21-72); AST/SGOT 100 U/L (17-59); BLOOD UREA NITROGEN 13 mg/dL (9-20); CALCIUM 7.2 mg/dl (8.6-10.4); GFR NON-AFRICAN AMERICAN > 60; LIPASE 199 U/L (23-300)
[2017-12-21] MEDS ORDERED: Magnesium Sulfate 1 gm in D5W 1 GM/100 ML BAG IVPB ONE ×2 (20:05→20:57)
[2017-12-21 20:14] LABS: B-TYPE NATRIURETIC PEPTIDE 204 pg/mL (0-900)
[2017-12-21 22:35] VITALS: RESP 20
--- NOTE | 2017-12-22 06:22 | HP ---
HISTORY OF PRESENT ILLNESS: This is a 57-year-old Wallisian male, came to the emergency room. The patient complained of swelling of the legs up to thigh. The patient also has swelling in the penis. The patient complained of severe pain in the thigh. The patient complained of abdominal pain. The patient is confused and disoriented. The patient also has a history of alcoholism, and the patient has alcohol on board. No history of fever or chills. No chest pain. Shortness of breath present. Dyspnea on exertion present. PAST MEDICAL HISTORY: History of anemia, arthritis, congestive heart failure, hypertension, and migraine. The patient also has a history of cirrhosis of the liver with anasarca. REVIEW OF SYSTEMS: CARDIOVASCULAR SYSTEM: Negative for chest pain. RESPIRATORY SYSTEM: Positive for shortness of breath and dyspnea on exertion. GASTROINTESTINAL SYSTEM: Positive for abdominal pain. No vomiting or diarrhea. CENTRAL NERVOUS SYSTEM: No focal neurological complaints offered. GENITOURINARY: No urinary complaints. PSYCHIATRIC: The patient is stable. EXTREMITIES: Edema of the legs present. All other systems are negative. MEDICATIONS: The patient's medications are amlodipine, metoprolol. The patient is noncompliant to the medications. ALLERGIES: NO KNOWN ALLERGY. SOCIAL HISTORY: Alcoholism present. No substance abuse. No smoking. PHYSICAL EXAMINATION: GENERAL: This is a 57-year-old Wall[place]ian male, awake, confused, and forgetful at times. VITAL SIGNS: Temperature 98.2, pulse 95, respirations 22, blood pressure 178/84 mmHg, pulse ox is 100% on room air. HEENT: Normal. NECK: JVP is flat. Carotids, no bruit. LUNGS: No rales. No wheezing. HEART: S1 and S2 normal. No gallop. No murmur. ABDOMEN: Soft, nontender. No organomegaly. CENTRAL NERVOUS SYSTEM: No focal neurological deficits. Edema of the legs present. LABORATORY DATA: On admission, CBC shows anemia. BMP is grossly within normal limit. EKG, sinus rhythm. IMPRESSION: Anasarca, cirrhosis of the liver, hypertension, abdominal pain. PLAN: The patient will be admitted to the floor. We will give IV diuretics. We will continue other medications. We will get other workup as needed. Vinodkumar Burns, MD
--- NOTE | 2017-12-22 08:21 | RAD ---
HISTORY: chest pain COMPARISON: Chest x-ray performed 10/03/19 and 01/31/17 TECHNIQUE: Chest, one view. FINDINGS: Examination limited by habitus. LUNGS: Bilateral right greater than left hilar prominence. No focal consolidation. Please note that chest x-ray has limited sensitivity for the detection of pulmonary masses. PLEURA: No significant pleural effusion identified. No definite pneumothorax . CARDIOVASCULAR: Cardiomegaly. OSSEOUS STRUCTURES: Chronic left rib fracture deformities re-identified. VISUALIZED UPPER ABDOMEN: Mild elevation of the right hemidiaphragm. OTHER FINDINGS: None. IMPRESSION: Cardiomegaly. Bilateral hilar prominence, right greater than left. Chronic left rib fracture deformities.
[2017-12-22] MEDS: Metoprolol Succinate 50 mg XL Tab PO SCH (09:47)
[2017-12-22] MEDS ORDERED: Magnesium Sulfate 1 gm in D5W 1 GM/100 ML BAG IVPB ONE (10:50)
--- NOTE | 2017-12-22 10:58 | CP.PCM.PN ---
Subjective - Date & Time of Evaluation Date of Evaluation: 12/22/17 Time of Evaluation: 10:55 - Subjective Subjective: C/O FATIGUE. BOTH THIGH SEVERE PAIN. ANASARCA. CIRRHOSIS OF LIVER. HTN. CHRONIC BACKACHE. NO CP. ALCOHOL WITHDRAWAL. HEPATIC ENCEPHALOPATHY. Objective - Vital Signs/Intake and Output Vital Signs (last 24 hours): Temp Pulse Resp BP Pulse Ox 98.5 F 101 H 20 189/77 H 95 12/22/17 08:28 12/22/17 08:28 12/22/17 08:28 12/22/17 09:47 12/22/17 08:28 - Medications Medications: Current Medications Amlodipine Besylate (Norvasc) 10 mg PO DAILY [facility] Last Admin: 12/22/17 09:47 Dose: 10 mg Folic Acid (Folic Acid) 1 mg PO DAILY [facility] Last Admin: 12/22/17 09:47 Dose: 1 mg Furosemide (Lasix) 40 mg IVP Q12H [facility] Last Admin: 12/22/17 09:47 Dose: 40 mg Magnesium Sulfate/Dextrose (Magnesium Sulfate 1 Gm/100 Ml D5w) 1 gm in 100 mls @ 200 mls/hr IVPB ONCE ONE Stop: 12/22/17 11:19 Influenza Virus Vaccine (Fluzone Quad [id number]) 60 mcg IM .ONCE ONE Stop: 12/24/17 10:01 Lactulose (Enulose) 20 gm PO Q4 [facility] Stop: 12/22/17 16:01 Lactulose (Enulose) 20 gm PO HS [facility] Metoprolol Succinate (Toprol Xl) 50 mg PO DAILY [facility] Last Admin: 12/22/17 09:47 Dose: 50 mg Thiamine HCl (Vitamin B1 Tab) 50 mg PO DAILY [facility] Last Admin: 12/22/17 09:47 Dose: 50 mg Tramadol HCl (Ultram) 50 mg PO Q8H PRN PRN Reason: Pain, severe (8-10) Last Admin: 12/21/17 22:46 Dose: 50 mg - Labs Labs: 12/21/17 19:40 12/21/17 19:40 PT 14.9 SECONDS (9.7-12.2) H 12/21/17 19:40 INR 1.4 12/21/17 19:40 APTT 33 SECONDS (21-34) 12/21/17 19:40 - Constitutional Appears: No Acute Distress, Chronically Ill - Eye Exam Eye Exam: PERRL - ENT Exam ENT Exam: Mucous Membranes Moist - Respiratory Exam Respiratory Exam: Clear to Ausculation Bilateral, NORMAL BREATHING PATTERN - Cardiovascular Exam Cardiovascular Exam: REGULAR RHYTHM, +S1, +S2 - GI/Abdominal Exam GI & Abdominal Exam: Soft, Normal Bowel Sounds - Extremities Exam Extremities Exam: Joint Swelling, Pedal Edema, Tenderness - Back Exam Back Exam: NORMAL INSPECTION - Neurological Exam Neurological Exam: Alert, Awake, CN II-XII Intact, Normal Gait, Oriented x3 - Psychiatric Exam Psychiatric exam: Normal Affect, Normal Mood Assessment and Plan - Assessment and Plan (Free Text) Assessment: ABOVE. Plan: FOR DIURETICS. PT.
--- NOTE | 2017-12-22 15:06 | US ---
HISTORY: anasarca COMPARISON: CT abdomen and pelvis without oral or IV contrast performed 04/05/17 TECHNIQUE: Sonographic evaluation of the abdomen. FINDINGS: LIVER: Measures 14.3 cm in sagittal dimension. Echogenic liver may be seen in setting of hepatic parenchymal disease or fatty infiltration. Nodular hepatic contour. No focal hepatic mass identified. The main portal vein appears patent with normal directional flow. No intrahepatic bile duct dilatation. Ascites. Tips stent. Proximal PV 331.1 centimeters/second, mid PV 269.4 centimeters/second, distal PV 197.8 centimeters/seconds. GALLBLADDER: No gallstones. Mild gallbladder wall thickening/edema measuring approximately 4 mm. Negative sonographic Gan's sign as assessed by the marketing co op. COMMON BILE DUCT: Measures 6 mm. PANCREAS: Not well visualized. RIGHT KIDNEY: Measures 11.1 x 6.3 x 4.8 cm. No obstructing calculus or hydronephrosis identified. LEFT KIDNEY: Measures 12.0 x 6.7 x 5.7 cm. No obstructing calculus or hydronephrosis identified. SPLEEN: Measures approximately 12.5 cm. Echogenic splenic foci, possibly calcifications. Heterogeneous echotexture. AORTA: Limited views appear unremarkable. IVC: Not well-visualized. OTHER FINDINGS: None. IMPRESSION: Echogenic liver may be seen in setting of hepatic parenchymal disease or fatty infiltration. Nodular hepatic contour consistent with cirrhosis. Ascites. Increased velocities within the TIPS stent: Proximal PV 331.1 centimeters/second, mid PV 269.4 centimeters/second, distal PV 197.8 centimeters/seconds. Splenomegaly. Heterogeneous splenic echotexture. Echogenic splenic foci, possibly calcifications. Mild gallbladder wall thickening/edema measuring approximately 4 mm. No gallstones. Negative sonographic Gan's sign as assessed by the marketing co op. Correlate clinically. Additional findings as above.
[2017-12-22 15:19] LABS: BLOOD UREA NITROGEN 14 mg/dL (9-20); CALCIUM 7.4 mg/dl (8.6-10.4); GFR NON-AFRICAN AMERICAN > 60
[2017-12-22] MEDS: Magnesium Sulfate 1 gm in D5W 1 GM/100 ML BAG IVPB SCH ×2 (17:16→17:25)
[2017-12-22] MEDS: Potassium Chloride 20 mEq/15 ml LIQ UD PO SCH (17:18)
[2017-12-23 07:46] LABS: ALB/GLOB RATIO 0.6 (1.0-2.1); ALBUMIN 1.7 g/dL (3.5-5.0); ALT/SGPT 42 U/L (21-72); AST/SGOT 80 U/L (17-59); BLOOD UREA NITROGEN 16 mg/dL (9-20); CALCIUM 6.7 mg/dl (8.6-10.4); GFR NON-AFRICAN AMERICAN > 60
[2017-12-23] MEDS: Metoprolol Succinate 50 mg XL Tab PO SCH (11:00)
[2017-12-23] MEDS: Potassium Chloride 20 mEq/15 ml LIQ UD PO SCH (11:00)
--- NOTE | 2017-12-23 21:47 | CP.PCM.PN ---
Subjective - Date & Time of Evaluation Date of Evaluation: 12/23/17 Time of Evaluation: 11:00 - Subjective Subjective: CONDITION SAME. SWELLING OF LEGS PRESENT. VS WNL. Objective - Vital Signs/Intake and Output Vital Signs (last 24 hours): Temp Pulse Resp BP Pulse Ox 98.2 F 68 20 145/73 99 12/23/17 16:00 12/23/17 16:00 12/23/17 16:00 12/23/17 16:00 12/23/17 16:00 Intake and Output: 12/23/17 12/24/17 18:59 06:59 Intake Total 360 Balance 360 - Medications Medications: Current Medications Amlodipine Besylate (Norvasc) 10 mg PO DAILY [facility] Last Admin: 12/23/17 11:00 Dose: 10 mg Folic Acid (Folic Acid) 1 mg PO DAILY [facility] Last Admin: 12/23/17 11:00 Dose: 1 mg Furosemide (Lasix) 40 mg IVP Q12H [facility] Last Admin: 12/23/17 11:00 Dose: 40 mg Influenza Virus Vaccine (Fluzone Quad [id number]) 60 mcg IM .ONCE ONE Stop: 12/24/17 10:01 Lactulose (Enulose) 20 gm PO HS [facility] Last Admin: 12/23/17 11:00 Dose: 20 gm Metoprolol Succinate (Toprol Xl) 50 mg PO DAILY [facility] Last Admin: 12/23/17 11:00 Dose: 50 mg Potassium Chloride (Potassium Chloride Oral Soln) 40 meq PO DAILY [facility] Stop: 12/24/17 17:01 Last Admin: 12/23/17 11:00 Dose: 40 meq Thiamine HCl (Vitamin B1 Tab) 50 mg PO DAILY [facility] Last Admin: 12/23/17 11:00 Dose: 50 mg Tramadol HCl (Ultram) 50 mg PO Q8H PRN PRN Reason: Pain, severe (8-10) Last Admin: 12/23/17 19:43 Dose: 50 mg - Labs Labs: 12/21/17 19:40 12/23/17 07:21 PT 14.9 SECONDS (9.7-12.2) H 12/21/17 19:40 INR 1.4 12/21/17 19:40 APTT 33 SECONDS (21-34) 12/21/17 19:40 - Constitutional Appears: No Acute Distress, Chronically Ill - Eye Exam Eye Exam: Normal appearance, PERRL - ENT Exam ENT Exam: Mucous Membranes Moist - Respiratory Exam Respiratory Exam: Clear to Ausculation Bilateral, NORMAL BREATHING PATTERN - Cardiovascular Exam Cardiovascular Exam: REGULAR RHYTHM, +S1, +S2 - GI/Abdominal Exam GI & Abdominal Exam: Soft, Normal Bowel Sounds - Extremities Exam Extremities Exam: Pedal Edema, Tenderness - Neurological Exam Neurological Exam: Alert, Awake, CN II-XII Intact, Normal Gait, Oriented x3 - Psychiatric Exam Psychiatric exam: Normal Affect, Normal Mood Assessment and Plan - Assessment and Plan (Free Text) Assessment: SAME. Plan: CT PRESENT TREATMENT.
[2017-12-24] MEDS ORDERED: Influenza Vaccine 60 MCG/0.5 ML SYR (3 yr & up) IM ONE (10:00)
[2017-12-24] MEDS: Potassium Chloride 20 mEq/15 ml LIQ UD PO SCH (10:01)
[2017-12-24] MEDS: Metoprolol Succinate 50 mg XL Tab PO SCH (10:02)
--- NOTE | 2017-12-24 11:46 | CP.PCM.CON ---
History of Present Illness - History of Present Illness History of Present Illness: Podiatry Progress Note - Dr. Addison Harris 57 y/o male with PMHx of CHF, cirrhosis, left foot bone infection and alcohol abuse admitted to the hospital for cirrhosis and anasarca seen at bedside today for podiatric evaluation and management. Pt has a recent history of left foot great toe amputation with revisional 1st metatarsal head resection on 10/15/[address] Harris. Pt states his toe looks good and he is not having any pain. States he has been following up with Dr. Harris. Denies any new pedal complaints. Admits to occasional tingling in the feet but no numbness or burning. Denies F/C/CP/SOB. Review of Systems - Review of Systems All systems: reviewed and no additional remarkable complaints except (per HPI) Past Patient History - Infectious Disease Hx of Infectious Diseases: None - Past Medical History & Family History Past Medical History?: Yes - Past Social History Smoking Status: Never Smoked - CARDIAC Hx Congestive Heart Failure: Yes Hx Hypertension: Yes - PULMONARY Hx Respiratory Disorders: No - NEUROLOGICAL Hx Migraine: Yes - HEENT Hx HEENT Problems: No - RENAL Hx Chronic Kidney Disease: No - HEMATOLOGICAL/ONCOLOGICAL Hx Anemia: Yes - INTEGUMENTARY Hx Dermatological Problems: Yes Hx Cellulitis: Yes (right lower extremity) Other/Comment: Right thigh Abscess, Right lower leg cellulitis - MUSCULOSKELETAL/RHEUMATOLOGICAL Hx Arthritis: Yes (Right hip and back) - GASTROINTESTINAL Hx Gastrointestinal Disorders: No Other/Comment: liver problems, Alcohol abuse, - GENITOURINARY/GYNECOLOGICAL Hx Genitourinary Disorders: No - PSYCHIATRIC Hx Substance Use: No - SURGICAL HISTORY Hx Surgeries: Yes (verbalized by patient) Hx Amputation: Yes (lt big toe amputation nov 2017) - ANESTHESIA Hx Anesthesia: Yes Hx Anesthesia Reactions: No Hx Malignant Hyperthermia: No Meds Allergies/Adverse Reactions: Allergies Allergy/AdvReac Type Severity Reaction Status Date / Time No Known Allergies Allergy Verified 12/21/17 17:39 - Medications Medications: Current Medications Amlodipine Besylate (Norvasc) 10 mg PO DAILY [facility] Last Admin: 12/24/17 10:01 Dose: 10 mg Folic Acid (Folic Acid) 1 mg PO DAILY [facility] Last Admin: 12/24/17 10:02 Dose: 1 mg Furosemide (Lasix) 40 mg IVP Q12H [facility] Last Admin: 12/24/17 10:02 Dose: 40 mg Lactulose (Enulose) 20 gm PO HS [facility] Last Admin: 12/23/17 22:37 Dose: 20 gm Metoprolol Succinate (Toprol Xl) 50 mg PO DAILY [facility] Last Admin: 12/24/17 10:02 Dose: 50 mg Potassium Chloride (Potassium Chloride Oral Soln) 40 meq PO DAILY [facility] Stop: 12/24/17 17:01 Last Admin: 12/24/17 10:01 Dose: 40 meq Thiamine HCl (Vitamin B1 Tab) 50 mg PO DAILY [facility] Last Admin: 12/24/17 10:01 Dose: 50 mg Tramadol HCl (Ultram) 50 mg PO Q8H PRN PRN Reason: Pain, severe (8-10) Last Admin: 12/23/17 19:43 Dose: 50 mg Physical Exam - Constitutional Appears: Well, Non-toxic, No Acute Distress - Extremities Exam Additional comments: Lower extremity focused exam: Vasc: DP/PT pulses 1/4. Temperature gradient warm to cool. CFT < 3 sec to all digits. No pedal edema noted Derm: no open lesions, no erythema, no ecchymosis, no clinical signs of infection Neuro: protective sensation slightly diminished Ortho: s/p hallux with 1st met head resection to left foot - Neurological Exam Neurological exam: Alert, Oriented x3 - Psychiatric Exam Psychiatric exam: Normal Affect, Normal Mood Results - Vital Signs Recent Vital Signs: Last Vital Signs Temp 99.0 F 12/24/17 07:27 Pulse 71 12/24/17 07:27 Resp 20 12/24/17 07:27 BP 157/88 H 12/24/17 10:02 Pulse Ox 98 12/24/17 07:27 - Labs Result Diagrams: 12/21/17 19:40 12/23/17 07:21 Labs: Laboratory Results - last 24 hr 12/23/17 12/23/17 16:27 21:21 POC Glucose (mg/dL) 125 H 138 H Assessment & Plan - Assessment and Plan (Free Text) Assessment: 57 y/o male who is 2 months s/p left hallux amputation with 1st metatarsal head resection, healed Plan Pt seen and evaluated at bedside Discussed with attending Dr. Harris Surgical site to left foot fully healed at this time No wound care or surgical intervention planned or warranted at this time
--- NOTE | 2017-12-24 12:08 | CP.PCM.PN ---
Subjective - Date & Time of Evaluation Date of Evaluation: 12/24/17 Time of Evaluation: 12:05 - Subjective Subjective: C/O BILATERAL THIGH PAIN CHRONIC. SWELLING DOWN. VS WNL. STABLE. Objective - Vital Signs/Intake and Output Vital Signs (last 24 hours): Temp Pulse Resp BP Pulse Ox 99.0 F 71 20 157/88 H 98 12/24/17 07:27 12/24/17 07:27 12/24/17 07:27 12/24/17 10:02 12/24/17 07:27 Intake and Output: 12/24/17 12/24/17 06:59 18:59 Intake Total 600 Balance 600 - Medications Medications: Current Medications Amlodipine Besylate (Norvasc) 10 mg PO DAILY [facility] Last Admin: 12/24/17 10:01 Dose: 10 mg Folic Acid (Folic Acid) 1 mg PO DAILY [facility] Last Admin: 12/24/17 10:02 Dose: 1 mg Furosemide (Lasix) 40 mg IVP Q12H [facility] Last Admin: 12/24/17 10:02 Dose: 40 mg Lactulose (Enulose) 20 gm PO HS [facility] Last Admin: 12/23/17 22:37 Dose: 20 gm Metoprolol Succinate (Toprol Xl) 50 mg PO DAILY [facility] Last Admin: 12/24/17 10:02 Dose: 50 mg Potassium Chloride (Potassium Chloride Oral Soln) 40 meq PO DAILY [facility] Stop: 12/24/17 17:01 Last Admin: 12/24/17 10:01 Dose: 40 meq Thiamine HCl (Vitamin B1 Tab) 50 mg PO DAILY [facility] Last Admin: 12/24/17 10:01 Dose: 50 mg Tramadol HCl (Ultram) 50 mg PO Q8H [facility] - Labs Labs: 12/21/17 19:40 12/23/17 07:21 PT 14.9 SECONDS (9.7-12.2) H 12/21/17 19:40 INR 1.4 12/21/17 19:40 APTT 33 SECONDS (21-34) 12/21/17 19:40 - Constitutional Appears: No Acute Distress, Chronically Ill - Eye Exam Eye Exam: PERRL - ENT Exam ENT Exam: Mucous Membranes Moist - Respiratory Exam Respiratory Exam: Clear to Ausculation Bilateral, NORMAL BREATHING PATTERN - Cardiovascular Exam Cardiovascular Exam: REGULAR RHYTHM, +S1, +S2 - GI/Abdominal Exam GI & Abdominal Exam: Soft, Normal Bowel Sounds - Extremities Exam Extremities Exam: Full ROM, Normal Capillary Refill, Normal Inspection. absent: Joint Swelling, Pedal Edema - Neurological Exam Neurological Exam: Alert, Awake, CN II-XII Intact, Normal Gait, Oriented x3 - Psychiatric Exam Psychiatric exam: Normal Affect, Normal Mood Assessment and Plan - Assessment and Plan (Free Text) Assessment: STABLE. Plan: FOR REHAB EVAL. PT/OT. TRAMADOL ROUND THE CLOCK.
--- NOTE | 2017-12-24 20:43 | CARD ---
APPROVED REPORT Date of service: 12/21/2017 EKG Measurement Heart [id number] <Conclusion> Normal sinus rhythm Normal ECG
[2017-12-25] MEDS: Metoprolol Succinate 50 mg XL Tab PO SCH (09:43)
--- NOTE | 2017-12-25 12:29 | CP.PCM.PN ---
Subjective - Date & Time of Evaluation Date of Evaluation: 12/25/17 Time of Evaluation: 12:26 - Subjective Subjective: condition stable. oedema od legs down. afebrile. Objective - Vital Signs/Intake and Output Vital Signs (last 24 hours): Temp Pulse Resp BP Pulse Ox 98.6 F 71 20 138/69 99 12/25/17 07:18 12/25/17 07:18 12/25/17 07:18 12/25/17 09:43 12/25/17 07:18 Intake and Output: 12/25/17 12/25/17 06:59 18:59 Intake Total 660 Output Total 500 Balance 160 - Medications Medications: Current Medications Amlodipine Besylate (Norvasc) 10 mg PO DAILY [facility] Last Admin: 12/25/17 09:43 Dose: 10 mg Folic Acid (Folic Acid) 1 mg PO DAILY [facility] Last Admin: 12/25/17 09:43 Dose: 1 mg Furosemide (Lasix) 40 mg IVP Q12H [facility] Last Admin: 12/25/17 09:43 Dose: 40 mg Lactulose (Enulose) 20 gm PO HS [facility] Last Admin: 12/24/17 21:25 Dose: 20 gm Metoprolol Succinate (Toprol Xl) 50 mg PO DAILY [facility] Last Admin: 12/25/17 09:43 Dose: 50 mg Thiamine HCl (Vitamin B1 Tab) 50 mg PO DAILY [facility] Last Admin: 12/25/17 09:43 Dose: 50 mg Tramadol HCl (Ultram) 50 mg PO Q8H [facility] Last Admin: 12/25/17 04:52 Dose: 50 mg - Labs Labs: 12/21/17 19:40 12/23/17 07:21 PT 14.9 SECONDS (9.7-12.2) H 12/21/17 19:40 INR 1.4 12/21/17 19:40 APTT 33 SECONDS (21-34) 12/21/17 19:40 - Constitutional Appears: No Acute Distress, Chronically Ill - Eye Exam Eye Exam: Normal appearance, PERRL - ENT Exam ENT Exam: Mucous Membranes Moist - Respiratory Exam Respiratory Exam: Clear to Ausculation Bilateral, NORMAL BREATHING PATTERN - Cardiovascular Exam Cardiovascular Exam: REGULAR RHYTHM, +S1, +S2 - GI/Abdominal Exam GI & Abdominal Exam: Soft, Normal Bowel Sounds - Extremities Exam Extremities Exam: Full ROM, Normal Capillary Refill, Normal Inspection. absent: Joint Swelling, Pedal Edema - Back Exam Back Exam: NORMAL INSPECTION - Neurological Exam Neurological Exam: Alert, Awake, CN II-XII Intact, Normal Gait, Oriented x3 - Psychiatric Exam Psychiatric exam: Normal Affect, Normal Mood Assessment and Plan - Assessment and Plan (Free Text) Assessment: cirrhosis of liver. hepatic encephalopathy. ascites. htn. Plan: ct present treatment. for discharge planning.
--- NOTE | 2017-12-25 15:18 | CP.PCM.PN ---
Subjective - Date & Time of Evaluation Date of Evaluation: 12/25/17 Time of Evaluation: 15:15 - Subjective Subjective: 57 y/o male seen at bedside this morning with attending Dr. Harris for follow up on left foot hallux amputation and 1st met head resection. Pt states he is feeling a little better today but still very swollen in his legs. Denies pain to the feet or extremities. Denies any overnight events. Denies F/C/N/V/CP/SOB. He states he has not been drinking alcohol recently. Objective - Vital Signs/Intake and Output Vital Signs (last 24 hours): Temp Pulse Resp BP Pulse Ox 98.6 F 71 20 138/69 99 12/25/17 07:18 12/25/17 07:18 12/25/17 07:18 12/25/17 09:43 12/25/17 07:18 Intake and Output: 12/25/17 12/25/17 06:59 18:59 Intake Total 660 300 Output Total 500 Balance 160 300 - Medications Medications: Current Medications Amlodipine Besylate (Norvasc) 10 mg PO DAILY [facility] Last Admin: 12/25/17 09:43 Dose: 10 mg Folic Acid (Folic Acid) 1 mg PO DAILY [facility] Last Admin: 12/25/17 09:43 Dose: 1 mg Furosemide (Lasix) 40 mg IVP Q12H [facility] Last Admin: 12/25/17 09:43 Dose: 40 mg Lactulose (Enulose) 20 gm PO HS [facility] Last Admin: 12/24/17 21:25 Dose: 20 gm Metoprolol Succinate (Toprol Xl) 50 mg PO DAILY [facility] Last Admin: 12/25/17 09:43 Dose: 50 mg Thiamine HCl (Vitamin B1 Tab) 50 mg PO DAILY [facility] Last Admin: 12/25/17 09:43 Dose: 50 mg Tramadol HCl (Ultram) 50 mg PO Q8H [facility] Last Admin: 12/25/17 13:30 Dose: 50 mg - Labs Labs: 12/21/17 19:40 12/23/17 07:21 PT 14.9 SECONDS (9.7-12.2) H 12/21/17 19:40 INR 1.4 12/21/17 19:40 APTT 33 SECONDS (21-34) 12/21/17 19:40 - Constitutional Appears: Well, Non-toxic, No Acute Distress - Extremities Exam Additional comments: Lower extremity focused exam: Vasc: DP/PT pulses 1/4. Temperature gradient warm to cool. CFT < 3 sec to all digits. No pedal edema noted Derm: no open lesions, no erythema, no ecchymosis, no clinical signs of infection. Mild hyperkeratotic skin formation at former amputation site. Neuro: protective sensation slightly diminished Ortho: s/p hallux with 1st met head resection to left foot - Neurological Exam Neurological Exam: Alert, Awake, Oriented x3 - Psychiatric Exam Psychiatric exam: Normal Affect, Normal Mood Assessment and Plan - Assessment and Plan (Free Text) Assessment: 57 y/o male who is 2 months s/p left hallux amputation with 1st metatarsal head resection, healed Plan Pt seen and evaluated at bedside with attending Dr. Harris Surgical site to left foot fully healed at this time Recommend daily A&D or moisturizer to be applied to surgical site to protect dry skin at amputation site No wound care or surgical intervention planned or warranted at this time
[2017-12-26] MEDS: Metoprolol Succinate 50 mg XL Tab PO SCH (11:14)
[2017-12-26] MEDS: Ammonium Lactate 12% Lotion (225 g) EXT SCH (11:33)
[2017-12-26 11:58] LABS: BLOOD UREA NITROGEN 19 mg/dL (9-20); CALCIUM 7.1 mg/dl (8.6-10.4); GFR NON-AFRICAN AMERICAN > 60
--- NOTE | 2017-12-26 12:51 | CP.PCM.PN ---
Subjective - Date & Time of Evaluation Date of Evaluation: 12/26/17 Time of Evaluation: 12:49 - Subjective Subjective: CONDITION STABLE. IMPROVING. BP OK. SWELLING DOWN. LABS IMPROVING. Objective - Vital Signs/Intake and Output Vital Signs (last 24 hours): Temp Pulse Resp BP Pulse Ox 98.3 F 69 20 160/67 H 97 12/26/17 08:41 12/26/17 08:41 12/26/17 08:41 12/26/17 11:16 12/26/17 08:41 Intake and Output: 12/26/17 12/26/17 06:59 18:59 Intake Total 540 Output Total 500 Balance 40 - Medications Medications: Current Medications Amlodipine Besylate (Norvasc) 10 mg PO DAILY [facility] Last Admin: 12/26/17 11:15 Dose: 10 mg Folic Acid (Folic Acid) 1 mg PO DAILY [facility] Last Admin: 12/26/17 11:15 Dose: 1 mg Furosemide (Lasix) 40 mg IVP Q12H [facility] Last Admin: 12/26/17 11:16 Dose: 40 mg Lactic Acid (Lac-Hydrin 12% Lotion (225 G)) 0 gm EXT DAILY [facility] Last Admin: 12/26/17 11:33 Dose: 1 applic Lactulose (Enulose) 20 gm PO HS [facility] Last Admin: 12/25/17 21:09 Dose: Not Given Metoprolol Succinate (Toprol Xl) 50 mg PO DAILY [facility] Last Admin: 12/26/17 11:14 Dose: 50 mg Thiamine HCl (Vitamin B1 Tab) 50 mg PO DAILY [facility] Last Admin: 12/26/17 11:15 Dose: 50 mg Tramadol HCl (Ultram) 50 mg PO Q8H [facility] Last Admin: 12/26/17 04:44 Dose: 50 mg - Labs Labs: 12/21/17 19:40 12/26/17 11:26 PT 14.9 SECONDS (9.7-12.2) H 12/21/17 19:40 INR 1.4 12/21/17 19:40 APTT 33 SECONDS (21-34) 12/21/17 19:40 - Constitutional Appears: No Acute Distress, Chronically Ill - Eye Exam Eye Exam: Normal appearance, PERRL - ENT Exam ENT Exam: Mucous Membranes Moist - Respiratory Exam Respiratory Exam: Clear to Ausculation Bilateral, NORMAL BREATHING PATTERN - Cardiovascular Exam Cardiovascular Exam: REGULAR RHYTHM, +S1, +S2 - GI/Abdominal Exam GI & Abdominal Exam: Soft, Normal Bowel Sounds - Extremities Exam Extremities Exam: Full ROM, Normal Capillary Refill, Normal Inspection. absent: Joint Swelling, Pedal Edema - Neurological Exam Neurological Exam: Alert, Awake, CN II-XII Intact, Normal Gait, Oriented x3 - Psychiatric Exam Psychiatric exam: Normal Affect, Normal Mood Assessment and Plan - Assessment and Plan (Free Text) Assessment: IMPROVING. Plan: FOR IV LASIX. AGA.
[2017-12-27 00:25] VITALS: BP 132/63; PULSE 64; TEMP 98.7; O2SAT 97
[2017-12-27] MEDS: Ammonium Lactate 12% Lotion (225 g) EXT SCH (09:34)
[2017-12-27] MEDS: Metoprolol Succinate 50 mg XL Tab PO SCH (09:35)
--- NOTE | 2017-12-27 12:49 | CP.PCM.PN ---
Subjective - Date & Time of Evaluation Date of Evaluation: 12/27/17 Time of Evaluation: 07:00 - Subjective Subjective: CONDITION STABLE. Objective - Vital Signs/Intake and Output Vital Signs (last 24 hours): Temp Pulse Resp BP Pulse Ox 98.7 F 64 20 132/63 97 12/27/17 00:23 12/27/17 00:23 12/27/17 00:23 12/27/17 00:23 12/27/17 00:23 Intake and Output: 12/27/17 12/27/17 06:59 18:59 Intake Total 490 Output Total 1 Balance 489 - Labs Labs: 12/21/17 19:40 12/26/17 11:26 PT 14.9 SECONDS (9.7-12.2) H 12/21/17 19:40 INR 1.4 12/21/17 19:40 APTT 33 SECONDS (21-34) 12/21/17 19:40 - Constitutional Appears: No Acute Distress, Chronically Ill - Eye Exam Eye Exam: PERRL - ENT Exam ENT Exam: Mucous Membranes Moist - Respiratory Exam Respiratory Exam: Clear to Ausculation Bilateral, NORMAL BREATHING PATTERN - Cardiovascular Exam Cardiovascular Exam: REGULAR RHYTHM, +S1, +S2 - GI/Abdominal Exam GI & Abdominal Exam: Soft, Normal Bowel Sounds - Extremities Exam Extremities Exam: Full ROM, Normal Capillary Refill, Normal Inspection. absent: Joint Swelling, Pedal Edema - Back Exam Back Exam: NORMAL INSPECTION - Neurological Exam Neurological Exam: Alert, Awake, CN II-XII Intact, Normal Gait, Oriented x3 - Psychiatric Exam Psychiatric exam: Normal Affect, Normal Mood Assessment and Plan - Assessment and Plan (Free Text) Assessment: CIRRHOSIS OF LIVER. Plan: PT SIGNED OUT AMA.
--- NOTE | 2018-01-09 09:08 | DS ---
HISTORY OF PRESENT ILLNESS: This is a 57-year-old [place] male who came to the emergency room with history of dyspnea on exertion. The patient complained of swelling of the legs and face. The patient is a chronic alcoholic. The patient was drinking heavily. The patient also has history of cirrhosis of the liver and hypertension. No history of nausea or vomiting. PHYSICAL EXAMINATION: VITAL SIGNS: On admission, patient's vital signs were within normal limits. HEENT: Facial edema present. Anasarca present. LUNGS: Clear. HEART: Normal. ABDOMEN: Soft and nontender. EXTREMITIES: Edema of the leg present. HOSPITAL COURSE: During the hospital course, patient was given IV diuretics. The patient improved. The patient was stabilized. The patient signed out AMA. FINAL DIAGNOSES: 1. Anasarca. 2. Cirrhosis of the liver. 3. Hypertension. Marcelino Burns MD
== END 2017-12-27 10:15 | disposition left against medical advice (07) | DRG 557 ==
LOC: C.ER 17:06 → C.3T 20:50
PROVIDERS: ADMIT Internal Medicine; ATTEND Internal Medicine
DX: K70.31 Alcoholic cirrhosis of liver with ascites (principal); K72.90 Hepatic failure, unspecified without coma; I11.0 Hypertensive heart disease with heart failure; I50.9 Heart failure, unspecified; F10.20 Alcohol dependence, uncomplicated; M16.11 Unilateral primary osteoarthritis, right hip; Z89.412 Acquired absence of left great toe; Z91.14 Patient's other noncompliance with medication regimen